=== PATIENT | female | born 1945 | race Caucasian/White ===

== ENCOUNTER 2017-09-30 11:46 | Observation (INO) | payer OTHER ==
[2017-09-30] VITALS (8 sets, daily range): BP systolic 112–154; BP diastolic 54–70; PULSE 52–70; RESP 15–19; TEMP 96.7–98.2; O2SAT 98–100
[~2017-09-30] VITALS: Ht 170.2 cm; Wt 121.0 kg
--- NOTE | 2017-09-30 12:10 | PD ---
HPI Chief Complaint: Chest Pain Time Seen by Provider: 12:03 Travel History International Travel<30 days: No Contact w/Intl Traveler<30days: No History of Present Illness HPI 72-year-old female with history of DM, HTN, CAD, HLD presents to the ED via EMS for evaluation of sudden onset 810 central chest pain. Onset at rest ~ 9 AM. Described as "like an elephant sitting on my chest." Accompanied by shortness of breath, diaphoresis, dizziness. Patient denies palpitations, fevers, chills, cough, difficulties with speech, facial droop, unilateral weakness. The event lasted approximately 10 minutes before resolving spontaneously. Patient states she is asymptomatic on presentation. She is followed by Dr. Amor, edge glue machine tender and Dr. Perez, nephrology. She states that she has a heart catheter scheduled for later this month. She had planned to have the heart cath done in [place] so she could be closer to family but due to today's event she has changed her mind. [facility] Social History Tobacco Use: No Allergies-Medications (Allergen,Severity, Reaction): Coded Allergies: No Known Allergies (Unverified , 09/30/17) Review of Systems Except as stated in HPI: all other systems reviewed are Neg Physical Exam Narrative GENERAL: Obese white female in no acute distress. SKIN: Focused skin assessment warm/dry. Well-healed surgical scars of bilateral anterior knees without signs of infection. HEAD: Normocephalic. EYES: No scleral icterus. No injection or drainage. NECK: Supple, trachea midline. No JVD or lymphadenopathy. CARDIOVASCULAR: Regular rate and rhythm without murmurs, gallops, or rubs. RESPIRATORY: Breath sounds clear and equal bilaterally. No accessory muscle use. GASTROINTESTINAL: Abdomen soft, non-tender, nondistended. MUSCULOSKELETAL: No cyanosis, or edema. NEUROLOGICAL: Awake and alert. Cranial nerves II through XII intact. Motor and sensory grossly within normal limits. Five out of 5 muscle strength in all muscle groups. Normal speech. BACK: Nontender without obvious deformity. No CVA tenderness. Data Data Last Documented VS Vital Signs Date Time Temp Pulse Resp B/P (MAP) Pulse Ox O2 Delivery O2 Flow Rate FiO2 09/30/17 13:24 54 15 98 Room Air 09/30/17 13:24 116/54 (74) Orders Orders Electrocardiogram (09/30/17 12:03) Basic Metabolic Panel (Bmp) (09/30/17 12:03) Ckmb (Isoenzyme) Profile (09/30/17 12:03) Complete Blood Count With Diff (09/30/17 12:03) Magnesium (Mg) (09/30/17 12:03) Prothrombin Time / Inr (Pt) (09/30/17 12:03) Act Partial Throm Time (Ptt) (09/30/17 12:03) Troponin I (09/30/17 12:03) Chest, Single Ap (09/30/17 12:03) Ecg Monitoring (09/30/17 12:03) Bilateral Bp Monitoring (09/30/17 12:03) Iv Access Insert/Monitor (09/30/17 12:03) Oximetry (09/30/17 12:03) Sodium Chloride 0.9% Flush (Ns Flush) (09/30/17 12:15) Ct Brain W/O Iv Contrast(Rout) (09/30/17 12:03) Aspirin Chew (Aspirin Chew) (09/30/17 12:15) Sodium Chlor 0.9% 1000 Ml Inj (Ns 1000 M (09/30/17 13:30) Type And Screen (09/30/17 13:29) Red Blood Cells (Rbc) (09/30/17 13:29) Blood Product Administration (09/30/17 13:29) Sodium Chlor 0.9% 250 Ml Inj (Ns 250 Ml (09/30/17 13:30) Diphenhydramine (Benadryl) (09/30/17 13:30) Acetaminophen (Tylenol) (09/30/17 13:30) Admit Order (Ed Use Only) (09/30/17 14:04) Labs Laboratory Tests Test 09/30/17 12:30 White Blood Count 6.1 TH/MM3 Red Blood Count 2.14 MIL/MM3 Hemoglobin 7.9 GM/DL Hematocrit 24.0 % Mean Corpuscular Volume 112.4 FL Mean Corpuscular Hemoglobin 37.0 PG Mean Corpuscular Hemoglobin Concent 32.9 % Red Cell Distribution Width 16.2 % Platelet Count 404 TH/MM3 Mean Platelet Volume 12.4 FL CBC Comment AUTO DIFF Differential Total Cells Counted 100 Neutrophils % (Manual) 37 % Band Neutrophils % 38 % Lymphocytes % 16 % Monocytes % 1 % Eosinophils % 2 % Basophils % 2 % Neutrophils # (Manual) 4.8 TH/MM3 Metamyelocytes 4 % Myelocytes 0 % Differential Comment FINAL DIFF MANUAL Platelet Estimate HIGH Platelet Morphology Comment ENLARGED Ovalocytes 2+ Keratocytes Prothrombin Time 12.0 SEC Prothromb Time International Ratio 1.1 RATIO Activated Partial Thromboplast Time 25.3 SEC Blood Urea Nitrogen 28 MG/DL Creatinine 1.62 MG/DL Random Glucose 140 MG/DL Calcium Level 9.5 MG/DL Magnesium Level 1.9 MG/DL Sodium Level 139 MEQ/L Potassium Level 4.9 MEQ/L Chloride Level 107 MEQ/L Carbon Dioxide Level 23.4 MEQ/L Anion Gap 9 MEQ/L Estimat Glomerular Filtration Rate 31 ML/MIN Total Creatine Kinase 37 U/L Troponin I LESS THAN 0.02 NG/ML MDM Medical Decision Making Medical Screen Exam Complete: Yes Emergency Medical Condition: Yes Differential Diagnosis Angina versus ACS versus TIA versus anemia versus other Narrative Course 72-year-old female with history of DM, HTN, CAD, HLD presents to the ED via EMS for evaluation of sudden onset 8/10 central chest pain. Onset at rest ~ 9 AM. Described as "like an elephant sitting on my chest." Accompanied by shortness of breath, diaphoresis, dizziness. Patient denies palpitations, fevers, chills, cough, difficulties with speech, facial droop, unilateral weakness. The event lasted approximately 10 minutes before resolving spontaneously. Patient is asymptomatic on presentation. She is followed by Dr. Amor, edge glue machine tender and Dr. Perez, nephrology. She states that she has a heart catheter scheduled for later this month. Vitals reviewed. Physical exam reveals a nontoxic- appearing obese white female in no acute distress. No appreciable M/R/G. Chest CTAB. Abdomen soft, nontender. No lower extremity edema. IV was established. Patient was administered 1 L of normal saline EKG: rate 54, sinus rhythm. HI interval 153, QRS 73, QTc 427 ms. Normal axis. No ST changes. Reviewed by Dr. Vidales CXR: No acute disease. Cardiac enzymes: Negative 1 CBC: WBC 6.1. Hemoglobin 7.9 BMP: BUN 28, creatinine 1.62 INR: 1.1 CT head: Negative noncontrast head CT per radiology read. 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 Perez at last visit. She has an upcoming visit with a skip locator. She is unsure of her baseline kidney function. Dr. Vidales performed a rectal exam, which was guaiac negative. I spoke with Dr. Amor who recommends transfusing 1 unit PRBC, will see the patient on the floor. We'll transfuse 1 unit pending type and screen. Patient is agreeable to admission to the hospital. I spoke with Dr. Kaplan who agrees to accept the patient to the medicine service. Please see medicine notes for disposition. Angelita Arias Sep 30, 2017 12:10
[2017-09-30] MEDS ORDERED: SODIUM CHLORIDE 0.9% FLUSH 10 ML FLUSH IVF PRN (12:15)
[2017-09-30] MEDS ORDERED: ASPIRIN 81 MG CHEW TAB CHEW ONE (12:15)
--- NOTE | 2017-09-30 12:35 | RADRPT ---
EXAM DATE/TIME: 09/30/2017 12:17 [facility] COMPARISON: No previous studies available for comparison. INDICATIONS : Dizziness. RADIATION DOSE: 32.74 CTDIvol (mGy) MEDICAL HISTORY : None SURGICAL HISTORY : None. ENCOUNTER: Initial ACUITY: 1 day PAIN SCALE: 0/10 LOCATION: cranial TECHNIQUE: Multiple contiguous axial images were obtained of the head. Using automated exposure control and adj ustment of the mA and/or kV according to patient size, radiation dose was kept as low as reasonably a chievable to obtain optimal diagnostic quality images. DICOM format image data is available electro nically for review and comparison. FINDINGS: CEREBRUM: The ventricles are normal for age. No evidence of midline shift, mass lesion, hemorrhage or acute in farction. No extra-axial fluid collections are seen. POSTERIOR FOSSA: The cerebellum and brainstem are intact. The 4th ventricle is midline. The cerebellopontine angle i s unremarkable. EXTRACRANIAL: The visualized portion of the orbits is intact. SKULL: The calvaria is intact. No evidence of skull fracture. CONCLUSION: Negative noncontrast head CT. Thien Stokes MD on September 30, 2017 at 12:34 Board Certified Radiologist. This report was verified electronically.
--- NOTE | 2017-09-30 12:58 | RADRPT ---
EXAM DATE/TIME: 09/30/2017 12:39 [facility] COMPARISON: No previous studies available for comparison. INDICATIONS : Chest pain. MEDICAL HISTORY : Hypertension. Diabetes mellitus type II. Coronary artery disease. SURGICAL HISTORY : None. ENCOUNTER: Initial ACUITY: 1 day PAIN SCORE: 8/10 LOCATION: Bilateral chest FINDINGS: A single view of the chest demonstrates the lungs to be symmetrically aerated without evidence of mas s, infiltrate or effusion. The cardiomediastinal contours are unremarkable. Osseous structures are intact. CONCLUSION: No acute disease. Nolberto Elkins MD FACR on September 30, 2017 at 12:57 Board Certified Radiologist. This report was verified electronically.
[2017-09-30 13:11] LABS: MEAN CELL VOLUME 112.4 FL (80.0-100.0); MEAN CORPUSCULAR HGB CONC 32.9 % (32.0-36.0); PLATELET COUNT 404 TH/MM3 (150-450); RED BLOOD COUNT 2.14 MIL/MM3 (4.00-5.30); RED CELL DISTRIBUTION WIDTH 16.2 % (11.6-17.2); WHITE BLOOD COUNT 6.1 TH/MM3 (4.0-11.0)
[2017-09-30 13:14] LABS: APTT (PATIENT) 25.3 SEC (24.3-30.1); INTERNATIONAL NORMALIZED RATIO 1.1 RATIO
[2017-09-30 13:25] LABS: ANION GAP 9 MEQ/L (5-15); BICARBONATE 23.4 MEQ/L (21.0-32.0); BLOOD UREA NITROGEN 28 MG/DL (7-18); CHLORIDE 107 MEQ/L (98-107); GLOMERULAR FILTRATION RATE 31 ML/MIN (>89); MAGNESIUM 1.9 MG/DL (1.5-2.5); POTASSIUM 4.9 MEQ/L (3.5-5.1); SODIUM (NA) 139 MEQ/L (136-145)
[2017-09-30 13:26] LABS: HEMO FLAGS AUTO DIFF
[2017-09-30] MEDS ORDERED: SODIUM CHLOR 0.9% 1000 ML INJ 1,000 ML IV ONE (13:30)
[2017-09-30] MEDS ORDERED: SODIUM CHLOR 0.9% 250 ML INJ 250 ML IV ONE (13:30)
[2017-09-30] MEDS ORDERED: diphenhydrAMINE HCL 25 MG CAP PO ONE (13:30)
[2017-09-30] MEDS ORDERED: ACETAMINOPHEN 325 MG TAB PO ONE (13:30)
[2017-09-30 13:35] LABS: BANDS 38 % (0-6); BASOPHILS 2 % (0-2); EOSINOPHILS 2 % (0-4); METAMYELOCYTES 4 % (0-1); MYELOCYTES 0 % (0-0); NEUTROPHIL # MANUAL DIFF 4.8 TH/MM3 (1.8-7.7); POLYS (SEG NEUTROPHILS) 37 % (16-70); WBC DIFF SAMPLE 100
[2017-09-30 13:36] LABS: CREATINE KINASE 37 U/L (26-192); PLATELET ESTIMATE SMEAR HIGH (NORMAL); PLATELET MORPHOLOGY ENLARGED (NORMAL)
--- NOTE | 2017-09-30 13:37 | PD ---
Physical Exam Date Seen by Provider: Sep 30, 2017 Narrative This patient presents for evaluation of chest pain. She has a history of renal insufficiency. She reports a known history of anemia. She states that that was discovered by her director of home care hospice recently. She has an appointment to be seen by a kettle girl in the near future. She reports no known GI blood loss. In addition, she is scheduled for a cardiac catheterization in the near future for evaluation of chest pain. She presented to us this morning after an episode of chest pain Data Data Last Documented VS Vital Signs Date Time Temp Pulse Resp B/P (MAP) Pulse Ox O2 Delivery O2 Flow Rate FiO2 09/30/17 13:24 54 15 98 Room Air 09/30/17 13:24 116/54 (74) Orders Orders Electrocardiogram (09/30/17 12:03) Basic Metabolic Panel (Bmp) (09/30/17 12:03) Ckmb (Isoenzyme) Profile (09/30/17 12:03) Complete Blood Count With Diff (09/30/17 12:03) Magnesium (Mg) (09/30/17 12:03) Prothrombin Time / Inr (Pt) (09/30/17 12:03) Act Partial Throm Time (Ptt) (09/30/17 12:03) Troponin I (09/30/17 12:03) Chest, Single Ap (09/30/17 12:03) Ecg Monitoring (09/30/17 12:03) Bilateral Bp Monitoring (09/30/17 12:03) Iv Access Insert/Monitor (09/30/17 12:03) Oximetry (09/30/17 12:03) Sodium Chloride 0.9% Flush (Ns Flush) (09/30/17 12:15) Ct Brain W/O Iv Contrast(Rout) (09/30/17 12:03) Aspirin Chew (Aspirin Chew) (09/30/17 12:15) Sodium Chlor 0.9% 1000 Ml Inj (Ns 1000 M (09/30/17 13:30) Type And Screen (09/30/17 13:29) Red Blood Cells (Rbc) (09/30/17 13:29) Blood Product Administration (09/30/17 13:29) Sodium Chlor 0.9% 250 Ml Inj (Ns 250 Ml (09/30/17 13:30) Diphenhydramine (Benadryl) (09/30/17 13:30) Acetaminophen (Tylenol) (09/30/17 13:30) Labs Laboratory Tests Test 09/30/17 12:30 White Blood Count 6.1 TH/MM3 Red Blood Count 2.14 MIL/MM3 Hemoglobin 7.9 GM/DL Hematocrit 24.0 % Mean Corpuscular Volume 112.4 FL Mean Corpuscular Hemoglobin 37.0 PG Mean Corpuscular Hemoglobin Concent 32.9 % Red Cell Distribution Width 16.2 % Platelet Count 404 TH/MM3 Mean Platelet Volume 12.4 FL CBC Comment AUTO DIFF Prothrombin Time 12.0 SEC Prothromb Time International Ratio 1.1 RATIO Activated Partial Thromboplast Time 25.3 SEC Blood Urea Nitrogen 28 MG/DL Creatinine 1.62 MG/DL Random Glucose 140 MG/DL Calcium Level 9.5 MG/DL Magnesium Level 1.9 MG/DL Sodium Level 139 MEQ/L Potassium Level 4.9 MEQ/L Chloride Level 107 MEQ/L Carbon Dioxide Level 23.4 MEQ/L Anion Gap 9 MEQ/L Estimat Glomerular Filtration Rate 31 ML/MIN MDM Supervised Visit with MIKEY: Yes Narrative Course I, Dr. Vidales, have reviewed the advance practice practitioner's documentation and am in agreement, met with the patient face to face, made the diagnosis, and the medical decision making was done by me. *My assessment and Findings: Patient is awake and alert and in no acute distress. She does look pale. Rectal exam shows brown stool. Please see Angelita Arias PA-C's note for results of laboratory and radiographic evaluation, ED course, final diagnosis and disposition HemaPrompt Test Point of Care Internal Pos. & Neg. Controls: Passed Fecal Specimen Occult Blood: Negative Alexandria Vidales MD Sep 30, 2017 13:37
[2017-09-30 13:39] LABS: OVALOCYTES 2+ (NORMAL)
[2017-09-30 13:40] LABS: SCAN/DIFF FINAL DIFF MANUAL
[2017-09-30] MEDS ORDERED: GLUCAGON 1 MG/ML VIAL OTHER PRN (15:15)
[2017-09-30] MEDS ORDERED: MAGNESIUM HYDROXIDE SUSP 30 ML CUP PO PRN (15:15)
[2017-09-30] MEDS ORDERED: NITROGLYCERIN 0.4 MG SL 25 TABS/BTL SL PRN (15:15)
[2017-09-30] MEDS ORDERED: ACETAMINOPHEN 325 MG TAB PO PRN ×2 (15:15)
[2017-09-30] MEDS ORDERED: NALOXONE HCL 0.4 MG/ML AMP IV PUSH PRN (15:15)
[2017-09-30] MEDS ORDERED: BISACODYL 10 MG SUPP RECTAL PRN (15:15)
[2017-09-30] MEDS ORDERED: LACTULOSE SYRUP 20 GM/30 ML CUP PO PRN (15:15)
[2017-09-30] MEDS ORDERED: SENNOSIDES 8.6 MG TAB PO PRN (15:15)
[2017-09-30] MEDS ORDERED: SODIUM CHLORIDE 0.9% FLUSH 10 ML FLUSH IV FLUSH PRN ×2 (15:15)
[2017-09-30] MEDS ORDERED: MORPHINE SULFATE 4 MG/ML INJ IV PUSH PRN ×2 (15:15)
[2017-09-30] MEDS ORDERED: ONDANSETRON HCL 4 MG/2 ML VIAL IVP PRN (15:15)
[2017-09-30] MEDS ORDERED: ALUMINUM/MAGNESIUM/SIMETH 30 ML CUP PO PRN (15:15)
[2017-09-30] MEDS ORDERED: oxyCODONE/ACETAMINOPHEN 10 MG/325 MG TAB PO PRN (15:15)
[2017-09-30] MEDS ORDERED: PROCHLORPERAZINE 25 MG SUPP RECTAL PRN (15:15)
[2017-09-30] MEDS ORDERED: oxyCODONE/ACETAMINOPHEN 5 MG/325 MG TAB PO PRN (15:15)
[2017-09-30] MEDS ORDERED: DEXTROSE 50% IN WATER 50 ML VIAL(D50) IV PUSH PRN (15:15)
--- NOTE | 2017-09-30 15:32 | HHI.HP ---
[facility] Service [place] [facility] Primary Care Physician Non-Staff Admission Diagnosis symptomatic anemia, chest pain Diagnoses: (1) Chest pain Diagnosis: Principal (2) Diabetes Diagnosis: Secondary (3) Obese Diagnosis: Secondary (4) Hyperlipidemia Diagnosis: Secondary (5) Symptomatic anemia Diagnosis: Principal (6) Renal insufficiency Diagnosis: Secondary Chief Complaint: Chest pain Travel History International Travel<30 Days: No Contact w/Intl Traveler <30 Da: No History of Present Illness Patient is a 72-year-old female with history of diabetes mellitus, hypertension, coronary artery disease, hyperlipidemia, who presents to the emergency department via EMS for evaluation of sudden onset of 8 out of 10 in the central chest pain. Onset was at rest about 9 AM this morning. She described it as "like an elephant sitting on my chest". Came in with some shortness breath some diaphoresis and dizziness. Patient denies any palpitations denies any fevers denies any chills denies any cough denies any difficulty with speech denies any facial droop or unilateral weakness. Event lasted about 10 minutes before resolving spontaneously states that she has no chest pain at present. She is followed by Dr. Dusty Amor railroad design consultant and Dr. Perez of nephrology. Has had a heart catheterization scheduled for later this month in [place]. Decided to come into the hospital today for this worsening chest pain Was found to have an anemia of 7.9. We'll transfuse 1 unit and trend troponins and place her in observation for evaluation by cardiology Review of Systems Constitutional: COMPLAINS OF: Fatigue, DENIES: Diaphoretic episodes, Fever, Weight gain, Weight loss, Chills, Dizziness, Change in appetite Endocrine: DENIES: Abnorml menstrual pattern, Heat/cold intolerance, Polydipsia , Polyuria, Polyphagia Eyes: DENIES: Blurred vision, Diplopia, Eye inflammation, Eye pain, Vision loss Ears, nose, mouth, throat: DENIES: Tinnitus, Hearing loss, Vertigo, Nasal discharge Respiratory: DENIES: Apneas, Cough, Snoring, Wheezing Cardiovascular: COMPLAINS OF: Chest pain, Dyspnea on Exertion, DENIES: Palpitations, Syncope, PND, Lower Extremity Edema Gastrointestinal: DENIES: Abdominal pain, Black stools, Bloody stools, Constipation Genitourinary: DENIES: Abnormal vaginal bleeding, Dysmenorrhea, Dyspareunia Musculoskeletal: DENIES: Joint pain, Muscle aches, Stiffness Integumentary: DENIES: Abnormal pigmentation, Pruritus, Rash Hematologic/lymphatic: DENIES: Bruising, Lymphadenopathy Immunologic/allergic: DENIES: Eczema, Urticaria Neurologic: DENIES: Abnormal gait, Headache, Localized weakness, Paresthesias, Seizures, Speech Problems, Tremor, Poor Balance Psychiatric: DENIES: Anxiety, Confusion, Mood changes, Depression, Hallucinations, Agitation, Suicidal Ideation, Homicidal Ideation Past Family Social History Past Medical History Diabetes Hypertension Coronary artery disease Hyperlipidemia Obesity Hypothyroidism Orthopedic surgery bilateral total knees right shoulder surgery Past Surgical History Bilateral total knee replacement right shoulder surgery cholecystectomy Reported Medications Has not been obtained yet Allergies: Coded Allergies: No Known Allergies (Unverified , 09/30/17) Active Ordered Medications Current Medications Sodium Chloride (NS Flush) 2 ml UNSCH PRN IVF FLUSH AFTER USING IV ACCESS; Start 09/30/17 at 12:15 Aspirin (Aspirin Chew) 324 mg ONCE ONCE CHEW Last administered on 09/30/17 12 :30; Start 09/30/17 at 12:15; Stop 09/30/17 at 12:16; Status DC Sodium Chloride 1,000 ml @ 999 mls/hr BOLUS ONCE IV Last administered on 09/30 13:36; Start 09/30/17 at 13:30; Stop 09/30/17 at 14:30; Status DC Sodium Chloride 250 ml @ 15 mls/hr ONCE ONCE IV ; Start 09/30/17 at 13:30; Stop 10/01/17 at 06:09 Diphenhydramine HCl (Benadryl) 25 mg ONCE ONCE PO ; Start 09/30/17 at 13:30; Stop 09/30/17 at 13:32; Status DC Acetaminophen (Tylenol) 650 mg ONCE ONCE PO ; Start 09/30/17 at 13:30; Stop at 13:32; Status DC Dextrose (D50w (Vial) Inj) 50 ml UNSCH PRN IV PUSH HYPOGLYCEMIA-SEE COMMENTS; Start 09/30/17 at 15:15; Status UNV Glucagon (Glucagon Inj) 1 mg UNSCH PRN OTHER HYPOGLYCEMIA-SEE COMMENTS; Start 09/30/17 at 15:15; Status UNV Insulin Aspart (NovoLOG SUPPLEMENTAL SCALE) 1 ACHS SLIDING SCALE SQ ; Start at 17:00; Status UNV Family History Hypertension diabetes Social History Denies tobacco abuse Occasional rare alcoholic beverage Denies any illicit Physical Exam Vital Signs Vital Signs Date Time Temp Pulse Resp B/P (MAP) Pulse Ox O2 Delivery O2 Flow Rate FiO2 09/30/17 13:24 54 15 98 Room Air 09/30/17 13:24 57 15 116/54 (74) 98 Room Air 09/30/17 13:24 54 15 116/54 (74) 99 Room Air 124/58 (80) 09/30/17 13:24 52 15 99 Room Air Physical Exam GENERAL: This is a well-nourished, well-developed patient, in no apparent distress. SKIN: No rashes, ecchymoses or lesions. Cool and dry. HEAD: Atraumatic. Normocephalic. No temporal or scalp tenderness. EYES: Pupils equal round and reactive. Extraocular motions intact. No scleral icterus. No injection or drainage. ENT: Nose without bleeding, purulent drainage or septal hematoma. Throat without erythema, tonsillar hypertrophy or exudate. Uvula midline. Airway patent. Tongue is midline NECK: Trachea midline. No JVD or lymphadenopathy. Supple, nontender, no meningeal signs. CARDIOVASCULAR: Regular rate and rhythm without murmurs, gallops, or rubs. S1 and S2 no S3 or S4 RESPIRATORY: Clear to auscultation. Breath sounds equal bilaterally. No wheezes , rales, or rhonchi. GASTROINTESTINAL: Abdomen soft, non-tender, nondistended. No hepato-splenomegaly , or palpable masses. No guarding. Obese MUSCULOSKELETAL: Extremities without clubbing, cyanosis, +1 edema bilateral lower extremities. No joint tenderness, effusion, noted. No calf tenderness. Negative Homans sign bilaterally. NEUROLOGICAL: Awake and alert. Cranial nerves II through XII intact. Motor and sensory grossly within normal limits. Five out of 5 muscle strength in all muscle groups. Normal speech. Insight and judgment is good Mood and behaviors are appropriate Laboratory Laboratory Tests Test 09/30/17 12:30 White Blood Count 6.1 Red Blood Count 2.14 Hemoglobin 7.9 Hematocrit 24.0 Mean Corpuscular Volume 112.4 Mean Corpuscular Hemoglobin 37.0 Mean Corpuscular Hemoglobin Concent 32.9 Red Cell Distribution Width 16.2 Platelet Count 404 Mean Platelet Volume 12.4 CBC Comment AUTO DIFF Differential Total Cells Counted 100 Neutrophils % (Manual) 37 Band Neutrophils % 38 Lymphocytes % 16 Monocytes % 1 Eosinophils % 2 Basophils % 2 Neutrophils # (Manual) 4.8 Metamyelocytes 4 Myelocytes 0 Differential Comment FINAL DIFF MANUAL Platelet Estimate HIGH Platelet Morphology Comment ENLARGED Ovalocytes 2+ Keratocytes Prothrombin Time 12.0 Prothromb Time International Ratio 1.1 Activated Partial Thromboplast Time 25.3 Blood Urea Nitrogen 28 Creatinine 1.62 Random Glucose 140 Calcium Level 9.5 Magnesium Level 1.9 Sodium Level 139 Potassium Level 4.9 Chloride Level 107 Carbon Dioxide Level 23.4 Anion Gap 9 Estimat Glomerular Filtration Rate 31 Total Creatine Kinase 37 Troponin I LESS THAN 0.02 Result Diagram: 09/30/17 1230 09/30/17 1230 Imaging Last Impressions Head CT 09/30/17 1203 Signed Impressions: Service Date/Time: Saturday, September 30, 2017 12:17 - CONCLUSION: Negative noncontrast head CT. Thien Stokes MD Chest X-Ray 09/30/17 1203 Signed Impressions: Service Date/Time: Saturday, September 30, 2017 12:39 - CONCLUSION: No acute disease. Nolberto Elkins MD FACR Caprini VTE Risk Assessment Caprini VTE Risk Assessment: Mod/High Risk (score >= 2) Caprini Risk Assessment Model Point Value = 1 Point Value = 2 Point Value = 3 Point Value = 5 Age 41-60 Minor surgery BMI > 25 kg/m2 Swollen legs Varicose veins or History of unexplained or recurrent spontaneous Oral contraceptives or hormone replacement Sepsis (< 1 month) Serious lung disease, including pneumonia (< 1 month) Abnormal pulmonary function Acute myocardial infarction Congestive heart failure (< 1 month) History of inflammatory bowel disease Medical patient at bed rest Age 61-74 Arthroscopic surgery Major open surgery (> 45 min) Laparoscopic surgery (> 45 min) Malignancy Confined to bed (> 72 hours) Immobilizing plaster cast Central venous access Age >= 75 History of VTE Family history of VTE Factor V Leiden Prothrombin [id number] Lupus anticoagulant Anticardiolipin antibodies Elevated serum homocysteine Heparin-induced thrombocytopenia Other congenital or acquired thrombophilia Stroke (< 1 month) Elective arthroplasty Hip, pelvis, or leg fracture Acute spinal cord injury (< 1 month) Prophylaxis Regimen Total Risk Factor Score Risk Level Prophylaxis Regimen 0-1 Low Early ambulation 2 Moderate Order ONE of the following: *Sequential Compression Device (SCD) *Heparin 5000 units SQ BID 3-4 Higher Order ONE of the following medications: *Heparin 5000 units SQ TID *Enoxaparin/Lovenox 40 mg SQ daily (WT < 150 kg, CrCl > 30 mL/min) *Enoxaparin/Lovenox 30 mg SQ daily (WT < 150 kg, CrCl > 10-29 mL/min) *Enoxaparin/Lovenox 30 mg SQ BID (WT < 150 kg, CrCl > 30 mL/min) AND/OR *Sequential Compression Device (SCD) 5 or more Highest Order ONE of the following medications: *Heparin 5000 units SQ TID (Preferred with Epidurals) *Enoxaparin/Lovenox 40 mg SQ daily (WT < 150 kg, CrCl > 30 mL/min) *Enoxaparin/Lovenox 30 mg SQ daily (WT < 150 kg, CrCl > 10-29 mL/min) *Enoxaparin/Lovenox 30 mg SQ BID (WT < 150 kg, CrCl > 30 mL/min) AND *Sequential Compression Device (SCD) Assessment and Plan Problem List: (1) Diabetes ICD Code: E11.9 - Type 2 diabetes mellitus without complications (2) Hyperlipidemia ICD Code: E78.5 - Hyperlipidemia, unspecified (3) Obese ICD Code: E66.9 - Obesity, unspecified (4) Renal insufficiency ICD Code: N28.9 - Disorder of kidney and ureter, unspecified (5) Chest pain ICD Code: R07.9 - Chest pain, unspecified (6) Symptomatic anemia ICD Code: D64.9 - Anemia, unspecified Assessment and Plan Chest pain atypical with negative troponins and cardiac enzymes Trend troponins Echocardiogram Consult cardiology Dr. Amor May need cardiac catheterization Symptomatic anemia we'll transfuse 1 unit packed red blood cells per Dr. Amor's request Probable anemia of chronic disease Chronic renal insufficiency may have a component affecting his blood cell production Diabetes mellitus Continue sliding scale coverage Accu-Cheks before meals and at bedtime diabetic diet Hyperlipidemia continue home meds once they're established Obesity recommended weight loss Hypertension try to obtain home medications Home medications need to be obtained and reconciled has not been done by nurse A.m. labs Trend troponins Discussed with patient, RN and PA SCDs at this time and DIANA sanders Had a heme-negative stool Place in observation GI prophylaxis DVT prophylaxis with DIANA sanders and SCDs Code Status Full code Discussed Condition With Discussed with patient, RN, PA, and physician. Nolberto Kaplan DO Sep 30, 2017 15:32
[2017-09-30] MEDS: INSULIN ASPART SUPPLEMENTAL SCALE SQ SCH ×2 (17:00→21:56)
[2017-09-30 18:07] LABS: CREATINE KINASE 30 U/L (26-192)
--- NOTE | 2017-09-30 18:21 | EKG ---
Date Performed: 09/30/2017 Time Performed: 16:52:12 PTAGE: 72 years EKG: SINUS BRADYCARDIA BORDERLINE ECG No significant change from prior electrocardiogram. PREVIOUS TRACING : 09/30/2017 12.39 DOCTOR: Rico Cuevas Interpretating Date/Time 09/30/2017 18:19:58
--- NOTE | 2017-09-30 19:43 | EKG ---
Date Performed: 09/30/2017 Time Performed: 12:39:20 PTAGE: 72 years EKG: SINUS BRADYCARDIA BORDERLINE ECG NO PREVIOUS TRACING DOCTOR: Rico Cuevas Interpretating Date/Time 09/30/2017 19:42:03
[2017-09-30] MEDS ORDERED: SODIUM CHLORIDE 0.9% FLUSH 10 ML FLUSH IV FLUSH SCH (21:00)
[2017-09-30] MEDS: SODIUM CHLORIDE 0.9% FLUSH 10 ML FLUSH IV FLUSH SCH (21:54)
[2017-09-30] MEDS: DOCUSATE SODIUM 50 MG/SENNA 8.6 MG TAB PO SCH (21:55)
--- NOTE | 2017-09-30 23:21 | MB ---
cc: DUSTY REN DO DATE OF CONSULTATION September 30, 2017 REASON FOR CONSULTATION Unstable angina. HISTORY OF PRESENT ILLNESS Nica Mcnair is a pleasant 72-year-old female whom I see in the office who presented to [facility] on September 30, 2017. I previously saw her in the office earlier this week and at that time it was a new evaluation for chest pain. In seeing her she was having chest pain which was coming on with exertion and relieved with rest. This seemed to be coming on more and more frequently and lasting longer. I placed her on antianginal medications but overall I was concerned for coronary insufficiency and felt that she was too high risk for a stress test and should undergo coronary angiogram. This was originally scheduled for later in September due to her wanting to go home over . I explained to her that if she had further chest pain she should consider coming into the emergency room due to the overall concern for her symptoms. This morning she had onset of chest pain at around 9:00 a.m. while at rest. She said it felt like an elephant was sitting on her chest. She decided to sit down and it finally started going away. She then started doing stuff around the house and got lightheaded and short of breath. Chest pain came back and at that time she felt like she should come to the emergency room. In seeing her she is currently resting, hemodynamically stable without chest pain or shortness of breath. PAST MEDICAL HISTORY 1. Diabetes. 2. Hypertension. 3. Hyperlipidemia. 4. Chronic kidney disease. 5. Obesity. 6. Hypothyroidism. 7. Anemia. PAST SURGICAL HISTORY 1. Bilateral total knee replacement. 2. Right shoulder surgery. 3. Cholecystectomy. ALLERGIES NO KNOWN DRUG ALLERGIES. MEDICATIONS 1. Recently placed on Isosorbide mononitrate 30 milligrams daily. 2. Recently started on Lipitor 40 milligrams every night. 3. Recently started on Metoprolol tartrate 25 milligrams b.i.d. 4. Recently started on Nitroglycerin sublingual. 5. Glyburide 2.5 milligrams daily. 6. Synthroid 75 micrograms daily. 7. Lisinopril 20 milligrams daily. FAMILY HISTORY Denies premature coronary artery disease or sudden cardiac within the family. SOCIAL HISTORY Denies tobacco, alcohol or drug abuse. REVIEW OF SYSTEMS 14-systems were reviewed including osteopathic, pertinent positives and negatives above, otherwise negative. PHYSICAL EXAMINATION VITAL SIGNS: Temperature 98.2, heart rate 60, blood pressure 126/57, respirations 18, pulse ox 100% on room air. GENERAL: In general, the patient appears well in no acute distress. Alert, awake and oriented x3. HEENT: Extraocular muscles intact. Mucous membranes moist. NECK: Neck is supple. No JVD at 45 degrees. No carotid bruits heard bilaterally. Carotid upstroke is brisk in nature. HEART: Heart is regular rate and rhythm. Positive first and second heart sounds with a 1/6 crescendo-decrescendo murmur to the right sternal border. LUNGS: Lungs are clear to auscultation bilaterally. No wheezes, rales or rhonchi. ABDOMEN: Soft, nontender, nondistended. No organomegaly noted. EXTREMITIES: Show no clubbing, cyanosis or edema. Femoral and distal pulses intact bilaterally. NEUROLOGICALLY: No focal deficits. SKIN: Warm, dry and intact. OSTEOPATHIC: No kyphoscoliosis, lordosis or paraspinal tender points. LABORATORY FINDINGS Hemoglobin 7.9, hematocrit 24.0, platelets 404. Potassium 4.9, BUN 28, creatinine 1.62. Troponin negative x2. CARDIOLOGY STUDIES Electrocardiogram (September 30, 2017 at 16:52) sinus bradycardia, no acute ST-T wave changes. IMPRESSION 1. Chest pain concerning for coronary insufficiency. 2. Unstable angina. 3. Diabetes. 4. Hyperlipidemia. 5. Obesity. 6. Chronic kidney disease. 7. Possible symptomatic anemia. 8. Macrocytic anemia of unknown cause. RECOMMENDATIONS 1. Ms. Mcnair appears to have presented with unstable angina. Because of this consideration will be made for cardiac catheterization in the morning. Risks, benefits and alternatives were explained to her and she consents as such. 2. She will be transfused 1 unit of packed red blood cells and if hemoglobin is appropriate in the morning we will plan for possible coronary angiogram. If hemoglobin is still low she may need further workup of her anemia before deciding on coronary angiogram. 3. Will check a 2-D echo to look at her overall left ventricular function, cardiac structure and possible valvulopathies. 4. She will be given gentle hydration due to her chronic kidney disease. 5. Further recommendations will be made after coronary visualization. Thank you for allowing me to see Nica Mcnair. If there are any questions please do not hesitate to call. Dusty MOSS/CHARLEY /10:29 PM /11:05 PM
[2017-10-01] VITALS (16 sets, daily range): BP systolic 107–129; BP diastolic 53–79; PULSE 50–71; RESP 16–22; TEMP 97.7–98.7; O2SAT 94–98
[2017-10-01 01:15] LABS: MAGNESIUM 1.7 MG/DL (1.5-2.5)
[2017-10-01 01:19] LABS: CREATINE KINASE 28 U/L (26-192)
[2017-10-01 04:26] LABS: AUTOMATED NEUTROPHIL # 1.9 TH/MM3 (1.8-7.7); BASOPHIL # 0.1 TH/MM3 (0-0.2); BASOPHIL % 2.5 % (0.0-2.0); EOSINOPHIL # 0.1 TH/MM3 (0-0.4); EOSINOPHIL % 3.4 % (0.0-4.0); HEMATOCRIT 22.3 % (35.0-46.0); LYMPH % 38.1 % (9.0-44.0); LYMPHOCYTE # 1.4 TH/MM3 (1.0-4.8); MEAN CORPUSCULAR HEMOGLOBIN 33.9 PG (27.0-34.0); MONO % 6.7 % (0.0-8.0); NEUT % 49.3 % (16.0-70.0); PLATELET COUNT 316 TH/MM3 (150-450); RED BLOOD COUNT 2.11 MIL/MM3 (4.00-5.30); WHITE BLOOD COUNT 3.8 TH/MM3 (4.0-11.0)
[2017-10-01 04:52] LABS: ALKALINE PHOSPHATASE 59 U/L (45-117); ALT (GPT) 16 U/L (10-53); ANION GAP 7 MEQ/L (5-15); AST (GOT) 13 U/L (15-37); BICARBONATE 27.2 MEQ/L (21.0-32.0); BLOOD UREA NITROGEN 31 MG/DL (7-18); CHLORIDE 110 MEQ/L (98-107); CREATINE KINASE 27 U/L (26-192); FREE T4 1.07 NG/DL (0.76-1.46); GLOMERULAR FILTRATION RATE 29 ML/MIN (>89); HDL CHOLESTEROL 37.8 MG/DL (40.0-60.0); LDL CHOLESTEROL 30 MG/DL (0-99); MAGNESIUM 1.8 MG/DL (1.5-2.5); POTASSIUM 4.4 MEQ/L (3.5-5.1); SODIUM (NA) 144 MEQ/L (136-145); TOTAL BILIRUBIN ADULT 0.4 MG/DL (0.2-1.0)
[2017-10-01 05:00] LABS: HEMO FLAGS AUTO DIFF; PLATELET ESTIMATE SMEAR NORMAL (NORMAL); SCAN/DIFF AUTO DIFF CONFIRMED
[2017-10-01 05:01] LABS: PLATELET MORPHOLOGY ENLARGED (NORMAL)
[2017-10-01] MEDS ORDERED: LEVO25TA4 PO (05:10)
[2017-10-01] MEDS ORDERED: LISI2.5T3 PO (05:10)
[2017-10-01] MEDS ORDERED: ISOS30TA3 PO (05:10)
[2017-10-01] MEDS ORDERED: GEMF600T PO (05:10)
[2017-10-01] MEDS ORDERED: METO25TA3 PO (05:10)
[2017-10-01] MEDS ORDERED: ATOR40TA16 PO (05:10)
--- NOTE | 2017-10-01 07:35 | EKG ---
Date Performed: 10/01/2017 Time Performed: 00:54:53 PTAGE: 72 years EKG: Sinus rhythm NORMAL ECG No significant change from prior electrocardiogram. PREVIOUS TRACING : 09/30/2017 16.52 DOCTOR: Rico Cuevas Interpretating Date/Time 10/01/2017 07:33:35
[2017-10-01] MEDS: INSULIN ASPART SUPPLEMENTAL SCALE SQ SCH ×4 (08:00→21:00)
[2017-10-01] MEDS ORDERED: SODIUM CHLOR 0.9% 1000 ML INJ 1,000 ML IV ONE (08:30)
[2017-10-01 10:18] LABS: TRANSFERRIN IRON PROFILE 213 MG/DL (200-360)
[2017-10-01] MEDS ORDERED: SODIUM CHLOR 0.9% 250 ML INJ 250 ML IV ONE (10:30)
--- NOTE | 2017-10-01 10:32 | PD.CARD.PN ---
Subjective Subjective Remarks No events overnight No chest pain/SOB Objective Medications Current Medications Medications (Trade) Dose Ordered Sig/Riley Route Start Time Stop Time Status Last Admin (D50w (Vial) Inj) 50 ml UNSCH PRN IV PUSH 09/30/17 15:15 (Glucagon Inj) 1 mg UNSCH PRN OTHER 09/30/17 15:15 (NS Flush) 2 ml BID IV FLUSH 09/30/17 21:00 09/30/17 21:54 (NS Flush) 2 ml UNSCH PRN IV FLUSH 09/30/17 15:15 (Aspirin Chew) 162 mg DAILY PO 10/01/17 09:00 (Nitrostat Sl) 0.4 mg Q5M PRN SL 09/30/17 15:15 (Protonix) 40 mg DAILY PO 10/01/17 09:00 (Tylenol) 650 mg Q4H PRN PO 09/30/17 15:15 (Zofran Inj) 4 mg Q6H PRN IVP 09/30/17 15:15 (Compazine Supp) 25 mg Q12H PRN RECTAL 09/30/17 15:15 (Tylenol) 650 mg Q6H PRN PO 09/30/17 15:15 (Percocet 5-325 Mg) 1 tab Q6H PRN PO 09/30/17 15:15 (Percocet 10-325 Mg) 1 tab Q6H PRN PO 09/30/17 15:15 (Morphine Inj) 2 mg Q3H PRN IV PUSH 09/30/17 15:15 (Morphine Inj) 4 mg Q3H PRN IV PUSH 09/30/17 15:15 (Narcan Inj) 0.4 mg UNSCH PRN IV PUSH 09/30/17 15:15 (Sasha-Colace) 1 tab BID PO 09/30/17 21:00 09/30/17 21:55 (Senokot) 17.2 mg Q12H PRN PO 09/30/17 15:15 (Dulcolax Supp) 10 mg DAILY PRN RECTAL 09/30/17 15:15 (Lactulose Liq) 30 ml DAILY PRN PO 09/30/17 15:15 (NovoLOG SUPPLEMENTAL SCALE) 1 ACHS SLIDING SCALE SQ 10/01/17 08:00 (Lipitor) 40 mg HS PO 10/01/17 21:00 (Lopid) 600 mg BIDAC PO 10/01/17 16:00 Future Hold (Imdur) 30 mg DAILY PO 10/01/17 09:00 (Synthroid) 25 mcg DAILY@0600 PO 10/01/17 09:00 (Lopressor) 25 mg BID PO 10/01/17 09:00 Sodium Chloride 1,000 ml @ 70 mls/hr [id number] ONCE IV 10/01/17 08:30 10/01/17 22:47 Sodium Chloride 250 ml @ 15 mls/hr ONCE ONCE IV 10/01/17 10:30 10/02/17 03:09 UNV Vital Signs / I&O Vital Signs Date Time Temp Pulse Resp B/P (MAP) Pulse Ox O2 Delivery O2 Flow Rate FiO2 10/01/17 08:15 68 10/01/17 07:56 98.1 71 22 129/60 (83) 95 10/01/17 05:07 97 10/01/17 04:23 58 10/01/17 03:48 97.7 62 19 118/59 (78) 96 10/01/17 03:24 58 10/01/17 00:05 71 10/01/17 00:00 98.3 67 18 107/54 (71) 97 09/30/17 21:00 98.2 62 18 112/54 98 09/30/17 20:12 97.8 58 19 124/56 (78) 99 09/30/17 18:25 97.4 70 18 143/65 98 09/30/17 17:56 96.7 62 18 154/67 98 09/30/17 17:00 60 09/30/17 16:43 98.2 59 18 126/57 (80) 100 09/30/17 15:59 68 15 118/70 (86) 98 09/30/17 13:24 54 15 98 Room Air 09/30/17 13:24 57 15 116/54 (74) 98 Room Air 09/30/17 13:24 54 15 116/54 (74) 99 Room Air 124/58 (80) 09/30/17 13:24 52 15 99 Room Air I/O 09/30/17 09/30/17 09/30/17 10/01/17 10/01/17 10/01/17 07:00 15:00 23:00 07:00 15:00 23:00 Intake Total 1000 ml 460 ml Balance 1000 ml 460 ml Intake IV Total 1000 ml Packed Cells 400 ml Blood Product IV Normal Saline Flush 60 ml Physical Exam GENERAL: NAD, AAOx3 SKIN: Warm and dry. HEAD: Atraumatic. Normocephalic. EYES: Pupils equal and round. No scleral icterus. No injection or drainage. ENT: No nasal bleeding or discharge. Mucous membranes pink and moist. NECK: Trachea midline. No JVD. CARDIOVASCULAR: Regular rate and rhythm. RESPIRATORY: No accessory muscle use. Clear to auscultation. Breath sounds equal bilaterally. GASTROINTESTINAL: Abdomen soft, non-tender, nondistended. Hepatic and splenic margins not palpable. MUSCULOSKELETAL: Extremities without clubbing, cyanosis, or edema. No obvious deformities. NEUROLOGICAL: Awake and alert. No obvious cranial nerve deficits. Motor grossly within normal limits. Five out of 5 muscle strength in the arms and legs. Normal speech. PSYCHIATRIC: Appropriate mood and affect; insight and judgment normal. Laboratory Laboratory Tests Test 09/30/17 12:30 09/30/17 16:50 10/01/17 00:30 10/01/17 04:01 White Blood Count 6.1 TH/MM3 3.8 TH/MM3 Red Blood Count 2.14 MIL/MM3 2.11 MIL/MM3 Hemoglobin 7.9 GM/DL 7.1 GM/DL Hematocrit 24.0 % 22.3 % Mean Corpuscular Volume 112.4 FL 106.0 FL Mean Corpuscular Hemoglobin 37.0 PG 33.9 PG Mean Corpuscular Hemoglobin Concent 32.9 % 32.0 % Red Cell Distribution Width 16.2 % 24.0 % Platelet Count 404 TH/MM3 316 TH/MM3 Mean Platelet Volume 12.4 FL 11.8 FL CBC Comment AUTO DIFF AUTO DIFF Differential Total Cells Counted 100 Neutrophils % (Manual) 37 % Band Neutrophils % 38 % Lymphocytes % 16 % Monocytes % 1 % Eosinophils % 2 % Basophils % 2 % Neutrophils # (Manual) 4.8 TH/MM3 Metamyelocytes 4 % Myelocytes 0 % Differential Comment FINAL DIFF MANUAL AUTO DIFF CONFIRMED Platelet Estimate HIGH NORMAL Platelet Morphology Comment ENLARGED ENLARGED Ovalocytes 2+ Keratocytes Prothrombin Time 12.0 SEC Prothromb Time International Ratio 1.1 RATIO Activated Partial Thromboplast Time 25.3 SEC Blood Urea Nitrogen 28 MG/DL 31 MG/DL Creatinine 1.62 MG/DL 1.74 MG/DL Random Glucose 140 MG/DL 110 MG/DL Calcium Level 9.5 MG/DL 8.5 MG/DL Magnesium Level 1.9 MG/DL 1.7 MG/DL 1.8 MG/DL Sodium Level 139 MEQ/L 144 MEQ/L Potassium Level 4.9 MEQ/L 4.4 MEQ/L Chloride Level 107 MEQ/L 110 MEQ/L Carbon Dioxide Level 23.4 MEQ/L 27.2 MEQ/L Anion Gap 9 MEQ/L 7 MEQ/L Estimat Glomerular Filtration Rate 31 ML/MIN 29 ML/MIN Total Creatine Kinase 37 U/L 30 U/L 28 U/L 27 U/L Troponin I LESS THAN 0.02 NG/ML LESS THAN 0.02 NG/ML LESS THAN 0.02 NG/ML LESS THAN 0.02 NG/ML B-Type Natriuretic Peptide 143 PG/ML Neutrophils (%) (Auto) 49.3 % Lymphocytes (%) (Auto) 38.1 % Monocytes (%) (Auto) 6.7 % Eosinophils (%) (Auto) 3.4 % Basophils (%) (Auto) 2.5 % Neutrophils # (Auto) 1.9 TH/MM3 Lymphocytes # (Auto) 1.4 TH/MM3 Monocytes # (Auto) 0.3 TH/MM3 Eosinophils # (Auto) 0.1 TH/MM3 Basophils # (Auto) 0.1 TH/MM3 Total Protein 6.4 GM/DL Albumin 3.3 GM/DL Phosphorus Level 4.0 MG/DL Alkaline Phosphatase 59 U/L Aspartate Amino Transf (AST/SGOT) 13 U/L Alanine Aminotransferase (ALT/SGPT) 16 U/L Total Bilirubin 0.4 MG/DL Iron Level 155 MCG/DL Total Iron Binding Capacity 298 MCG/DL Percent Iron Saturation 52.0 % Triglycerides Level 128 MG/DL Cholesterol Level 93 MG/DL LDL Cholesterol 30 MG/DL HDL Cholesterol 37.8 MG/DL Cholesterol/HDL Ratio 2.46 RATIO Free Thyroxine 1.07 NG/DL Thyroid Stimulating Hormone 3rd Gen 2.780 uIU/ML Imaging Last [address] 09/30/17 1203 Signed Impressions: Service Date/Time: Saturday, September 30, 2017 12:17 - CONCLUSION: Negative noncontrast head CT. Thien Stokes MD Chest X-Ray 09/30/17 1203 Signed Impressions: Service Date/Time: Saturday, September 30, 2017 12:39 - CONCLUSION: No acute disease. Nolberto Elkins MD FACR Assessment and Plan Problem List: (1) Chest pain ICD Codes: R07.9 - Chest pain, unspecified (2) Macrocytic anemia ICD Codes: D53.9 - Nutritional anemia, unspecified (3) Symptomatic anemia ICD Codes: D64.9 - Anemia, unspecified (4) Renal insufficiency ICD Codes: N28.9 - Disorder of kidney and ureter, unspecified (5) Obese ICD Codes: E66.9 - Obesity, unspecified (6) Hyperlipidemia ICD Codes: E78.5 - Hyperlipidemia, unspecified (7) Diabetes ICD Codes: E11.9 - Type 2 diabetes mellitus without complications Assessment and Plan 1) Anemia Received 1 unit PRBC last night, drop in hemoglobin today Work up of anemia per PCP 2) Unstable angina Will hold off on cardiac catheterization during anemia work up Dusty Amor DO Oct 01, 2017 10:32
[2017-10-01] MEDS: ASPIRIN 81 MG CHEW TAB PO SCH (10:37)
[2017-10-01] MEDS: ISOSORBIDE MONONITRATE 30 MG TAB PO SCH (10:38)
[2017-10-01] MEDS: PANTOPRAZOLE SOD 40 MG DELAYED RELEASE TAB PO SCH (10:38)
[2017-10-01] MEDS: DOCUSATE SODIUM 50 MG/SENNA 8.6 MG TAB PO SCH ×2 (10:39→21:00)
[2017-10-01] MEDS: METOPROLOL TARTRATE 25 MG TAB PO SCH ×2 (10:40→20:26)
[2017-10-01] MEDS: SODIUM CHLORIDE 0.9% FLUSH 10 ML FLUSH IV FLUSH SCH ×2 (10:41→21:00)
[2017-10-01] MEDS: LEVOTHYROXINE SODIUM 25 MCG TAB PO SCH (10:41)
[2017-10-01 10:44] LABS: FERRITIN 224 NG/ML (8-252)
--- NOTE | 2017-10-01 14:43 | HHI.PR ---
Subjective Remarks Follow-up anemia and kidney disease. Patient is asymptomatic denies dizziness, chest pain and shortness of breath. States she sees Ai Malave for her kidney dysfunction. Outside records show she has hemoglobin of 8.2 and creatinine of 1.75 in July 2017. States she has stage IV chronic kidney disease. Discussed with RN Objective Vitals Vital Signs Date Time Temp Pulse Resp B/P (MAP) Pulse Ox O2 Delivery O2 Flow Rate FiO2 10/01/17 12:29 98.5 50 18 117/53 96 10/01/17 11:59 98.0 57 18 129/62 96 10/01/17 08:15 68 10/01/17 07:56 98.1 71 22 129/60 (83) 95 10/01/17 05:07 97 10/01/17 04:23 58 10/01/17 03:48 97.7 62 19 118/59 (78) 96 10/01/17 03:24 58 10/01/17 00:05 71 10/01/17 00:00 98.3 67 18 107/54 (71) 97 09/30/17 21:00 98.2 62 18 112/54 98 09/30/17 20:12 97.8 58 19 124/56 (78) 99 09/30/17 18:25 97.4 70 18 143/65 98 09/30/17 17:56 96.7 62 18 154/67 98 09/30/17 17:00 60 09/30/17 16:43 98.2 59 18 126/57 (80) 100 09/30/17 15:59 68 15 118/70 (86) 98 I/O 09/30/17 09/30/17 09/30/17 10/01/17 10/01/17 10/01/17 07:00 15:00 23:00 07:00 15:00 23:00 Intake Total 1000 ml 460 ml Balance 1000 ml 460 ml Intake IV Total 1000 ml Packed Cells 400 ml Blood Product IV Normal Saline Flush 60 ml Result Diagram: 10/01/17 0401 10/01/17 0401 Imaging Last Impressions Head CT 09/30/17 1203 Signed Impressions: Service Date/Time: Saturday, September 30, 2017 12:17 - CONCLUSION: Negative noncontrast head CT. Thien Stokes MD Chest X-Ray 09/30/17 1203 Signed Impressions: Service Date/Time: Saturday, September 30, 2017 12:39 - CONCLUSION: No acute disease. Nolberto Elkins MD FACR Objective Remarks GENERAL: This is a well-nourished, well-developed patient, in no apparent distress. SKIN: No rashes, ecchymoses or lesions. Cool and dry. CARDIOVASCULAR: Regular rate and rhythm without murmurs, gallops, or rubs. S1 and S2 no S3 or S4 RESPIRATORY: Clear to auscultation. Breath sounds equal bilaterally. No wheezes , rales, or rhonchi. GASTROINTESTINAL: Abdomen soft, non-tender, nondistended. . No guarding. Obese MUSCULOSKELETAL: Extremities without clubbing, cyanosis, +1 edema bilateral lower extremities. No joint tenderness, effusion, noted. No calf tenderness. Negative Homans sign bilaterally. NEUROLOGICAL: Awake and alert. Cranial nerves II through XII intact. Motor and sensory grossly within normal limits. Five out of 5 muscle strength in all muscle groups. Normal speech. Insight and judgment is good Mood and behaviors are appropriate A/P Problem List: (1) Diabetes ICD Code: E11.9 - Type 2 diabetes mellitus without complications (2) Hyperlipidemia ICD Code: E78.5 - Hyperlipidemia, unspecified (3) Obese ICD Code: E66.9 - Obesity, unspecified (4) Renal insufficiency ICD Code: N28.9 - Disorder of kidney and ureter, unspecified (5) Chest pain ICD Code: R07.9 - Chest pain, unspecified (6) Symptomatic anemia ICD Code: D64.9 - Anemia, unspecified Assessment and Plan Chest pain atypical with negative troponins and cardiac enzymes Trend troponins Echocardiogram with EF of 60% and LVH Consult cardiology Dr. Amor recommends cardiac catheterization with improvement of renal function and anemia Symptomatic anemia we'll transfuse another 1 unit packed red blood cells hemoglobin of 7.1 discussed with cardiology. Check Hemoccult Probable anemia of chronic disease Chronic kidney disease stage IV likely etiology of anemia. 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 Continue Imdur and metoprolol GI prophylaxis DVT prophylaxis with DIANA sanders and SCDs Stewart Atkins MD Oct 01, 2017 14:43
--- NOTE | 2017-10-01 14:53 | ECHRPT ---
Indication: Chest pain, unspecified CONCLUSIONS The left ventricular systolic function is normal with an estimated ejection fraction in the range of 60-65%. Mild concentric left ventricular hypertrophy. Trace mitral valve regurgitation. The pulmonary valve is not well visualized. Pulmonary veins are not well visualized. BP: / HR: Rhythm: MEASUREMENTS (Male / Female) Normal Values Technical Quality:Good 2D ECHO LV Diastolic Diameter PLAX 4.4 cm 4.2 - 5.9 / 3.9 - 5.3 cm LV Systolic Diameter PLAX 3.3 cm IVS Diastolic Thickness 1.4 cm 0.6 - 1.0 / 0.6 - 0.9 cm LVPW Diastolic Thickness 1.2 cm 0.6 - 1.0 / 0.6 - 0.9 cm LV Relative Wall Thickness 0.6 RV Internal Dim ED PLAX 2.5 cm M-MODE Aortic Root Diameter MM 3.1 cm LA Systolic Diameter MM 4.1 cm LA Ao Ratio MM 1.3 AV Cusp Separation MM 1.7 cm DOPPLER Mitral E Point Velocity 125.0 cm/s Mitral A Point Velocity 109.0 cm/s Mitral E to A Ratio 1.1 LV E' Lateral Velocity 9.8 cm/s Mitral E to LV E' Lateral Ratio 12.7 TR Peak Velocity 293.0 cm/s TR Peak Gradient 34.3 mmHg Right Atrial Pressure 10.0 mmHg Pulmonary Artery Systolic Pressu 44.3 mmHg Right Ventricular Systolic Press 44.3 mmHg FINDINGS LEFT VENTRICLE The left ventricular systolic function is normal with an estimated ejection fraction in the range of 60-65%. Mild concentric left ventricular hypertrophy. RIGHT VENTRICLE Normal right ventricular size and systolic function. LEFT ATRIUM The left atrial size is normal. RIGHT ATRIUM The right atrial size is normal. ATRIAL SEPTUM Normal atrial septal thickness without atrial level shunting by limited color doppler interrogation. AORTA The aortic root and proximal ascending aorta are not well visualized. MITRAL VALVE Trace mitral valve regurgitation. Calcification of the posterior mitral valve leaflet. [id number]! BB AORTIC VALVE Trileaflet aortic valve. No aortic valve stenosis or regurgitation. PULMONARY VALVE The pulmonary valve is not well visualized. VESSELS Pulmonary veins are not well visualized. PERICARDIUM No pericardial effusion. Giovanny Eddy MD (Electronically Signed) Final Date:01 October 2017 14:52
[2017-10-01] MEDS ORDERED: GEMFIBROZIL 600 MG TAB PO SCH (16:00)
--- NOTE | 2017-10-01 16:10 | PD.CONS ---
HPI Service Nephrology Consult Requested By Reason for Consult Hx CKD, needs cath Primary Care Physician Unknown History of Present Illness This is a pleasant 72 y/o female who was admitted for chest pain. She has CKD 3- 4, baseline creatinine from July was 1.75, GFR 29. She was noted to be anemia at the office visit, we had referred her to hematology for evaluation but has not had the appt yet. Her Hb was 7.9, was given one unit and it is 7.1 today. We were consulted to assist with renal management pending cardiac cath. The echo was relatively normal with an EF of 65%, aside from concentric LVH. She is a full code. Other PMH of DM II, HTN, hyperlipidemia. (Ai Malave) Review of Systems Constitutional: COMPLAINS OF: Fatigue, DENIES: Weight loss, Change in appetite Respiratory: DENIES: Shortness of breath Cardiovascular: COMPLAINS OF: Chest pain, Dyspnea on Exertion (Ai Malave) Past Family Social History Allergies: Coded Allergies: No Known Allergies (Unverified , 09/30/17) Past Medical History CKD 4, Creatinine 1.75, GFR 29 from July 2017 Diabetes, diet controlled Hypertension Coronary artery disease Hyperlipidemia Obesity Hypothyroidism Past Surgical History Bilateral total knee replacement right shoulder surgery cholecystectomy Reported Medications Gemfibrozil Synthroid Lisinopril Active Ordered Medications Current Medications Medications (Trade) Dose Ordered Sig/Riley Route Start Time Stop Time Status Last Admin (D50w (Vial) Inj) 50 ml UNSCH PRN IV PUSH 09/30/17 15:15 (Glucagon Inj) 1 mg UNSCH PRN OTHER 09/30/17 15:15 (NS Flush) 2 ml BID IV FLUSH 09/30/17 21:00 10/01/17 10:41 (NS Flush) 2 ml UNSCH PRN IV FLUSH 09/30/17 15:15 (Aspirin Chew) 162 mg DAILY PO 10/01/17 09:00 10/01/17 10:37 (Nitrostat Sl) 0.4 mg Q5M PRN SL 09/30/17 15:15 (Protonix) 40 mg DAILY PO 10/01/17 09:00 10/01/17 10:38 (Tylenol) 650 mg Q4H PRN PO 09/30/17 15:15 (Zofran Inj) 4 mg Q6H PRN IVP 09/30/17 15:15 (Compazine Supp) 25 mg Q12H PRN RECTAL 09/30/17 15:15 (Tylenol) 650 mg Q6H PRN PO 09/30/17 15:15 (Percocet 5-325 Mg) 1 tab Q6H PRN PO 09/30/17 15:15 (Percocet 10-325 Mg) 1 tab Q6H PRN PO 09/30/17 15:15 (Morphine Inj) 2 mg Q3H PRN IV PUSH 09/30/17 15:15 (Morphine Inj) 4 mg Q3H PRN IV PUSH 09/30/17 15:15 (Narcan Inj) 0.4 mg UNSCH PRN IV PUSH 09/30/17 15:15 (Sasha-Colace) 1 tab BID PO 09/30/17 21:00 10/01/17 10:39 (Senokot) 17.2 mg Q12H PRN PO 09/30/17 15:15 (Dulcolax Supp) 10 mg DAILY PRN RECTAL 09/30/17 15:15 (Lactulose Liq) 30 ml DAILY PRN PO 09/30/17 15:15 (NovoLOG SUPPLEMENTAL SCALE) 1 ACHS SLIDING SCALE SQ 10/01/17 08:00 10/01/17 12:52 (Lipitor) 40 mg HS PO 10/01/17 21:00 (Lopid) 600 mg BIDAC PO 10/01/17 16:00 Future Hold (Imdur) 30 mg DAILY PO 10/01/17 09:00 10/01/17 10:38 (Synthroid) 25 mcg DAILY@0600 PO 10/01/17 09:00 10/01/17 10:41 (Lopressor) 25 mg BID PO 10/01/17 09:00 10/01/17 10:40 Sodium Chloride 1,000 ml @ 70 mls/hr [id number] ONCE IV 10/01/17 08:30 10/01/17 22:47 Sodium Chloride 250 ml @ 15 mls/hr ONCE ONCE IV 10/01/17 10:30 10/02/17 03:09 10/01/17 11:56 Family History No hx of renal disorders Social History From OR, visits often Retired Lives alone Independent Non smoking (Ai Malave Physical Exam Vital Signs Vital Signs Date Time Temp Pulse Resp B/P (MAP) Pulse Ox O2 Delivery O2 Flow Rate FiO2 10/01/17 12:29 98.5 50 18 117/53 96 10/01/17 11:59 98.0 57 18 129/62 96 10/01/17 08:15 68 10/01/17 07:56 98.1 71 22 129/60 (83) 95 10/01/17 05:07 97 10/01/17 04:23 58 10/01/17 03:48 97.7 62 19 118/59 (78) 96 10/01/17 03:24 58 10/01/17 00:05 71 10/01/17 00:00 98.3 67 18 107/54 (71) 97 09/30/17 21:00 98.2 62 18 112/54 98 09/30/17 20:12 97.8 58 19 124/56 (78) 99 09/30/17 18:25 97.4 70 18 143/65 98 09/30/17 17:56 96.7 62 18 154/67 98 09/30/17 17:00 60 09/30/17 16:43 98.2 59 18 126/57 (80) 100 09/30/17 15:59 68 15 118/70 (86) 98 Physical Exam Obese female Awake, alert, oriented and following commands S1/s2, RRR quiet precordium Lungs clear Abd soft No edema, distal pulses intact Laboratory Laboratory Tests Test 09/30/17 16:50 10/01/17 00:30 10/01/17 04:01 Total Creatine Kinase 30 28 27 Troponin I LESS THAN 0.02 LESS THAN 0.02 LESS THAN 0.02 Magnesium Level 1.7 1.8 White Blood Count 3.8 Red Blood Count 2.11 Hemoglobin 7.1 Hematocrit 22.3 Mean Corpuscular Volume 106.0 Mean Corpuscular Hemoglobin 33.9 Mean Corpuscular Hemoglobin Concent 32.0 Red Cell Distribution Width 24.0 Platelet Count 316 Mean Platelet Volume 11.8 Neutrophils (%) (Auto) 49.3 Lymphocytes (%) (Auto) 38.1 Monocytes (%) (Auto) 6.7 Eosinophils (%) (Auto) 3.4 Basophils (%) (Auto) 2.5 Neutrophils # (Auto) 1.9 Lymphocytes # (Auto) 1.4 Monocytes # (Auto) 0.3 Eosinophils # (Auto) 0.1 Basophils # (Auto) 0.1 CBC Comment AUTO DIFF Differential Comment AUTO DIFF CONFIRMED Platelet Estimate NORMAL Platelet Morphology Comment ENLARGED Blood Urea Nitrogen 31 Creatinine 1.74 Random Glucose 110 Total Protein 6.4 Albumin 3.3 Calcium Level 8.5 Phosphorus Level 4.0 Alkaline Phosphatase 59 Aspartate Amino Transf (AST/SGOT) 13 Alanine Aminotransferase (ALT/SGPT) 16 Total Bilirubin 0.4 Sodium Level 144 Potassium Level 4.4 Chloride Level 110 Carbon Dioxide Level 27.2 Anion Gap 7 Estimat Glomerular Filtration Rate 29 Iron Level 155 Total Iron Binding Capacity 298 Percent Iron Saturation 52.0 Ferritin 224 Triglycerides Level 128 Cholesterol Level 93 LDL Cholesterol 30 HDL Cholesterol 37.8 Cholesterol/HDL Ratio 2.46 Vitamin B12 Level 489 Folate 8.8 Free Thyroxine 1.07 Thyroid Stimulating Hormone 3rd Gen 2.780 (Ai Malave) Result Diagram: 10/01/17 0401 10/01/17 0401 Imaging Last [address] 09/30/17 1203 Signed Impressions: Service Date/Time: Saturday, September 30, 2017 12:17 - CONCLUSION: Negative noncontrast head CT. Thien Stokes MD Chest X-Ray 09/30/17 1203 Signed Impressions: Service Date/Time: Saturday, September 30, 2017 12:39 - CONCLUSION: No acute disease. Nolberto Elkins MD FACR (Ai Malave) Assessment and Plan Problem List: (1) Renal insufficiency ICD Codes: N28.9 - Disorder of kidney and ureter, unspecified Plan: She has a hx of CKD 3-4 Renal function is at baseline this admission If heart cath is planned, give 0.9% NS prior to procedure We discussed the risk of contrast induced nephrotoxicity and the possibility of requiring dialysis, she understands the risks In the meantime, avoid nephrotoxins Repeat labs in AM (2) Chest pain ICD Codes: R07.9 - Chest pain, unspecified Plan: Cardiology is following Cath is postponed for now due to anemia work up (3) Macrocytic anemia ICD Codes: D53.9 - Nutritional anemia, unspecified Plan: B12 and folate are normal She was transfused one unit May also have anemia of chronic disease; we had referred her for hematology evaluation, may need to be done this admission Stool for OB was negative Monitor H/H (4) Diabetes ICD Codes: E11.9 - Type 2 diabetes mellitus without complications Plan: Maintain glucose 140-180 mg/dL while hospitalized (Ai Malave) Assessment and Plan patient was seen and examined. Agree with above assessment and plan. Renal function appears to be at baseline. Risks for contrast nephropathy discussed with the patient. Cardiac cath has been postponed due to anemia. (Smith Grant MD) Ai Malave Oct 01, 2017 16:10 Smith Grant MD Oct 01, 2017 18:18
[2017-10-01 16:51] LABS: HEMOGLOBIN A1b 0.8 %; HEMOGLOBIN Ao 85.1 %; HEMOGLOBIN F 1.2 %; HEMOGLOBIN P3 5.3 %
[2017-10-01] MEDS ORDERED: ATORVASTATIN 40 MG TAB PO SCH (21:00)
[2017-10-02 00:01] VITALS: PULSE 55
[2017-10-02 04:07] VITALS: PULSE 64
[2017-10-02 04:11] VITALS: BP 147/66; PULSE 74; RESP 16; TEMP 98.2; O2SAT 96
[2017-10-02 04:33] LABS: BACTERIA, URINE RARE /hpf; BLOOD, URINE NEG (NEG); COMMENT (UR) CULT NOT INDICATED; CULTURE IF INDICATED CULT NOT INDICATED; GLUCOSE,URINE NEG (NEG); KETONE, URINE NEG (NEG); NITRITE,URINE NEG (NEG); SQUAMOUS EPITHELIAL CELL URINE 1 /hpf (0-5); URINE COLOR LIGHT-YELLOW (YELLW/STRAW)
[2017-10-02] MEDS: LEVOTHYROXINE SODIUM 25 MCG TAB PO SCH (05:13)
[2017-10-02] MEDS: INSULIN ASPART SUPPLEMENTAL SCALE SQ SCH (08:00)
[2017-10-02 08:04] VITALS: BP 138/65; PULSE 68; RESP 24; TEMP 98.5; O2SAT 97
[2017-10-02 08:33] VITALS: O2SAT 94
[2017-10-02 08:41] LABS: AUTOMATED NEUTROPHIL # 2.4 TH/MM3 (1.8-7.7); BASOPHIL # 0.1 TH/MM3 (0-0.2); BASOPHIL % 2.9 % (0.0-2.0); EOSINOPHIL # 0.1 TH/MM3 (0-0.4); EOSINOPHIL % 3.6 % (0.0-4.0); HEMATOCRIT 26.6 % (35.0-46.0); LYMPH % 30.1 % (9.0-44.0); LYMPHOCYTE # 1.2 TH/MM3 (1.0-4.8); MEAN CELL VOLUME 104.1 FL (80.0-100.0); MEAN CORPUSCULAR HEMOGLOBIN 34.4 PG (27.0-34.0); MONO % 3.9 % (0.0-8.0); NEUT % 59.5 % (16.0-70.0); PLATELET COUNT 340 TH/MM3 (150-450); RED BLOOD COUNT 2.55 MIL/MM3 (4.00-5.30); RED CELL DISTRIBUTION WIDTH 24.7 % (11.6-17.2); WHITE BLOOD COUNT 4.1 TH/MM3 (4.0-11.0)
[2017-10-02 08:53] LABS: HEMO FLAGS AUTO DIFF
[2017-10-02 09:43] LABS: BANDS 14 % (0-6); BASOPHILS 1 % (0-2); EOSINOPHILS 3 % (0-4); MYELOCYTES 1 % (0-0); POLYS (SEG NEUTROPHILS) 58 % (16-70); WBC DIFF SAMPLE 100
[2017-10-02 09:45] LABS: PLATELET ESTIMATE SMEAR HIGH (NORMAL); PLATELET MORPHOLOGY ENLARGED (NORMAL)
[2017-10-02 09:46] LABS: OVALOCYTES 1+ (NORMAL); SCAN/DIFF FINAL DIFF MANUAL
[2017-10-02] MEDS: DOCUSATE SODIUM 50 MG/SENNA 8.6 MG TAB PO SCH (09:47)
[2017-10-02] MEDS: PANTOPRAZOLE SOD 40 MG DELAYED RELEASE TAB PO SCH (09:47)
[2017-10-02] MEDS: METOPROLOL TARTRATE 25 MG TAB PO SCH (09:47)
[2017-10-02] MEDS: ISOSORBIDE MONONITRATE 30 MG TAB PO SCH (09:48)
[2017-10-02] MEDS: ASPIRIN 81 MG CHEW TAB PO SCH (09:48)
[2017-10-02] MEDS: SODIUM CHLORIDE 0.9% FLUSH 10 ML FLUSH IV FLUSH SCH (09:49)
[2017-10-02 09:57] LABS: BICARBONATE 24.3 MEQ/L (21.0-32.0); MAGNESIUM 1.9 MG/DL (1.5-2.5)
[2017-10-02 10:05] LABS: POTASSIUM 4.1 MEQ/L (3.5-5.1)
--- NOTE | 2017-10-02 10:58 | HHI.NPPN ---
Subjective Renal Failure: Chronic, Stage III Interval History Renal function is better. Hemoglobin is also better. Unsure about plans for cardiac catheterization. (Ai Malave) Review of Systems Cardiovascular Cardiac: Edema (Ai Malave) Objective Data Data Vital Signs Date Time Temp Pulse Resp B/P (MAP) Pulse Ox O2 Delivery O2 Flow Rate FiO2 10/02/17 08:33 94 21 10/02/17 08:04 98.5 68 24 138/65 (89) 97 10/02/17 04:11 98.2 74 16 147/66 (93) 96 10/02/17 04:07 64 10/02/17 00:01 55 10/01/17 23:48 98.3 55 16 109/53 (71) 96 10/01/17 21:02 95 21 10/01/17 20:18 98.6 61 16 129/63 (85) 94 10/01/17 20:00 64 10/01/17 18:45 98 10/01/17 16:19 98.7 58 22 129/60 (83) 98 10/01/17 12:29 98.5 50 18 117/53 96 10/01/17 11:59 98.0 57 18 129/62 96 (Ai Malave) -: 10/02/17 0745 10/02/17 0745 Imaging Last [address] 09/30/17 1203 Signed Impressions: Service Date/Time: Saturday, September 30, 2017 12:17 - CONCLUSION: Negative noncontrast head CT. Thien Stokes MD Chest X-Ray 09/30/17 1203 Signed Impressions: Service Date/Time: Saturday, September 30, 2017 12:39 - CONCLUSION: No acute disease. Nolberto Elkins MD FACR (Ai Malave) Physical Exam General Appearance: Well Developed, Well Nourished, No Acute Distress, Comfortable (Ai Malave) Eyes Eye Exam: Pupils Equal (Ai Malave) Throat Throat Exam: Oral Mucosa Huntley & Moist (Ai Malave) Pulmonary Resp Exam: Clear Bilaterally, Breath Sounds Equal, No Distress (Ai Malave) Cardiology CV Exam: Regular, Normal Sinus Rhythm, Good Perfusion (Ai Malave) Gastrointestinal/Abdomen GI Exam: Soft, Non-Tender, Bowel Sounds Present, Positive Bowel Movement (Ai Malave) Musculoskeletal MS Exam: Joints Intact, Normal Gait, Normal Tone, Good Strength (Ai Malave) Integumentary Skin Exam: Warm, Dry (Ai Malave) Extremeties Extremities Exam: Pedal Pulses Palpable, Trace Edema (Ai Malave) Neurologic Neuro Exam: Alert, Awake, Oriented, Speech Clear, Moving All Extremities (Ai Malave) Psychiatric Psych Exam: Appropriate Responses (Ai Malave) Assessment/Plan Discussed Condition With: Patient Assessment Summary: Anemia of CKD, Hypertension, Diabetes Mellitus, CKD Stage III Problem List: (1) Renal insufficiency ICD Codes: N28.9 - Disorder of kidney and ureter, unspecified Plan: She has a hx of CKD 3-4 Renal function is stable Risk for contrast induced nephropathy again discussed. Given NS prior to procedure In the meantime, avoid nephrotoxins Repeat labs in AM (2) Chest pain ICD Codes: R07.9 - Chest pain, unspecified Plan: Cardiology is following Pending cardiac Catheterization (3) Macrocytic anemia ICD Codes: D53.9 - Nutritional anemia, unspecified Plan: Hb improved She was transfused one unit May also have anemia of chronic disease; we had referred her for hematology evaluation, may need to be done this admission Stool for OB was negative Monitor H/H (4) Diabetes ICD Codes: E11.9 - Type 2 diabetes mellitus without complications Plan: Maintain glucose 140-180 mg/dL while hospitalized (Ai Malave) Plan patient was seen and examined. Agree with above assessment and plan. (Smith Grant MD) Ai Malave Oct 02, 2017 10:58 Smith Grant MD Oct 02, 2017 12:47
--- NOTE | 2017-10-02 11:48 | HHI.PR ---
Objective Vitals Vital Signs Date Time Temp Pulse Resp B/P (MAP) Pulse Ox O2 Delivery O2 Flow Rate FiO2 10/02/17 08:33 94 21 10/02/17 08:04 98.5 68 24 138/65 (89) 97 10/02/17 04:11 98.2 74 16 147/66 (93) 96 10/02/17 04:07 64 10/02/17 00:01 55 10/01/17 23:48 98.3 55 16 109/53 (71) 96 10/01/17 21:02 95 21 10/01/17 20:18 98.6 61 16 129/63 (85) 94 10/01/17 20:00 64 10/01/17 18:45 98 10/01/17 16:19 98.7 58 22 129/60 (83) 98 10/01/17 12:29 98.5 50 18 117/53 96 10/01/17 11:59 98.0 57 18 129/62 96 I/O 10/01/17 10/01/17 10/01/17 10/02/17 10/02/17 10/02/17 07:00 15:00 23:00 07:00 15:00 23:00 Intake Total 377 ml Output Total 625 ml Balance 377 ml -625 ml Intake IV Total 50 ml Packed Cells 327 ml Output Urine Total 625 ml Result Diagram: 10/02/1774410/02/17744 Objective Remarks GENERAL: This is a well-nourished, well-developed patient, in no apparent distress. SKIN: No rashes, ecchymoses or lesions. Cool and dry. CARDIOVASCULAR: Regular rate and rhythm without murmurs, gallops, or rubs. S1 and S2 no S3 or S4 RESPIRATORY: Clear to auscultation. Breath sounds equal bilaterally. No wheezes , rales, or rhonchi. GASTROINTESTINAL: Abdomen soft, non-tender, nondistended. . No guarding. Obese MUSCULOSKELETAL: Extremities without clubbing, cyanosis, +1 edema bilateral lower extremities. No joint tenderness, effusion, noted. No calf tenderness. Negative Homans sign bilaterally. NEUROLOGICAL: Awake and alert. Cranial nerves II through XII intact. Motor and sensory grossly within normal limits. Five out of 5 muscle strength in all muscle groups. Normal speech. Insight and judgment is good Mood and behaviors are appropriate A/P Problem List: (1) Diabetes ICD Code: E11.9 - Type 2 diabetes mellitus without complications (2) Hyperlipidemia ICD Code: E78.5 - Hyperlipidemia, unspecified (3) Obese ICD Code: E66.9 - Obesity, unspecified (4) Renal insufficiency ICD Code: N28.9 - Disorder of kidney and ureter, unspecified (5) Chest pain ICD Code: R07.9 - Chest pain, unspecified (6) Symptomatic anemia ICD Code: D64.9 - Anemia, unspecified Assessment and Plan Chest pain atypical with negative troponins and cardiac enzymes Trend troponins Echocardiogram with EF of 60% and LVH Consult cardiology Dr. Amor recommends cardiac catheterization with improvement of renal function and anemia Symptomatic anemia we'll transfuse another 1 unit packed red blood cells hemoglobin of 7.1 discussed with cardiology. Check Hemoccult Probable anemia of chronic disease Chronic kidney disease stage IV likely etiology of anemia. 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 Continue Imdur and metoprolol GI prophylaxis DVT prophylaxis with DIANA sanders and SCDs Stewart Atkins MD Oct 02, 2017 11:48
[2017-10-02 11:49] VITALS: BP 142/62; PULSE 47; RESP 22; TEMP 98.2; O2SAT 98
[2017-10-02] MEDS ORDERED: ASPI81 PO (15:10)
--- NOTE | 2017-10-02 15:10 | HHI.DCPOC ---
Discharge Care Plan Diagnosis: (1) Symptomatic anemia (2) Chest pain (3) Renal insufficiency Goals to Promote Your Health * To prevent worsening of your condition and complications * To maintain your health at the optimal level Directions to Meet Your Goals Take your medications as prescribed Follow your dietary instruction Follow activity as directed Keep your appointments as scheduled Take your immunizations and boosters as scheduled If your symptoms worsen call your PCP, if no PCP go to Urgent Care Center or Emergency Room Smoking is Dangerous to Your Health. Avoid second hand smoke Call the 24-hour hour crisis hotline for domestic abuse at Dolores Raza PA-C Oct 02, 2017 3:10 pm
--- NOTE | 2017-10-02 15:19 | HHI.DS ---
Discharge Summary Admission Date Sep 30, 2017 at 14:05 Discharge Date: Oct 02, 2017 Admitting Diagnosis symptomatic anemia, chest pain (1) Renal insufficiency ICD Code: N28.9 - Disorder of kidney and ureter, unspecified (2) Diabetes ICD Code: E11.9 - Type 2 diabetes mellitus without complications Diagnosis: Principal (3) Hyperlipidemia ICD Code: E78.5 - Hyperlipidemia, unspecified Diagnosis: Principal (4) Obese ICD Code: E66.9 - Obesity, unspecified Diagnosis: Principal Status: Acute (5) Chest pain ICD Code: R07.9 - Chest pain, unspecified Diagnosis: Principal (6) Symptomatic anemia ICD Code: D64.9 - Anemia, unspecified Diagnosis: Principal Procedures none Brief History - From Admission Patient is a 72-year-old female with history of diabetes mellitus, hypertension, coronary artery disease, hyperlipidemia, who presents to the emergency department via EMS for evaluation of sudden onset of 8 out of 10 in the central chest pain. Onset was at rest about 9 AM this morning. She described it as "like an elephant sitting on my chest". Came in with some shortness breath some diaphoresis and dizziness. Patient denies any palpitations denies any fevers denies any chills denies any cough denies any difficulty with speech denies any facial droop or unilateral weakness. Event lasted about 10 minutes before resolving spontaneously states that she has no chest pain at present. She is followed by Dr. Dusty Amor process development technician and Dr. Perez of nephrology. Has had a heart catheterization scheduled for later this month in [place]. Decided to come into the hospital today for this worsening chest pain Was found to have an anemia of 7.9. We'll transfuse 1 unit and trend troponins and place her in observation for evaluation by cardiology CBC/BMP: 10/02/17 0745 10/02/17 0745 Significant Findings Laboratory Tests Test 09/30/17 12:30 09/30/17 16:50 10/01/17 00:30 10/01/17 04:01 Red Blood Count 2.14 MIL/MM3 (4.00-5.30) 2.11 MIL/MM3 (4.00-5.30) Hemoglobin 7.9 GM/DL (11.6-15.3) 7.1 GM/DL (11.6-15.3) Hematocrit 24.0 % (35.0-46.0) 22.3 % (35.0-46.0) Mean Corpuscular Volume 112.4 FL (80.0-100.0) 106.0 FL (80.0-100.0) Mean Corpuscular Hemoglobin 37.0 PG (27.0-34.0) Mean Platelet Volume 12.4 FL (7.0-11.0) 11.8 FL (7.0-11.0) Band Neutrophils % 38 % (0-6) Metamyelocytes 4 % (0-1) Platelet Estimate HIGH (NORMAL) Platelet Morphology Comment ENLARGED (NORMAL) ENLARGED (NORMAL) Ovalocytes 2+ (NORMAL) Prothrombin Time 12.0 SEC (9.8-11.6) Blood Urea Nitrogen 28 MG/DL (7-18) 31 MG/DL (7-18) Creatinine 1.62 MG/DL (0.50-1.00) 1.74 MG/DL (0.50-1.00) Random Glucose 140 MG/DL (74-106) 110 MG/DL (74-106) Estimat Glomerular Filtration Rate 31 ML/MIN (>89) 29 ML/MIN (>89) Troponin I LESS THAN 0.02 NG/ML LESS THAN 0.02 NG/ML LESS THAN 0.02 NG/ML LESS THAN 0.02 NG/ML B-Type Natriuretic Peptide 143 PG/ML (0-100) White Blood Count 3.8 TH/MM3 (4.0-11.0) Red Cell Distribution Width 24.0 % (11.6-17.2) Basophils (%) (Auto) 2.5 % (0.0-2.0) Albumin 3.3 GM/DL (3.4-5.0) Aspartate Amino Transf (AST/SGOT) 13 U/L (15-37) Chloride Level 110 MEQ/L (98-107) Percent Iron Saturation 52.0 % (20-50) Cholesterol Level 93 MG/DL (120-200) HDL Cholesterol 37.8 MG/DL (40.0-60.0) Test 10/02/17 04:15 10/02/17 07:45 Urine Leukocyte Esterase SMALL (NEG) Urine Bacteria RARE /hpf (NONE) Red Blood Count 2.55 MIL/MM3 (4.00-5.30) Hemoglobin 8.8 GM/DL (11.6-15.3) Hematocrit 26.6 % (35.0-46.0) Mean Corpuscular Volume 104.1 FL (80.0-100.0) Mean Corpuscular Hemoglobin 34.4 PG (27.0-34.0) Red Cell Distribution Width 24.7 % (11.6-17.2) Mean Platelet Volume 11.9 FL (7.0-11.0) Basophils (%) (Auto) 2.9 % (0.0-2.0) Band Neutrophils % 14 % (0-6) Myelocytes 1 % (0-0) Platelet Estimate HIGH (NORMAL) Platelet Morphology Comment ENLARGED (NORMAL) Ovalocytes 1+ (NORMAL) Blood Urea Nitrogen 26 MG/DL (7-18) Creatinine 1.55 MG/DL (0.50-1.00) Random Glucose 107 MG/DL (74-106) Chloride Level 108 MEQ/L (98-107) Estimat Glomerular Filtration Rate 33 ML/MIN (>89) Imaging Last Impressions Head CT 09/30/17 1203 Signed Impressions: Service Date/Time: Saturday, September 30, 2017 12:17 - CONCLUSION: Negative noncontrast head CT. Thien Stokes MD Chest X-Ray 09/30/17 1203 Signed Impressions: Service Date/Time: Saturday, September 30, 2017 12:39 - CONCLUSION: No acute disease. Nolberto Elkins MD FACR PE at Discharge GENERAL: This is a well-nourished, well-developed patient, in no apparent distress. SKIN: No rashes, ecchymoses or lesions. Cool and dry. CARDIOVASCULAR: Regular rate and rhythm without murmurs, gallops, or rubs. S1 and S2 no S3 or S4 RESPIRATORY: Clear to auscultation. Breath sounds equal bilaterally. No wheezes , rales, or rhonchi. GASTROINTESTINAL: Abdomen soft, non-tender, nondistended. . No guarding. Obese MUSCULOSKELETAL: Extremities without clubbing, cyanosis, +1 edema bilateral lower extremities. No joint tenderness, effusion, noted. No calf tenderness. Negative Homans sign bilaterally. NEUROLOGICAL: Awake and alert. Cranial nerves II through XII intact. Motor and sensory grossly within normal limits. Five out of 5 muscle strength in all muscle groups. Normal speech. Insight and judgment is good Mood and behaviors are appropriate Hospital Course Atypical Chest pain with negative troponins. Echocardiogram with EF of 60% and LVH. [facility] recommended but had to be postponed due to anemia work up and CKD however pt wants to go home first to [place] and will come back a week later. Dw Cardiology will ct medical mgt with asa, BB. nitrate and lipitor Symptomatic anemia improved after 2 units packed RBC. Iron studies suggestive of anemia of chronic disease. Hemoccult 1 negative Patient has been referred to hematology outpatient Chronic kidney disease stage IV likely etiology of anemia. Stable will avoid nephrotoxins Diabetes mellitus Continue sliding scale coverage Accu-Cheks before meals and at bedtime diabetic diet Hyperlipidemia continue Lipitor Obesity recommended weight loss Hypertension. Continue Imdur and metoprolol GI prophylaxis DVT prophylaxis with DIANA sanders and Andrea Pt Condition on Discharge: Stable Discharge Disposition: Discharge Home Discharge Time: > 30 minutes Discharge Instructions Activities you can perform: Regular-No Restrictions Activities to Avoid: Driving Follow up Referrals: Cardiology - 1 Week with Dusty Amor DO Nephrology - 1 Week with Smith Grant MD Oncology - 1 Week PCP Follow-up - 2-3 Days New Medications: Aspirin (Tgt Aspirin) 81 Mg Chw 81 MG PO DAILY for Prevent Blood Clot, #30 TAB Continued Medications: Atorvastatin (Atorvastatin) 40 Mg Tab 40 MG PO HS for Cholesterol Management, #30 TAB 0 Refills Gemfibrozil (Gemfibrozil) 600 Mg Tab 600 MG PO BIDAC, #60 TAB 0 Refills Take 30 minutes prior to breakfast and dinner. Isosorbide Mononitrate ER (Isosorbide Mononitrate ER) 30 Mg Nitish 30 MG PO DAILY for Prevent Chest Pain, #30 TAB 0 Refills Levothyroxine (Levothyroxine) 25 Mcg Tab 25 MCG PO DAILY for Thyroid, #30 TAB 0 Refills Lisinopril (Lisinopril) 2.5 Mg Tab 2.5 MG PO DAILY, #30 TAB 0 Refills Metoprolol Tartrate (Metoprolol Tartrate) 25 Mg Tab 25 MG PO BID, #60 TAB 0 Refills Stewart Atkins MD Oct 02, 2017 15:19
--- NOTE | 2017-10-02 18:12 | PD.CARD.PN ---
Subjective Subjective Remarks No events overnight No chest pain/SOB Objective Medications Current Medications Medications (Trade) Dose Ordered Sig/Riley Route Start Time Stop Time Status Last Admin (D50w (Vial) Inj) 50 ml UNSCH PRN IV PUSH 09/30/17 15:15 (Glucagon Inj) 1 mg UNSCH PRN OTHER 09/30/17 15:15 (NS Flush) 2 ml BID IV FLUSH 09/30/17 21:00 10/02/17 09:49 (NS Flush) 2 ml UNSCH PRN IV FLUSH 09/30/17 15:15 (Aspirin Chew) 162 mg DAILY PO 10/01/17 09:00 10/02/17 09:48 (Nitrostat Sl) 0.4 mg Q5M PRN SL 09/30/17 15:15 (Protonix) 40 mg DAILY PO 10/01/17 09:00 10/02/17 09:47 (Tylenol) 650 mg Q4H PRN PO 09/30/17 15:15 (Zofran Inj) 4 mg Q6H PRN IVP 09/30/17 15:15 (Compazine Supp) 25 mg Q12H PRN RECTAL 09/30/17 15:15 (Tylenol) 650 mg Q6H PRN PO 09/30/17 15:15 (Percocet 5-325 Mg) 1 tab Q6H PRN PO 09/30/17 15:15 (Percocet 10-325 Mg) 1 tab Q6H PRN PO 09/30/17 15:15 (Morphine Inj) 2 mg Q3H PRN IV PUSH 09/30/17 15:15 (Morphine Inj) 4 mg Q3H PRN IV PUSH 09/30/17 15:15 (Narcan Inj) 0.4 mg UNSCH PRN IV PUSH 09/30/17 15:15 (Sasha-Colace) 1 tab BID PO 09/30/17 21:00 10/02/17 09:47 (Senokot) 17.2 mg Q12H PRN PO 09/30/17 15:15 (Dulcolax Supp) 10 mg DAILY PRN RECTAL 09/30/17 15:15 (Lactulose Liq) 30 ml DAILY PRN PO 09/30/17 15:15 (NovoLOG SUPPLEMENTAL SCALE) 1 ACHS SLIDING SCALE SQ 10/01/17 08:00 10/01/17 12:52 (Lipitor) 40 mg HS PO 10/01/17 21:00 10/01/17 21:54 (Lopid) 600 mg BIDAC PO 10/01/17 16:00 Future Hold (Imdur) 30 mg DAILY PO 10/01/17 09:00 10/02/17 09:48 (Synthroid) 25 mcg DAILY@0600 PO 10/01/17 09:00 10/02/17 05:13 (Lopressor) 25 mg BID PO 10/01/17 09:00 10/02/17 09:47 Vital Signs / I&O Vital Signs Date Time Temp Pulse Resp B/P (MAP) Pulse Ox O2 Delivery O2 Flow Rate FiO2 10/02/17 11:49 98.2 47 22 142/62 (88) 98 10/02/17 08:33 94 21 10/02/17 08:04 98.5 68 24 138/65 (89) 97 10/02/17 04:11 98.2 74 16 147/66 (93) 96 10/02/17 04:07 64 10/02/17 00:01 55 10/01/17 23:48 98.3 55 16 109/53 (71) 96 10/01/17 21:02 95 21 10/01/17 20:18 98.6 61 16 129/63 (85) 94 10/01/17 20:00 64 10/01/17 18:45 98 I/O 10/01/17 10/01/17 10/01/17 10/02/17 10/02/17 10/02/17 07:00 15:00 23:00 07:00 15:00 23:00 Intake Total 377 ml Output Total 625 ml Balance 377 ml -625 ml Intake IV Total 50 ml Packed Cells 327 ml Output Urine Total 625 ml Physical Exam GENERAL: NAD, AAOx3 SKIN: Warm and dry. HEAD: Atraumatic. Normocephalic. EYES: Pupils equal and round. No scleral icterus. No injection or drainage. ENT: No nasal bleeding or discharge. Mucous membranes pink and moist. NECK: Trachea midline. No JVD. CARDIOVASCULAR: Regular rate and rhythm. RESPIRATORY: No accessory muscle use. Clear to auscultation. Breath sounds equal bilaterally. GASTROINTESTINAL: Abdomen soft, non-tender, nondistended. Hepatic and splenic margins not palpable. MUSCULOSKELETAL: Extremities without clubbing, cyanosis, or edema. No obvious deformities. NEUROLOGICAL: Awake and alert. No obvious cranial nerve deficits. Motor grossly within normal limits. Five out of 5 muscle strength in the arms and legs. Normal speech. PSYCHIATRIC: Appropriate mood and affect; insight and judgment normal. Laboratory Laboratory Tests Test 10/02/17 04:15 10/02/17 07:45 Urine Color LIGHT-YELLOW Urine Turbidity CLEAR Urine pH 5.0 Urine Specific [place] 1.010 Urine Protein NEG mg/dL Urine Glucose (UA) NEG mg/dL Urine Ketones NEG mg/dL Urine Occult Blood NEG Urine Nitrite NEG Urine Bilirubin NEG Urine Urobilinogen LESS THAN 2.0 MG/DL Urine Leukocyte Esterase SMALL Urine RBC 1 /hpf Urine WBC 3 /hpf Urine Squamous Epithelial Cells 1 /hpf Urine Bacteria RARE /hpf Microscopic Urinalysis Comment CULT NOT INDICATED White Blood Count 4.1 TH/MM3 Red Blood Count 2.55 MIL/MM3 Hemoglobin 8.8 GM/DL Hematocrit 26.6 % Mean Corpuscular Volume 104.1 FL Mean Corpuscular Hemoglobin 34.4 PG Mean Corpuscular Hemoglobin Concent 33.0 % Red Cell Distribution Width 24.7 % Platelet Count 340 TH/MM3 Mean Platelet Volume 11.9 FL Neutrophils (%) (Auto) 59.5 % Lymphocytes (%) (Auto) 30.1 % Monocytes (%) (Auto) 3.9 % Eosinophils (%) (Auto) 3.6 % Basophils (%) (Auto) 2.9 % Neutrophils # (Auto) 2.4 TH/MM3 Lymphocytes # (Auto) 1.2 TH/MM3 Monocytes # (Auto) 0.2 TH/MM3 Eosinophils # (Auto) 0.1 TH/MM3 Basophils # (Auto) 0.1 TH/MM3 CBC Comment AUTO DIFF Differential Total Cells Counted 100 Neutrophils % (Manual) 58 % Band Neutrophils % 14 % Lymphocytes % 21 % Monocytes % 2 % Eosinophils % 3 % Basophils % 1 % Neutrophils # (Manual) 3.0 TH/MM3 Myelocytes 1 % Differential Comment FINAL DIFF MANUAL Platelet Estimate HIGH Platelet Morphology Comment ENLARGED Ovalocytes 1+ Blood Urea Nitrogen 26 MG/DL Creatinine 1.55 MG/DL Random Glucose 107 MG/DL Calcium Level 8.7 MG/DL Magnesium Level 1.9 MG/DL Sodium Level 142 MEQ/L Potassium Level 4.1 MEQ/L Chloride Level 108 MEQ/L Carbon Dioxide Level 24.3 MEQ/L Anion Gap 10 MEQ/L Estimat Glomerular Filtration Rate 33 ML/MIN Assessment and Plan Problem List: (1) Chest pain ICD Codes: R07.9 - Chest pain, unspecified (2) Macrocytic anemia ICD Codes: D53.9 - Nutritional anemia, unspecified (3) Symptomatic anemia ICD Codes: D64.9 - Anemia, unspecified (4) Renal insufficiency ICD Codes: N28.9 - Disorder of kidney and ureter, unspecified (5) Obese ICD Codes: E66.9 - Obesity, unspecified Status: Acute (6) Hyperlipidemia ICD Codes: E78.5 - Hyperlipidemia, unspecified (7) Diabetes ICD Codes: E11.9 - Type 2 diabetes mellitus without complications Assessment and Plan 1) Anemia Received 2 units PRBC Believed to be due to chronic disease 2) Unstable angina Offered cardiac catheterization on Thursday after making sure stabilization of Hgb as she was given 2 units and only up to 8.8 She wants to continue on medical management until she's back from her daughter's in [place]. Will con't on current medications for now and discharge Discussed risk of this with her in presence of her nurse, including but not limited to myocardial infarction and Will plan for outpatient cardiac catheterization as previously scheduled I asked that if she has any more chest pain while here or in [place], that she get to any hospital Dusty Amor DO Oct 02, 2017 18:12
== END 2017-10-02 20:39 | disposition home or self-care (01) ==
LOC: NEPC 11:46 → NEDA 14:05 → NEPHCDU 16:16
PROVIDERS: ADMIT Internal Medicine; ATTEND Internal Medicine
DX: R07.89 Other chest pain (principal); E78.5 Hyperlipidemia, unspecified; N28.9 Disorder of kidney and ureter, unspecified; R42 Dizziness and giddiness; R00.1 Bradycardia, unspecified; D53.9 Nutritional anemia, unspecified; R60.0 Localized edema; R06.02 Shortness of breath; R61 Generalized hyperhidrosis; I25.110 Atherosclerotic heart disease of native coronary artery with unstable angina pectoris; I12.9 Hypertensive chronic kidney disease with stage 1 through stage 4 chronic kidney disease, or unspecified chronic kidney disease; E11.22 Type 2 diabetes mellitus with diabetic chronic kidney disease; N18.4 Chronic kidney disease, stage 4 (severe); E03.9 Hypothyroidism, unspecified; D63.1 Anemia in chronic kidney disease; E66.9 Obesity, unspecified; Z68.41 Body mass index [BMI] 40.0-44.9, adult; Z96.653 Presence of artificial knee joint, bilateral
CPT/HCPCS: 36430; 70450; 71010; 80048; 80053; 80061; 81001; 82550; 82607; 82728; 82746; 82948; 83036; 83540; 83550; 83735; 83880; 84100; 84439; 84443; 84484; 85007; 85025; 85027; 85610; 85730; 86850; 86900; 86901; 86920; 93005; 93306; 96360; 96361; 96372; 97161; 97165; 99285; G0378; G8987; G8988; G8989; J1815; J7030; J7050; P9016

== ENCOUNTER 2017-10-27 17:59 | Emergency (ER) | payer OTHER ==
[~2017-10-27] VITALS: Ht 170.2 cm; Wt 120.9 kg
[~2017-10-27 17:59] MED LIST: ASPI81 PO; ATOR40TA16 PO; GEMF600T PO; ISOS30TA3 PO; LEVO25TA4 PO; LISI2.5T3 PO; METO25TA3 PO
[2017-10-27 18:01] VITALS: BP 208/82; PULSE 84; RESP 18; TEMP 99.1; O2SAT 97
--- NOTE | 2017-10-27 18:34 | PD ---
HPI Chief Complaint: Abnormal Results Time Seen by Provider: 18:32 Travel History International Travel<30 days: No Contact w/Intl Traveler<30days: No Traveled to known affect area: No History of Present Illness HPI PT SENT HER BY DR. DREW REN FOR REDRAW OF LABS ......PT HAS PLANNED ANGIOGRAM FOR THURSDAY; HAD LABS THAT RESULTED K+6.3 PT IS ASYMPTOMATIC AND HAS NO COMPLAINTS. PT STATES THAT SHE WAS EXPLAINED BY DR REN THAT SOMETIMES LAB ERROR CAN OCCUR SO IT IS BEST TO REPEAT BLOOD TEST. CHART AND RN NOTES REVIEWED PMHX: HX OF ANEMIA AND CKD PFSH Past Medical History Cardiovascular Problems: Yes (HTN) High Cholesterol: Yes Diabetes: Yes Diminished Hearing: No Genitourinary: No Musculoskeletal: No Neurologic: No Reproductive: No Respiratory: No Thyroid Disease: Yes Past Surgical History Cholecystectomy: Yes Social History Alcohol Use: Yes (2X YEAR) Tobacco Use: No Substance Use: No Allergies-Medications (Allergen,Severity, Reaction): Coded Allergies: No Known Allergies (Unverified , 09/30/17) Reported Meds & Prescriptions Reported Meds & Active Scripts Active Tgt Aspirin (Aspirin) 81 Mg Chw 81 Mg PO DAILY Reported Isosorbide Mononitrate ER (Isosorbide Mononitrate) 30 Mg Nitish 30 Mg PO DAILY Metoprolol Tartrate 25 Mg Tab 25 Mg PO BID Atorvastatin (Atorvastatin Calcium) 40 Mg Tab 40 Mg PO HS Gemfibrozil 600 Mg Tab 600 Mg PO BIDAC Take 30 minutes prior to breakfast and dinner. Levothyroxine (Levothyroxine Sodium) 25 Mcg Tab 25 Mcg PO DAILY Lisinopril 2.5 Mg Tab 2.5 Mg PO DAILY Review of Systems Except as stated in HPI: all other systems reviewed are Neg Physical Exam Narrative GENERAL: SKIN: Warm and dry. HEAD: Atraumatic. Normocephalic. EYES: Pupils equal and round. No scleral icterus. No injection or drainage. ENT: No nasal bleeding or discharge. Mucous membranes pink and moist. NECK: Trachea midline. No JVD. CARDIOVASCULAR: Regular rate and rhythm. RESPIRATORY: No accessory muscle use. Clear to auscultation. Breath sounds equal bilaterally. GASTROINTESTINAL: Abdomen soft, non-tender, nondistended. MUSCULOSKELETAL: Extremities without clubbing, cyanosis, or edema. No obvious deformities. NEUROLOGICAL: Awake and alert. No obvious cranial nerve deficits. Motor grossly within normal limits. Five out of 5 muscle strength in the arms and legs. Normal speech. PSYCHIATRIC: Appropriate mood and affect; insight and judgment normal. Data Data Last Documented VS Vital Signs Date Time Temp Pulse Resp B/P (MAP) Pulse Ox O2 Delivery O2 Flow Rate FiO2 10/27/17 18:48 Room Air 10/27/17 18:01 99.1 84 18 208/82 (124) 97 Orders Orders Complete Blood Count With Diff (10/27/17 18:07) Electrocardiogram (10/27/17 ) Basic Metabolic Panel (Bmp) (10/27/17 18:07) Ed Discharge Order (10/27/17 19:54) Labs Laboratory Tests Test 10/27/17 18:40 White Blood Count 5.8 TH/MM3 Red Blood Count 2.37 MIL/MM3 Hemoglobin 8.0 GM/DL Hematocrit 24.7 % Mean Corpuscular Volume 104.1 FL Mean Corpuscular Hemoglobin 33.6 PG Mean Corpuscular Hemoglobin Concent 32.3 % Red Cell Distribution Width 22.7 % Platelet Count 404 TH/MM3 Mean Platelet Volume 12.2 FL CBC Comment AUTO DIFF Blood Urea Nitrogen 40 MG/DL Creatinine 1.70 MG/DL Random Glucose 106 MG/DL Calcium Level 8.9 MG/DL Sodium Level 140 MEQ/L Potassium Level 4.1 MEQ/L Chloride Level 104 MEQ/L Carbon Dioxide Level 27.6 MEQ/L Anion Gap 8 MEQ/L Estimat Glomerular Filtration Rate 30 ML/MIN MDM Medical Decision Making Medical Screen Exam Complete: Yes Emergency Medical Condition: Yes Medical Record Reviewed: Yes Differential Diagnosis HYPERKALEMIA V SPURIOUS LAB ERROR Narrative Course PATIENT WAS SYMPTOM FREE, WITHOUT ANY DYSRHYTHMIA ON MONITOR. PATIENT IS RELAXED AND AWAITING HER REPEAT LAB TESTS. LAB TEST RETURNED AROUND 60MIN AFTER ARRIVAL AND I DISCUSSED RESULTS WHICH WERE NORMAL POTASSIUM 4.1 AND OTHER FINDINGS WERE CONSISTENT WITH CHRONIC ANEMIA AND CHRONIC KIDNEY DISEASE. PATIENT DISCHARGED AND ADVISED TO FOLLOW UP WITH AND KEEP APPOINTMENT WITH DR REN Diagnosis Primary Impression: MEDICAL CLEARANCE-LAB ERROR Patient Instructions: General Instructions Disposition: 01 DISCHARGE HOME Condition: Stable Don Dong MD Oct 27, 2017 18:34
[2017-10-27 19:26] LABS: BICARBONATE 27.6 MEQ/L (21.0-32.0); POTASSIUM 4.1 MEQ/L (3.5-5.1)
[2017-10-27 19:36] LABS: HEMATOCRIT 24.7 % (35.0-46.0); MEAN CELL VOLUME 104.1 FL (80.0-100.0); MEAN CORPUSCULAR HEMOGLOBIN 33.6 PG (27.0-34.0); MEAN CORPUSCULAR HGB CONC 32.3 % (32.0-36.0); RED BLOOD COUNT 2.37 MIL/MM3 (4.00-5.30); RED CELL DISTRIBUTION WIDTH 22.7 % (11.6-17.2); WHITE BLOOD COUNT 5.8 TH/MM3 (4.0-11.0)
[2017-10-27 19:38] LABS: HEMO FLAGS AUTO DIFF
[2017-10-27 20:28] LABS: BANDS 22 % (0-6); BASOPHILS 3 % (0-2); EOSINOPHILS 4 % (0-4); METAMYELOCYTES 2 % (0-1); NEUTROPHIL # MANUAL DIFF 3.4 TH/MM3 (1.8-7.7); POLYS (SEG NEUTROPHILS) 35 % (16-70); WBC DIFF SAMPLE 100
[2017-10-27 20:36] LABS: PLATELET MORPHOLOGY ENLARGED (NORMAL); SCAN/DIFF FINAL DIFF MANUAL
[2017-10-27 20:38] LABS: DOHLE BODIES PRESENT (NONE SEEN); OVALOCYTES 1+ (NORMAL)
[2017-10-27 20:39] LABS: SPHEROCYTES OCC (NORMAL)
[2017-10-27 20:41] LABS: PLATELET ESTIMATE SMEAR HIGH (NORMAL)
--- NOTE | 2017-10-27 22:38 | EKG ---
Date Performed: 10/27/2017 Time Performed: 18:35:25 PTAGE: 72 years EKG: Sinus rhythm MINIMAL ST DEPRESSION BORDERLINE ECG PREVIOUS TRACING : 10/01/2017 00.54 Compared to prior tracing no significant change DOCTOR: Casper Edmonds Interpretating Date/Time 10/27/2017 22:38:06
== END 2017-10-27 20:40 | disposition home or self-care (01) ==
LOC: NEPD 17:59
DX: E11.22 Type 2 diabetes mellitus with diabetic chronic kidney disease (principal); I12.9 Hypertensive chronic kidney disease with stage 1 through stage 4 chronic kidney disease, or unspecified chronic kidney disease; N18.9 Chronic kidney disease, unspecified; D63.1 Anemia in chronic kidney disease; E07.9 Disorder of thyroid, unspecified; Z79.82 Long term (current) use of aspirin; Z79.899 Other long term (current) drug therapy
CPT/HCPCS: 80048; 85007; 85027; 93005; 99284

== ENCOUNTER 2017-10-29 06:29 | Day surgery (SDC) | payer OTHER ==
[~2017-10-29] VITALS: Ht 170.2 cm; Wt 122.3 kg
[2017-10-29] MEDS ORDERED: IOHEXOL 350 MG/ML 100 ML BTL (for Cath Lab) OTHER ONE (06:30)
[2017-10-29] MEDS ORDERED: GLYB2.5T3 PO (07:26)
[2017-10-29] MEDS ORDERED: NITR1SUB3 SL (07:26)
[2017-10-29] MEDS ORDERED: LISI-515 PO (07:26)
[2017-10-29 07:27] VITALS: BP 164/85; PULSE 82; RESP 18; TEMP 98.3; O2SAT 95
[2017-10-29] MEDS ORDERED: NS 1000P @30 MLS/HR (KVO) IV SCH (07:30)
[2017-10-29 07:37] LABS: HEMATOCRIT 25.8 % (35.0-46.0); MEAN CORPUSCULAR HEMOGLOBIN 33.9 PG (27.0-34.0); MEAN CORPUSCULAR HGB CONC 32.3 % (32.0-36.0); RED BLOOD COUNT 2.45 MIL/MM3 (4.00-5.30); RED CELL DISTRIBUTION WIDTH 23.2 % (11.6-17.2); WHITE BLOOD COUNT 5.9 TH/MM3 (4.0-11.0)
[2017-10-29 07:42] LABS: APTT (PATIENT) 26.1 SEC (24.3-30.1); INTERNATIONAL NORMALIZED RATIO 1.2 RATIO; PROTHROMBIN TIME - PATIENT 11.7 SEC (9.8-11.6)
[2017-10-29 07:55] LABS: BICARBONATE 25.8 MEQ/L (21.0-32.0); POTASSIUM 4.5 MEQ/L (3.5-5.1)
[2017-10-29 08:24] LABS: HEMO FLAGS AUTO DIFF
[2017-10-29 08:35] LABS: BANDS 25 % (0-6); BASOPHILS 1 % (0-2); NEUTROPHIL # MANUAL DIFF 4.2 TH/MM3 (1.8-7.7); PLATELET ESTIMATE SMEAR HIGH (NORMAL); PLATELET MORPHOLOGY ENLARGED (NORMAL); POLYS (SEG NEUTROPHILS) 47 % (16-70); WBC DIFF SAMPLE 100
[2017-10-29 08:36] LABS: OVALOCYTES 1+ (NORMAL); SCAN/DIFF FINAL DIFF MANUAL
[2017-10-29] MEDS ORDERED: MIDAZOLAM HCL 2 MG/2 ML VIAL ONE (08:37)
[2017-10-29] MEDS ORDERED: HEPARIN SODIUM - IV 10,000 UNITS/10 ML VIAL ONE (08:37)
[2017-10-29] MEDS ORDERED: VERAPAMIL HCL 5 MG/2 ML VIAL ONE (08:37)
[2017-10-29] MEDS ORDERED: NITROGLYCERIN INJ 5 ML ONE (08:37)
[2017-10-29] MEDS ORDERED: HEPARIN-NS/PF INJ 1,000 ML ONE (08:48)
--- NOTE | 2017-10-29 09:39 | CATHPROC ---
[employer] HIS Report Study Information Study Number Admission Scheduled Start Study Start [id number] Oct 29 2017 6:29AM 10/29/2017 Oct 29 2017 8:12AM [facility] Cardiac Catheterization Admit Source Facility Department Other [facility] - Knowledge Engineer Physician and Clinical Staff Initial Dusty Desai Telegraph Editor Ai Molina,RN Recorder Kimberly Lowry RT(R) (BS) Scrub Ai Rees RT(R) Procedures Performed Procedure Location (Site) Vessel Name Coronary Angiograms LCA Left Coronary Coronary Angiograms RCA Right Coronary L Heart Cath Equipment Time Steel Plate Printer Description Size Mfg Part Number Used/Scraped TRANSDUCER, TRUWAVE [id number] 08:14 LOZADA CORNEJO * Used W/STOCKCOCK *[id number] *[id number] *[id number] 08:14 [employer] PACK, CCL CUSTOM * Used *[id number] 08:14 [employer] SUPPORT, ARTERIAL ADULT 04296 *[id number] Used BAND, RADIAL COMPRESSION TR [id number] 09:17 [employer] MEDICAL 29CM Used LARGE 29 *[id number] 08:14 [employer] WIRE, EXCHANGE 260CM 3MMJ 260CM Used *[id number] 08:14 [employer] MANIFOLD, 4 PORT * Used *[id number] 08:14 [employer] OMNIPAQUE, 350 MG, 150ML 150ML [id number] Used [id number] 08:14 [employer] BLANKET,WARM AIR CCL * Used *[id number] SHEATH, FR6 TRANSRADIAL RM*[id number] 08:14 [employer] MEDICAL FR 6 Used SLENDER 10CM *[id number] History: Current Medications Medication Dosage/Unit Route Frequency Last Date/Time Taken Beta Merlene Statins (any) Imdur History: Allergies Allergy Reaction No Known Allergies History: Risk Factors Family History of Hypertension Dyslipidemia Previous [facility] Previous Heart Failure Premature CAD Yes Yes No No No Prior Valve Prior PCI Prior CABG Surgery No No No Cerebrovascular Peripheral Artery Chronic Lung On Dialysis Diabetes Diabetes Therapy Disease Disease Disease No No No No Yes Oral History: Stress Tests Stress or Imaging Studies Performed No History: Other Current Smoker No Labs Hgb (g/dl) Hct (%) WBC (l/cumm) 11.60-17.00 35.00-51.00 4.00-11.00 8.3 25.8 5.9 Glucose (mg/dl) BUN (mg/dl) Creatinine (mg/dl) BUN:Creatinine (1:x) 74.00-106.00 7.00-18.00 0.50-1.30 10.00-20.00 118 33 1.5 22 Na (meq/l) K (meq/l) 136.00-145.00 3.50-5.10 141 4.5 INR (PTT:PT) 0.90-1.10 1.2 CPK-MB (ng/ML) 0.50-3.60 Not Drawn Medication Medication Total Dose (Bolus/Oral) Medication Total Dosage/Unit 1% XYLOCAINE 1 mL FENTANYL 50 mcg OXYGEN 2 l/min RADIAL COCKTAIL 1 units VERSED 1 mg Medications (Bolus/Oral) Medication Time Given Dosage/Unit Administered By Reason VERSED 10/29/2017 8:54:26 AM 0.5 mg Jesse Ai 0.5 mg VERSED given in lab by Ai Molina RN in Left Forearm via Peripheral IV. FENTANYL 10/29/2017 8:55:32 AM 25 mcg Jonas Molinaon 25 mcg FENTANYL given in lab by Ai Molina RN in Left Forearm via Peripheral IV. 1% XYLOCAINE 10/29/2017 8:57:01 AM 1 mL Dusty Amor 1 mL 1% XYLOCAINE given in lab by Dusty Amor in Right Radial via Subcutaneous. Ntg 200mcg Verapamil 2.5mg Heparin RADIAL COCKTAIL 10/29/2017 8:59:03 AM 1 units Dusty Amor 3000U 1 units RADIAL COCKTAIL given in lab by Dusty Amor via Radial. Reason: Ntg 200mcg Verapamil 2.5mg Heparin 4800U. VERSED 10/29/2017 8:59:35 AM 0.5 mg Jesse, Ai 0.5 mg VERSED given in lab by Ai Molina RN in Left Forearm via Peripheral IV. FENTANYL 10/29/2017 9:00:40 AM 25 mcg Ai Molina 25 mcg FENTANYL given in lab by Ai Molina RN in Left Forearm via Peripheral IV. OXYGEN 10/29/2017 9:04:22 AM 2 l/min Ai Molina 2 l/min OXYGEN given in lab by Ai Molina RN via Nasal. Medication (Drip) Medication Time Given Dosage/Unit Concentration/Unit Diluent (ml) Solution IV Solutions 10/29/2017 8:29:18 AM 0 mL (IV) 500 NaCl .9 IV Solutions given in lab by Ai Molina RN in Left Forearm via Peripheral IV. Pump/Drip Flow = 3 0 ml/hr using NaCl .9. Initial Case Assessment Cardiovascular HR Rhythm NIBP Chest Pain 79 reg 159/81 0 Edema Present Skin color Skin None Normal Warm Dry Circulatory - Right Pulses Dorsalis Pedis Femoral Radial 2 2 2 Scale (0,1,2,3,4,d) Scale (0,1,2,3,4,d) Circulatory - Lower Extremities Color Lower Right Color Lower Left Normal Normal Neurological State Oriented to time-place- Alert Moves all extremities person Respiration - General Respiration Rate SpO2 (%) (B/min) 13 99 Chronological Log Time Study Chronological Log 8:28:56 Patient arrived via Bed. 8:28:57 Patient Name, D.O.B, / Armband Verified By R.N. 8:28:59 Consent signed by the physician and the patient and verified by the Knowledge Engineer staff. 8:29:00 Pre-op and post- op instructions given; patient acknowledges understanding of instructions. 8:29:01 Verbal Stimulation=2 Physical Stimulation=2 Airway=2 Respiration=2 TOTAL=8. (0=absent, 1=li mited, 2=present) 8:29:04 Presedation assessment performed by Knowledge Engineer RN. 8:29:09 Allens test performed on the right radial and ulnar artery. 8:29:10 Patient has been NPO for More than 6Hrs. 8:29:13 Skin Breakdown none per pt 8:29:15 Patient Warmer Placed on the Table. 8:29:16 Dorys Prominences Protected 8:29:17 A # 20 IV was noted in the Forearm (left). Grade = 0 IV Solutions given in lab by Ai Molina RN in Left Forearm via Peripheral IV. Pump/Drip Fl ow = 30 ml/hr using 8:29:18 NaCl .9. 8:29:19 History and physical on the chart or being dictated. Assessment: Initial Case, HR=79 BPM, Rhythm=reg, DAKU=111/81 mmhg, Chest Pain=0, Edema=None, Col or=Normal, Skin = Warm, Dry Right Pulses: Sam Ped=2, Femoral=2, Radial=2 8:29:28 Lower Right Extremities: Color=Normal Lower Left Extremities: Color=Normal Neurological: State=Alert, Ox3, KRUEGER Respiration: Resp=13 B/min, SpO2=99 % Vitals capture started with the following parameters, Patient=Adult, Interval=5 min, Initial Pre zxztg=731 mmHg, 8:35:33 Deflation Rate=5 mmHg, Cuff placed on Left Arm 8:36:12 HR=79 bpm, QGHB=386/81 mmhg, SpO2=98.0 %, Resp=12 B/min, Pain=0, Hailee=10, Lay=2 8:41:16 HR=71 bpm, KYZJ=496/70 mmhg, SpO2=97.0 %, Resp=26 B/min, Pain=0, Hailee=10, Lay=2 8:46:06 Right Radial and groin(s) prepped with 2% chlorhexidine, and draped after a 3 min. waiting t barrera. 8:46:17 HR=76 bpm, EICL=413/67 mmhg, SpO2=96.0 %, Resp=9 B/min, Pain=0, Hailee=10, Lay=2 8:46:58 Reference ECG taken 8:51:16 HR=77 bpm, WVTI=169/75 mmhg, SpO2=98.0 %, Resp=11 B/min, Pain=0, Hailee=10, Lay=2 8:52:21 Pressure channel 1 zeroed. 8:54:26 0.5 mg VERSED given in lab by Ai Molina RN in Left Forearm via Peripheral IV. 8:55:32 25 mcg FENTANYL given in lab by Ai Molina, EMIGDIO in Left Forearm via Peripheral IV. 8:56:13 HR=88 bpm, BZOD=032/89 mmhg, SpO2=94.0 %, Resp=21 B/min, Pain=0, Hailee=10, Lay=2 Time Out. Correct patient, correct procedure, correct physician, power injector not loaded with contrast with surgical 8:56:13 team present. Time Out Concurred by MD and individual staff in procedure. 8:56:27 Case Start 8:57:01 1 mL 1% XYLOCAINE given in lab by Dusty Amor in Right Radial via Subcutaneous. 8:58:33 Access site was right Radial Artery. A SHEATH, FR6 TRANSRADIAL SLENDER 10CM FR 6 was advanced into the Radial (right) using the Juliane loomis 8:58:49 technique. 1 units RADIAL COCKTAIL given in lab by Dusty Amor via Radial. Reason: Ntg 200mcg Verap troy 2.5mg 8:59:03 Heparin 4800U. 8:59:35 0.5 mg VERSED given in lab by Ai Molina, EMIGDIO in Left Forearm via Peripheral IV. 9:00:40 25 mcg FENTANYL given in lab by Ai Molina, EMIGDIO in Left Forearm via Peripheral IV. A JR 4.0 INFINITI CATHETER FR 5 was advanced over a wire. OMNIPAQUE, 350 MG, 150ML 150ML was use d for 9:00:43 injections. 9:01:14 HR=86 bpm, SWVK=620/77 mmhg, SpO2=98.0 %, Resp=12 B/min, Pain=0, Hailee=10, Lay=2 Recorded Pressure: LV, HR=78, Condition=Condition 1 9:03:18 (Left Ventricle) LV 149/11/21 Recorded Pressure: LV, Ao, HR=85, Condition=Condition 1 9:03:32 (Left Ventricle) LV 130/11/16, (Aorta) Ao 124/53/83 Recorded Pressure: Ao, HR=84, Condition=Condition 1 9:04:03 (Aorta) Ao 134/57/90 9:04:22 2 l/min OXYGEN given in lab by Ai Molina, EMIGDIO via Nasal. 9:04:49 The RCA was injected and visualized at various angles. OMNIPAQUE, 350 MG, 150ML 150ML used. After removing the current catheter a JL 3.5 INFINITI CATHETER FR 5 was advanced over a WIRE, EX CHANGE 260CM 9:05:56 3MMJ 260CM. 9:06:15 HR=85 bpm, OSHE=500/73 mmhg, SpO2=99.0 %, Resp=7 B/min, Pain=0, Hailee=10, Lay=2 9:09:30 The LCA was injected and visualized at various angles. OMNIPAQUE, 350 MG, 150ML 150ML used. 9:11:18 HR=82 bpm, PPET=157/70 mmhg, BdE3=718.0 %, Resp=13 B/min, Pain=0, Hailee=10, Lay=2 9:16:15 HR=86 bpm, UQRG=501/73 mmhg, AuP2=330.0 %, Resp=15 B/min, Pain=0, Hailee=10, Lay=2 9:18:40 Catheter was removed 9:21:16 HR=73 bpm, VMFS=795/65 mmhg, SpO2=99.0 %, Resp=12 B/min, Pain=0, Hailee=10, Lay=2 Radial Compression Device Used. 8 mLs of air placed in BAND, RADIAL COMPRESSION TR LARGE 29 29 CM. Affected 9:21:38 hand ~O2 SATURATION~ % O2 saturation. 9:22:11 Case End 9:22:45 Catheter(s) removed without difficulty 9:22:51 No case complications noted. 9:22:54 Bedside Report will be given. 9:22:58 A Left Heart Cath was performed. 9:23:19 DOCU called. Spoke to Meghan. 9:26:14 Vitals capture stopped. 9:28:53 Patient moved to [facility] End Study - Contrast Media Used In Study Contrast Total Opened (mL) Total Used (mL) Total Wasted (mL) Omnipaque 65 65 0 End Study - Maximum Contrast Load Max Contrast Load (mL) 407.7 End Study - Radiation Exposure Fluoro Time (minutes) 3.3 End Study - Sheaths Sheaths Pulled By Sheath Hold Time (min) Dusty Amor End Study - Patient Disposition Complications Transferred To Interventional Outcome No Knowledge Engineer Holding No attempt made
[2017-10-29] MEDS ORDERED: SODIUM CHLOR 0.9% 1000 ML INJ 1,000 ML IV SCH (09:41)
[2017-10-29] MEDS ORDERED: ASPI81CH6 CHEW (09:44)
[2017-10-29] MEDS ORDERED: MISC INFORMATION XX ONE (09:45)
--- NOTE | 2017-10-29 16:30 | EKG ---
Date Performed: 10/29/2017 Time Performed: 07:31:56 PTAGE: 72 years EKG: Sinus rhythm . Normal ECG Since PREVIOUS TRACING , no significant change noted PREVIOUS TRACIN10/27/2017 18.35 DOCTOR: Rodolfo Guzman Interpretating Date/Time 10/29/2017 16:29:08
--- NOTE | 2017-10-30 05:26 | MA ---
cc: DUSTY REN DO DATE OF PROCEDURE October 29, 2017 PROCEDURE Left heart catheterization, coronary angiogram, moderate sedation 30 minutes. PREPROCEDURE DIAGNOSIS Stable angina on antianginals. POSTPROCEDURE DIAGNOSIS Mild to moderate coronary artery disease. MEDICATIONS 1. Versed 1 mg. 2. Fentanyl 50 mcg. 3. Heparin 4800 units. 4. Verapamil 2.5 mg. 5. Nitro 200 mcg. CONTRAST USED 65 cc. FLUOROSCOPY 3.3 minutes MODERATE SEDATION 30 minutes ESTIMATED BLOOD LOSS 10 cc. PROCEDURAL SUMMARY Nica Mcnair is a pleasant 72-year-old female whom I see in the office and presented originally with unstable angina. She was started on antianginals and since then she has only had one other episode of chest pain. I recommended her a cardiac catheterization to define her coronary anatomy as she has never had this done. The risks, benefits and alternatives were explained to her and she consented as such. She was brought to the lab and prepped in the usual sterile fashion. The right radial artery was accessed using a modified Seldinger technique and placement of a 5/6 Chinese Slender Sheath. This was easily aspirated and flushed. A JR-4 was advanced over the J-wire to the ascending aorta and across the aortic valve for measurement of left ventricular pressure. This was pulled back across the aortic valve showing no significant gradient of aortic stenosis. A JR-4 was used for selective angiography of the right coronary artery system. This was exchanged out for a JL-4 which was used for selective angiography of the left coronary artery system. The JL-4 was removed over a J-wire. A radial band was placed over the arteriotomy site for hemostasis. 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 FINDINGS LEFT MAIN: Normal-sized vessel with no significant disease and adequate reflux. It bifurcates into an LAD and circumflex. LAD: Normal-size vessel with no significant disease in the proximal portion. After the takeoff of the first diagonal the LAD gets overall relatively small with diffuse 30% disease. It gives off one large diagonal which is overall larger than the distal LAD which has an ostial lesion of 60%. LEFT CIRCUMFLEX: Normal-sized vessel with mild luminal irregularities throughout. It gives off one large obtuse marginal and two posterior lateral branches. 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 The two posterior lateral branches show no significant disease. RCA: Normal-sized vessel with a 20% lesion in the midportion. Distally the PDA has a 30% lesion at the ostium. LVEDP: 16. IMPRESSIONS 1. Stable angina, currently on multiple antianginals with no recent chest pain. 2. 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 RECOMMENDATIONS 1. Ms. Mcnair originally was seen for unstable angina and has been started on antianginals and since has done well. 2. Her coronary artery anatomy has now been defined and, if she continues to have any chest pain, I will most likely attempt to intervene on her diagonal as this is a larger vessel than the LAD. 3. 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 4. I asked that she start to increase her activity slowly and if she has any symptoms to let me know. Thank you for allowing me to see Nica Mcnair. If any questions, please do not hesitate to call. Dusty Ren DO VGP/SSB /10:25 PM /5:12 AM
== END 2017-10-29 15:41 | disposition home or self-care (01) ==
LOC: HDOC 06:29 → HDIC 06:29 → HDOC 15:41
PROVIDERS: ATTEND Nuclear Medicine Nuclear Cardiology
DX: I25.10 Atherosclerotic heart disease of native coronary artery without angina pectoris (principal); I10 Essential (primary) hypertension; E78.5 Hyperlipidemia, unspecified; E11.9 Type 2 diabetes mellitus without complications
CPT/HCPCS: 80048; 85007; 85027; 85610; 85730; 93005; 93452; C1769; C1893; J1644; J2250; J3010; J7030; Q9967

== ENCOUNTER 2017-12-08 13:45 | Observation (INO) | payer OTHER ==
[~2017-12-08 13:45] MED LIST changes: -ASPI81 PO; +ASPI81CH6 CHEW; -GEMF600T PO; +GLYB2.5T3 PO; +LISI-515 PO; -LISI2.5T3 PO; +NITR1SUB3 SL
[2017-12-08 13:46] VITALS: BP 140/65; PULSE 78; RESP 16; TEMP 98.8; O2SAT 98
[2017-12-08 14:26] LABS: AUTOMATED NEUTROPHIL # 3.4 TH/MM3 (1.8-7.7); BASOPHIL # 0.1 TH/MM3 (0-0.2); BASOPHIL % 2.7 % (0.0-2.0); EOSINOPHIL # 0.1 TH/MM3 (0-0.4); EOSINOPHIL % 2.3 % (0.0-4.0); LYMPH % 22.9 % (9.0-44.0); LYMPHOCYTE # 1.1 TH/MM3 (1.0-4.8); MEAN CELL VOLUME 108.9 FL (80.0-100.0); MEAN CORPUSCULAR HEMOGLOBIN 34.2 PG (27.0-34.0); MEAN CORPUSCULAR HGB CONC 31.4 % (32.0-36.0); MEAN PLATELET VOLUME 12.2 FL (7.0-11.0); MONO % 2.9 % (0.0-8.0); MONOCYTE # 0.1 TH/MM3 (0-0.9); NEUT % 69.2 % (16.0-70.0); PLATELET COUNT 284 TH/MM3 (150-450); RED BLOOD COUNT 1.78 MIL/MM3 (4.00-5.30); RED CELL DISTRIBUTION WIDTH 24.1 % (11.6-17.2); WHITE BLOOD COUNT 4.8 TH/MM3 (4.0-11.0)
[2017-12-08 14:31] LABS: INTERNATIONAL NORMALIZED RATIO 1.2 RATIO; PROTHROMBIN TIME - PATIENT 12.1 SEC (9.8-11.6)
[2017-12-08 14:46] LABS: ALBUMIN 3.8 GM/DL (3.4-5.0); AST (GOT) 14 U/L (15-37); BICARBONATE 22.6 MEQ/L (21.0-32.0); BLOOD UREA NITROGEN 23 MG/DL (7-18); CHLORIDE 111 MEQ/L (98-107); CREATININE 1.41 MG/DL (0.50-1.00); GLOMERULAR FILTRATION RATE 37 ML/MIN (>89); GLUCOSE,RANDOM 114 MG/DL (74-106); SODIUM (NA) 142 MEQ/L (136-145)
[2017-12-08 14:51] LABS: ALKALINE PHOSPHATASE 69 U/L (45-117); ALT (GPT) 23 U/L (10-53); TOTAL BILIRUBIN ADULT 0.6 MG/DL (0.2-1.0); TOTAL PROTEIN 7.3 GM/DL (6.4-8.2)
[2017-12-08 14:56] LABS: HEMATOCRIT 19.4 % (35.0-46.0); HEMOGLOBIN 6.1 GM/DL (11.6-15.3)
[2017-12-08] MEDS ORDERED: SODIUM CHLOR 0.9% 250 ML INJ 250 ML IV ONE (16:45)
[2017-12-08 17:21] LABS: BANDS 16 % (0-6); LYMPHOCYTES 15 % (9-44); MONOCYTES 3 % (0-8); NEUTROPHIL # MANUAL DIFF 3.7 TH/MM3 (1.8-7.7); POLYS (SEG NEUTROPHILS) 62 % (16-70)
[2017-12-08 17:24] LABS: OVALOCYTES 1+ (NORMAL); SPHEROCYTES OCC (NORMAL)
--- NOTE | 2017-12-08 17:45 | HHI.HP ---
[facility] Non-Staff Admission Diagnosis Diagnoses: Chief Complaint: Sent by exercise specialist for blood transfusion. Travel History International Travel<30 Days: No Contact w/Intl Traveler <30 Da: No Traveled to Known Affected Are: No History of Present Illness This is a pleasant 72 by/o Female with DM II, Hypertension, CAD, Hyperlipidemia , who was sent to Emergency room by exercise specialist at [place] due to symptomatic anemia for blood transfusion, the patient already had Anemia workup in this facility in September last year and was Negative, in the past seen in this facility due to chest pain seen by compliance specialist doctor Dusty Amor relay checker and Dr. Perez of nephrology. has blood transfusions in the past, stable in her bedroom, asymptomatic at this time, she has an scheduled procedure with compliance specialist Doctor Mt as outpatient for December 16 2017. Review of Systems Constitutional: DENIES: Fever, Chills, Change in appetite Endocrine: DENIES: Heat/cold intolerance Eyes: DENIES: Blurred vision, Eye pain Except as stated in HPI: all other systems reviewed are Neg Past Family Social History Past Medical History Diabetes Hypertension Coronary artery disease Hyperlipidemia Obesity Hypothyroidism Orthopedic surgery bilateral total knees right shoulder surgery Past Surgical History Bilateral total knee replacement right shoulder surgery cholecystectomy Reported Medications Reported Meds & Active Scripts Active Aspirin Low Dose (Aspirin) 81 Mg Chew 81 Mg CHEW DAILY 90 Days Reported Nitroglycerin SL (Nitroglycerin) 0.4 Mg Subl 0.4 Mg SL DIRECTED PRN ONE TABLET UNDER THE TONGUE NEEDED FOR CHEST PAIN, MAY REPEAT EVERY FIVE MINUTES FOR A TOTAL OF 3 DOSES OR CALL 911 IF NO RELIEF Lisinopril 20 Mg Tab 20 Mg PO DAILY Glyburide 2.5 Mg Tab 2.5 Mg PO DAILY Take with meals at the same time each day Isosorbide Mononitrate ER (Isosorbide Mononitrate) 30 Mg Nitish 30 Mg PO DAILY Metoprolol Tartrate 25 Mg Tab 25 Mg PO BID Atorvastatin (Atorvastatin Calcium) 40 Mg Tab 40 Mg PO HS Levothyroxine (Levothyroxine Sodium) 25 Mcg Tab 25 Mcg PO DAILY Allergies: Coded Allergies: No Known Allergies (Unverified , 10/29/17) Active Ordered Medications Current Medications Medications (Trade) Dose Ordered Sig/Riley Route Start Time Stop Time Status Last Admin Sodium Chloride 250 ml @ 15 mls/hr ONCE ONCE IV 12/08/17 16:45 12/09/17 09:24 12/08/17 17:44 (NS Flush) 2 ml UNSCH PRN IV FLUSH 12/08/17 18:00 (NS Flush) 2 ml BID IV FLUSH 12/08/17 21:00 (Tylenol) 650 mg Q4H PRN PO 12/08/17 18:00 (Zofran Inj) 4 mg Q6H PRN IVP 12/08/17 18:00 (Narcan Inj) 0.4 mg UNSCH PRN IV PUSH 12/08/17 18:00 (Senokot) 17.2 mg Q12H PRN PO 12/08/17 18:00 (Dulcolax Supp) 10 mg DAILY PRN RECTAL 12/08/17 18:00 (Lactulose Liq) 30 ml DAILY PRN PO 12/08/17 18:00 (Lipitor) 40 mg HS PO 12/08/17 21:00 (Imdur) 30 mg DAILY PO 12/09/17 09:00 (Synthroid) 25 mcg DAILY@0600 PO 12/09/17 06:00 (Prinivil) 20 mg DAILY PO 12/09/17 09:00 (Lopressor) 25 mg BID PO 12/08/17 21:00 (NovoLOG SUPPLEMENTAL SCALE) 1 ACHS SLIDING SCALE SQ 12/08/17 21:00 Family History Hypertension diabetes Social History Denies tobacco abuse Occasional rare alcoholic beverage Denies any illicit Physical Exam Vital Signs Vital Signs Date Time Temp Pulse Resp B/P (MAP) Pulse Ox O2 Delivery O2 Flow Rate FiO2 12/08/17 13:46 98.8 78 16 140/65 (90) 98 Physical Exam GENERAL: Morbid obese patient in no acute distress. SKIN: No rashes, ecchymoses or lesions. Pale. HEAD: Atraumatic. Normocephalic. No temporal or scalp tenderness. EYES: Pupils equal round and reactive. Extraocular motions intact. sclera pale. ENT: Nose without bleeding, purulent drainage or septal hematoma. NECK: Trachea midline. No JVD or lymphadenopathy. Supple, nontender, no meningeal signs. CARDIOVASCULAR: Regular rate and rhythm without murmurs, gallops, or rubs. S1 and S2 no S3 or S4 RESPIRATORY: Clear to auscultation. Breath sounds equal bilaterally. No wheezes , rales, or rhonchi. GASTROINTESTINAL: Abdomen soft, non-tender, nondistended. No hepato-splenomegaly , or palpable masses. No guarding. Obese MUSCULOSKELETAL: Extremities without clubbing, cyanosis, +1 edema bilateral lower extremities. No joint tenderness, effusion, noted. No calf tenderness. Negative Homans sign bilaterally. NEUROLOGICAL: Awake and alert. Cranial nerves II through XII intact. Motor and sensory grossly within normal limits. Five out of 5 muscle strength in all muscle groups. Normal speech. Laboratory Laboratory Tests Test 12/08/17 14:07 White Blood Count 4.8 Red Blood Count 1.78 Hemoglobin 6.1 Hematocrit 19.4 Mean Corpuscular Volume 108.9 Mean Corpuscular Hemoglobin 34.2 Mean Corpuscular Hemoglobin Concent 31.4 Red Cell Distribution Width 24.1 Platelet Count 284 Mean Platelet Volume 12.2 Neutrophils (%) (Auto) 69.2 Lymphocytes (%) (Auto) 22.9 Monocytes (%) (Auto) 2.9 Eosinophils (%) (Auto) 2.3 Basophils (%) (Auto) 2.7 Neutrophils # (Auto) 3.4 Lymphocytes # (Auto) 1.1 Monocytes # (Auto) 0.1 Eosinophils # (Auto) 0.1 Basophils # (Auto) 0.1 CBC Comment AUTO DIFF Differential Total Cells Counted 100 Neutrophils % (Manual) 62 Band Neutrophils % 16 Lymphocytes % 15 Monocytes % 3 Eosinophils % 4 Neutrophils # (Manual) 3.7 Differential Comment FINAL DIFF MANUAL Platelet Estimate HIGH Platelet Morphology Comment NORMAL Spherocytes OCC Ovalocytes 1+ Prothrombin Time 12.1 Prothromb Time International Ratio 1.2 Activated Partial Thromboplast Time 26.0 Blood Urea Nitrogen 23 Creatinine 1.41 Random Glucose 114 Total Protein 7.3 Albumin 3.8 Calcium Level 9.0 Alkaline Phosphatase 69 Aspartate Amino Transf (AST/SGOT) 14 Alanine Aminotransferase (ALT/SGPT) 23 Total Bilirubin 0.6 Sodium Level 142 Potassium Level 4.4 Chloride Level 111 Carbon Dioxide Level 22.6 Anion Gap 8 Estimat Glomerular Filtration Rate 37 Result Diagram: 12/08/17 1407 12/08/17 1407 Caprini VTE Risk Assessment Caprini VTE Risk Assessment: Mod/High Risk (score >= 2) Caprini Risk Assessment Model Point Value = 1 Point Value = 2 Point Value = 3 Point Value = 5 Age 41-60 Minor surgery BMI > 25 kg/m2 Swollen legs Varicose veins or History of unexplained or recurrent spontaneous Oral contraceptives or hormone replacement Sepsis (< 1 month) Serious lung disease, including pneumonia (< 1 month) Abnormal pulmonary function Acute myocardial infarction Congestive heart failure (< 1 month) History of inflammatory bowel disease Medical patient at bed rest Age 61-74 Arthroscopic surgery Major open surgery (> 45 min) Laparoscopic surgery (> 45 min) Malignancy Confined to bed (> 72 hours) Immobilizing plaster cast Central venous access Age >= 75 History of VTE Family history of VTE Factor V Leiden Prothrombin [id number] Lupus anticoagulant Anticardiolipin antibodies Elevated serum homocysteine Heparin-induced thrombocytopenia Other congenital or acquired thrombophilia Stroke (< 1 month) Elective arthroplasty Hip, pelvis, or leg fracture Acute spinal cord injury (< 1 month) Prophylaxis Regimen Total Risk Factor Score Risk Level Prophylaxis Regimen 0-1 Low Early ambulation 2 Moderate Order ONE of the following: *Sequential Compression Device (SCD) *Heparin 5000 units SQ BID 3-4 Higher Order ONE of the following medications: *Heparin 5000 units SQ TID *Enoxaparin/Lovenox 40 mg SQ daily (WT < 150 kg, CrCl > 30 mL/min) *Enoxaparin/Lovenox 30 mg SQ daily (WT < 150 kg, CrCl > 10-29 mL/min) *Enoxaparin/Lovenox 30 mg SQ BID (WT < 150 kg, CrCl > 30 mL/min) AND/OR *Sequential Compression Device (SCD) 5 or more Highest Order ONE of the following medications: *Heparin 5000 units SQ TID (Preferred with Epidurals) *Enoxaparin/Lovenox 40 mg SQ daily (WT < 150 kg, CrCl > 30 mL/min) *Enoxaparin/Lovenox 30 mg SQ daily (WT < 150 kg, CrCl > 10-29 mL/min) *Enoxaparin/Lovenox 30 mg SQ BID (WT < 150 kg, CrCl > 30 mL/min) AND *Sequential Compression Device (SCD) Assessment and Plan Assessment and Plan Symptomatic anemia today her hemoglobin was 5.9 during her hematology visit to Doctor Laura Reilly. Eun at [place] sent to this facility for blood transfusion. she had workup in September Last year for anemia and was negative. Chronic kidney disease Stage III stable. Diabetes mellitus Continue sliding scale coverage Accu-Cheks before meals and at bedtime diabetic diet Hyperlipidemia continue home meds once they're established Obesity recommended weight loss Hypertension controlled to re start home medicines CAD she has an scheduled procedure with Doctor Mt will try to contact him if he wants to see patient while this Hospitalization SCDs at this time and DIANA hose Place in observation GI prophylaxis DVT prophylaxis with DIANA hose and SCDs in view of symptomatic anemia. Code Status full code. Discussed Condition With ER PA Physician Certification 2 Midnight Certification Type: Admission for Inpatient Services Order for Inpatient Services The services are ordered in accordance with Medicare regulations or non- Medicare payer requirements, as applicable. In the case of services not specified as inpatient-only, they are appropriately provided as inpatient services in accordance with the 2-midnight benchmark. Estimated LOS (days): 3 days is the estimated time the patient will need to remain in the hospital, assuming treatment plan goals are met and no additional complications. Post-Hospital Plan: Home Jairon Michelle MD Dec 08, 2017 17:45
[2017-12-08] MEDS ORDERED: NALOXONE HCL 0.4 MG/ML AMP IV PUSH PRN (18:00)
[2017-12-08] MEDS ORDERED: BISACODYL 10 MG SUPP RECTAL PRN (18:00)
[2017-12-08] MEDS ORDERED: ACETAMINOPHEN 325 MG TAB PO PRN (18:00)
[2017-12-08] MEDS ORDERED: SENNOSIDES 8.6 MG TAB PO PRN (18:00)
[2017-12-08] MEDS ORDERED: ONDANSETRON HCL 4 MG/2 ML VIAL IVP PRN (18:00)
[2017-12-08] MEDS ORDERED: SODIUM CHLORIDE 0.9% FLUSH 10 ML FLUSH IV FLUSH PRN (18:00)
[2017-12-08] MEDS ORDERED: LACTULOSE SYRUP 20 GM/30 ML CUP PO PRN (18:00)
[2017-12-08 18:09] VITALS: BP 169/79; PULSE 66; RESP 15; TEMP 98.5
--- NOTE | 2017-12-08 18:20 | PD ---
HPI Chief Complaint: Abnormal Results Time Seen by Provider: 16:38 Travel History International Travel<30 days: No Contact w/Intl Traveler<30days: No Traveled to known affect area: No History of Present Illness HPI 72-year-old female that presents to the ED for evaluation of low hemoglobin. Patient was not here for evaluation of low hemoglobin. Patient has a history of symptomatic anemia in the past secondary to chronic disease. Patient with seen here late last year for similar to what submitted had blood transfusion. Patient also has history of significant coronary artery disease will have her To have stents placed on December 14. Per patient she has no chest pain or shortness of breath this time. Per patient she just feels weak entire. Per patient he states usually whenever she gets anemic. She has had transfusions in the past with no issues. She actually had an appointment today with her sofa back upholsterer for the first time in the did some blood work before the visit in the found out that she was not anemic in the told her to come here to get evaluated for transfusion. She has never seen this doctor before. Per patient she has to go to [place] to get care secondary to her insurance. Patient herself has no other complaints. Per patient she takes no blood thinners. She denies any blood in her stool or dark stools. She has been worked up for this in the past per patient. Per patient they think that it has been related to her kidney disease she may not be producing enough blood cells. PFSH Past Medical History Cardiovascular Problems: Yes (HTN) High Cholesterol: Yes Chest Pain: Yes Diabetes: Yes Patient Takes Glucophage: No Diminished Hearing: No Genitourinary: No Hypertension: Yes Musculoskeletal: No Neurologic: No Reproductive: No Respiratory: No Immunizations Current: No Sleep Apnea: Yes Thyroid Disease: Yes (hypo) Tetanus Vaccination: Unknown Influenza Vaccination: No Past Surgical History Cholecystectomy: Yes Other Surgery: Yes (bilat knee, right shoulder, drake) Social History Alcohol Use: Yes (2X YEAR) Tobacco Use: No Substance Use: No Allergies-Medications (Allergen,Severity, Reaction): Coded Allergies: No Known Allergies (Unverified , 10/29/17) Reported Meds & Prescriptions Reported Meds & Active Scripts Active Aspirin Low Dose (Aspirin) 81 Mg Chew 81 Mg CHEW DAILY 90 Days Reported Nitroglycerin SL (Nitroglycerin) 0.4 Mg Subl 0.4 Mg SL DIRECTED PRN ONE TABLET UNDER THE TONGUE NEEDED FOR CHEST PAIN, MAY REPEAT EVERY FIVE MINUTES FOR A TOTAL OF 3 DOSES OR CALL 911 IF NO RELIEF Lisinopril 20 Mg Tab 20 Mg PO DAILY Glyburide 2.5 Mg Tab 2.5 Mg PO DAILY Take with meals at the same time each day Isosorbide Mononitrate ER (Isosorbide Mononitrate) 30 Mg Nitish 30 Mg PO DAILY Metoprolol Tartrate 25 Mg Tab 25 Mg PO BID Atorvastatin (Atorvastatin Calcium) 40 Mg Tab 40 Mg PO HS Levothyroxine (Levothyroxine Sodium) 25 Mcg Tab 25 Mcg PO DAILY Review of Systems Except as stated in HPI: all other systems reviewed are Neg Physical Exam Narrative GENERAL: SKIN: Warm and dry. HEAD: Atraumatic. Normocephalic. EYES: Pupils equal and round. No scleral icterus. No injection or drainage. ENT: No nasal bleeding or discharge. Mucous membranes pink and moist. Tongue his midline. No uvula deviation. NECK: Trachea midline. No JVD. CARDIOVASCULAR: Regular rate and rhythm. No murmurs, S3, S4. RESPIRATORY: No accessory muscle use. Clear to auscultation. Breath sounds equal bilaterally. GASTROINTESTINAL: Abdomen soft, non-tender, nondistended. Hepatic and splenic margins not palpable. MUSCULOSKELETAL: Extremities without clubbing, cyanosis, or edema. No obvious deformities. Full range of motion of the open lower extremities bilaterally. 2 + pulses bilaterally. NEUROLOGICAL: Awake and alert. No obvious cranial nerve deficits. Motor grossly within normal limits. Five out of 5 muscle strength in the arms and legs. Normal speech. PSYCHIATRIC: Appropriate mood and affect; insight and judgment normal. Data Data Last Documented VS Vital Signs Date Time Temp Pulse Resp B/P (MAP) Pulse Ox O2 Delivery O2 Flow Rate FiO2 12/08/17 13:46 98.8 78 16 140/65 (90) 98 Orders Orders Complete Blood Count With Diff (12/08/17 13:55) Comprehensive Metabolic Panel (12/08/17 13:55) Prothrombin Time / Inr (Pt) (12/08/17 13:55) Act Partial Throm Time (Ptt) (12/08/17 13:55) Type And Screen (12/08/17 13:55) Red Blood Cells (Rbc) (12/08/17 16:39) Blood Product Administration (12/08/17 16:39) Sodium Chlor 0.9% 250 Ml Inj (Ns 250 Ml (12/08/17 16:45) Place In Observation (12/08/17 ) Code Status (12/08/17 17:46) Vital Signs (Adult) Q4H (12/08/17 17:46) Activity Oob Ad Luci (12/08/17 17:46) Bedside Glucose JOSE A.CSUGAR (12/08/17 17:46) Post Anesthesia Care Unit Nurse / Telemetry .CONTINUOUS (12/08/17 17:46) Intake + Output JOSE A.QSHIFT (12/08/17 17:46) Notify Dr: Other (12/08/17 17:46) Diet 1800 Ada Cons Carb (12/08/17 Dinner) Sodium Chloride 0.9% Flush (Ns Flush) (12/08/17 18:00) Sodium Chloride 0.9% Flush (Ns Flush) (12/08/17 21:00) Acetaminophen (Tylenol) (12/08/17 18:00) Ondansetron Inj (Zofran Inj) (12/08/17 18:00) Basic Metabolic Panel (Bmp) (12/09/17 06:00) Complete Blood Count With Diff (12/09/17 06:00) Urinalysis - C+S If Indicated (12/08/17 17:46) Resp Oxygen Jamaal C Titrat 1-4 L (12/08/17 ) Case Management Consult (12/08/17 17:46) Scd Bilateral/Knee High JOSE A.BID (12/08/17 17:46) Naloxone Inj (Narcan Inj) (12/08/17 18:00) Sennosides (Senokot) (12/08/17 18:00) Bisacodyl Supp (Dulcolax Supp) (12/08/17 18:00) Lactulose Liq (Lactulose Liq) (12/08/17 18:00) Atorvastatin (Lipitor) (12/08/17 21:00) Isosorbide Mononitrate (Imdur) (12/09/17 09:00) Levothyroxine (Synthroid) (12/09/17 06:00) Lisinopril (Prinivil) (12/09/17 09:00) Metoprolol Tartrate (Lopressor) (12/08/17 21:00) Insulin Aspart Supplemtl Scale (Novolog (12/08/17 21:00) Admit Order (Ed Use Only) (12/08/17 17:50) Labs Laboratory Tests Test 12/08/17 14:07 White Blood Count 4.8 TH/MM3 Red Blood Count 1.78 MIL/MM3 Hemoglobin 6.1 GM/DL Hematocrit 19.4 % Mean Corpuscular Volume 108.9 FL Mean Corpuscular Hemoglobin 34.2 PG Mean Corpuscular Hemoglobin Concent 31.4 % Red Cell Distribution Width 24.1 % Platelet Count 284 TH/MM3 Mean Platelet Volume 12.2 FL Neutrophils (%) (Auto) 69.2 % Lymphocytes (%) (Auto) 22.9 % Monocytes (%) (Auto) 2.9 % Eosinophils (%) (Auto) 2.3 % Basophils (%) (Auto) 2.7 % Neutrophils # (Auto) 3.4 TH/MM3 Lymphocytes # (Auto) 1.1 TH/MM3 Monocytes # (Auto) 0.1 TH/MM3 Eosinophils # (Auto) 0.1 TH/MM3 Basophils # (Auto) 0.1 TH/MM3 CBC Comment AUTO DIFF Differential Total Cells Counted 100 Neutrophils % (Manual) 62 % Band Neutrophils % 16 % Lymphocytes % 15 % Monocytes % 3 % Eosinophils % 4 % Neutrophils # (Manual) 3.7 TH/MM3 Differential Comment FINAL DIFF MANUAL Platelet Estimate HIGH Platelet Morphology Comment NORMAL Spherocytes OCC Ovalocytes 1+ Prothrombin Time 12.1 SEC Prothromb Time International Ratio 1.2 RATIO Activated Partial Thromboplast Time 26.0 SEC Blood Urea Nitrogen 23 MG/DL Creatinine 1.41 MG/DL Random Glucose 114 MG/DL Total Protein 7.3 GM/DL Albumin 3.8 GM/DL Calcium Level 9.0 MG/DL Alkaline Phosphatase 69 U/L Aspartate Amino Transf (AST/SGOT) 14 U/L Alanine Aminotransferase (ALT/SGPT) 23 U/L Total Bilirubin 0.6 MG/DL Sodium Level 142 MEQ/L Potassium Level 4.4 MEQ/L Chloride Level 111 MEQ/L Carbon Dioxide Level 22.6 MEQ/L Anion Gap 8 MEQ/L Estimat Glomerular Filtration Rate 37 ML/MIN MDM Medical Decision Making Medical Screen Exam Complete: Yes Emergency Medical Condition: Yes Medical Record Reviewed: Yes Interpretation(s) CBC & BMP Diagram 12/08/17 14:07 Total Protein 7.3, Albumin 3.8, Calcium Level 9.0, Alkaline Phosphatase 69, Aspartate Amino Transf (AST/SGOT) 14 L, Alanine Aminotransferase (ALT/SGPT) 23, Total Bilirubin 0.6 Differential Diagnosis Symptomatic anemia versus anemia versus abnormal lab's Narrative Course 72-year-old female presents to the ED for evaluation of abnormal lab. patient was found to have signs on symptoms consistent with appears to be symptomatic anemia. Labs done here were consistent with anemia. Patient at this time wants told that she requires admission for blood transfusion. Patient agrees with this. Patient already had a workup at this facility which was not negative for GI bleed. At the time patient was thought to have anemia from chronic disease which as likely the cause of it. She has established with a local oncologist sofa back upholsterer but today wants her first visit when she has not able to get any more workup for it. At this time accommodations for admission for blood transfusion. Patient agrees. Case will discuss with my attending who agrees with plan. Case discussed with Dr. Mcneill who agrees to admission to his service. Diagnosis Primary Impression: Symptomatic anemia Admitting Information Admitting Physician Requests: Observation Ramón Patrick Dec 08, 2017 18:20
[2017-12-08 18:24] VITALS: BP 142/61; PULSE 62; RESP 18; TEMP 98.8; O2SAT 97
[2017-12-08] MEDS: INSULIN ASPART SUPPLEMENTAL SCALE SQ SCH (20:16)
[2017-12-08] MEDS: METOPROLOL TARTRATE 25 MG TAB PO SCH (21:00)
[2017-12-08] MEDS ORDERED: ATORVASTATIN 40 MG TAB PO SCH (21:00)
[2017-12-08 21:19] VITALS: BP 159/70; PULSE 84; RESP 18; TEMP 98.1; O2SAT 98
[2017-12-08 23:00] VITALS: BP 164/73; PULSE 86; RESP 17; TEMP 98.3; O2SAT 96
[2017-12-08] MEDS: SODIUM CHLORIDE 0.9% FLUSH 10 ML FLUSH IV FLUSH SCH (23:07)
[2017-12-08 23:23] VITALS: BP 153/68; PULSE 83; RESP 17; TEMP 98.5; O2SAT 97
[2017-12-08 23:33] LABS: BACTERIA, URINE RARE /hpf; BILIRUBIN, URINE NEG (NEG); BLOOD, URINE NEG (NEG); GLUCOSE,URINE NEG (NEG); HYALINE CAST, URINE 1 /lpf (RARE); KETONE, URINE NEG (NEG); MUCUS URINE FEW /lpf (OCC); NITRITE,URINE NEG (NEG); PH, URINE 5.5 (5.0-8.5); SQUAMOUS EPITHELIAL CELL URINE 2 /hpf (0-5); URINE COLOR YELLOW (YELLW/STRAW); URINE LEUKOCYTE ESTERASE SMALL (NEG)
[2017-12-09] VITALS (9 sets, daily range): BP systolic 135–157; BP diastolic 63–69; PULSE 53–66; RESP 16–18; TEMP 96.5–99; O2SAT 95–97
[2017-12-09] MEDS ORDERED: LEVOTHYROXINE SODIUM 25 MCG TAB PO SCH (06:00)
[2017-12-09] MEDS: INSULIN ASPART SUPPLEMENTAL SCALE SQ SCH ×3 (08:00→17:00)
[2017-12-09] MEDS ORDERED: LISINOPRIL 20 MG TAB PO SCH (09:00)
[2017-12-09] MEDS ORDERED: ISOSORBIDE MONONITRATE 30 MG TAB PO SCH (09:00)
[2017-12-09] MEDS: METOPROLOL TARTRATE 25 MG TAB PO SCH (09:24)
[2017-12-09] MEDS: SODIUM CHLORIDE 0.9% FLUSH 10 ML FLUSH IV FLUSH SCH (09:25)
--- NOTE | 2017-12-09 10:45 | HHI.PR ---
Subjective Remarks This is a pleasant 72 by/o Female with DM II, Hypertension, CAD, Hyperlipidemia , who was sent to Emergency room by automotive product specialist at [place] due to symptomatic anemia for blood transfusion, the patient already had Anemia workup in this facility in September last year and was Negative, in the past seen in this facility due to chest pain seen by traffic control specialist doctor Dusty Amor ldr rn and Dr. Perez of nephrology. has blood transfusions in the past, stable in her bedroom, asymptomatic at this time, she has an scheduled procedure with traffic control specialist Doctor Mt as outpatient for December 16 2017. 12/09: The patient was discussed with Doctor Dusty Amor he states he will see the patient as outpatient, no need to be seen in house at this time, she received two units of PRBCs and her Hemoglobin is 7.5 patient states she does not like the Hemoglobin will receive one more unit and discharge Home and follow with PCP after blood transfusion. no nausea, vomit or diarrhea. Objective Vital Signs Date Time Temp Pulse Resp B/P (MAP) Pulse Ox O2 Delivery O2 Flow Rate FiO2 12/09/17 07:54 97 21 12/09/17 07:48 98.2 66 16 157/69 (98) 95 12/09/17 04:46 97.9 57 18 135/63 (87) 97 12/08/17 23:23 98.5 83 17 153/68 97 12/08/17 23:00 98.3 86 17 164/73 96 12/08/17 21:19 98.1 84 18 159/70 (99) 98 12/08/17 18:55 12/08/17 18:24 98.8 62 18 142/61 97 12/08/17 18:09 98.5 66 15 169/79 12/08/17 17:55 95 Room Air 12/08/17 13:46 98.8 78 16 140/65 (90) 98 I/O 12/08/17 12/08/17 12/08/17 12/09/17 12/09/17 12/09/17 07:00 15:00 23:00 07:00 15:00 23:00 Intake Total 400 ml 400 ml Balance 400 ml 400 ml Intake Packed Cells 400 ml 400 ml # Voids 1 Result Diagram: 12/08/17 1407 12/08/17 1407 Imaging No new Imaging studies. Procedures Blood transfusion Other Results Laboratory Tests Test 12/08/17 14:07 12/08/17 23:12 White Blood Count 4.8 TH/MM3 Red Blood Count 1.78 MIL/MM3 Hemoglobin 6.1 GM/DL Hematocrit 19.4 % Mean Corpuscular Volume 108.9 FL Mean Corpuscular Hemoglobin 34.2 PG Mean Corpuscular Hemoglobin Concent 31.4 % Red Cell Distribution Width 24.1 % Platelet Count 284 TH/MM3 Mean Platelet Volume 12.2 FL Neutrophils (%) (Auto) 69.2 % Lymphocytes (%) (Auto) 22.9 % Monocytes (%) (Auto) 2.9 % Eosinophils (%) (Auto) 2.3 % Basophils (%) (Auto) 2.7 % Neutrophils # (Auto) 3.4 TH/MM3 Lymphocytes # (Auto) 1.1 TH/MM3 Monocytes # (Auto) 0.1 TH/MM3 Eosinophils # (Auto) 0.1 TH/MM3 Basophils # (Auto) 0.1 TH/MM3 CBC Comment AUTO DIFF Differential Total Cells Counted 100 Neutrophils % (Manual) 62 % Band Neutrophils % 16 % Lymphocytes % 15 % Monocytes % 3 % Eosinophils % 4 % Neutrophils # (Manual) 3.7 TH/MM3 Differential Comment FINAL DIFF MANUAL Platelet Estimate HIGH Platelet Morphology Comment NORMAL Spherocytes OCC Ovalocytes 1+ Prothrombin Time 12.1 SEC Prothromb Time International Ratio 1.2 RATIO Activated Partial Thromboplast Time 26.0 SEC Blood Urea Nitrogen 23 MG/DL Creatinine 1.41 MG/DL Random Glucose 114 MG/DL Total Protein 7.3 GM/DL Albumin 3.8 GM/DL Calcium Level 9.0 MG/DL Alkaline Phosphatase 69 U/L Aspartate Amino Transf (AST/SGOT) 14 U/L Alanine Aminotransferase (ALT/SGPT) 23 U/L Total Bilirubin 0.6 MG/DL Sodium Level 142 MEQ/L Potassium Level 4.4 MEQ/L Chloride Level 111 MEQ/L Carbon Dioxide Level 22.6 MEQ/L Anion Gap 8 MEQ/L Estimat Glomerular Filtration Rate 37 ML/MIN Urine Color YELLOW Urine Turbidity CLEAR Urine pH 5.5 Urine Specific Lovilia 1.015 Urine Protein NEG mg/dL Urine Glucose (UA) NEG mg/dL Urine Ketones NEG mg/dL Urine Occult Blood NEG Urine Nitrite NEG Urine Bilirubin NEG Urine Urobilinogen LESS THAN 2.0 MG/DL Urine Leukocyte Esterase SMALL Urine RBC LESS THAN 1 /hpf Urine WBC LESS THAN 1 /hpf Urine Squamous Epithelial Cells 2 /hpf Urine Bacteria RARE /hpf Urine Hyaline Casts 1 /lpf Urine Mucus FEW /lpf Microscopic Urinalysis Comment CULT NOT INDICATED Objective Remarks GENERAL: Morbid obese patient in no acute distress. SKIN: No rashes, ecchymoses or lesions. Pale. HEAD: Atraumatic. Normocephalic. No temporal or scalp tenderness. EYES: Pupils equal round and reactive. Extraocular motions intact. sclera pale. ENT: Nose without bleeding, purulent drainage or septal hematoma. NECK: Trachea midline. No JVD or lymphadenopathy. Supple, nontender, no meningeal signs. CARDIOVASCULAR: Regular rate and rhythm without murmurs, gallops, or rubs. S1 and S2 no S3 or S4 RESPIRATORY: Clear to auscultation. Breath sounds equal bilaterally. No wheezes , rales, or rhonchi. GASTROINTESTINAL: Abdomen soft, non-tender, nondistended. No hepato-splenomegaly , or palpable masses. No guarding. Obese MUSCULOSKELETAL: Extremities without clubbing, cyanosis, +1 edema bilateral lower extremities. No joint tenderness, effusion, noted. No calf tenderness. Negative Homans sign bilaterally. NEUROLOGICAL: Awake and alert. Cranial nerves II through XII intact. Motor and sensory grossly within normal limits. Five out of 5 muscle strength in all muscle groups. Normal speech. Medications and IVs Current Medications Medications (Trade) Dose Ordered Sig/Riley Route Start Time Stop Time Status Last Admin (NS Flush) 2 ml UNSCH PRN IV FLUSH 12/08/17 18:00 (NS Flush) 2 ml BID IV FLUSH 12/08/17 21:00 12/09/17 09:25 (Tylenol) 650 mg Q4H PRN PO 12/08/17 18:00 (Zofran Inj) 4 mg Q6H PRN IVP 12/08/17 18:00 (Narcan Inj) 0.4 mg UNSCH PRN IV PUSH 12/08/17 18:00 (Senokot) 17.2 mg Q12H PRN PO 12/08/17 18:00 (Dulcolax Supp) 10 mg DAILY PRN RECTAL 12/08/17 18:00 (Lactulose Liq) 30 ml DAILY PRN PO 12/08/17 18:00 (Lipitor) 40 mg HS PO 12/08/17 21:00 12/08/17 23:07 (Imdur) 30 mg DAILY PO 12/09/17 09:00 12/09/17 09:24 (Synthroid) 25 mcg DAILY@0600 PO 12/09/17 06:00 12/09/17 05:40 (Prinivil) 20 mg DAILY PO 12/09/17 09:00 12/09/17 09:24 (Lopressor) 25 mg BID PO 12/08/17 21:00 12/09/17 09:24 (NovoLOG SUPPLEMENTAL SCALE) 1 ACHS SLIDING SCALE SQ 12/08/17 21:00 A/P Assessment and Plan Symptomatic anemia today her hemoglobin was 5.9 during her hematology visit to Doctor Laura Haq at [place] sent to this facility for blood transfusion. she had workup in September Last year for anemia and was negative. today after blood transfusion of two units of PRBCs, her Hemoglobin is 7.5 she will receive one more unit and follow with hematology as outpatient. Chronic kidney disease Stage III stable. Diabetes mellitus Continue sliding scale coverage Accu-Cheks before meals and at bedtime diabetic diet Hyperlipidemia continue home meds once they're established Obesity recommended weight loss Hypertension controlled CAD she has an scheduled procedure with Doctor Amor discussed with Doctor Dusty Amor and will see the patient as outpatient. SCDs at this time and DIANA hose GI prophylaxis DVT prophylaxis with DIANA hose and SCDs in view of symptomatic anemia. Code Status full code. Discharge Planning Discharge home after blood transfusion Jairon Michelle MD Dec 09, 2017 10:45
[2017-12-09 10:47] LABS: AUTOMATED NEUTROPHIL # 2.6 TH/MM3 (1.8-7.7); BASOPHIL # 0.1 TH/MM3 (0-0.2); BASOPHIL % 2.6 % (0.0-2.0); EOSINOPHIL # 0.1 TH/MM3 (0-0.4); EOSINOPHIL % 2.6 % (0.0-4.0); HEMATOCRIT 21.5 % (35.0-46.0); HEMOGLOBIN 7.5 GM/DL (11.6-15.3); LYMPH % 17.4 % (9.0-44.0); LYMPHOCYTE # 0.6 TH/MM3 (1.0-4.8); MEAN CELL VOLUME 100.2 FL (80.0-100.0); MEAN PLATELET VOLUME 12.4 FL (7.0-11.0); MONO % 3.6 % (0.0-8.0); MONOCYTE # 0.1 TH/MM3 (0-0.9); NEUT % 73.8 % (16.0-70.0); PLATELET COUNT 268 TH/MM3 (150-450); RED BLOOD COUNT 2.14 MIL/MM3 (4.00-5.30); RED CELL DISTRIBUTION WIDTH 24.3 % (11.6-17.2); WHITE BLOOD COUNT 3.6 TH/MM3 (4.0-11.0)
[2017-12-09 11:12] LABS: BICARBONATE 24.9 MEQ/L (21.0-32.0); CALCIUM 8.9 MG/DL (8.5-10.1); CREATININE 1.41 MG/DL (0.50-1.00)
[2017-12-09 11:43] LABS: BANDS 29 % (0-6); BASOPHILS 1 % (0-2); LYMPHOCYTES 15 % (9-44); MONOCYTES 3 % (0-8); NEUTROPHIL # MANUAL DIFF 2.9 TH/MM3 (1.8-7.7); POLYS (SEG NEUTROPHILS) 51 % (16-70)
[2017-12-09 11:44] LABS: OVALOCYTES 1+ (NORMAL)
[2017-12-09] MEDS ORDERED: diphenhydrAMINE HCL 25 MG CAP PO PRN (14:30)
[2017-12-09] MEDS ORDERED: ACETAMINOPHEN 325 MG TAB PO PRN (14:30)
[2017-12-09] MEDS ORDERED: SODIUM CHLOR 0.9% 250 ML INJ 250 ML IV ONE (14:30)
[2017-12-09] MEDS ORDERED: FUROSEMIDE 20 MG/2 ML VIAL IV PUSH ONE (15:00)
--- NOTE | 2017-12-09 17:29 | HHI.DS ---
Discharge Summary Admission Date Dec 08, 2017 at 17:51 Discharge Date: Dec 09, 2017 Admitting Diagnosis (1) Symptomatic anemia ICD Code: D64.9 - Anemia, unspecified Diagnosis: Principal Procedures blood transfusion of three units of PRBCs Brief History - From Admission This is a pleasant 72 by/o Female with DM II, Hypertension, CAD, Hyperlipidemia , who was sent to Emergency room by medical insurance coding specialist at [place] due to symptomatic anemia for blood transfusion, the patient already had Anemia workup in this facility in September last year and was Negative, in the past seen in this facility due to chest pain seen by cardiology clinical nurse specialist doctor Dusty Amor informatics educator and Dr. Perez of nephrology. has blood transfusions in the past, stable in her bedroom, asymptomatic at this time, she has an scheduled procedure with cardiology clinical nurse specialist Doctor Mt as outpatient for December 16 2017. CBC/BMP: 12/09/17 1020 12/09/17 1020 Significant Findings Laboratory Tests Test 12/08/17 14:07 12/08/17 23:12 12/09/17 10:20 Red Blood Count 1.78 MIL/MM3 (4.00-5.30) 2.14 MIL/MM3 (4.00-5.30) Hemoglobin 6.1 GM/DL (11.6-15.3) 7.5 GM/DL (11.6-15.3) Hematocrit 19.4 % (35.0-46.0) 21.5 % (35.0-46.0) Mean Corpuscular Volume 108.9 FL (80.0-100.0) 100.2 FL (80.0-100.0) Mean Corpuscular Hemoglobin 34.2 PG (27.0-34.0) 35.0 PG (27.0-34.0) Mean Corpuscular Hemoglobin Concent 31.4 % (32.0-36.0) Red Cell Distribution Width 24.1 % (11.6-17.2) 24.3 % (11.6-17.2) Mean Platelet Volume 12.2 FL (7.0-11.0) 12.4 FL (7.0-11.0) Basophils (%) (Auto) 2.7 % (0.0-2.0) 2.6 % (0.0-2.0) Band Neutrophils % 16 % (0-6) 29 % (0-6) Platelet Estimate HIGH (NORMAL) Spherocytes OCC (NORMAL) Ovalocytes 1+ (NORMAL) 1+ (NORMAL) Prothrombin Time 12.1 SEC (9.8-11.6) Blood Urea Nitrogen 23 MG/DL (7-18) 26 MG/DL (7-18) Creatinine 1.41 MG/DL (0.50-1.00) 1.41 MG/DL (0.50-1.00) Random Glucose 114 MG/DL (74-106) 127 MG/DL (74-106) Aspartate Amino Transf (AST/SGOT) 14 U/L (15-37) Chloride Level 111 MEQ/L (98-107) 109 MEQ/L (98-107) Estimat Glomerular Filtration Rate 37 ML/MIN (>89) 37 ML/MIN (>89) Urine Leukocyte Esterase SMALL (NEG) Urine Bacteria RARE /hpf (NONE) Urine Mucus FEW /lpf (OCC) White Blood Count 3.6 TH/MM3 (4.0-11.0) Neutrophils (%) (Auto) 73.8 % (16.0-70.0) Lymphocytes # (Auto) 0.6 TH/MM3 (1.0-4.8) Platelet Morphology Comment GIANT (NORMAL) Imaging No new imaging studies performed. PE at Discharge GENERAL: Morbid obese patient in no acute distress. SKIN: No rashes, ecchymoses or lesions. Pale. HEAD: Atraumatic. Normocephalic. No temporal or scalp tenderness. EYES: Pupils equal round and reactive. Extraocular motions intact. sclera pale. ENT: Nose without bleeding, purulent drainage or septal hematoma. NECK: Trachea midline. No JVD or lymphadenopathy. Supple, nontender, no meningeal signs. CARDIOVASCULAR: Regular rate and rhythm without murmurs, gallops, or rubs. S1 and S2 no S3 or S4 RESPIRATORY: Clear to auscultation. Breath sounds equal bilaterally. No wheezes , rales, or rhonchi. GASTROINTESTINAL: Abdomen soft, non-tender, nondistended. No hepato-splenomegaly , or palpable masses. No guarding. Obese MUSCULOSKELETAL: Extremities without clubbing, cyanosis, +1 edema bilateral lower extremities. No joint tenderness, effusion, noted. No calf tenderness. Negative Homans sign bilaterally. NEUROLOGICAL: Awake and alert. Cranial nerves II through XII intact. Motor and sensory grossly within normal limits. Five out of 5 muscle strength in all muscle groups. Normal speech. Hospital Course This is a pleasant 72 by/o Female with DM II, Hypertension, CAD, Hyperlipidemia , who was sent to Emergency room by medical insurance coding specialist at [place] due to symptomatic anemia for blood transfusion, the patient already had Anemia workup in this facility in September last year and was Negative, in the past seen in this facility due to chest pain seen by cardiology clinical nurse specialist doctor Dusty Amor informatics educator and Dr. Perez of nephrology. has blood transfusions in the past, stable in her bedroom, asymptomatic at this time, she has an scheduled procedure with cardiology clinical nurse specialist Doctor Amor as outpatient for December 16 2017. 12/09: The patient was discussed with Doctor Dusty Amor he states he will see the patient as outpatient, no need to be seen in house at this time, she received two units of PRBCs and her Hemoglobin is 7.5 patient states she does not like the Hemoglobin will receive one more unit and discharge Home and follow with PCP after blood transfusion. no nausea, vomit or diarrhea. Assessment and Plan Symptomatic anemia today her hemoglobin was 5.9 during her hematology visit to Doctor Laura Haq at [place] [place] sent to this facility for blood transfusion. she had workup in September Last year for anemia and was negative. today after blood transfusion of two units of PRBCs, her Hemoglobin is 7.5 she will receive one more unit and follow with hematology as outpatient. Chronic kidney disease Stage III stable. Diabetes mellitus Continue sliding scale coverage Accu-Cheks before meals and at bedtime diabetic diet Hyperlipidemia continue home meds once they're established Obesity recommended weight loss Hypertension controlled CAD she has an scheduled procedure with Doctor Amor discussed with Doctor Dusty Amor and will see the patient as outpatient. SCDs at this time and DIANA hose GI prophylaxis DVT prophylaxis with DIANA hose and SCDs in view of symptomatic anemia. Code Status full code. Discharge Planning Discharge home after blood transfusion Pt Condition on Discharge: Stable Discharge Disposition: Discharge Home Discharge Time: <= 30 minutes Discharge Instructions DIET: Follow Instructions for: Heart Healthy Diet, Diabetic Diet Activities you can perform: Regular-No Restrictions Jairon Michelle MD Dec 09, 2017 17:29
== END 2017-12-09 22:21 | disposition home or self-care (01) ==
LOC: NEPE 13:45 → NEDA 17:51 → NEPHCDU 18:50
PROVIDERS: ADMIT Hospitalist; ATTEND Hospitalist
DX: I12.9 Hypertensive chronic kidney disease with stage 1 through stage 4 chronic kidney disease, or unspecified chronic kidney disease (principal); N18.3 Chronic kidney disease, stage 3 (moderate); D63.1 Anemia in chronic kidney disease; E11.22 Type 2 diabetes mellitus with diabetic chronic kidney disease; I25.10 Atherosclerotic heart disease of native coronary artery without angina pectoris; E78.5 Hyperlipidemia, unspecified; E03.9 Hypothyroidism, unspecified; E66.9 Obesity, unspecified; G47.30 Sleep apnea, unspecified; Z96.653 Presence of artificial knee joint, bilateral
CPT/HCPCS: 36430; 80048; 80053; 81001; 82948; 85007; 85027; 85610; 85730; 86850; 86900; 86901; 86920; 96361; 96374; 99285; G0378; J1940; J7050; P9016

== ENCOUNTER 2018-01-12 16:34 | Inpatient (IN) | payer OTHER, MEDICARE ==
[~2018-01-12] VITALS: Ht 170.2 cm; Wt 120.3 kg
[2018-01-12 16:35] VITALS: BP 165/88; PULSE 101; RESP 20; TEMP 98; O2SAT 98
--- NOTE | 2018-01-12 17:37 | RADRPT ---
EXAM DATE/TIME: 01/12/2018 16:57 [facility] COMPARISON: CHEST SINGLE AP, September 30, 2017, 12:39. INDICATIONS : Chest pressure. MEDICAL HISTORY : Hypertension. Diabetes mellitus type II. Coronary artery disease SURGICAL HISTORY : None. ENCOUNTER: Initial ACUITY: 1 day PAIN SCORE: 3/10 LOCATION: Bilateral chest FINDINGS: PA and lateral views of the chest demonstrate the lungs to be symmetrically aerated without evidence of mass, infiltrate or effusion. The posterior costophrenic angles are sharply demarcated bilaterall y. The cardiomediastinal contours are unremarkable. Mild eventration of the anterior right hemidiap hragm. Mild degenerative changes in the thoracic spine.. CONCLUSION: The lungs are clear. Jefferson Mora MD on January 12, 2018 at 17:35 Board Certified Radiologist. This report was verified electronically.
[2018-01-12 18:03] LABS: INTERNATIONAL NORMALIZED RATIO 1.2 RATIO; PROTHROMBIN TIME - PATIENT 12.3 SEC (9.8-11.6)
[2018-01-12 18:25] LABS: BLOOD UREA NITROGEN 33 MG/DL (7-18); CALCIUM 8.9 MG/DL (8.5-10.1); CHLORIDE 106 MEQ/L (98-107); CREATININE 1.52 MG/DL (0.50-1.00); GLOMERULAR FILTRATION RATE 34 ML/MIN (>89); GLUCOSE,RANDOM 116 MG/DL (74-106); SODIUM (NA) 140 MEQ/L (136-145)
[2018-01-12 18:30] LABS: TROPONIN I LESS THAN 0.02 NG/ML (0.02-0.05)
[2018-01-12 22:25] VITALS: BP 135/60; PULSE 60; RESP 18; O2SAT 98
--- NOTE | 2018-01-12 22:30 | PD ---
HPI Chief Complaint: Abnormal Results Time Seen by Provider: 22:11 Travel History International Travel<30 days: No Contact w/Intl Traveler<30days: No Traveled to known affect area: No History of Present Illness HPI 72-year-old female with a history of DM II with peripheral neuropathy and CKD presents emergency department with concern of a hemoglobin of 5.3 that was found today after having labs drawn today. She has had shortness of breath and chest discomfort with exertion. States that she went to the lab today and they called her recommending her to go to the hospital immediately for transfusion. Patient states she has a history of low hemoglobin and has required several transfusions previously. Says that her hemoglobin became low around September last year and she has been evaluated by a directional drill operator, home health registered nurse, pearl restorer. Patient is not currently, follow hematology and states that her directional drill operator follows her numbers. Patient does not remember the name of her directional drill operator. She has had a work up to include endoscopy, colonoscopy. She denies melena, hematochezia, nausea, vomiting, diarrhea. States that she was supposed to have weekly labs completed however, she went to [place] for a visit for 19 days and has not had labs drawn since then. PFSH Past Medical History Blood Disorders: No Heart Rhythm Problems: No Cancer: No Cardiovascular Problems: No High Cholesterol: Yes Chemotherapy: No Chest Pain: No Congestive Heart Failure: No Diabetes: Yes Diminished Hearing: No Endocrine: No Genitourinary: No Hypertension: Yes Immune Disorder: No Musculoskeletal: No Neurologic: No Psychiatric: No Reproductive: No Respiratory: No Immunizations Current: No Radiation Therapy: No Sleep Apnea: Yes Thyroid Disease: Yes Past Surgical History Cholecystectomy: Yes Other Surgery: Yes (bilat knee, right shoulder, drake) Social History Alcohol Use: Yes (2X YEAR) Tobacco Use: No Substance Use: No Allergies-Medications (Allergen,Severity, Reaction): Coded Allergies: No Known Allergies (Unverified , 10/29/17) Reported Meds & Prescriptions Reported Meds & Active Scripts Active Aspirin Low Dose (Aspirin) 81 Mg Chew 81 Mg CHEW DAILY 90 Days Reported Nitroglycerin SL (Nitroglycerin) 0.4 Mg Subl 0.4 Mg SL DIRECTED PRN ONE TABLET UNDER THE TONGUE NEEDED FOR CHEST PAIN, MAY REPEAT EVERY FIVE MINUTES FOR A TOTAL OF 3 DOSES OR CALL 911 IF NO RELIEF Lisinopril 20 Mg Tab 20 Mg PO DAILY Glyburide 2.5 Mg Tab 2.5 Mg PO DAILY Take with meals at the same time each day Isosorbide Mononitrate ER (Isosorbide Mononitrate) 30 Mg Nitish 30 Mg PO DAILY Metoprolol Tartrate 25 Mg Tab 25 Mg PO BID Atorvastatin (Atorvastatin Calcium) 40 Mg Tab 40 Mg PO HS Levothyroxine (Levothyroxine Sodium) 25 Mcg Tab 25 Mcg PO DAILY Review of Systems Except as stated in HPI: all other systems reviewed are Neg Physical Exam Narrative GENERAL: Well developed, well-nourished in no apparent distress, resting comfortably in bed SKIN: Focused skin assessment warm/dry. HEAD: Atraumatic. Normocephalic. EYES: Pupils equal and round. No scleral icterus. No injection or drainage. ENT: No nasal bleeding or discharge. Mucous membranes pink and moist. NECK: Trachea midline. No JVD. CARDIOVASCULAR: Regular rate and rhythm. systolic murmur appreciated RESPIRATORY: No accessory muscle use. Clear to auscultation. Breath sounds equal bilaterally. GASTROINTESTINAL: Abdomen soft, non-tender, nondistended. MUSCULOSKELETAL: No obvious deformities. No clubbing. No cyanosis. No edema. NEUROLOGICAL: Awake and alert. No obvious cranial nerve deficits. Motor grossly within normal limits. Normal speech. PSYCHIATRIC: Appropriate mood and affect; insight and judgment normal. Data Data Last Documented VS Vital Signs Date Time Temp Pulse Resp B/P (MAP) Pulse Ox O2 Delivery O2 Flow Rate FiO2 01/13/18 01:12 98.4 77 18 134/60 99 01/12/18 22:25 Room Air Orders Orders Electrocardiogram (01/12/18 16:46) Basic Metabolic Panel (Bmp) (01/12/18 16:46) Ckmb (Isoenzyme) Profile (01/12/18 16:46) Complete Blood Count With Diff (01/12/18 16:46) Magnesium (Mg) (01/12/18 16:46) Prothrombin Time / Inr (Pt) (01/12/18 16:46) Act Partial Throm Time (Ptt) (01/12/18 16:46) Troponin I (01/12/18 16:46) Chest, Pa & Lat (01/12/18 16:46) Type And Screen (01/12/18 16:46) Red Blood Cells (Rbc) (01/12/18 22:31) Sodium Chlor 0.9% 250 Ml Inj (Ns 250 Ml (01/12/18 22:45) Blood Product Administration (01/13/18 00:55) Sodium Chlor 0.9% 250 Ml Inj (Ns 250 Ml (01/13/18 01:00) Admit Order (Ed Use Only) (01/13/18 01:14) Bedside Glucose JOSE A.CSUGAR (01/13/18 01:12) Special Diet Instructions (01/13/18 01:12) Blood Glucose Goal (Criteria) (01/13/18 01:12) Hypoglycemia 70 Mg/Dl Or < (01/13/18 01:12) Notify Dr: Other (01/13/18 01:12) Dextrose 50% In Jorge (Vial) Inj (D50w (Vi (01/13/18 01:15) Glucagon Inj (Glucagon Inj) (01/13/18 01:15) Insulin Aspart Supplemtl Scale (Novolog (01/13/18 08:00) Admit To Inpatient (01/13/18 ) Vital Signs (Adult) Q4H (01/13/18 01:12) Activity Oob With Assistance (01/13/18 01:12) Rn Cvor / Telemetry .CONTINUOUS (01/13/18 01:12) Intake + Output JOSE A.QSHIFT (01/13/18 01:12) Diet Heart Healthy (01/13/18 Breakfast) Sodium Chloride 0.9% Flush (Ns Flush) (01/13/18 01:15) Sodium Chloride 0.9% Flush (Ns Flush) (01/13/18 09:00) Acetaminophen (Tylenol) (01/13/18 01:15) Ondansetron Inj (Zofran Inj) (01/13/18 01:15) Basic Metabolic Panel (Bmp) (01/14/18 06:00) Complete Blood Count With Diff (01/14/18 06:00) Scd Bilateral/Knee High JOSE A.BID (01/13/18 01:12) Long Bilateral/Knee High JOSE A.QSHIFT (01/13/18 01:12) Inpatient Certification (01/13/18 ) Hgb & Hct (01/13/18 07:12) Hgb & Hct (01/13/18 19:12) Labs Laboratory Tests Test 01/12/18 17:20 01/12/18 23:05 Prothrombin Time 12.3 SEC Prothromb Time International Ratio 1.2 RATIO Activated Partial Thromboplast Time 24.3 SEC Blood Urea Nitrogen 33 MG/DL Creatinine 1.52 MG/DL Random Glucose 116 MG/DL Calcium Level 8.9 MG/DL Magnesium Level 2.0 MG/DL Sodium Level 140 MEQ/L Potassium Level 4.2 MEQ/L Chloride Level 106 MEQ/L Carbon Dioxide Level 23.0 MEQ/L Anion Gap 11 MEQ/L Estimat Glomerular Filtration Rate 34 ML/MIN Total Creatine Kinase 38 U/L Troponin I LESS THAN 0.02 NG/ML White Blood Count 2.9 TH/MM3 Red Blood Count 1.53 MIL/MM3 Hemoglobin 4.9 GM/DL Hematocrit 15.5 % Mean Corpuscular Volume 101.3 FL Mean Corpuscular Hemoglobin 31.9 PG Mean Corpuscular Hemoglobin Concent 31.5 % Red Cell Distribution Width 25.0 % Platelet Count 196 TH/MM3 Mean Platelet Volume 12.5 FL Neutrophils (%) (Auto) 62.4 % Lymphocytes (%) (Auto) 32.5 % Monocytes (%) (Auto) 2.0 % Eosinophils (%) (Auto) 2.4 % Basophils (%) (Auto) 0.7 % Neutrophils # (Auto) 1.8 TH/MM3 Lymphocytes # (Auto) 0.9 TH/MM3 Monocytes # (Auto) 0.1 TH/MM3 Eosinophils # (Auto) 0.1 TH/MM3 Basophils # (Auto) 0.0 TH/MM3 CBC Comment AUTO DIFF Differential Total Cells Counted 100 Neutrophils % (Manual) 51 % Band Neutrophils % 14 % Lymphocytes % 29 % Monocytes % 5 % Eosinophils % 1 % Neutrophils # (Manual) 1.9 TH/MM3 Differential Comment FINAL DIFF MANUAL Platelet Estimate NORMAL Platelet Morphology Comment ENLARGED Polychromasia 2.3 % Spherocytes OCC Ovalocytes 2+ Acanthocytes OCC MDM Medical Decision Making Medical Screen Exam Complete: Yes Emergency Medical Condition: Yes Differential Diagnosis symptomatic anemia, anemia, LA, generalized weakness Narrative Course 72-year-old female with a history of DM II with peripheral neuropathy and CKD presents emergency department with concern of a hemoglobin of 5.3 that was found today after having labs drawn today. She has had shortness of breath and chest discomfort with exertion that started today. States that she went to the lab today and they called her recommending her to go to the hospital immediately for transfusion. Patient states she has a history of low hemoglobin and has required several transfusions previously. Says that her hemoglobin became low around September last year and she has been evaluated by a directional drill operator, home health registered nurse, pearl restorer. Patient is not currently following hematology and states that her directional drill operator follows her anemia. Patient does not remember the name of her directional drill operator. She has had a work up to include endoscopy, colonoscopy. She denies melena, hematochezia, nausea, vomiting, diarrhea. States that she was supposed to have weekly labs completed however, she went to [place] for a visit for 19 days and has not had labs drawn since then. Vital signs stable. Physical exam demonstrates a WD, WN morbidly obese female in no distress. Pale mucus membranes. Lungs CTAB, systolic murmur present. Labs delayed as CBC required redraw. Last Impressions Chest X-Ray 01/12/18 1646 Signed Impressions: Service Date/Time: Friday, January 12, 2018 16:57 - CONCLUSION: The lungs are clear. Jefferson Mora MD Please see Dr. Kelly's note for further information and dispo. Diagnosis Primary Impression: Symptomatic anemia Additional Impression: Renal insufficiency Admitting Information Admitting Physician Requests: Admit Condition: Stable Blanca Ochoa Jan 12, 2018 22:30
[2018-01-12] MEDS ORDERED: SODIUM CHLOR 0.9% 250 ML INJ 250 ML IV ONE (22:45)
[2018-01-12 23:29] LABS: AUTOMATED NEUTROPHIL # 1.8 TH/MM3 (1.8-7.7); BASOPHIL % 0.7 % (0.0-2.0); EOSINOPHIL # 0.1 TH/MM3 (0-0.4); EOSINOPHIL % 2.4 % (0.0-4.0); LYMPH % 32.5 % (9.0-44.0); LYMPHOCYTE # 0.9 TH/MM3 (1.0-4.8); MEAN CELL VOLUME 101.3 FL (80.0-100.0); MEAN CORPUSCULAR HEMOGLOBIN 31.9 PG (27.0-34.0); MEAN CORPUSCULAR HGB CONC 31.5 % (32.0-36.0); MEAN PLATELET VOLUME 12.5 FL (7.0-11.0); MONOCYTE # 0.1 TH/MM3 (0-0.9); NEUT % 62.4 % (16.0-70.0); PLATELET COUNT 196 TH/MM3 (150-450); RED BLOOD COUNT 1.53 MIL/MM3 (4.00-5.30); WHITE BLOOD COUNT 2.9 TH/MM3 (4.0-11.0)
[2018-01-12 23:52] LABS: HEMATOCRIT 15.5 % (35.0-46.0); HEMOGLOBIN 4.9 GM/DL (11.6-15.3)
[2018-01-13] VITALS (16 sets, daily range): BP systolic 110–143; BP diastolic 54–78; PULSE 52–77; RESP 18–20; TEMP 97.9–99.2; O2SAT 73–99
[2018-01-13 00:03] LABS: BANDS 14 % (0-6); LYMPHOCYTES 29 % (9-44); MONOCYTES 5 % (0-8); NEUTROPHIL # MANUAL DIFF 1.9 TH/MM3 (1.8-7.7); POLYS (SEG NEUTROPHILS) 51 % (16-70)
[2018-01-13 00:07] LABS: OVALOCYTES 2+ (NORMAL); POLYCHROMASIA 2.3 % (0.0-1.9)
[2018-01-13 00:08] LABS: ACANTHOCYTES OCC (NORMAL); SPHEROCYTES OCC (NORMAL)
--- NOTE | 2018-01-13 00:42 | PD ---
Data Data Last Documented VS Vital Signs Date Time Temp Pulse Resp B/P (MAP) Pulse Ox O2 Delivery O2 Flow Rate FiO2 01/13/18 01:12 98.4 77 18 134/60 99 01/12/18 22:25 Room Air Orders Orders Electrocardiogram (01/12/18 16:46) Basic Metabolic Panel (Bmp) (01/12/18 16:46) Ckmb (Isoenzyme) Profile (01/12/18 16:46) Complete Blood Count With Diff (01/12/18 16:46) Magnesium (Mg) (01/12/18 16:46) Prothrombin Time / Inr (Pt) (01/12/18 16:46) Act Partial Throm Time (Ptt) (01/12/18 16:46) Troponin I (01/12/18 16:46) Chest, Pa & Lat (01/12/18 16:46) Type And Screen (01/12/18 16:46) Red Blood Cells (Rbc) (01/12/18 22:31) Sodium Chlor 0.9% 250 Ml Inj (Ns 250 Ml (01/12/18 22:45) Blood Product Administration (01/13/18 00:55) Sodium Chlor 0.9% 250 Ml Inj (Ns 250 Ml (01/13/18 01:00) Admit Order (Ed Use Only) (01/13/18 01:14) Bedside Glucose JOSE A.CSUGAR (01/13/18 01:12) Special Diet Instructions (01/13/18 01:12) Blood Glucose Goal (Criteria) (01/13/18 01:12) Hypoglycemia 70 Mg/Dl Or < (01/13/18 01:12) Notify Dr: Other (01/13/18 01:12) Dextrose 50% In Jorge (Vial) Inj (D50w (Vi (01/13/18 01:15) Glucagon Inj (Glucagon Inj) (01/13/18 01:15) Insulin Aspart Supplemtl Scale (Novolog (01/13/18 08:00) Admit To Inpatient (01/13/18 ) Vital Signs (Adult) Q4H (01/13/18 01:12) Activity Oob With Assistance (01/13/18 01:12) Skein Spooler / Telemetry .CONTINUOUS (01/13/18 01:12) Intake + Output JOSE A.QSHIFT (01/13/18 01:12) Diet Heart Healthy (01/13/18 Breakfast) Sodium Chloride 0.9% Flush (Ns Flush) (01/13/18 01:15) Sodium Chloride 0.9% Flush (Ns Flush) (01/13/18 09:00) Acetaminophen (Tylenol) (01/13/18 01:15) Ondansetron Inj (Zofran Inj) (01/13/18 01:15) Basic Metabolic Panel (Bmp) (01/14/18 06:00) Complete Blood Count With Diff (01/14/18 06:00) Scd Bilateral/Knee High JOSE A.BID (01/13/18 01:12) Long Bilateral/Knee High JOSE A.QSHIFT (01/13/18 01:12) Inpatient Certification (01/13/18 ) Hgb & Hct (01/13/18 01:12) Hgb & Hct (01/13/18 07:12) Hgb & Hct (01/13/18 13:12) Hgb & Hct (01/13/18 19:12) Labs Laboratory Tests Test 01/12/18 17:20 01/12/18 23:05 Prothrombin Time 12.3 SEC Prothromb Time International Ratio 1.2 RATIO Activated Partial Thromboplast Time 24.3 SEC Blood Urea Nitrogen 33 MG/DL Creatinine 1.52 MG/DL Random Glucose 116 MG/DL Calcium Level 8.9 MG/DL Magnesium Level 2.0 MG/DL Sodium Level 140 MEQ/L Potassium Level 4.2 MEQ/L Chloride Level 106 MEQ/L Carbon Dioxide Level 23.0 MEQ/L Anion Gap 11 MEQ/L Estimat Glomerular Filtration Rate 34 ML/MIN Total Creatine Kinase 38 U/L Troponin I LESS THAN 0.02 NG/ML White Blood Count 2.9 TH/MM3 Red Blood Count 1.53 MIL/MM3 Hemoglobin 4.9 GM/DL Hematocrit 15.5 % Mean Corpuscular Volume 101.3 FL Mean Corpuscular Hemoglobin 31.9 PG Mean Corpuscular Hemoglobin Concent 31.5 % Red Cell Distribution Width 25.0 % Platelet Count 196 TH/MM3 Mean Platelet Volume 12.5 FL Neutrophils (%) (Auto) 62.4 % Lymphocytes (%) (Auto) 32.5 % Monocytes (%) (Auto) 2.0 % Eosinophils (%) (Auto) 2.4 % Basophils (%) (Auto) 0.7 % Neutrophils # (Auto) 1.8 TH/MM3 Lymphocytes # (Auto) 0.9 TH/MM3 Monocytes # (Auto) 0.1 TH/MM3 Eosinophils # (Auto) 0.1 TH/MM3 Basophils # (Auto) 0.0 TH/MM3 CBC Comment AUTO DIFF Differential Total Cells Counted 100 Neutrophils % (Manual) 51 % Band Neutrophils % 14 % Lymphocytes % 29 % Monocytes % 5 % Eosinophils % 1 % Neutrophils # (Manual) 1.9 TH/MM3 Differential Comment FINAL DIFF MANUAL Platelet Estimate NORMAL Platelet Morphology Comment ENLARGED Polychromasia 2.3 % Spherocytes OCC Ovalocytes 2+ Acanthocytes OCC MDM Medical Record Reviewed: Yes Supervised Visit with MIKEY: Yes Interpretation(s) Last Impressions Chest X-Ray 01/12/18 1646 Signed Impressions: Service Date/Time: Friday, January 12, 2018 16:57 - CONCLUSION: The lungs are clear. Jefferson Mora MD Narrative Course I, Dr. Kelly, have reviewed the advance practice practitioner's documentation and am in agreement, met with the patient face to face, made the diagnosis, and the medical decision making was done by me. The patient was initially evaluated by Blanca. Please see their complete history and physical. *My assessment and Findings: The patient presents with a history of anemia who presents after being told that she needs to come to the emergency department when hemoglobin was recently noted to be 5 as an outpatient. The patient reports a history of anemia with approximately 5 units of packed red blood cells transfused as September 2017. No source has been able to be identified for the loss of blood. She reports that she last had endoscopy and colonoscopy approximately 10 years ago. She is scheduled to have another one done at the end of the month. During the course of the patient's emergency department visit, the patient's history, examination, and differential diagnosis were reviewed with the patient. The patient was placed on a court monitor with oximetry and frequent blood pressure monitoring. The patient had IV access obtained and blood work sent for analysis. The patient's laboratory studies were reviewed and remarkable for a white count of 2.9, hemoglobin 4.9, platelets 196 with an unremarkable differential. Basic metabolic profile is remarkable for a BUN of 33, creatinine 1.52, glucose 116, cardiac enzymes within normal limits, magnesium 2.0. PT 12.3, PTT 24.3. Radiology studies were reviewed and remarkable for a chest x-ray that shows no acute cardiopulmonary disease. The patient was typed and crossmatched for 4 units of packed red blood cells, 2 units were started in the emergency department. The patient's results were discussed with the patient, including the plan of care. I explained that further testing and/ or monitoring is indicated based on the patient's history, examination, and/ or laboratory findings. Therefore, I recommended admission for additional evaluation. The patient expressed understanding and was agreeable with this plan. The patient was admitted to the hospital in stable condition and sent to a bed under the care of the [facility]. Physician Communication Physician Communication The patient's case including history, pertinent physical examination findings, and laboratory studies were discussed with Dr. Thomas. It was agreed that the patient would be admitted to the [facility] service. Diagnosis Primary Impression: Symptomatic anemia Additional Impression: Renal insufficiency Admitting Information Admitting Physician Requests: Admit Rekha Kelly MD Jan 13, 2018 00:42
[2018-01-13] MEDS ORDERED: SODIUM CHLOR 0.9% 250 ML INJ 250 ML IV ONE (01:00)
[2018-01-13] MEDS ORDERED: SODIUM CHLORIDE 0.9% FLUSH 10 ML FLUSH IV FLUSH PRN (01:15)
[2018-01-13] MEDS ORDERED: ACETAMINOPHEN 325 MG TAB PO PRN (01:15)
[2018-01-13] MEDS ORDERED: ONDANSETRON HCL 4 MG/2 ML VIAL IVP PRN (01:15)
[2018-01-13] MEDS ORDERED: GLUCAGON 1 MG/ML VIAL OTHER PRN (01:15)
[2018-01-13] MEDS ORDERED: DEXTROSE 50% IN WATER 50 ML VIAL(D50) IV PUSH PRN (01:15)
--- NOTE | 2018-01-13 02:32 | HHI.HP ---
[facility]Staff Admission Diagnosis Symptomatic Anemia Diagnoses: Travel History International Travel<30 Days: No Contact w/Intl Traveler <30 Da: No Traveled to Known Affected Are: No History of Present Illness 72-year-old female with a past medical history significant for diabetes mellitus , hypertension, CAD, hyperlipidemia and chronic kidney disease presents to the emergency department after being instructed to do so by her zigzag appliquer for anemia. The patient's outpatient hemoglobin done earlier yesterday was 5.3. She reports associated fatigue and shortness of breath. She denies any dizziness. She denies any hematemesis or black, tarry stools. She is currently scheduled for an EGD/colonoscopy on 01/20. The patient has previously been admitted for symptomatic anemia, last admission on 12/08/17. The patient has a sign hanger in [place] who she has appointment with next month. She denies any chest pain. Denies nausea/vomiting/diarrhea. Review of Systems Except as stated in HPI: all other systems reviewed are Neg Past Family Social History Past Medical History Hypertension Hyperlipidemia Diabetes mellitus Chronic kidney disease Coronary artery disease Past Surgical History Cholecystectomy Bilateral knee replacement Right shoulder repair Cardiac catheterization Heel spurs Reported Medications Reported Meds & Active Scripts Active Aspirin Low Dose (Aspirin) 81 Mg Chew 81 Mg CHEW DAILY 90 Days Reported Nitroglycerin SL (Nitroglycerin) 0.4 Mg Subl 0.4 Mg SL DIRECTED PRN ONE TABLET UNDER THE TONGUE NEEDED FOR CHEST PAIN, MAY REPEAT EVERY FIVE MINUTES FOR A TOTAL OF 3 DOSES OR CALL 911 IF NO RELIEF Lisinopril 20 Mg Tab 20 Mg PO DAILY Glyburide 2.5 Mg Tab 2.5 Mg PO DAILY Take with meals at the same time each day Isosorbide Mononitrate ER (Isosorbide Mononitrate) 30 Mg Nitish 30 Mg PO DAILY Metoprolol Tartrate 25 Mg Tab 25 Mg PO BID Atorvastatin (Atorvastatin Calcium) 40 Mg Tab 40 Mg PO HS Levothyroxine (Levothyroxine Sodium) 25 Mcg Tab 25 Mcg PO DAILY Allergies: Coded Allergies: No Known Allergies (Unverified , 12/7/17) Family History The patient does not know Social History Rare alcohol. Denies tobacco, illicit drugs. Physical Exam Vital Signs Vital Signs Date Time Temp Pulse Resp B/P (MAP) Pulse Ox O2 Delivery O2 Flow Rate FiO2 01/13/18 02:16 98.0 77 18 138/62 99 01/13/18 01:12 98.4 77 18 134/60 99 01/13/18 00:54 97.9 75 18 143/65 99 01/12/18 22:25 60 18 135/60 (85) 98 Room Air 01/12/18 22:25 99 Room Air 01/12/18 16:35 98.0 101 20 165/88 (113) 98 Room Air Physical Exam GENERAL: Obese, female lying in bed SKIN: No rashes, ecchymoses or lesions. Cool and dry. HEAD: Atraumatic. Normocephalic. No temporal or scalp tenderness. EYES: Pupils equal round and reactive. Extraocular motions intact. No scleral icterus. No injection or drainage. ENT: Nose without bleeding, purulent drainage or septal hematoma. Throat without erythema, tonsillar hypertrophy or exudate. Uvula midline. Airway patent. NECK: Trachea midline. No JVD or lymphadenopathy. Supple, nontender, no meningeal signs. CARDIOVASCULAR: Regular rate and rhythm without murmurs, gallops, or rubs. RESPIRATORY: Clear to auscultation. Breath sounds equal bilaterally. No wheezes , rales, or rhonchi. GASTROINTESTINAL: Abdomen soft, non-tender, nondistended. No hepato-splenomegaly , or palpable masses. No guarding. MUSCULOSKELETAL: Extremities without clubbing, cyanosis, or edema. No joint tenderness, effusion, or edema noted. No calf tenderness. NEUROLOGICAL: Awake and alert. Cranial nerves II through XII intact. Motor and sensory grossly within normal limits. Normal speech. Laboratory Laboratory Tests Test 01/12/18 17:20 01/12/18 23:05 Prothrombin Time 12.3 Prothromb Time International Ratio 1.2 Activated Partial Thromboplast Time 24.3 Blood Urea Nitrogen 33 Creatinine 1.52 Random Glucose 116 Calcium Level 8.9 Magnesium Level 2.0 Sodium Level 140 Potassium Level 4.2 Chloride Level 106 Carbon Dioxide Level 23.0 Anion Gap 11 Estimat Glomerular Filtration Rate 34 Total Creatine Kinase 38 Troponin I LESS THAN 0.02 White Blood Count 2.9 Red Blood Count 1.53 Hemoglobin 4.9 Hematocrit 15.5 Mean Corpuscular Volume 101.3 Mean Corpuscular Hemoglobin 31.9 Mean Corpuscular Hemoglobin Concent 31.5 Red Cell Distribution Width 25.0 Platelet Count 196 Mean Platelet Volume 12.5 Neutrophils (%) (Auto) 62.4 Lymphocytes (%) (Auto) 32.5 Monocytes (%) (Auto) 2.0 Eosinophils (%) (Auto) 2.4 Basophils (%) (Auto) 0.7 Neutrophils # (Auto) 1.8 Lymphocytes # (Auto) 0.9 Monocytes # (Auto) 0.1 Eosinophils # (Auto) 0.1 Basophils # (Auto) 0.0 CBC Comment AUTO DIFF Differential Total Cells Counted 100 Neutrophils % (Manual) 51 Band Neutrophils % 14 Lymphocytes % 29 Monocytes % 5 Eosinophils % 1 Neutrophils # (Manual) 1.9 Differential Comment FINAL DIFF MANUAL Platelet Estimate NORMAL Platelet Morphology Comment ENLARGED Polychromasia 2.3 Spherocytes OCC Ovalocytes 2+ Acanthocytes OCC Result Diagram: 01/12/18 2538 01/12/18 1720 Caprini VTE Risk Assessment Caprini VTE Risk Assessment: Mod/High Risk (score >= 2) Caprini Risk Assessment Model Point Value = 1 Point Value = 2 Point Value = 3 Point Value = 5 Age 41-60 Minor surgery BMI > 25 kg/m2 Swollen legs Varicose veins or History of unexplained or recurrent spontaneous Oral contraceptives or hormone replacement Sepsis (< 1 month) Serious lung disease, including pneumonia (< 1 month) Abnormal pulmonary function Acute myocardial infarction Congestive heart failure (< 1 month) History of inflammatory bowel disease Medical patient at bed rest Age 61-74 Arthroscopic surgery Major open surgery (> 45 min) Laparoscopic surgery (> 45 min) Malignancy Confined to bed (> 72 hours) Immobilizing plaster cast Central venous access Age >= 75 History of VTE Family history of VTE Factor V Leiden Prothrombin [id number] Lupus anticoagulant Anticardiolipin antibodies Elevated serum homocysteine Heparin-induced thrombocytopenia Other congenital or acquired thrombophilia Stroke (< 1 month) Elective arthroplasty Hip, pelvis, or leg fracture Acute spinal cord injury (< 1 month) Prophylaxis Regimen Total Risk Factor Score Risk Level Prophylaxis Regimen 0-1 Low Early ambulation 2 Moderate Order ONE of the following: *Sequential Compression Device (SCD) *Heparin 5000 units SQ BID 3-4 Higher Order ONE of the following medications: *Heparin 5000 units SQ TID *Enoxaparin/Lovenox 40 mg SQ daily (WT < 150 kg, CrCl > 30 mL/min) *Enoxaparin/Lovenox 30 mg SQ daily (WT < 150 kg, CrCl > 10-29 mL/min) *Enoxaparin/Lovenox 30 mg SQ BID (WT < 150 kg, CrCl > 30 mL/min) AND/OR *Sequential Compression Device (SCD) 5 or more Highest Order ONE of the following medications: *Heparin 5000 units SQ TID (Preferred with Epidurals) *Enoxaparin/Lovenox 40 mg SQ daily (WT < 150 kg, CrCl > 30 mL/min) *Enoxaparin/Lovenox 30 mg SQ daily (WT < 150 kg, CrCl > 10-29 mL/min) *Enoxaparin/Lovenox 30 mg SQ BID (WT < 150 kg, CrCl > 30 mL/min) AND *Sequential Compression Device (SCD) Assessment and Plan Assessment and Plan Assessment/plan: 1. Symptomatic anemia Transfuse 4 units packed red blood cells Monitor CBC Patient will follow-up with her sign hanger as an outpatient Outpatient follow-up with gastroenterology scheduled for 01/20 2. Diabetes mellitus Sliding scale insulin Monitor blood glucose 3. Hypertension/hyperlipidemia/coronary artery disease Continue home medications 4. Chronic kidney disease Creatinine 1.52, at baseline Monitor renal function FEN Heart healthy diet Electrolytes: Monitor and replete when necessary Holding pharmacologic anticoagulation secondary to anemia Physician Certification 2 Midnight Certification Type: Admission for Inpatient Services Order for Inpatient Services The services are ordered in accordance with Medicare regulations or non- Medicare payer requirements, as applicable. In the case of services not specified as inpatient-only, they are appropriately provided as inpatient services in accordance with the 2-midnight benchmark. Estimated LOS (days): 2 2 days is the estimated time the patient will need to remain in the hospital, assuming treatment plan goals are met and no additional complications. Post-Hospital Plan: Not yet determined Eloisa Edwards MD Jan 13, 2018 02:32
[2018-01-13] MEDS: LEVOTHYROXINE SODIUM 25 MCG TAB PO SCH (06:56)
--- NOTE | 2018-01-13 08:17 | EKG ---
Date Performed: 01/12/2018 Time Performed: 17:14:03 PTAGE: 72 years EKG: Sinus rhythm MODERATE ST DEPRESSION ABNORMAL ECG PREVIOUS TRACING : 10/29/2017 07.31 DOCTOR: Christopher Bertrand Interpretating Date/Time 01/13/2018 08:16:33
[2018-01-13] MEDS: METOPROLOL TARTRATE 25 MG TAB PO SCH ×2 (08:49→20:23)
[2018-01-13] MEDS: INSULIN ASPART SUPPLEMENTAL SCALE SQ SCH ×4 (08:49→20:30)
[2018-01-13] MEDS: ISOSORBIDE MONONITRATE 30 MG CR TAB (IMDUR) PO SCH (08:50)
[2018-01-13] MEDS: SODIUM CHLORIDE 0.9% FLUSH 10 ML FLUSH IV FLUSH SCH ×2 (08:50→20:23)
[2018-01-13 09:27] LABS: HEMOGLOBIN 6.6 GM/DL (11.6-15.3)
[2018-01-13 09:28] LABS: HEMATOCRIT 19.5 % (35.0-46.0)
--- NOTE | 2018-01-13 14:20 | HHI.PR ---
Subjective Remarks Transfusing the third unit of blood, she had 2 units of blood transfused and hemoglobin 6.6. Plan to transfuse total of 4 units PRBC. Patient feels a little bit better no chest pain or shortness of breath. She feels tired. Objective Vitals Vital Signs Date Time Temp Pulse Resp B/P (MAP) Pulse Ox O2 Delivery O2 Flow Rate FiO2 01/13/18 12:00 98.8 52 18 110/54 (72) 01/13/18 11:35 99.2 52 18 130/58 96 01/13/18 11:16 98.8 58 110/54 95 01/13/18 08:00 98.7 71 18 143/63 (89) 94 01/13/18 04:00 98.2 69 18 137/61 (86) 96 01/13/18 03:41 98.0 68 18 120/58 97 01/13/18 03:17 97.9 73 18 113/55 73 01/13/18 02:16 98.0 77 18 138/62 99 01/13/18 01:12 98.4 77 18 134/60 99 01/13/18 00:54 97.9 75 18 143/65 99 01/13/18 00:00 97.9 74 18 113/55 (74) 97 01/12/18 22:25 60 18 135/60 (85) 98 Room Air 01/12/18 22:25 99 Room Air 01/12/18 16:35 98.0 101 20 165/88 (113) 98 Room Air I/O 01/12/18 01/12/18 01/12/18 01/13/18 01/13/18 01/13/18 07:00 15:00 23:00 07:00 15:00 23:00 Intake Total 1050 ml Balance 1050 ml Packed Cells 800 ml Blood Product IV Normal Saline Flush 250 ml Result Diagram: 01/13/18 0714 01/12/18 1720 Imaging Last Impressions Chest X-Ray 01/12/18 1646 Signed Impressions: Service Date/Time: Friday, January 12, 2018 16:57 - CONCLUSION: The lungs are clear. Jefferson Mora MD Objective Remarks GENERAL: Obese, female, well-nourished SKIN: Pale, no ecchymosis. CARDIOVASCULAR: Regular rate and rhythm without murmurs, gallops, or rubs. RESPIRATORY: Clear to auscultation. Breath sounds equal bilaterally. No wheezes , rales, or rhonchi. GASTROINTESTINAL: Abdomen soft, obese, non-tender, nondistended. No hepato- splenomegaly, or palpable masses. No guarding. MUSCULOSKELETAL: Extremities without clubbing, cyanosis, or edema. No joint tenderness, effusion, or edema noted. No calf tenderness. NEUROLOGICAL: Awake and alert. Cranial nerves II through XII intact. Motor and sensory grossly within normal limits. Normal speech. A/P Assessment and Plan Symptomatic anemia Discussed with the patient she has an appointment with GI doctor on Thursday, she also follows with hematology oncology in [place]. Plan for EGD colonoscopy as outpatient with her GI doctor next week. Transfuse 4 units packed red blood cells Monitor CBC Patient will follow-up with her drilling manager as an outpatient Outpatient follow-up with gastroenterology scheduled for 01/20 Diabetes mellitus Sliding scale insulin Monitor blood glucose Hypertension/hyperlipidemia/coronary artery disease Continue home medications Chronic kidney disease Creatinine 1.52, at baseline Monitor renal function FEN Heart healthy diet Electrolytes: Monitor and replete when necessary Holding pharmacologic anticoagulation secondary to anemia Transfuse check H&H and transfuse if hemoglobin less than 7. Possible discharge tomorrow if H&H stable. Patient wants to follow-up as outpatient with GI to colonoscopy daily as planned and also to follow-up with her oncologist outpatient. Dotty Washington MD Jan 13, 2018 14:20
[2018-01-13 19:02] LABS: HEMATOCRIT 26.3 % (35.0-46.0)
[2018-01-13] MEDS ORDERED: ATORVASTATIN 40 MG TAB PO SCH (21:00)
[2018-01-14] VITALS: BP 124/57; PULSE 68; RESP 18; TEMP 98.2; O2SAT 96
[2018-01-14 04:00] VITALS: BP 127/58; PULSE 63; RESP 18; TEMP 97.8; O2SAT 94
[2018-01-14] MEDS: LEVOTHYROXINE SODIUM 25 MCG TAB PO SCH (04:52)
[2018-01-14 05:37] LABS: AUTOMATED NEUTROPHIL # 1.8 TH/MM3 (1.8-7.7); BASOPHIL # 0.1 TH/MM3 (0-0.2); BASOPHIL % 2.2 % (0.0-2.0); EOSINOPHIL # 0.1 TH/MM3 (0-0.4); EOSINOPHIL % 3.1 % (0.0-4.0); HEMATOCRIT 24.7 % (35.0-46.0); HEMOGLOBIN 8.3 GM/DL (11.6-15.3); LYMPH % 34.8 % (9.0-44.0); LYMPHOCYTE # 1.1 TH/MM3 (1.0-4.8); MEAN CELL VOLUME 92.3 FL (80.0-100.0); MEAN CORPUSCULAR HGB CONC 33.6 % (32.0-36.0); MEAN PLATELET VOLUME 12.1 FL (7.0-11.0); MONO % 4.8 % (0.0-8.0); MONOCYTE # 0.2 TH/MM3 (0-0.9); NEUT % 55.1 % (16.0-70.0); PLATELET COUNT 190 TH/MM3 (150-450); RED BLOOD COUNT 2.68 MIL/MM3 (4.00-5.30); RED CELL DISTRIBUTION WIDTH 20.5 % (11.6-17.2); WHITE BLOOD COUNT 3.3 TH/MM3 (4.0-11.0)
[2018-01-14 05:48] LABS: BICARBONATE 25.9 MEQ/L (21.0-32.0); CALCIUM 8.9 MG/DL (8.5-10.1); CREATININE 1.35 MG/DL (0.50-1.00)
[2018-01-14 07:08] LABS: OVALOCYTES 1+ (NORMAL)
[2018-01-14] MEDS: METOPROLOL TARTRATE 25 MG TAB PO SCH (08:11)
[2018-01-14] MEDS: INSULIN ASPART SUPPLEMENTAL SCALE SQ SCH (08:11)
[2018-01-14] MEDS: ISOSORBIDE MONONITRATE 30 MG CR TAB (IMDUR) PO SCH (08:11)
[2018-01-14] MEDS: SODIUM CHLORIDE 0.9% FLUSH 10 ML FLUSH IV FLUSH SCH (08:12)
[2018-01-14 08:39] VITALS: BP 163/66; PULSE 64; RESP 18; TEMP 98.3; O2SAT 97
[2018-01-14 09:26] VITALS: PULSE 59
--- NOTE | 2018-01-14 09:50 | HHI.DS ---
Discharge Summary Admission Date Jan 13, 2018 at 01:16 Discharge Date: Jan 14, 2018 Admitting Diagnosis Symptomatic Anemia (1) Macrocytic anemia ICD Code: D53.9 - Nutritional anemia, unspecified (2) CAD (coronary artery disease) ICD Code: I25.10 - Atherosclerotic heart disease of [place] coronary artery without angina pectoris (3) Diabetes ICD Code: E11.9 - Type 2 diabetes mellitus without complications (4) Hyperlipidemia ICD Code: E78.5 - Hyperlipidemia, unspecified (5) Renal insufficiency ICD Code: N28.9 - Disorder of kidney and ureter, unspecified (6) Symptomatic anemia ICD Code: D64.9 - Anemia, unspecified Procedures No procedures Brief History - From Admission 72-year-old female with a past medical history significant for diabetes mellitus , hypertension, CAD, hyperlipidemia and chronic kidney disease presents to the emergency department after being instructed to do so by her business integration manager for anemia. The patient's outpatient hemoglobin done earlier yesterday was 5.3. She reports associated fatigue and shortness of breath. She denies any dizziness. She denies any hematemesis or black, tarry stools. She is currently scheduled for an EGD/colonoscopy on 01/20. The patient has previously been admitted for symptomatic anemia, last admission on 12/08/17. The patient has a air conditioning coil assembler in [place] who she has appointment with next month. She denies any chest pain. Denies nausea/vomiting/diarrhea. CBC/BMP: 01/14/18 0455 01/14/18 0455 Significant Findings Laboratory Tests Test 01/12/18 17:20 01/12/18 23:05 01/13/18 07:14 01/13/18 18:35 Prothrombin Time 12.3 SEC (9.8-11.6) Blood Urea Nitrogen 33 MG/DL (7-18) Creatinine 1.52 MG/DL (0.50-1.00) Random Glucose 116 MG/DL (74-106) Estimat Glomerular Filtration Rate 34 ML/MIN (>89) Troponin I LESS THAN 0.02 NG/ML White Blood Count 2.9 TH/MM3 (4.0-11.0) Red Blood Count 1.53 MIL/MM3 (4.00-5.30) Hemoglobin 4.9 GM/DL (11.6-15.3) 6.6 GM/DL (11.6-15.3) 9.0 GM/DL (11.6-15.3) Hematocrit 15.5 % (35.0-46.0) 19.5 % (35.0-46.0) 26.3 % (35.0-46.0) Mean Corpuscular Volume 101.3 FL (80.0-100.0) Mean Corpuscular Hemoglobin Concent 31.5 % (32.0-36.0) Red Cell Distribution Width 25.0 % (11.6-17.2) Mean Platelet Volume 12.5 FL (7.0-11.0) Lymphocytes # (Auto) 0.9 TH/MM3 (1.0-4.8) Band Neutrophils % 14 % (0-6) Platelet Morphology Comment ENLARGED (NORMAL) Polychromasia 2.3 % (0.0-1.9) Spherocytes OCC (NORMAL) Ovalocytes 2+ (NORMAL) Acanthocytes OCC (NORMAL) Test 01/14/18 04:55 White Blood Count 3.3 TH/MM3 (4.0-11.0) Red Blood Count 2.68 MIL/MM3 (4.00-5.30) Hemoglobin 8.3 GM/DL (11.6-15.3) Hematocrit 24.7 % (35.0-46.0) Red Cell Distribution Width 20.5 % (11.6-17.2) Mean Platelet Volume 12.1 FL (7.0-11.0) Basophils (%) (Auto) 2.2 % (0.0-2.0) Platelet Morphology Comment ENLARGED (NORMAL) Ovalocytes 1+ (NORMAL) Blood Urea Nitrogen 33 MG/DL (7-18) Creatinine 1.35 MG/DL (0.50-1.00) Random Glucose 109 MG/DL (74-106) Estimat Glomerular Filtration Rate 39 ML/MIN (>89) Imaging Last Impressions Chest X-Ray 01/12/18 1646 Signed Impressions: Service Date/Time: Friday, January 12, 2018 16:57 - CONCLUSION: The lungs are clear. Jefferson Mora MD PE at Discharge GENERAL: Obese, female, well-nourished SKIN: Pale, no ecchymosis. CARDIOVASCULAR: Regular rate and rhythm without murmurs, gallops, or rubs. RESPIRATORY: Clear to auscultation. Breath sounds equal bilaterally. No wheezes , rales, or rhonchi. GASTROINTESTINAL: Abdomen soft, obese, non-tender, nondistended. No hepato- splenomegaly, or palpable masses. No guarding. MUSCULOSKELETAL: Extremities without clubbing, cyanosis, or edema. No joint tenderness, effusion, or edema noted. No calf tenderness. NEUROLOGICAL: Awake and alert. Cranial nerves II through XII intact. Motor and sensory grossly within normal limits. Normal speech. Pt update on day of discharge The patient is in the chair. She appears in no acute distress. No chest pain or pressure. No shortness of breath no lightheadedness. Says she is able to walk, no symptoms. She has a very good appetite and she is eating well. Says her stool has been normal color is not black and she does not have any bleeding from anywhere. She wants to go home and to follow-up with her GI doctor for colonoscopy and EGD as planned. She also has an appointment with her oncology doctor in [place]. She also has an appointment with her nephrology Dr. Perez as outpatient. Hospital Course Symptomatic anemia Discussed with the patient she has an appointment with GI doctor on Thursday, she also follows with hematology oncology in [place]. Plan for EGD colonoscopy as outpatient with her GI doctor next week. Transfused 4 units packed red blood cells. H/H stable. Monitor CBC Patient will follow-up with her air conditioning coil assembler as an outpatient Outpatient follow-up with gastroenterology scheduled for 01/20 Diabetes mellitus Sliding scale insulin Monitor blood glucose Hypertension/hyperlipidemia/coronary artery disease Continue home medications Chronic kidney disease Creatinine 1.52, at baseline Monitor renal function Patient has follow-up appointment with Dr. Perez her nephrology doctor as outpatient H&H stable. Patient wants to follow-up as outpatient with GI to colonoscopy daily as planned and also to follow-up with her oncologist outpatient. Patient feels comfortable to go home. Discharge home with home health to follow -up as outpatient with PCP and consultants Pt Condition on Discharge: Stable Discharge Disposition: Disch w/ Home Health Serv Discharge Time: > 30 minutes Discharge Instructions DIET: Follow Instructions for: Heart Healthy Diet, Diabetic Diet Activities you can perform: Regular-No Restrictions Follow up Referrals: Appointment for Follow Up Appointment for Follow Up Appointment for Follow Up Gastroenterology - 3-5 Days Nephrology - 1 Week Oncology/Hematology - 3-5 Days PCP Follow-up - 2-3 Days PCP Follow-up Continued Medications: Atorvastatin (Atorvastatin) 40 Mg Tab 40 MG PO HS for Cholesterol Management, #30 TAB 0 Refills Glyburide (Glyburide) 2.5 Mg Tab 2.5 MG PO DAILY for Blood Sugar Management, #30 TAB 0 Refills Take with meals at the same time each day Isosorbide Mononitrate ER (Isosorbide Mononitrate ER) 30 Mg Nitish 30 MG PO DAILY for Prevent Chest Pain, #30 TAB 0 Refills Levothyroxine (Levothyroxine) 25 Mcg Tab 25 MCG PO DAILY for Thyroid, #30 TAB 0 Refills Lisinopril (Lisinopril) 20 Mg Tab 20 MG PO DAILY, #30 TAB 0 Refills Metoprolol Tartrate (Metoprolol Tartrate) 25 Mg Tab 25 MG PO BID, #60 TAB 0 Refills Nitroglycerin SL (Nitroglycerin SL) 0.4 Mg Subl 0.4 MG SL DIRECTED PRN for CHEST PAIN, #100 TAB.SL 0 Refills ONE TABLET UNDER THE TONGUE NEEDED FOR CHEST PAIN, MAY REPEAT EVERY FIVE MINUTES FOR A TOTAL OF 3 DOSES OR CALL 911 IF NO RELIEF Discontinued Medications: Aspirin (Aspirin Low Dose) 81 Mg Chew 81 MG CHEW DAILY for CAD for 90 Days, #90 TAB 0 Refills Dotty Washington MD Jan 14, 2018 09:50
--- NOTE | 2018-01-14 09:51 | HHI.FF ---
Face to Face Verification Diagnosis: (1) Symptomatic anemia (2) Renal insufficiency (3) CAD (coronary artery disease) (4) Obese (5) Macrocytic anemia (6) Chest pain (7) Hyperlipidemia (8) Diabetes Physical Therapy Order: Evaluate and Treat Home Health Nursing Order: Medical education Signs/symptoms of disease process Diabetic education Medication education-adverse effect Nursing assessment with vital signs I have seen patient Nica Mcnair on 01/14/18. My clinical findings support the need for the requested home health care services because: Ltd mobility - disease progression I certify that my clinical findings support that this patient is homebound because: Post-op weakness Unsteady gait/balance Dotty Washington MD Jan 14, 2018 09:51
--- NOTE | 2018-01-14 10:32 | PQ ---
Physician Query Response Document PATIENT: BLAISE KEMP : 1945 ADMIT DATE: 01/13/2018 1:16 AM DISCH DATE: RESPONDING PROVIDER #: [email or web address] QUERY TEXT: Kidney Disease, Chronic CKD Stage Chronic Kidney Disease (CKD) is documented in the Medical Record. Please specify the disease stage ( includes probable or suspected) Such as: -- Chronic kidney disease Stage 1 -- Chronic kidney disease Stage 2 -- Chronic kidney disease Stage 3 -- Chronic kidney disease Stage 4 -- Chronic kidney disease Stage 5 -- Chronic kidney disease Stage 5, requiring dialysis -- End Stage Renal Disease -- Other, please specify Stages are defined by the [employer] as follows: CKD Stage I GFR >= 90 ml / min per 1.73 m2 and persistent albuminuria CKD Stage 2 GFR between 60 and 89 with persistent albuminuria CKD Stage 3 GFR between 30 and 59 CKD Stage 4 GFR between 15 and 29 CKD Stage 5 GFR between <15 or End Stage Renal Disease The patient's Clinical Indicators include: Per H Please specify disease stage in the medical record Query created by: Courtney Hubbard on 01/13/2018 8:49 AM RESPONSE TEXT: CKD STAGE 1 QUERY TEXT: Anemia Type Anemia is documented in the Medical Record. Please specify the cause (includes suspected or probable cause) Such as: -- Due to acute blood loss -- Due to chronic blood loss -- Due to iron deficiency -- Due to postoperative blood loss -- Due to chronic disease -- Other, please specify The patient's Clinical Indicators include: Admitting disgnosis "Symptomatic Anemia" Please clarify in the medical record specifity of the anemia, see below for suspected or probable cau se Query created by: Courtney Hubbard on 01/13/2018 8:50 AM RESPONSE TEXT: Anemia macrocytic probable blood loss vs anemia of chronic disease - kidney disease, vs MDS needs fur ther work up. Patient wants to have work up as OP, wants egd/colonoscopy as OP has already an appoint ment with GI and also with hematology Electronically signed by: Dotty Washington MD 01/14/2018 10:27 AM
== END 2018-01-14 13:06 | disposition home or self-care (01) | DRG 812 ==
LOC: NEPC 16:34 → NEDA 01-13 01:16 → N05A 01-13 02:45
PROVIDERS: ADMIT Hospitalist; ATTEND Hospitalist
PROC: 30233N1 Transfusion of Nonautologous Red Blood Cells into Peripheral Vein, Percutaneous Approach (ICD-10-PCS; principal; 2018-01-13)
DX: D53.9 Nutritional anemia, unspecified (principal); E11.22 Type 2 diabetes mellitus with diabetic chronic kidney disease; E11.42 Type 2 diabetes mellitus with diabetic polyneuropathy; Z79.84 Long term (current) use of oral hypoglycemic drugs; Z68.41 Body mass index [BMI] 40.0-44.9, adult; E66.01 Morbid (severe) obesity due to excess calories; I12.9 Hypertensive chronic kidney disease with stage 1 through stage 4 chronic kidney disease, or unspecified chronic kidney disease; N18.1 Chronic kidney disease, stage 1; E78.5 Hyperlipidemia, unspecified; I25.10 Atherosclerotic heart disease of native coronary artery without angina pectoris; Z96.653 Presence of artificial knee joint, bilateral; Z79.82 Long term (current) use of aspirin
CPT/HCPCS: 36430; 71046; 80048; 82550; 82948; 83735; 84484; 85007; 85014; 85018; 85025; 85027; 85610; 85730; 86850; 86900; 86901; 86920; 93005; J1815; J7050; P9016

== ENCOUNTER 2018-01-29 16:07 | Inpatient (IN) | payer OTHER, MEDICARE ==
[~2018-01-29] VITALS: Ht 167.6 cm; Wt 120.5 kg
[2018-01-29] MEDS: LEVOTHYROXINE SODIUM 25 MCG TAB PO SCH (06:00)
[~2018-01-29 16:07] MED LIST changes: -ASPI81CH6 CHEW
[2018-01-29 16:27] VITALS: BP 115/55; PULSE 94; RESP 16; TEMP 98; O2SAT 96
--- NOTE | 2018-01-29 18:36 | PD ---
HPI Chief Complaint: Abnormal Results Time Seen by Provider: 18:16 Travel History International Travel<30 days: No Contact w/Intl Traveler<30days: No Traveled to known affect area: No History of Present Illness HPI 72-year-old female presents emergency department at the request of his primary care physician, Dr. Dangelo with a low hemoglobin. Says that the hemoglobin was 7.0 and the blood was taken last Thursday. Patient states that she "feels great" was surprised at this finding. Patient says that she had a colonoscopy in endoscopy last Thursday which did not demonstrate a source of the potential bleeding. Patient states she has a follow-up with his dramatic director Thursday regarding these findings and to determine what tests they were performed. Says she is due to follow-up with her primary care physician on Thursday. Patient says she was here in December for 4-6 units of blood and at that time she had chest pain, heart palpitations, shortness of breath and was overall feeling fatigued. Patient denies any the symptoms today. PFSH Past Medical History Blood Disorders: No Heart Rhythm Problems: No Cancer: No Cardiovascular Problems: Yes High Cholesterol: No Chemotherapy: No Chest Pain: No Congestive Heart Failure: No Diabetes: Yes Diminished Hearing: No Endocrine: No Genitourinary: No Hypertension: Yes Immune Disorder: No Musculoskeletal: No Neurologic: No Psychiatric: No Reproductive: No Respiratory: No Immunizations Current: No Radiation Therapy: No Sleep Apnea: Yes Thyroid Disease: No Past Surgical History Cholecystectomy: Yes Other Surgery: Yes (bilat knee, right shoulder, drake) Social History Alcohol Use: Yes (2X YEAR) Tobacco Use: No Substance Use: No Allergies-Medications (Allergen,Severity, Reaction): Coded Allergies: No Known Allergies (Unverified , 10/29/17) Reported Meds & Prescriptions Reported Meds & Active Scripts Active Reported Nitroglycerin SL (Nitroglycerin) 0.4 Mg Subl 0.4 Mg SL DIRECTED PRN ONE TABLET UNDER THE TONGUE NEEDED FOR CHEST PAIN, MAY REPEAT EVERY FIVE MINUTES FOR A TOTAL OF 3 DOSES OR CALL 911 IF NO RELIEF Lisinopril 20 Mg Tab 20 Mg PO DAILY Glyburide 2.5 Mg Tab 2.5 Mg PO DAILY Take with meals at the same time each day Isosorbide Mononitrate ER (Isosorbide Mononitrate) 30 Mg Nitish 30 Mg PO DAILY Metoprolol Tartrate 25 Mg Tab 25 Mg PO BID Atorvastatin (Atorvastatin Calcium) 40 Mg Tab 40 Mg PO HS Levothyroxine (Levothyroxine Sodium) 25 Mcg Tab 25 Mcg PO DAILY Review of Systems Except as stated in HPI: all other systems reviewed are Neg Physical Exam Narrative GENERAL: Well-developed, well-nourished in no apparent distress, reading in bed upon my assessment SKIN: Focused skin assessment warm/dry. pale skin HEAD: Atraumatic. Normocephalic. EYES: Pupils equal and round. No scleral icterus. No injection or drainage. ENT: No nasal bleeding or discharge. Mucous membranes pink and moist. NECK: Trachea midline. No JVD. CARDIOVASCULAR: Regular rate and rhythm. No murmur appreciated. RESPIRATORY: No accessory muscle use. Clear to auscultation. Breath sounds equal bilaterally. GASTROINTESTINAL: Abdomen soft, non-tender, nondistended. MUSCULOSKELETAL: No obvious deformities. No clubbing. No cyanosis. No edema. NEUROLOGICAL: Awake and alert. No obvious cranial nerve deficits. Motor grossly within normal limits. Normal speech. PSYCHIATRIC: Appropriate mood and affect; insight and judgment normal. Data Data Last Documented VS Vital Signs Date Time Temp Pulse Resp B/P (MAP) Pulse Ox O2 Delivery O2 Flow Rate FiO2 01/29/18 20:31 72 18 169/71 (103) 100 Room Air 01/29/18 16:27 98.0 Orders Orders Complete Blood Count With Diff (01/29/18 16:30) Comprehensive Metabolic Panel (01/29/18 16:30) Prothrombin Time / Inr (Pt) (01/29/18 16:30) Act Partial Throm Time (Ptt) (01/29/18 16:30) Type And Screen (01/29/18 16:30) Red Blood Cells (Rbc) (01/29/18 20:24) Blood Product Administration (01/29/18 20:24) Sodium Chlor 0.9% 250 Ml Inj (Ns 250 Ml (01/29/18 20:30) Admit Order (Ed Use Only) (01/29/18 20:47) Labs Laboratory Tests Test 01/29/18 17:56 01/29/18 19:54 Prothrombin Time 12.6 SEC Prothromb Time International Ratio 1.2 RATIO Activated Partial Thromboplast Time 19.7 SEC Blood Urea Nitrogen 23 MG/DL Creatinine 1.39 MG/DL Random Glucose 119 MG/DL Total Protein 7.1 GM/DL Albumin 3.9 GM/DL Calcium Level 8.7 MG/DL Alkaline Phosphatase 94 U/L Aspartate Amino Transf (AST/SGOT) 15 U/L Alanine Aminotransferase (ALT/SGPT) 16 U/L Total Bilirubin 0.8 MG/DL Sodium Level 143 MEQ/L Potassium Level 4.5 MEQ/L Chloride Level 108 MEQ/L Carbon Dioxide Level 26.7 MEQ/L Anion Gap 8 MEQ/L Estimat Glomerular Filtration Rate 37 ML/MIN White Blood Count 3.9 TH/MM3 Red Blood Count 1.96 MIL/MM3 Hemoglobin 6.5 GM/DL Hematocrit 18.5 % Mean Corpuscular Volume 94.2 FL Mean Corpuscular Hemoglobin 33.3 PG Mean Corpuscular Hemoglobin Concent 35.4 % Red Cell Distribution Width 21.5 % Platelet Count 329 TH/MM3 Mean Platelet Volume 11.9 FL Neutrophils (%) (Auto) 61.9 % Lymphocytes (%) (Auto) 27.3 % Monocytes (%) (Auto) 5.6 % Eosinophils (%) (Auto) 2.3 % Basophils (%) (Auto) 2.9 % Neutrophils # (Auto) 2.4 TH/MM3 Lymphocytes # (Auto) 1.1 TH/MM3 Monocytes # (Auto) 0.2 TH/MM3 Eosinophils # (Auto) 0.1 TH/MM3 Basophils # (Auto) 0.1 TH/MM3 CBC Comment AUTO DIFF MDM Medical Decision Making Medical Screen Exam Complete: Yes Emergency Medical Condition: Yes Differential Diagnosis Anemia, symptomatic anemia, GI bleed Narrative Course 72-year-old female with history of diabetes mellitus with CKD 3, hypertension, CAD, hyperlipidemia presents emergency department at the request of her primary care physician, Dr. Dangelo with a low hemoglobin. Says that the hemoglobin was 7.0 and the blood was taken last Thursday. She was seen by her government affairs specialist who recommended a bone marrow biopsy but she is undecided on whether or not she wants to get this done. Patient states that she "feels great" was surprised at this finding today with her hemoglobin. Patient says that she had a colonoscopy in endoscopy last Thursday which did not demonstrate a source of the potential bleeding. Patient states she has a follow-up with her dramatic director Thursday regarding these findings and to determine what tests to perform next. There was a mention of a 'camera that she swallows to evaluate for her bleeding'. Says she is due to follow-up with her primary care physician on Thursday. Patient says she was here in December for 4 units of blood and at that time she had chest pain, heart palpitations, shortness of breath and was overall feeling fatigued. Patient denies any of the symptoms today. Vital signs stable, blood pressure 115/55, heart rate 94, SaO2 96% on room air. Physical exam findings consistent with a 72-year-old female in no acute distress , resting comfortably in bed. Patient is reading a book at the time of my evaluation. Patient does have pale mucous membranes and skin but demonstrates no focal deficits or weakness. Review of the EMR shows that patient was admitted January 12 for H&H 4.9/15.5. She was given 4 units PRBCs with an improvement to 8.3/24.7. Labs ordered. H&H 6.5/18.5. 2 units PRBCs ordered for administration. Patient be admitted for severe anemia. I explained the findings and the plan to the patient and she agreed. She will be admitted to Dr. Jimenez. Diagnosis Primary Impression: Anemia Qualified Codes: D64.89 - Other specified anemias Admitting Information Admitting Physician Requests: Admit Condition: Stable Blanca Ochoa Jan 29, 2018 18:36
[2018-01-29 18:39] VITALS: BP 205/81; PULSE 74; RESP 18; O2SAT 100
[2018-01-29 18:57] LABS: INTERNATIONAL NORMALIZED RATIO 1.2 RATIO; PROTHROMBIN TIME - PATIENT 12.6 SEC (9.8-11.6)
[2018-01-29 19:02] LABS: ALBUMIN 3.9 GM/DL (3.4-5.0); AST (GOT) 15 U/L (15-37); BICARBONATE 26.7 MEQ/L (21.0-32.0); BLOOD UREA NITROGEN 23 MG/DL (7-18); CALCIUM 8.7 MG/DL (8.5-10.1); CHLORIDE 108 MEQ/L (98-107); CREATININE 1.39 MG/DL (0.50-1.00); GLOMERULAR FILTRATION RATE 37 ML/MIN (>89); GLUCOSE,RANDOM 119 MG/DL (74-106); SODIUM (NA) 143 MEQ/L (136-145)
[2018-01-29 19:03] LABS: ALT (GPT) 16 U/L (10-53)
[2018-01-29 19:05] LABS: ALKALINE PHOSPHATASE 94 U/L (45-117); TOTAL BILIRUBIN ADULT 0.8 MG/DL (0.2-1.0); TOTAL PROTEIN 7.1 GM/DL (6.4-8.2)
[2018-01-29 20:15] LABS: AUTOMATED NEUTROPHIL # 2.4 TH/MM3 (1.8-7.7); BASOPHIL # 0.1 TH/MM3 (0-0.2); BASOPHIL % 2.9 % (0.0-2.0); EOSINOPHIL # 0.1 TH/MM3 (0-0.4); EOSINOPHIL % 2.3 % (0.0-4.0); LYMPH % 27.3 % (9.0-44.0); LYMPHOCYTE # 1.1 TH/MM3 (1.0-4.8); MEAN CELL VOLUME 94.2 FL (80.0-100.0); MEAN CORPUSCULAR HEMOGLOBIN 33.3 PG (27.0-34.0); MEAN CORPUSCULAR HGB CONC 35.4 % (32.0-36.0); MEAN PLATELET VOLUME 11.9 FL (7.0-11.0); MONO % 5.6 % (0.0-8.0); MONOCYTE # 0.2 TH/MM3 (0-0.9); NEUT % 61.9 % (16.0-70.0); PLATELET COUNT 329 TH/MM3 (150-450); RED BLOOD COUNT 1.96 MIL/MM3 (4.00-5.30); RED CELL DISTRIBUTION WIDTH 21.5 % (11.6-17.2); WHITE BLOOD COUNT 3.9 TH/MM3 (4.0-11.0)
[2018-01-29 20:23] LABS: HEMATOCRIT 18.5 % (35.0-46.0); HEMOGLOBIN 6.5 GM/DL (11.6-15.3)
[2018-01-29] MEDS ORDERED: SODIUM CHLOR 0.9% 250 ML INJ 250 ML IV ONE (20:30)
[2018-01-29 20:31] VITALS: BP 169/71; PULSE 72; RESP 18; O2SAT 100
--- NOTE | 2018-01-29 20:51 | HHI.HP ---
HPI Service [facility] Primary Care Physician Non-Staff Admission Diagnosis severe anemia Diagnoses: (1) Anemia Diagnosis: Principal (2) HTN (hypertension) Diagnosis: Principal (3) Renal insufficiency Diagnosis: Principal (4) DM (diabetes mellitus) Diagnosis: Principal Travel History International Travel<30 Days: No Contact w/Intl Traveler <30 Da: No Traveled to Known Affected Are: No History of Present Illness This is a 72-year-old female with a PMH of HTN, DM and Anemia who was referred to the ER by her PCP secondary to low hemoglobin. Previous admit 01/13-01/14/18 for similar, Hgb 4.9 at that time s/p transfusion. Hgb 8.3 at that time of d/c on 01/14/18. States symptoms started in September w/ no trigger. Has been following w/ her GI doc, had EGD/Colonoscopy on Thursday w/ no active bleeding found, plan for possible video endoscopy to eval for bleeding. Also follows w/ Audit Machine Operator, plan for BM biopsy in future if no other cause of anemia found. Currently asymptomatic. On arrival, BP 142/66, HR 107, O2 sat on 100% on RA, Afebrile. Hemoglobin 6.5. Platelets normal. Creatinine 1.39, previously 1.35 on 01/14/18. INR 1.2. CXR with no acute findings. 2u pRBC ordered in ER, pending transfusion. Review of Systems Except as stated in HPI: all other systems reviewed are Neg ROS: 14 point review of systems otherwise negative. Past Family Social History Past Medical History PMH: HTN, DM and Anemia Past Surgical History PAST SURGICAL HISTORY: Cholecystectomy, Bilateral Knee Replacement, Right Shoulder Surgery Allergies: Coded Allergies: No Known Allergies (Unverified , 10/29/17) Family History PAST FAMILY HISTORY: Reviewed. No h/o DM or CAD Social History PAST SOCIAL HISTORY: Occasional alcohol. Negative for tobacco or drugs. Physical Exam Vital Signs Vital Signs Date Time Temp Pulse Resp B/P (MAP) Pulse Ox O2 Delivery O2 Flow Rate FiO2 01/29/18 20:31 72 18 169/71 (103) 100 Room Air 01/29/18 18:46 Room Air 01/29/18 18:39 74 18 205/81 (122) 100 01/29/18 16:27 98.0 94 16 115/55 (75) 96 Physical Exam PE: GENERAL: Very pleasant middle-aged white female in no acute distress. Pallor. HEENT: PERRLA, EOMI. No scleral icterus or conjunctival pallor. No lid lag or facial droop. CARDIOVASCULAR: Regular rate and rhythm. No obvious murmurs to auscultation. No chest tenderness to palpation. RESPIRATORY: No obvious rhonchi or wheezing. Clear to auscultation. Breath sounds equal bilaterally. GASTROINTESTINAL: Abdomen soft, non-tender, nondistended. BS normal. MUSCULOSKELETAL: Extremities without clubbing, cyanosis, or edema. No obvious deformities. NEUROLOGICAL: Awake, alert and oriented x4. No focal neurologic deficits. Moving both upper and lower extremities spontaneously. Laboratory Laboratory Tests Test 01/29/18 17:56 01/29/18 19:54 Prothrombin Time 12.6 Prothromb Time International Ratio 1.2 Activated Partial Thromboplast Time 19.7 Blood Urea Nitrogen 23 Creatinine 1.39 Random Glucose 119 Total Protein 7.1 Albumin 3.9 Calcium Level 8.7 Alkaline Phosphatase 94 Aspartate Amino Transf (AST/SGOT) 15 Alanine Aminotransferase (ALT/SGPT) 16 Total Bilirubin 0.8 Sodium Level 143 Potassium Level 4.5 Chloride Level 108 Carbon Dioxide Level 26.7 Anion Gap 8 Estimat Glomerular Filtration Rate 37 White Blood Count 3.9 Red Blood Count 1.96 Hemoglobin 6.5 Hematocrit 18.5 Mean Corpuscular Volume 94.2 Mean Corpuscular Hemoglobin 33.3 Mean Corpuscular Hemoglobin Concent 35.4 Red Cell Distribution Width 21.5 Platelet Count 329 Mean Platelet Volume 11.9 Neutrophils (%) (Auto) 61.9 Lymphocytes (%) (Auto) 27.3 Monocytes (%) (Auto) 5.6 Eosinophils (%) (Auto) 2.3 Basophils (%) (Auto) 2.9 Neutrophils # (Auto) 2.4 Lymphocytes # (Auto) 1.1 Monocytes # (Auto) 0.2 Eosinophils # (Auto) 0.1 Basophils # (Auto) 0.1 CBC Comment AUTO DIFF Result Diagram: 01/29/18195301/29/181755 Caprini VTE Risk Assessment Caprini VTE Risk Assessment: No/Low Risk (score <= 1) Caprini Risk Assessment Model Point Value = 1 Point Value = 2 Point Value = 3 Point Value = 5 Age 41-60 Minor surgery BMI > 25 kg/m2 Swollen legs Varicose veins or History of unexplained or recurrent spontaneous Oral contraceptives or hormone replacement Sepsis (< 1 month) Serious lung disease, including pneumonia (< 1 month) Abnormal pulmonary function Acute myocardial infarction Congestive heart failure (< 1 month) History of inflammatory bowel disease Medical patient at bed rest Age 61-74 Arthroscopic surgery Major open surgery (> 45 min) Laparoscopic surgery (> 45 min) Malignancy Confined to bed (> 72 hours) Immobilizing plaster cast Central venous access Age >= 75 History of VTE Family history of VTE Factor V Leiden Prothrombin [id number] Lupus anticoagulant Anticardiolipin antibodies Elevated serum homocysteine Heparin-induced thrombocytopenia Other congenital or acquired thrombophilia Stroke (< 1 month) Elective arthroplasty Hip, pelvis, or leg fracture Acute spinal cord injury (< 1 month) Prophylaxis Regimen Total Risk Factor Score Risk Level Prophylaxis Regimen 0-1 Low Early ambulation 2 Moderate Order ONE of the following: *Sequential Compression Device (SCD) *Heparin 5000 units SQ BID 3-4 Higher Order ONE of the following medications: *Heparin 5000 units SQ TID *Enoxaparin/Lovenox 40 mg SQ daily (WT < 150 kg, CrCl > 30 mL/min) *Enoxaparin/Lovenox 30 mg SQ daily (WT < 150 kg, CrCl > 10-29 mL/min) *Enoxaparin/Lovenox 30 mg SQ BID (WT < 150 kg, CrCl > 30 mL/min) AND/OR *Sequential Compression Device (SCD) 5 or more Highest Order ONE of the following medications: *Heparin 5000 units SQ TID (Preferred with Epidurals) *Enoxaparin/Lovenox 40 mg SQ daily (WT < 150 kg, CrCl > 30 mL/min) *Enoxaparin/Lovenox 30 mg SQ daily (WT < 150 kg, CrCl > 10-29 mL/min) *Enoxaparin/Lovenox 30 mg SQ BID (WT < 150 kg, CrCl > 30 mL/min) AND *Sequential Compression Device (SCD) Assessment and Plan Problem List: (1) Anemia ICD Code: D64.9 - Anemia, unspecified Status: Acute (2) HTN (hypertension) ICD Code: I10 - Essential (primary) hypertension (3) Renal insufficiency ICD Code: N28.9 - Disorder of kidney and ureter, unspecified (4) DM (diabetes mellitus) ICD Code: E11.9 - Type 2 diabetes mellitus without complications Assessment and Plan A/P: 1. Anemia: Critical. Recurrent. Hgb 6.5, asymptomatic at this time. Multiple episodes of profound anemia since September, undergoing extensive work up by GI and Hematology as outpatient. Negative EGD/Colonoscopy. Plan is to continue outpatient therapy/eval after transfusion. 2u pRBC ordered, pending transfusion. Check Hgb/Hct following transfusion. Monitor for bleeding. 2. HTN: Uncontrolled. BP 205/81, HR 81. Monitor BP closely, resume home medications. 3. Renal Insufficiency: Creatinine 1.39, previously 1.35 on 01/14/18. Will monitor. Repeat labs in am. 4. DM: Sliding scale w/ Accu-Cheks. Resume home Glyburide 5. DVT Prophylaxis: Pharmacologic anticoagulation in light of severe anemia 6. Case discussed w/ ER physician at length, labs/records/imaging reviewed by me. Physician Certification 2 Midnight Certification Type: Admission for Inpatient Services Order for Inpatient Services The services are ordered in accordance with Medicare regulations or non- Medicare payer requirements, as applicable. In the case of services not specified as inpatient-only, they are appropriately provided as inpatient services in accordance with the 2-midnight benchmark. Estimated LOS (days): 2 days is the estimated time the patient will need to remain in the hospital, assuming treatment plan goals are met and no additional complications. Post-Hospital Plan: Not yet determined Problem Qualifiers (1) Anemia: Qualified Codes: D64.89 - Other specified anemias Hayley Jimenez MD Jan 29, 2018 20:51
[2018-01-29] MEDS: INSULIN ASPART SUPPLEMENTAL SCALE SQ SCH (21:00)
[2018-01-29] MEDS: METOPROLOL TARTRATE 25 MG TAB PO SCH (21:00)
[2018-01-29] MEDS ORDERED: ONDANSETRON HCL 4 MG/2 ML VIAL IVP PRN (21:00)
[2018-01-29] MEDS ORDERED: ACETAMINOPHEN/HYDROcodone 325 MG/10 MG TAB PO PRN (21:00)
[2018-01-29] MEDS ORDERED: SODIUM CHLORIDE 0.9% FLUSH 10 ML FLUSH IV FLUSH PRN (21:00)
[2018-01-29] MEDS ORDERED: ACETAMINOPHEN 325 MG TAB PO PRN (21:00)
[2018-01-29] MEDS ORDERED: BISACODYL 10 MG SUPP RECTAL PRN (21:00)
[2018-01-29] MEDS ORDERED: SENNOSIDES 8.6 MG TAB PO PRN (21:00)
[2018-01-29] MEDS ORDERED: GLUCAGON 1 MG/ML VIAL OTHER PRN (21:00)
[2018-01-29] MEDS ORDERED: ATORVASTATIN 40 MG TAB PO SCH (21:00)
[2018-01-29] MEDS ORDERED: ACETAMINOPHEN/HYDROcodone 325 MG/5 MG TAB PO PRN (21:00)
[2018-01-29] MEDS ORDERED: MAGNESIUM HYDROXIDE SUSP 30 ML CUP PO PRN (21:00)
[2018-01-29] MEDS ORDERED: LACTULOSE SYRUP 20 GM/30 ML CUP PO PRN (21:00)
[2018-01-29] MEDS ORDERED: DEXTROSE 50% IN WATER 50 ML VIAL(D50) IV PUSH PRN (21:00)
[2018-01-29 21:22] LABS: BANDS 26 % (0-6); BASOPHILS 1 % (0-2); LYMPHOCYTES 20 % (9-44); MONOCYTES 3 % (0-8); NEUTROPHIL # MANUAL DIFF 2.9 TH/MM3 (1.8-7.7); POLYS (SEG NEUTROPHILS) 48 % (16-70)
[2018-01-29 21:23] LABS: ACANTHOCYTES OCC (NORMAL); DOHLE BODIES PRESENT (NONE SEEN); OVALOCYTES 1+ (NORMAL)
[2018-01-29 21:24] LABS: SPHEROCYTES OCC (NORMAL)
[2018-01-29 21:34] VITALS: BP 146/65; PULSE 69; RESP 18; TEMP 99; O2SAT 100
[2018-01-29 21:46] VITALS: BP 139/62; PULSE 60; RESP 18; TEMP 99; O2SAT 100
[2018-01-29] MEDS: DOCUSATE SODIUM 50 MG/SENNA 8.6 MG TAB PO SCH (22:30)
[2018-01-29] MEDS: SODIUM CHLORIDE 0.9% FLUSH 10 ML FLUSH IV FLUSH SCH (22:30)
[2018-01-29 23:31] VITALS: BP 142/66; PULSE 107; RESP 18; TEMP 98.7; O2SAT 93
[2018-01-30 00:22] VITALS: BP 129/63; PULSE 64; RESP 17; TEMP 98.4; O2SAT 92
[2018-01-30 00:51] VITALS: BP 129/82; PULSE 61; RESP 17; TEMP 98.4; O2SAT 92
[2018-01-30 03:35] VITALS: BP 128/62; PULSE 67; RESP 18; TEMP 97.8; O2SAT 91
[2018-01-30] MEDS: LEVOTHYROXINE SODIUM 25 MCG TAB PO SCH (06:07)
[2018-01-30 07:29] LABS: HEMATOCRIT 25.9 % (35.0-46.0); HEMOGLOBIN 8.6 GM/DL (11.6-15.3); MEAN CELL VOLUME 90.2 FL (80.0-100.0); MEAN CORPUSCULAR HEMOGLOBIN 30.1 PG (27.0-34.0); MEAN CORPUSCULAR HGB CONC 33.4 % (32.0-36.0); MEAN PLATELET VOLUME 12.2 FL (7.0-11.0); PLATELET COUNT 348 TH/MM3 (150-450); RED BLOOD COUNT 2.87 MIL/MM3 (4.00-5.30); RED CELL DISTRIBUTION WIDTH 20.5 % (11.6-17.2)
[2018-01-30 07:36] LABS: ALBUMIN 3.6 GM/DL (3.4-5.0); AST (GOT) 13 U/L (15-37); BICARBONATE 25.2 MEQ/L (21.0-32.0); BLOOD UREA NITROGEN 21 MG/DL (7-18); CALCIUM 8.1 MG/DL (8.5-10.1); CHLORIDE 108 MEQ/L (98-107); CREATININE 1.31 MG/DL (0.50-1.00); GLOMERULAR FILTRATION RATE 40 ML/MIN (>89); GLUCOSE,RANDOM 94 MG/DL (74-106); SODIUM (NA) 143 MEQ/L (136-145)
[2018-01-30 07:39] LABS: ALKALINE PHOSPHATASE 88 U/L (45-117); ALT (GPT) 15 U/L (10-53); TOTAL BILIRUBIN ADULT 1.3 MG/DL (0.2-1.0); TOTAL PROTEIN 6.6 GM/DL (6.4-8.2)
[2018-01-30 08:00] VITALS: BP 175/64; PULSE 66; RESP 17; TEMP 97.9; O2SAT 99
[2018-01-30] MEDS: INSULIN ASPART SUPPLEMENTAL SCALE SQ SCH ×2 (08:00→12:30)
[2018-01-30] MEDS: METOPROLOL TARTRATE 25 MG TAB PO SCH (08:42)
[2018-01-30] MEDS: SODIUM CHLORIDE 0.9% FLUSH 10 ML FLUSH IV FLUSH SCH (08:42)
[2018-01-30] MEDS: DOCUSATE SODIUM 50 MG/SENNA 8.6 MG TAB PO SCH (09:00)
[2018-01-30] MEDS ORDERED: ISOSORBIDE MONONITRATE 30 MG CR TAB (IMDUR) PO SCH (09:00)
[2018-01-30] MEDS ORDERED: glyBURIDE 2.5 MG TAB PO SCH (09:00)
[2018-01-30 10:06] LABS: BANDS 20 % (0-6); BASOPHILS 1 % (0-2); BLASTS 1 % (0-0); LYMPHOCYTES 32 % (9-44); MONOCYTES 5 % (0-8); MYELOCYTES 1 % (0-0); NEUTROPHIL # MANUAL DIFF 2.4 TH/MM3 (1.8-7.7); POLYS (SEG NEUTROPHILS) 40 % (16-70)
[2018-01-30 10:07] LABS: OVALOCYTES 1+ (NORMAL)
[2018-01-30 12:08] VITALS: BP 130/68; PULSE 59; RESP 18; TEMP 97.8; O2SAT 94
--- NOTE | 2018-01-30 12:37 | HHI.PR ---
Subjective Remarks resting comfortably with no distress. denies pain. no sob or dizziness. wants to go home today. d/w the RN and no acute issues over night. Objective Vitals Vital Signs Date Time Temp Pulse Resp B/P (MAP) Pulse Ox O2 Delivery O2 Flow Rate FiO2 01/30/18 12:08 97.8 59 18 130/68 (88) 94 01/30/18 08:00 97.9 66 17 175/64 (101) 99 01/30/18 03:35 97.8 67 18 128/62 91 01/30/18 00:51 98.4 61 17 129/82 92 01/30/18 00:22 98.4 64 17 129/63 92 01/29/18 23:31 98.7 107 18 142/66 (91) 93 01/29/18 23:31 98.7 107 18 142/66 93 01/29/18 21:46 99.0 60 18 139/62 100 01/29/18 21:34 99.0 69 18 146/65 100 01/29/18 20:31 72 18 169/71 (103) 100 Room Air 01/29/18 18:46 Room Air 01/29/18 18:39 74 18 205/81 (122) 100 01/29/18 16:27 98.0 94 16 115/55 (75) 96 I/O 01/29/18 01/29/18 01/29/18 01/30/18 01/30/18 01/30/18 07:00 15:00 23:00 07:00 15:00 23:00 Intake Total 1260 ml Balance 1260 ml Intake Oral 360 ml Packed Cells 800 ml Blood Product IV Normal Saline Flush 100 ml # Voids 1 # Bowel Movements 0 Result Diagram: 01/30/1838 01/30/18 0638 Objective Remarks GENERAL: This is a well-nourished, well-developed patient, in no apparent distress. CARDIOVASCULAR: Regular rate and regular rhythm without murmurs, gallops, or rubs. RESPIRATORY: Clear to auscultation. Breath sounds equal bilaterally. No wheezes , rales, or rhonchi. GASTROINTESTINAL: Abdomen soft, non-tender, nondistended. Normal, active bowel sounds MUSCULOSKELETAL: Extremities without clubbing, cyanosis, or edema. NEURO: Alert & Oriented x4 to person, place, time, situation. Moves all ext x4 Medications and IVs Inpatient Medications Acetaminophen (Tylenol) 650 mg Q6H PRN PO FEVER/PAIN SCALE 1 TO 2; Start at 21:00 Acetaminophen/ Hydrocodone Bitart (Blakely 5-325 Mg) 1 tab Q4H PRN PO PAIN SCALE 3 TO 5; Start 01/29/18 at 21:00 Acetaminophen/ Hydrocodone Bitart (Blakely 10-325 Mg) 1 tab Q4H PRN PO PAIN SCALE 6 TO 10; Start 01/29/18 at 21:00 Atorvastatin Calcium (Lipitor) 40 mg HS PO Last administered on 01/29/18at 22:40 ; Start 01/29/18 at 21:00 Bisacodyl (Dulcolax Supp) 10 mg DAILY PRN RECTAL SEVERE CONSITIPATION; Start at 21:00 Dextrose (D50w (Vial) Inj) 50 ml UNSCH PRN IV PUSH HYPOGLYCEMIA-SEE COMMENTS; Start 01/29/18 at 21:00 Glucagon (Glucagon Inj) 1 mg UNSCH PRN OTHER HYPOGLYCEMIA-SEE COMMENTS; Start 01/29/18 at 21:00 Glyburide (Diabeta) 2.5 mg DAILY PO Last administered on 01/30/18at 08:42; Start 01/30/18 at 09:00 Insulin Aspart (NovoLOG SUPPLEMENTAL SCALE) 1 ACHS SLIDING SCALE SQ ; Start 01/29/18 at 21:00 Isosorbide Mononitrate (Imdur) 30 mg DAILY PO Last administered on 01/30/18at 08 :41; Start 01/30/18 at 09:00 Lactulose (Lactulose Liq) 30 ml DAILY PRN PO SEVERE CONSITIPATION; Start at 21:00 Levothyroxine Sodium (Synthroid) 25 mcg DAILY@0600 PO Last administered on 01/30at 06:07; Start 01/29/18 at 06:00 Magnesium Hydroxide (Milk Of Magnesia Liq) 30 ml Q12H PRN PO Mild constipation ; Start 01/29/18 at 21:00 Metoprolol Tartrate (Lopressor) 25 mg BID PO Last administered on 01/30/18at 08: 42; Start 01/29/18 at 21:00 Ondansetron HCl (Zofran Inj) 4 mg Q6H PRN IVP NAUSEA OR VOMITING; Start at 21:00 Senna/Docusate Sodium (Sasha-Colace) 1 tab BID PO ; Start 01/29/18 at 21:00 Sennosides (Senokot) 17.2 mg Q12H PRN PO Moderate constipation; Start 01/29/18 at 21:00 Sodium Chloride (NS Flush) 2 ml BID IV FLUSH Last administered on 01/30/18at 08: 42; Start 01/29/18 at 21:00 A/P Problem List: (1) Anemia ICD Code: D64.9 - Anemia, unspecified Status: Acute (2) HTN (hypertension) ICD Code: I10 - Essential (primary) hypertension (3) Renal insufficiency ICD Code: N28.9 - Disorder of kidney and ureter, unspecified (4) DM (diabetes mellitus) ICD Code: E11.9 - Type 2 diabetes mellitus without complications Assessment and Plan A/P 1. Anemia: undergoing extensive work up by GI and Hematology as outpatient. Negative recent EGD/Colonoscopy. Plan is to continue outpatient therapy/eval after transfusion. H/H improved after transfusion. already has an appointment with her GI and Epidemiologist. 2. HTN: overall better controlled. . resume home medications. 3. Renal Insufficiency: stable- f/u as outpatient. 4. DM: Sliding scale w/ Accu-Cheks. Resume home Glyburide Discharge Planning dc home. f/u; pcp, GI and Hematology. d/w the patient and RN. Problem Qualifiers (1) Anemia: Qualified Codes: D64.89 - Other specified anemias Edgar Curran MD Jan 30, 2018 12:37
== END 2018-01-30 13:18 | disposition home or self-care (01) | DRG 812 ==
LOC: NEPC 16:07 → OBSVTOIN 20:48 → NEDA 20:48 → INTOOBSV 20:48 → N06B 22:10
PROVIDERS: ADMIT Internal Medicine; ATTEND Internal Medicine
PROC: 30233N1 Transfusion of Nonautologous Red Blood Cells into Peripheral Vein, Percutaneous Approach (ICD-10-PCS; principal; 2018-01-29)
DX: D64.9 Anemia, unspecified (principal); E11.22 Type 2 diabetes mellitus with diabetic chronic kidney disease; Z79.84 Long term (current) use of oral hypoglycemic drugs; I12.9 Hypertensive chronic kidney disease with stage 1 through stage 4 chronic kidney disease, or unspecified chronic kidney disease; N18.3 Chronic kidney disease, stage 3 (moderate); Z96.653 Presence of artificial knee joint, bilateral
CPT/HCPCS: 36430; 80053; 82948; 85007; 85027; 85610; 85730; 86850; 86900; 86901; 86920; 99285; J7050; P9016

== ENCOUNTER 2018-02-17 11:21 | Inpatient (IN) | payer OTHER, MEDICARE ==
[~2018-02-17] VITALS: Ht 170.2 cm; Wt 117.7 kg
[2018-02-17 11:53] VITALS: BP 127/85; PULSE 71; RESP 26; TEMP 98.1; O2SAT 100
[2018-02-17 13:03] LABS: BICARBONATE 23.9 MEQ/L (21.0-32.0); CALCIUM 8.8 MG/DL (8.5-10.1); CREATININE 1.4 MG/DL (0.50-1.00)
--- NOTE | 2018-02-17 16:33 | PD ---
HPI Chief Complaint: Abnormal Results Time Seen by Provider: 16:23 Travel History International Travel<30 days: No Contact w/Intl Traveler<30days: No Traveled to known affect area: No History of Present Illness HPI 72-year-old female came to the emergency room with history of anemia. Patient says she gets transfused every 2 weeks. She had a blood work done last and was told yesterday that hemoglobin was 7.5. Patient decided to come in today to be transfused. She has had GI workup thoroughly done for the anemia and no source of bleeding has been found. She is also seen cafeteria supervisor Dr. Anders who intends to do a bone marrow biopsy. Vital signs are stable otherwise. No history of chest pain, shortness of breath, lightheadedness or syncopal episode. [facility] Past Medical History Narrative Medical List of her past medical, surgical, social and family history is reviewed from the nursing note. Anemia: Yes (BLOOD TRANSFUSION ) Blood Disorders: No Heart Rhythm Problems: No Cancer: No Cardiovascular Problems: Yes High Cholesterol: Yes Chemotherapy: No Chest Pain: No Congestive Heart Failure: No Diabetes: Yes Patient Takes Glucophage: No Diminished Hearing: No Endocrine: No Genitourinary: No Hypertension: Yes Immune Disorder: No Implanted Vascular Access Dvce: No Musculoskeletal: No Neurologic: Yes Psychiatric: No Reproductive: No Respiratory: No Immunizations Current: Yes Radiation Therapy: No Sleep Apnea: Yes Thyroid Disease: Yes (hypothyroid) Tetanus Vaccination: Unknown ?: Not Menopausal: Yes Past Surgical History Abdominal Surgery: Yes (gallbladder removal) Cholecystectomy: Yes Joint Replacement: Yes Other Surgery: Yes (BILATERAL HEEL SPUR ) Social History Alcohol Use: Yes (2X YEAR) Tobacco Use: No Substance Use: No Allergies-Medications (Allergen,Severity, Reaction): Coded Allergies: No Known Allergies (Unverified , 02/17/18) Comments No known drug allergies. Reported Meds & Prescriptions Reported Meds & Active Scripts Active Reported Nitroglycerin SL (Nitroglycerin) 0.4 Mg Subl 0.4 Mg SL DIRECTED PRN ONE TABLET UNDER THE TONGUE NEEDED FOR CHEST PAIN, MAY REPEAT EVERY FIVE MINUTES FOR A TOTAL OF 3 DOSES OR CALL 911 IF NO RELIEF Lisinopril 20 Mg Tab 20 Mg PO DAILY Glyburide 2.5 Mg Tab 2.5 Mg PO DAILY Take with meals at the same time each day Isosorbide Mononitrate ER (Isosorbide Mononitrate) 30 Mg Nitish 30 Mg PO DAILY Metoprolol Tartrate 25 Mg Tab 25 Mg PO BID Atorvastatin (Atorvastatin Calcium) 40 Mg Tab 40 Mg PO HS Levothyroxine (Levothyroxine Sodium) 25 Mcg Tab 25 Mcg PO DAILY Narrative Medication List of her home medications reviewed from the nursing note. Review of Systems Except as stated in HPI: all other systems reviewed are Neg Physical Exam Narrative GENERAL: Awake, alert, no obvious distress SKIN: Focused skin assessment warm/dry. Pale HEAD: Atraumatic. Normocephalic. EYES: Pupils equal and round. No scleral icterus. No injection or drainage. ENT: No nasal bleeding or discharge. Mucous membranes pink and moist. NECK: Trachea midline. No JVD. CARDIOVASCULAR: Regular rate and rhythm. No murmur appreciated. RESPIRATORY: No accessory muscle use. Clear to auscultation. Breath sounds equal bilaterally. GASTROINTESTINAL: Abdomen soft, non-tender, nondistended. Hepatic and splenic margins not palpable. MUSCULOSKELETAL: No obvious deformities. No clubbing. No cyanosis. No edema. NEUROLOGICAL: Awake and alert. No obvious cranial nerve deficits. Motor grossly within normal limits. Normal speech. PSYCHIATRIC: Appropriate mood and affect; insight and judgment normal. Data Data Last Documented VS Vital Signs Date Time Temp Pulse Resp B/P (MAP) Pulse Ox O2 Delivery O2 Flow Rate FiO2 02/17/18 18:00 71 20 131/59 (83) 100 Room Air 02/17/18 11:53 98.1 Orders Orders Complete Blood Count With Diff (02/17/18 11:55) Basic Metabolic Panel (Bmp) (02/17/18 11:55) Act Partial Throm Time (Ptt) (02/17/18 11:55) Prothrombin Time / Inr (Pt) (02/17/18 11:55) Type And Screen (02/17/18 11:55) Red Blood Cells (Rbc) (02/17/18 21:19) Blood Product Administration (02/17/18 21:19) Sodium Chlor 0.9% 250 Ml Inj (Ns 250 Ml (02/17/18 21:30) Admit Order (Ed Use Only) (02/17/18 ) Promotional Advertising Assistant / Telemetry JOSE A.Q8H (02/17/18 21:42) Activity Oob With Assistance (02/17/18 21:42) Notify Dr: Other (02/17/18 21:42) Labs Laboratory Tests Test 02/17/18 12:09 02/17/18 19:54 Prothrombin Time 12.2 SEC Prothromb Time International Ratio 1.2 RATIO Activated Partial Thromboplast Time 25.8 SEC Blood Urea Nitrogen 21 MG/DL Creatinine 1.40 MG/DL Random Glucose 111 MG/DL Calcium Level 8.8 MG/DL Sodium Level 142 MEQ/L Potassium Level 4.7 MEQ/L Chloride Level 110 MEQ/L Carbon Dioxide Level 23.9 MEQ/L Anion Gap 8 MEQ/L Estimat Glomerular Filtration Rate 37 ML/MIN White Blood Count 4.3 TH/MM3 Red Blood Count 2.11 MIL/MM3 Hemoglobin 6.4 GM/DL Hematocrit 19.4 % Mean Corpuscular Volume 91.6 FL Mean Corpuscular Hemoglobin 30.4 PG Mean Corpuscular Hemoglobin Concent 33.2 % Red Cell Distribution Width 20.9 % Platelet Count 234 TH/MM3 Mean Platelet Volume 12.1 FL Neutrophils (%) (Auto) 64.2 % Lymphocytes (%) (Auto) 26.4 % Monocytes (%) (Auto) 4.2 % Eosinophils (%) (Auto) 2.9 % Basophils (%) (Auto) 2.3 % Neutrophils # (Auto) 2.8 TH/MM3 Lymphocytes # (Auto) 1.1 TH/MM3 Monocytes # (Auto) 0.2 TH/MM3 Eosinophils # (Auto) 0.1 TH/MM3 Basophils # (Auto) 0.1 TH/MM3 CBC Comment AUTO DIFF Differential Total Cells Counted 100 Neutrophils % (Manual) 48 % Band Neutrophils % 17 % Lymphocytes % 26 % Monocytes % 1 % Eosinophils % 4 % Basophils % 3 % Neutrophils # (Manual) 2.8 TH/MM3 Myelocytes 1 % Differential Comment FINAL DIFF MANUAL Platelet Estimate NORMAL Platelet Morphology Comment ENLARGED Spherocytes OCC Ovalocytes 2+ Acanthocytes OCC MDM Medical Decision Making Medical Screen Exam Complete: Yes Emergency Medical Condition: Yes Medical Record Reviewed: Yes Differential Diagnosis Anemia Narrative Course 7:35 PM awaiting for CBC. Case has been signed over to the oncoming ER physician. Procedures EKG Prior to Arrival: Shirley Gregory MD Feb 17, 2018 16:33
[2018-02-17 18:00] VITALS: BP 131/59; PULSE 71; RESP 20; O2SAT 100
--- NOTE | 2018-02-17 19:36 | PD ---
Physical Exam Date Seen by Provider: Feb 17, 2018 Time Seen by Provider: 19:34 Narrative accepted in transfer of care from Dr Preciado Data Data Last Documented VS Vital Signs Date Time Temp Pulse Resp B/P (MAP) Pulse Ox O2 Delivery O2 Flow Rate FiO2 02/17/18 18:00 71 20 131/59 (83) 100 Room Air 02/17/18 11:53 98.1 Orders Orders Complete Blood Count With Diff (02/17/18 11:55) Basic Metabolic Panel (Bmp) (02/17/18 11:55) Act Partial Throm Time (Ptt) (02/17/18 11:55) Prothrombin Time / Inr (Pt) (02/17/18 11:55) Type And Screen (02/17/18 11:55) Red Blood Cells (Rbc) (02/17/18 21:19) Blood Product Administration (02/17/18 21:19) Sodium Chlor 0.9% 250 Ml Inj (Ns 250 Ml (02/17/18 21:30) Admit Order (Ed Use Only) (02/17/18 ) M[employer] Acquis[employer] Attorney / Telemetry JOSE A.Q8H (02/17/18 21:42) Diet Heart Healthy (02/18/18 Breakfast) Activity Oob With Assistance (02/17/18 21:42) Notify Dr: Other (02/17/18 21:42) Labs Laboratory Tests Test 02/17/18 12:09 02/17/18 19:54 Prothrombin Time 12.2 SEC Prothromb Time International Ratio 1.2 RATIO Activated Partial Thromboplast Time 25.8 SEC Blood Urea Nitrogen 21 MG/DL Creatinine 1.40 MG/DL Random Glucose 111 MG/DL Calcium Level 8.8 MG/DL Sodium Level 142 MEQ/L Potassium Level 4.7 MEQ/L Chloride Level 110 MEQ/L Carbon Dioxide Level 23.9 MEQ/L Anion Gap 8 MEQ/L Estimat Glomerular Filtration Rate 37 ML/MIN White Blood Count 4.3 TH/MM3 Red Blood Count 2.11 MIL/MM3 Hemoglobin 6.4 GM/DL Hematocrit 19.4 % Mean Corpuscular Volume 91.6 FL Mean Corpuscular Hemoglobin 30.4 PG Mean Corpuscular Hemoglobin Concent 33.2 % Red Cell Distribution Width 20.9 % Platelet Count 234 TH/MM3 Mean Platelet Volume 12.1 FL Neutrophils (%) (Auto) 64.2 % Lymphocytes (%) (Auto) 26.4 % Monocytes (%) (Auto) 4.2 % Eosinophils (%) (Auto) 2.9 % Basophils (%) (Auto) 2.3 % Neutrophils # (Auto) 2.8 TH/MM3 Lymphocytes # (Auto) 1.1 TH/MM3 Monocytes # (Auto) 0.2 TH/MM3 Eosinophils # (Auto) 0.1 TH/MM3 Basophils # (Auto) 0.1 TH/MM3 CBC Comment AUTO DIFF Differential Total Cells Counted 100 Neutrophils % (Manual) 48 % Band Neutrophils % 17 % Lymphocytes % 26 % Monocytes % 1 % Eosinophils % 4 % Basophils % 3 % Neutrophils # (Manual) 2.8 TH/MM3 Myelocytes 1 % Differential Comment FINAL DIFF MANUAL Platelet Estimate NORMAL Platelet Morphology Comment ENLARGED Spherocytes OCC Ovalocytes 2+ Acanthocytes OCC MDM Medical Record Reviewed: Yes Supervised Visit with MIKEY: No Interpretation(s) CBC & BMP Diagram 02/17/18 12:09 Calcium Level 8.8 02/17/18 19:54 Vital Signs Date Time Temp Pulse Resp B/P (MAP) Pulse Ox O2 Delivery O2 Flow Rate FiO2 02/17/18 18:00 71 20 131/59 (83) 100 Room Air 02/17/18 16:22 20 02/17/18 11:53 98.1 71 26 127/85 (99) 100 Differential Diagnosis accepted in transfer of care from Dr Preciado; please refer to her dictation Narrative Course accepted in transfer of care from Dr Preciado; follow up hemoglobin --may require transfusion @ 20:15 redraw labs remain pending Physician Communication Physician Communication discussed with Dr Edwards for Obs Diagnosis Primary Impression: Symptomatic anemia Admitting Information Admitting Physician Requests: Observation Trisha Ahumada MD Feb 17, 2018 19:36
[2018-02-17 20:40] LABS: INTERNATIONAL NORMALIZED RATIO 1.2 RATIO; PROTHROMBIN TIME - PATIENT 12.2 SEC (9.8-11.6)
[2018-02-17 21:07] LABS: AUTOMATED NEUTROPHIL # 2.8 TH/MM3 (1.8-7.7); BASOPHIL # 0.1 TH/MM3 (0-0.2); BASOPHIL % 2.3 % (0.0-2.0); EOSINOPHIL # 0.1 TH/MM3 (0-0.4); EOSINOPHIL % 2.9 % (0.0-4.0); LYMPH % 26.4 % (9.0-44.0); LYMPHOCYTE # 1.1 TH/MM3 (1.0-4.8); MEAN CELL VOLUME 91.6 FL (80.0-100.0); MEAN CORPUSCULAR HEMOGLOBIN 30.4 PG (27.0-34.0); MEAN CORPUSCULAR HGB CONC 33.2 % (32.0-36.0); MEAN PLATELET VOLUME 12.1 FL (7.0-11.0); MONO % 4.2 % (0.0-8.0); MONOCYTE # 0.2 TH/MM3 (0-0.9); NEUT % 64.2 % (16.0-70.0); PLATELET COUNT 234 TH/MM3 (150-450); RED BLOOD COUNT 2.11 MIL/MM3 (4.00-5.30); RED CELL DISTRIBUTION WIDTH 20.9 % (11.6-17.2); WHITE BLOOD COUNT 4.3 TH/MM3 (4.0-11.0)
[2018-02-17] MEDS ORDERED: SODIUM CHLOR 0.9% 250 ML INJ 250 ML IV ONE (21:30)
[2018-02-17 21:38] LABS: HEMATOCRIT 19.4 % (35.0-46.0); HEMOGLOBIN 6.4 GM/DL (11.6-15.3)
[2018-02-17 21:43] LABS: BANDS 17 % (0-6); BASOPHILS 3 % (0-2); LYMPHOCYTES 26 % (9-44); MONOCYTES 1 % (0-8); MYELOCYTES 1 % (0-0); NEUTROPHIL # MANUAL DIFF 2.8 TH/MM3 (1.8-7.7); POLYS (SEG NEUTROPHILS) 48 % (16-70)
[2018-02-17 21:44] LABS: OVALOCYTES 2+ (NORMAL)
[2018-02-17 21:45] LABS: ACANTHOCYTES OCC (NORMAL); SPHEROCYTES OCC (NORMAL)
[2018-02-17] MEDS ORDERED: SODIUM CHLORIDE 0.9% FLUSH 10 ML FLUSH IV FLUSH PRN (22:45)
[2018-02-17] MEDS ORDERED: ONDANSETRON HCL 4 MG/2 ML VIAL IVP PRN (22:45)
[2018-02-17] MEDS ORDERED: GLUCAGON 1 MG/ML VIAL OTHER PRN (22:45)
[2018-02-17] MEDS ORDERED: DEXTROSE 50% IN WATER 50 ML VIAL(D50) IV PUSH PRN (22:45)
[2018-02-17] MEDS ORDERED: NALOXONE HCL 0.4 MG/ML AMP IV PUSH PRN (22:45)
--- NOTE | 2018-02-17 22:58 | HHI.HP ---
[facility]Staff Admission Diagnosis symptomatic anemia Diagnoses: Travel History International Travel<30 Days: No Contact w/Intl Traveler <30 Da: No Traveled to Known Affected Are: No History of Present Illness 72-year-old female with a past medical history significant for diabetes mellitus , hypertension, CAD, hyperlipidemia and chronic kidney disease resents to the emergency department for evaluation of increasing fatigue and shortness of breath. The patient reports that she had her lab work done on Thursday and got the results on . She was told that her hemoglobin was 7.5. She came to the emergency department for transfusion. The patient has had a history of anemia requiring transfusions. He has had multiple endoscopies and colonoscopies all of which were negative. She is followed by a dandy operator, Dr. Haq, who is scheduling her for a bone marrow biopsy next week. The patient denies any chest pain. No nausea/vomiting/ diarrhea. She reports that she is "extremely hungry." She denies any diarrhea or abdominal pain. No lateralizing signs/symptoms. Review of Systems Except as stated in HPI: all other systems reviewed are Neg Past Family Social History Past Medical History Hypertension Hyperlipidemia Diabetes mellitus Chronic kidney disease Coronary artery disease Past Surgical History Cholecystectomy Bilateral knee replacement Right shoulder repair Cardiac catheterization Heel spurs Reported Medications Reported Meds & Active Scripts Active Reported Nitroglycerin SL (Nitroglycerin) 0.4 Mg Subl 0.4 Mg SL DIRECTED PRN ONE TABLET UNDER THE TONGUE NEEDED FOR CHEST PAIN, MAY REPEAT EVERY FIVE MINUTES FOR A TOTAL OF 3 DOSES OR CALL 911 IF NO RELIEF Lisinopril 20 Mg Tab 20 Mg PO DAILY Glyburide 2.5 Mg Tab 2.5 Mg PO DAILY Take with meals at the same time each day Isosorbide Mononitrate ER (Isosorbide Mononitrate) 30 Mg Nitish 30 Mg PO DAILY Metoprolol Tartrate 25 Mg Tab 25 Mg PO BID Atorvastatin (Atorvastatin Calcium) 40 Mg Tab 40 Mg PO HS Levothyroxine (Levothyroxine Sodium) 25 Mcg Tab 25 Mcg PO DAILY Allergies: Coded Allergies: No Known Allergies (Unverified , 02/17/18) Family History The patient does not know Social History Rare alcohol. Denies tobacco, illicit drugs. Physical Exam Vital Signs Vital Signs Date Time Temp Pulse Resp B/P (MAP) Pulse Ox O2 Delivery O2 Flow Rate FiO2 02/17/18 18:00 71 20 131/59 (83) 100 Room Air 02/17/18 16:22 20 02/17/18 11:53 98.1 71 26 127/85 (99) 100 Physical Exam GENERAL: Obese, female lying in bed SKIN: No rashes, ecchymoses or lesions. Cool and dry. HEAD: Atraumatic. Normocephalic. No temporal or scalp tenderness. EYES: Pupils equal round and reactive. Extraocular motions intact. No scleral icterus. No injection or drainage. ENT: Nose without bleeding, purulent drainage or septal hematoma. Throat without erythema, tonsillar hypertrophy or exudate. Uvula midline. Airway patent. NECK: Trachea midline. No JVD or lymphadenopathy. Supple, nontender, no meningeal signs. CARDIOVASCULAR: Regular rate and rhythm without murmurs, gallops, or rubs. RESPIRATORY: Clear to auscultation. Breath sounds equal bilaterally. No wheezes , rales, or rhonchi. GASTROINTESTINAL: Abdomen soft, non-tender, nondistended. No hepato-splenomegaly , or palpable masses. No guarding. MUSCULOSKELETAL: Extremities without clubbing, cyanosis, or edema. No joint tenderness, effusion, or edema noted. No calf tenderness. NEUROLOGICAL: Awake and alert. Cranial nerves II through XII intact. Motor and sensory grossly within normal limits. Normal speech. Laboratory Laboratory Tests Test 02/17/18 12:09 02/17/18 19:54 Prothrombin Time 12.2 Prothromb Time International Ratio 1.2 Activated Partial Thromboplast Time 25.8 Blood Urea Nitrogen 21 Creatinine 1.40 Random Glucose 111 Calcium Level 8.8 Sodium Level 142 Potassium Level 4.7 Chloride Level 110 Carbon Dioxide Level 23.9 Anion Gap 8 Estimat Glomerular Filtration Rate 37 White Blood Count 4.3 Red Blood Count 2.11 Hemoglobin 6.4 Hematocrit 19.4 Mean Corpuscular Volume 91.6 Mean Corpuscular Hemoglobin 30.4 Mean Corpuscular Hemoglobin Concent 33.2 Red Cell Distribution Width 20.9 Platelet Count 234 Mean Platelet Volume 12.1 Neutrophils (%) (Auto) 64.2 Lymphocytes (%) (Auto) 26.4 Monocytes (%) (Auto) 4.2 Eosinophils (%) (Auto) 2.9 Basophils (%) (Auto) 2.3 Neutrophils # (Auto) 2.8 Lymphocytes # (Auto) 1.1 Monocytes # (Auto) 0.2 Eosinophils # (Auto) 0.1 Basophils # (Auto) 0.1 CBC Comment AUTO DIFF Differential Total Cells Counted 100 Neutrophils % (Manual) 48 Band Neutrophils % 17 Lymphocytes % 26 Monocytes % 1 Eosinophils % 4 Basophils % 3 Neutrophils # (Manual) 2.8 Myelocytes 1 Differential Comment FINAL DIFF MANUAL Platelet Estimate NORMAL Platelet Morphology Comment ENLARGED Spherocytes OCC Ovalocytes 2+ Acanthocytes OCC Result Diagram: 02/17/18195302/17/18 1209 Caprini VTE Risk Assessment Caprini VTE Risk Assessment: Mod/High Risk (score >= 2) Caprini Risk Assessment Model Point Value = 1 Point Value = 2 Point Value = 3 Point Value = 5 Age 41-60 Minor surgery BMI > 25 kg/m2 Swollen legs Varicose veins or History of unexplained or recurrent spontaneous Oral contraceptives or hormone replacement Sepsis (< 1 month) Serious lung disease, including pneumonia (< 1 month) Abnormal pulmonary function Acute myocardial infarction Congestive heart failure (< 1 month) History of inflammatory bowel disease Medical patient at bed rest Age 61-74 Arthroscopic surgery Major open surgery (> 45 min) Laparoscopic surgery (> 45 min) Malignancy Confined to bed (> 72 hours) Immobilizing plaster cast Central venous access Age >= 75 History of VTE Family history of VTE Factor V Leiden Prothrombin [id number] Lupus anticoagulant Anticardiolipin antibodies Elevated serum homocysteine Heparin-induced thrombocytopenia Other congenital or acquired thrombophilia Stroke (< 1 month) Elective arthroplasty Hip, pelvis, or leg fracture Acute spinal cord injury (< 1 month) Prophylaxis Regimen Total Risk Factor Score Risk Level Prophylaxis Regimen 0-1 Low Early ambulation 2 Moderate Order ONE of the following: *Sequential Compression Device (SCD) *Heparin 5000 units SQ BID 3-4 Higher Order ONE of the following medications: *Heparin 5000 units SQ TID *Enoxaparin/Lovenox 40 mg SQ daily (WT < 150 kg, CrCl > 30 mL/min) *Enoxaparin/Lovenox 30 mg SQ daily (WT < 150 kg, CrCl > 10-29 mL/min) *Enoxaparin/Lovenox 30 mg SQ BID (WT < 150 kg, CrCl > 30 mL/min) AND/OR *Sequential Compression Device (SCD) 5 or more Highest Order ONE of the following medications: *Heparin 5000 units SQ TID (Preferred with Epidurals) *Enoxaparin/Lovenox 40 mg SQ daily (WT < 150 kg, CrCl > 30 mL/min) *Enoxaparin/Lovenox 30 mg SQ daily (WT < 150 kg, CrCl > 10-29 mL/min) *Enoxaparin/Lovenox 30 mg SQ BID (WT < 150 kg, CrCl > 30 mL/min) AND *Sequential Compression Device (SCD) Assessment and Plan Assessment and Plan Assessment/plan: 1. Symptomatic anemia Transfuse 2 units packed red blood cells Monitor CBC Patient will follow-up with her dandy operator as an outpatient, she is being scheduled for a bone marrow biopsy Complete gastroenterology workup negative 2. Diabetes mellitus Sliding scale insulin Monitor blood glucose 3. Hypertension/hyperlipidemia/coronary artery disease Continue home medications 4. Chronic kidney disease Creatinine 1.40, at baseline Monitor renal function FEN Heart healthy diet Electrolytes: Monitor and replete when necessary Holding pharmacologic anticoagulation secondary to anemia Physician Certification 2 Midnight Certification Type: Admission for Inpatient Services Order for Inpatient Services The services are ordered in accordance with Medicare regulations or non- Medicare payer requirements, as applicable. In the case of services not specified as inpatient-only, they are appropriately provided as inpatient services in accordance with the 2-midnight benchmark. Estimated LOS (days): 2 2 days is the estimated time the patient will need to remain in the hospital, assuming treatment plan goals are met and no additional complications. Post-Hospital Plan: Not yet determined Eloisa Edwards MD Feb 17, 2018 22:58
[2018-02-17 23:16] VITALS: BP 166/67; PULSE 63; RESP 18; TEMP 98.6; O2SAT 95
[2018-02-17 23:30] VITALS: BP 172/70; PULSE 81; RESP 18; TEMP 98.6; O2SAT 95
[2018-02-18] VITALS (14 sets, daily range): BP systolic 121–157; BP diastolic 52–72; PULSE 49–77; RESP 18–22; TEMP 96.6–98.9; O2SAT 91–99
[2018-02-18] MEDS: LEVOTHYROXINE SODIUM 25 MCG TAB PO SCH (05:51)
[2018-02-18] MEDS: SODIUM CHLOR 0.9% 1000 ML INJ 1,000 ML IV SCH ×3 (05:51→17:56)
[2018-02-18] MEDS: ISOSORBIDE MONONITRATE 30 MG CR TAB (IMDUR) PO SCH (05:51)
[2018-02-18] MEDS: INSULIN ASPART SUPPLEMENTAL SCALE SQ SCH ×4 (08:00→21:00)
[2018-02-18] MEDS: LISINOPRIL 20 MG TAB PO SCH (08:33)
[2018-02-18] MEDS: METOPROLOL TARTRATE 25 MG TAB PO SCH ×2 (08:33→21:50)
[2018-02-18] MEDS: SODIUM CHLORIDE 0.9% FLUSH 10 ML FLUSH IV FLUSH SCH ×2 (08:33→21:50)
[2018-02-18 08:38] LABS: HEMATOCRIT 23.5 % (35.0-46.0); HEMOGLOBIN 7.8 GM/DL (11.6-15.3); MEAN CELL VOLUME 90.1 FL (80.0-100.0); MEAN CORPUSCULAR HGB CONC 33.3 % (32.0-36.0); MEAN PLATELET VOLUME 12.2 FL (7.0-11.0); PLATELET COUNT 250 TH/MM3 (150-450); RED BLOOD COUNT 2.61 MIL/MM3 (4.00-5.30); RED CELL DISTRIBUTION WIDTH 18.5 % (11.6-17.2); WHITE BLOOD COUNT 4.2 TH/MM3 (4.0-11.0)
[2018-02-18 08:59] LABS: BICARBONATE 26.2 MEQ/L (21.0-32.0); CALCIUM 8.6 MG/DL (8.5-10.1); CREATININE 1.16 MG/DL (0.50-1.00)
[2018-02-18 09:43] LABS: BANDS 24 % (0-6); CORRECTED NUCLEATED RBC 1 /100 WBC (0-0); METAMYELOCYTES 2 % (0-1); MONOCYTES 2 % (0-8); NEUTROPHIL # MANUAL DIFF 3.4 TH/MM3 (1.8-7.7); NUCLEATED RED BLOOD CELL 1 (0-0); POLYS (SEG NEUTROPHILS) 54 % (16-70)
[2018-02-18 09:45] LABS: LYMPHOCYTES 13 % (9-44); OVALOCYTES 1+ (NORMAL)
[2018-02-18 09:46] LABS: KERATOCYTES OCC (NORMAL)
[2018-02-18] MEDS ORDERED: SODIUM CHLOR 0.9% 250 ML INJ 250 ML IV ONE (11:45)
--- NOTE | 2018-02-18 14:15 | HHI.PR ---
Addendum to Inpatient Note Addendum Reason: Additional Documentation Additional Information Denies any rectal bleeding or nausea or vomiting. Says her lightheadedness has resolved. Confirm with nursing that the patient did receive an finish transfusion of 2 units of blood earlier this morning. However her recheck H&H is still showing a drop below 8. I will order 2 more units of blood. The patient says she has had her workup of colonoscopies and EGDs in the recent past with no findings. I will consult hematology as the blood is being ordered. Anticipate keeping her over midnight for another recheck in the morning unless hematology clearance for discharge this evening. Anil Reddy MD Feb 18, 2018 14:15
--- NOTE | 2018-02-18 14:17 | HHI.PR ---
Subjective Remarks Nursing denies any deterioration since last night. Patient denies any further lightheadedness. Denies any nausea vomiting or rectal bleeding. Wanting to eat. Objective Vital Signs Date Time Temp Pulse Resp B/P (MAP) Pulse Ox O2 Delivery O2 Flow Rate FiO2 02/18/18 12:00 97.1 49 18 121/52 (75) 99 02/18/18 08:00 98.0 62 18 151/72 (98) 93 02/18/18 08:00 66 02/18/18 05:49 96.6 77 22 143/64 (90) 94 02/18/18 02:36 97.8 68 22 141/66 97 02/18/18 02:20 97.9 74 22 140/63 94 02/18/18 02:04 97.6 63 22 152/65 91 02/18/18 02:00 70 02/18/18 01:09 97.6 63 22 152/65 (94) 91 02/17/18 23:30 98.6 81 18 172/70 95 02/17/18 23:16 98.6 63 18 166/67 95 02/17/18 18:00 71 20 131/59 (83) 100 Room Air 02/17/18 16:22 20 I/O 02/17/18 02/17/18 02/17/18 02/18/18 02/18/18 02/18/18 07:00 15:00 23:00 07:00 15:00 23:00 Intake Total 400 ml Balance 400 ml Intake Packed Cells 400 ml Result Diagram: 02/18/18 0643 02/18/18 0643 Objective Remarks Clear lungs bilaterally, unlabored breathing, abdomen soft, nontender, nondistended A/P Assessment and Plan Chronic anemia of unknown origin -Still dropping H&H despite having received 2 units of blood earlier this morning which nursing did confirm but the blood bank records showing a transfusion of just 1 unit. I will thus order 2 more units and consult hematology. Anticipate keeping the patient overnight for another recheck in the morning was hematology clears for discharge this evening. Patient says she has had her workup of colonoscopies and EGDs in the past with no findings and just gets routine transfusions every week or 2 weeks. -Diabetes mellitus Sliding scale insulin Monitor blood glucose -Hypertension/hyperlipidemia/coronary artery disease Continue home medications acute on chronic - improved SCDs Anil Reddy MD Feb 18, 2018 14:17
[2018-02-18] MEDS ORDERED: ATORVASTATIN 40 MG TAB PO SCH (21:00)
[2018-02-19 00:04] VITALS: BP 121/57; PULSE 56; RESP 20; TEMP 96.8; O2SAT 94
[2018-02-19] MEDS: SODIUM CHLOR 0.9% 1000 ML INJ 1,000 ML IV SCH (01:07)
[2018-02-19] MEDS: ISOSORBIDE MONONITRATE 30 MG CR TAB (IMDUR) PO SCH (05:59)
[2018-02-19] MEDS: LEVOTHYROXINE SODIUM 25 MCG TAB PO SCH (05:59)
[2018-02-19 08:00] VITALS: BP 162/70; PULSE 54; RESP 18; TEMP 98.1; O2SAT 94
[2018-02-19] MEDS: INSULIN ASPART SUPPLEMENTAL SCALE SQ SCH ×2 (08:00→12:00)
[2018-02-19] MEDS: SODIUM CHLORIDE 0.9% FLUSH 10 ML FLUSH IV FLUSH SCH (08:31)
[2018-02-19] MEDS: LISINOPRIL 20 MG TAB PO SCH (09:22)
[2018-02-19] MEDS: METOPROLOL TARTRATE 25 MG TAB PO SCH (09:22)
[2018-02-19 11:52] LABS: HEMATOCRIT 29.4 % (35.0-46.0); HEMOGLOBIN 9.9 GM/DL (11.6-15.3); MEAN CELL VOLUME 89.3 FL (80.0-100.0); MEAN CORPUSCULAR HGB CONC 33.7 % (32.0-36.0); MEAN PLATELET VOLUME 11.7 FL (7.0-11.0); PLATELET COUNT 228 TH/MM3 (150-450); RED BLOOD COUNT 3.29 MIL/MM3 (4.00-5.30); RED CELL DISTRIBUTION WIDTH 18.9 % (11.6-17.2); WHITE BLOOD COUNT 4.6 TH/MM3 (4.0-11.0)
[2018-02-19 12:00] VITALS: BP 136/65; PULSE 51; RESP 19; TEMP 97.9; O2SAT 96
[2018-02-19 12:44] LABS: BANDS 26 % (0-6); BLASTS 2 % (0-0); LYMPHOCYTES 18 % (9-44); MONOCYTES 4 % (0-8); NEUTROPHIL # MANUAL DIFF 3.3 TH/MM3 (1.8-7.7); POLYS (SEG NEUTROPHILS) 46 % (16-70)
[2018-02-19 12:47] LABS: ACANTHOCYTES OCC (NORMAL)
[2018-02-19 12:54] LABS: OVALOCYTES 2+ (NORMAL)
--- NOTE | 2018-02-19 12:59 | HHI.DCPOC ---
Discharge Care Plan Diagnosis: (1) Symptomatic anemia (2) Acute kidney injury Goals to Promote Your Health * To prevent worsening of your condition and complications * To maintain your health at the optimal level Directions to Meet Your Goals Take your medications as prescribed Follow your dietary instruction Follow activity as directed Keep your appointments as scheduled Take your immunizations and boosters as scheduled If your symptoms worsen call your PCP, if no PCP go to Urgent Care Center or Emergency Room Smoking is Dangerous to Your Health. Avoid second hand smoke Call the 24-hour hour crisis hotline for domestic abuse at Anil Reddy MD Feb 19, 2018 12:59
--- NOTE | 2018-02-19 13:02 | HHI.PR ---
Subjective Remarks Nursing denies any deterioration since last night. Denies any nausea vomiting or rectal bleeding. Wanting to go home Objective Vital Signs Date Time Temp Pulse Resp B/P (MAP) Pulse Ox O2 Delivery O2 Flow Rate FiO2 02/19/18 08:00 98.1 54 18 162/70 (100) 94 02/19/18 00:04 96.8 56 20 121/57 (78) 94 02/18/18 20:00 66 02/18/18 20:00 98.6 61 18 157/72 (100) 98 02/18/18 19:48 98.0 63 18 157/64 98 02/18/18 19:30 98.9 65 18 143/72 97 02/18/18 15:30 98.4 60 18 154/62 96 02/18/18 15:25 96.6 59 18 121/61 96 I/O 02/18/18 02/18/18 02/18/18 02/19/18 02/19/18 02/19/18 07:00 15:00 23:00 07:00 15:00 23:00 Intake Total 400 ml 2150 ml 480 ml Balance 400 ml 2150 ml 480 ml Intake Oral 1180 ml 480 ml Packed Cells 400 ml 800 ml Blood Product IV Normal Saline Flush 170 ml # Voids 3 2 # Bowel Movements 1 0 Result Diagram: 02/19/18 1055 02/18/18 0643 Objective Remarks Clear lungs bilaterally, unlabored breathing, abdomen soft, nontender, nondistended A/P Assessment and Plan Chronic anemia of unknown origin -H&H is stable at 9.9, clear for discharge from hematology standpoint, patient understands to follow-up with her self pay specialist closely. Anticipates outpatient bone marrow biopsy. Asymptomatic at this time. Patient has met maximal benefit from hospitalization is clinically stable for discharge. Kidney function has also stabilized Anli Reddy MD Feb 19, 2018 13:02
--- NOTE | 2018-02-19 13:43 | MB ---
cc: Dylan Mittal MD DATE: 02/19/2018 Cc: Dr. Haq, [facility], [place], [place] TIME OF CONSULTATION: 12:30 p.m. REASON FOR CONSULTATION: Severe symptomatic normocytic anemia. HISTORY OF PRESENT ILLNESS: Ms. Mcnair reports having progressive fatigue and weakness. She presented to the emergency department because of recurrent anemia-like symptoms. HISTORY OF PRESENT ILLNESS: Ms. Mcnair is a very pleasant 72-year-old female who recently relocated from [place] to the [facility], the patient reports having been diagnosed with anemia in September of 2017. She reports her initial symptoms were that of breathlessness with exertion and central chest pressure. She was referred to Dr. Amor of cardiology, who performed a cardiac stent and noted her to have a 70% occlusion of one of the proximal coronary arteries as well as additional lower grade coronary artery atherosclerosis. She was recommended medical management. As a part of that workup, she was found to have unexplained anemia. The patient does have chronic kidney disease related to her history of diabetes and hypertension. She was referred to the [facility] in [place] and was recommended a GI workup which was performed, this included an EGD and colonoscopy performed about 3 weeks ago; no evidence of GI bleeding was noted. The patient was subsequently scheduled to undergo a bone marrow biopsy in the upcoming weeks under CT guidance. The patient tells me that since September she has required blood transfusions every 2 or 3 weeks. She is concerned about there being a possible underlying bone marrow disorder, which is what her primary chain sales consultant, Dr. Haq, informed the patient was a possible differential diagnosis. The patient, since her hospitalization at [place] on 02/17/2018, has been transfused 4 units packed red blood cells. Her hemoglobin has improved from 6.4 g/dL up to 9.9 mg/dL. PAST MEDICAL HISTORY: 1. Anemia. 2. Coronary artery disease (on medical management). 3. Type 2 diabetes. 4. Chronic kidney disease. 5. Hypertension. 6. Obesity. 7. Chronic lower extremity edema. 8. Hypothyroidism. 9. Hyperlipidemia. PAST SURGICAL HISTORY: 1. Cholecystectomy about 40 years ago. 2. Right and left total knee arthroplasty. 3. Right shoulder surgery about 3 years ago. 4. Heart catheterization. GYNECOLOGIC HISTORY: 3, para 3. 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 She has 3 adult children, all of whom live in [place]. The patient is not a smoker and denies alcohol abuse. HEALTH MAINTENANCE: She has never had a mammogram. Her first colonoscopy was about 3 weeks ago. FAMILY HISTORY: Patient denies any knowledge of oncologic or hematologic diagnoses in the family CURRENT INPATIENT MEDICATIONS: 1. Normal saline 100 mL per hour. 2. Atorvastatin 40 mg once a day. 3. Isosorbide mononitrate 30 mg p.o. daily. 4. Levothyroxine 25 mcg p.o. daily. 5. Lisinopril 20 mg once a day. 6. Low-dose insulin sliding scale. 7. Metoprolol 25 mg p.o. b.i.d. 8. Zofran 4 mg IV q. 6 hours. REVIEW OF SYSTEMS: CONSTITUTIONAL: The patient reports fatigue and weakness, she reports exertional dyspnea. Her appetite is fair. She denies fevers or chills. She denies weight loss. HEENT: Denies headaches, blurry vision, difficulty swallowing or soreness in the throat. RESPIRATORY: Difficulty breathing with minimal exertion, She denies cough or hemoptysis. Denies pleuritic chest pain. CARDIOVASCULAR: Denies anginal-like chest pain, PND or orthopnea. She does report chronic lower extremity edema. GASTROINTESTINAL: Denies nausea, vomiting, diarrhea, hematochezia, melena, abdominal distention, yellow jaundice. UG: No complaints of dysuria, hematuria, incontinence. FLIGHT MECHANIC: Denies any focal sensorimotor deficits. No other complaints reported. PHYSICAL EXAMINATION: VITAL SIGNS: Temperature 98.1 degrees Fahrenheit, heart rate 54 beats per minute, respiratory rate ranging between 18 and 20 breaths per minute, blood pressure is 162/70, O2 saturations 94% on room air. GENERAL PHYSICAL APPEARANCE: Ms. Mcnair is an elderly lady, she is sitting up on the bedside. She appears to be somewhat pale and a little bit anxious. She is in no acute distress. HEENT: Head atraumatic, normocephalic. Conjunctivae are mildly pale. Sclerae are anicteric. EOMI, PERRLA. Oral exam: No pharyngeal erythema. NECK: No palpable cervical or supraclavicular lymphadenopathy. RESPIRATORY: Good air movement bilaterally. CARDIOVASCULAR: Regular rate and rhythm, S1, S2. No obvious murmurs, rubs or gallops. ABDOMEN: Protuberant/obese, soft, nontender, nondistended. No palpable organ enlargement, specifically splenomegaly. LOWER EXTREMITIES: She has nonpitting edema from her feet all the way up to her mid-leg region. FLIGHT MECHANIC: No focal sensorimotor deficits. SKIN: No abnormality, specifically ecchymosis, petechia or skin lesions concerning for malignancy. LABORATORY DATA: Blood work dated 02/19/2018: WBC count 4.6, hemoglobin 9.9 g/dL, hematocrit is 29.4%, platelet count is 228, absolute neutrophil count is 3.3. Blast cells are noted to be 2%, platelet estimate is noted to be a normal. She does have in the circulation metamyelocytes, nucleated RBCs, as well as elevated basophil and eosinophil percentage. Chemistries: Sodium 143, potassium 4.1, chloride is 110, bicarbonate 26.2, BUN 18, creatinine 1.16, eGFR is 46, calcium is 8.6. Coags: PT 12.2, INR 1.2, PTT is 25.8. ASSESSMENT AND PLAN: Ms. Mcnair is a 72-year-old female with an unexplained anemia. In her peripheral circulation she has myelocytes, metamyelocytes, and blast-like cells. The relative proportion of these is quite low. She is currently under the care of Dr. Haq of [facility] in [place]. The patient tells me she has required blood transfusions for the past 4 months at a frequency of once every 2-3 weeks. The patient presented to the hospital with complaints of difficulty breathing with exertion and fatigue. She was found to have hemoglobin of 6.4 g/dL at presentation. The primary concern is for an underlying bone marrow disorder such as myelodysplasia or a myeloproliferative neoplasm. I am concerned about the former because of her circulating blast percentage of 2% as well as the presence of metamyelocytes. The patient feels well enough to go home at this point and I would recommend she go home provided she followup with her primary chain sales consultant and also follow through with the bone marrow biopsy, which ought to be done promptly. I did talk to the patient about the concerns of a primary bone marrow disorder. The patient is asked to transfer her care to [facility] because it is closer to her home and I will try to make those arrangements. MD ALF Love , 01:12 PM , 01:42 PM
== END 2018-02-19 14:02 | disposition home or self-care (01) | DRG 812 ==
LOC: NEPC 11:21 → NEDA 21:44 → OBSVTOIN 22:38 → HOCB 02-18 00:26
PROVIDERS: ADMIT Internal Medicine; ATTEND Internal Medicine
PROC: 30233N1 Transfusion of Nonautologous Red Blood Cells into Peripheral Vein, Percutaneous Approach (ICD-10-PCS; principal; 2018-02-17)
DX: D64.9 Anemia, unspecified (principal); N17.9 Acute kidney failure, unspecified; Z68.41 Body mass index [BMI] 40.0-44.9, adult; E11.22 Type 2 diabetes mellitus with diabetic chronic kidney disease; I12.9 Hypertensive chronic kidney disease with stage 1 through stage 4 chronic kidney disease, or unspecified chronic kidney disease; E03.9 Hypothyroidism, unspecified; E78.5 Hyperlipidemia, unspecified; G47.30 Sleep apnea, unspecified; E07.9 Disorder of thyroid, unspecified; I25.10 Atherosclerotic heart disease of native coronary artery without angina pectoris; N18.9 Chronic kidney disease, unspecified; E66.9 Obesity, unspecified; R60.0 Localized edema; Z96.653 Presence of artificial knee joint, bilateral
CPT/HCPCS: 36430; 80048; 82948; 85007; 85027; 85610; 85730; 86850; 86900; 86901; 86920; 99285; J7030; J7050; P9016

== ENCOUNTER 2018-02-25 09:51 | Day surgery (SDC) | payer OTHER ==
[~2018-02-25] VITALS: Ht 170.2 cm; Wt 118.0 kg
[2018-02-25 10:30] VITALS: BP 156/61; PULSE 74; RESP 20; TEMP 98.8; O2SAT 94
[2018-02-25] MEDS ORDERED: SODIUM CHLOR 0.9% 1000 ML IV SCH (11:30)
[2018-02-25] MEDS ORDERED: SODIUM CHLORIDE 2 ML FLUSH PRN IV FLUSH (11:30)
[2018-02-25 12:21] LABS: HEMATOCRIT 27.1 % (35.0-46.0); MEAN CORPUSCULAR HEMOGLOBIN 29.9 PG (27.0-34.0); MEAN CORPUSCULAR HGB CONC 33.3 % (32.0-36.0); MEAN PLATELET VOLUME 11.8 FL (7.0-11.0); PLATELET COUNT 229 TH/MM3 (150-450); RED BLOOD COUNT 3.01 MIL/MM3 (4.00-5.30); RED CELL DISTRIBUTION WIDTH 18.2 % (11.6-17.2); WHITE BLOOD COUNT 4.6 TH/MM3 (4.0-11.0)
[2018-02-25] MEDS ORDERED: MIDAZOLAM HCL 5 MG/5 ML VIAL ONE (12:36)
[2018-02-25] MEDS ORDERED: fentaNYL CITRATE 250 MCG/5 ML AMP ONE (12:36)
[2018-02-25 13:13] LABS: BANDS 30 % (0-6); BASOPHILS 1 % (0-2); LYMPHOCYTES 20 % (9-44); METAMYELOCYTES 3 % (0-1); MONOCYTES 2 % (0-8); MYELOCYTES 1 % (0-0); NEUTROPHIL # MANUAL DIFF 3.5 TH/MM3 (1.8-7.7); PLASMA CELLS 1 % (0-0); POLYS (SEG NEUTROPHILS) 41 % (16-70); PROMYELOCYTES 1 % (0-0)
[2018-02-25 13:15] LABS: OVALOCYTES 1+ (NORMAL)
[2018-02-25 13:19] LABS: ACANTHOCYTES OCC (NORMAL)
--- NOTE | 2018-02-25 13:39 | PD.RAD ---
Post CT Procedure Prog Note Pre Procedure Diagnosis: (1) Macrocytic anemia Post Procedure Diagnosis: (1) Macrocytic anemia Procedure Date: Feb 25, 2018 Supervising Radiologist: Frederick Gamez Anesthesia: Local, Analgesia, Conscious Sedation Plan of Activity Patient to Unit: ROPU Patient Condition: Good See PACS Report for procedural detail/treatment Biopsy Imaging Guidance: CT Side: Right Biopsy Procedure: Bone Marrow Specimen: Core Biopsy, Fine Needle Aspirate Fluid Description: Frederick Reyes MD Feb 25, 2018 13:39
[2018-02-25 13:50] VITALS: BP 157/67; PULSE 80; RESP 16; TEMP 98.2; O2SAT 94
[2018-02-25] MEDS ORDERED: LIDOCAINE HCL 1% 20 ML VIAL OTHER ONE (14:04)
[2018-02-25 14:05] VITALS: BP 136/54; PULSE 64; RESP 16; O2SAT 94
--- NOTE | 2018-02-25 14:15 | RADRPT ---
EXAM DATE/TIME: 02/25/2018 00:00 [place] COMPARISON: No previous studies available for comparison. INDICATIONS : Patient presents with anemia in need of peripheral intravenous access for bone marrow biopsy. MEDICAL HISTORY : DM HTN CRI CKD CAD Anemia Hyperlipidemia SURGICAL HISTORY : Right heel spur Nelsy Rotator cuff Bilat total knee replacement Cardiac cath ENCOUNTER: Initial ACUITY: 1 week PAIN SCORE: 0/10 LOCATION: N/A IMAGE SERIES: 0 ACCESS: Right brachial vein DEVICE(S): 1.) 3/4 Indonesian Dilator PROCEDURE : 1. Ultrasound guided venous access. The risks, benefits and alternatives to the procedure were explained and verbal and written consent w as obtained. The site was prepped in sterile fashion. Full sterile technique was used, including ca p, mask, sterile gloves and gown and a large sterile sheet. Hand hygiene and 2% chlorhexidine and/or betadine/alcohol prep was utilized per protocol for cutaneous antisepsis. Sterile gel and sterile p robe cover were utilized for ultrasound guidance. The skin and subcutaneous tissues were infiltrate d with local anesthetic solution. With ultrasound guidance the prescribed vein was punctured for venous access. A 4 Indonesian dilator was placed and was flushed and locked with heparin. The patient tolerated procedure well and there were n o complications. CONCLUSION: Uncomplicated ultrasound guided venous access. Alvaro Elkins MD on February 25, 2018 at 14:12 Board Certified Radiologist. This report was verified electronically.
[2018-02-25 14:30] VITALS: BP 131/56; PULSE 56; RESP 18; O2SAT 97
--- NOTE | 2018-02-25 14:44 | RADRPT ---
EXAM DATE/TIME: 02/25/2018 13:11 [facility] COMPARISON: No previous studies available for comparison. INDICATIONS : Leukemia. SEDATION TIME: 15 minutes BIOPSY SITE: Right iliac MEDICATION(S): 1.) 4 mg midazolam (Versed) IV 2.) 200 mcg fentanyl (Sublimaze) IV DEVICE(S): 1.) 11 gauge Bone marrow biopsy needle MEDICAL HISTORY : Anemia, diabetes SURGICAL HISTORY : Cholecystectomy ENCOUNTER: Initial ACUITY: 1 day PAIN SCORE: 0/10 LOCATION: Right pelvis A total of one core specimen(s) were obtained and sent to the laboratory for pathologic evaluation. PROCEDURE: 1. CT guided bone marrow biopsy. 2. Conscious sedation with continuous EKG and oximetry monitoring. Prior to the procedure informed consent was obtained. Any appropriate prior imaging studies were rev iewed. Using automated exposure control and adjustment of the mA and/or kV according to patient size , radiation dose was kept as low as reasonably achievable to obtain optimal diagnostic quality images . DICOM format image data is available electronically for review and comparison. The site was prepped in a sterile fashion. Full sterile technique was used, including cap, mask, anay rile gloves and gown and a large sterile sheet. Hand hygiene and 2% chlorhexidine and/or betadine/al cohol prep was utilized per protocol for cutaneous antisepsis. The skin and subcutaneous tissues wer e infiltrated with local anesthetic solution. With CT guidance the previously identified target was localized. Biopsy was performed using the presc ribed needle as above. Following biopsy marrow aspiration was performed with repeat puncture. [place] te hemostasis was obtained with compression at the puncture site. Follow-up CT scan reveals no hemorrhage. Conscious sedation was performed with the prescribed dosages and duration as above in the presence of an independent trained radiology nurse to assist in the monitoring of the patient. EKG and oximetry remained stable throughout the procedure. The patient tolerated the procedure well and there were no complications. The patient was sent to Radiology Outpatient Unit in stable condition. CONCLUSION: 1. Uncomplicated CT guided bone marrow aspirate. 2. Uncomplicated CT guided bone marrow biopsy. Frederick Gamez MD on February 25, 2018 at 14:41 Board Certified Radiologist. This report was verified electronically.
[2018-02-25 15:00] VITALS: BP 121/56; PULSE 57; PULSE 60; RESP 18; O2SAT 96
[2018-02-25 15:30] VITALS: BP 135/57; PULSE 60; RESP 16; O2SAT 97
[2018-02-25] MEDS ORDERED: SODIUM CHLORIDE 2 ML FLUSH BID IV FLUSH SCH (21:00)
== END 2018-02-25 16:30 | disposition home or self-care (01) ==
LOC: HRAD 09:51 → HRIP 09:52 → HRAD 16:30
PROVIDERS: ATTEND Radiology Body Imaging
DX: C95.90 Leukemia, unspecified not having achieved remission (principal); D53.9 Nutritional anemia, unspecified; I12.9 Hypertensive chronic kidney disease with stage 1 through stage 4 chronic kidney disease, or unspecified chronic kidney disease; N18.4 Chronic kidney disease, stage 4 (severe); E11.22 Type 2 diabetes mellitus with diabetic chronic kidney disease; E78.5 Hyperlipidemia, unspecified; I25.10 Atherosclerotic heart disease of native coronary artery without angina pectoris; Z79.84 Long term (current) use of oral hypoglycemic drugs
CPT/HCPCS: 36410; 38222; 76937; 77012; 85007; 85027; 85097; 88184; 88185; 88237; 88264; 88280; 88305; 88311; 88313; 88377; 99152; C1830; J2250; J3010

== ENCOUNTER 2018-04-02 16:03 | Emergency (ER) | payer OTHER ==
[~2018-04-02] VITALS: Ht 170.2 cm; Wt 118.5 kg
[2018-04-02 16:27] VITALS: BP 138/58; PULSE 77; RESP 15; TEMP 99.4; O2SAT 97
[2018-04-02] MEDS ORDERED: CLINDAMYCIN PHOS 600 MG/4 ML VIAL IM ONE (17:15)
[2018-04-02] MEDS ORDERED: BACT800T5 PO (18:41)
--- NOTE | 2018-04-02 18:45 | PD ---
HPI Chief Complaint: Pain: Acute or Chronic Time Seen by Provider: 16:36 Travel History International Travel<30 days: No Contact w/Intl Traveler<30days: No Traveled to known affect area: No History of Present Illness HPI This patient complains of an infection in her right second toe. Duration 3 days. Severity is mild to moderate. She denies any drainage. She is diabetic. She has chronic diabetic neuropathy. No alleviating factors. No exacerbating factors. PFSH Past Medical History Anemia: Yes (BLOOD TRANSFUSION ) Blood Disorders: No Heart Rhythm Problems: No Cancer: Yes (LEUKEMIA) Cardiovascular Problems: Yes High Cholesterol: Yes Chemotherapy: No Chest Pain: No Congestive Heart Failure: No Diabetes: Yes Patient Takes Glucophage: Yes Diminished Hearing: No Endocrine: No Genitourinary: No Hepatitis: No Hypertension: Yes Immune Disorder: No Implanted Vascular Access Dvce: No Musculoskeletal: No Neurologic: Yes Psychiatric: No Reproductive: No Respiratory: No Immunizations Current: No (PT DECLINED) Radiation Therapy: No Sleep Apnea: Yes Thyroid Disease: Yes (hypothyroid) Influenza Vaccination: No ?: Not Menopausal: Yes Past Surgical History Abdominal Surgery: Yes (gallbladder removal) AICD: No Cholecystectomy: Yes Joint Replacement: Yes Pacemaker: No Other Surgery: Yes (BILATERAL HEEL SPUR ) Social History Alcohol Use: Yes (2X YEAR) Tobacco Use: No Substance Use: No Allergies-Medications (Allergen,Severity, Reaction): Coded Allergies: No Known Allergies (Unverified , 02/25/18) Reported Meds & Prescriptions Reported Meds & Active Scripts Active Bactrim DS (Sulfamethoxazole-Trimethoprim) 800-160 Mg Tab 1 Tab PO BID Reported Nitroglycerin SL (Nitroglycerin) 0.4 Mg Subl 0.4 Mg SL DIRECTED PRN ONE TABLET UNDER THE TONGUE NEEDED FOR CHEST PAIN, MAY REPEAT EVERY FIVE MINUTES FOR A TOTAL OF 3 DOSES OR CALL 911 IF NO RELIEF Lisinopril 20 Mg Tab 20 Mg PO DAILY Glyburide 2.5 Mg Tab 2.5 Mg PO DAILY Take with meals at the same time each day Isosorbide Mononitrate ER (Isosorbide Mononitrate) 30 Mg Nitish 30 Mg PO DAILY Metoprolol Tartrate 25 Mg Tab 25 Mg PO BID Atorvastatin (Atorvastatin Calcium) 40 Mg Tab 40 Mg PO HS Levothyroxine (Levothyroxine Sodium) 25 Mcg Tab 25 Mcg PO DAILY Review of Systems General / Constitutional: No: Fever Eyes: No: Visual changes HENT: No: Headaches Cardiovascular: No: Chest Pain or Discomfort Respiratory: No: Shortness of Breath Gastrointestinal: No: Abdominal Pain Genitourinary: No: Dysuria Musculoskeletal: Positive: Edema, Pain Skin: No Rash Neurologic: No: Weakness Psychiatric: No: Depression Endocrine: No: Polydipsia Hematologic/Lymphatic: No: Easy Bruising Physical Exam Narrative GENERAL: Well-nourished, well-developed patient in no apparent distress. SKIN: Focused skin assessment reveals no rash and nodules. Skin is Warm and dry. HEAD: Atraumatic. Normocephalic. EYES: Pupils equal and round. No scleral icterus. No injection or drainage. ENT: No nasal bleeding or discharge. Mucous membranes pink and moist. NECK: Trachea midline. No JVD. CARDIOVASCULAR: Regular rate and rhythm. No murmur appreciated. RESPIRATORY: No accessory muscle use. Clear to auscultation. Breath sounds equal bilaterally. GASTROINTESTINAL: Abdomen soft, non-tender, nondistended. Hepatic and splenic margins not palpable. MUSCULOSKELETAL: No obvious deformities. No clubbing. No cyanosis. There is some macular erythema on the top of the right second toe. There is a bit of swelling and it is a bit tender. There is no fluctuance or drainage. The bottom of the toe looks normal. No involvement of the foot. NEUROLOGICAL: Awake and alert. No obvious cranial nerve deficits. Motor grossly within normal limits. Normal speech. PSYCHIATRIC: Appropriate mood and affect; insight and judgment normal. Data Data Last Documented VS Vital Signs Date Time Temp Pulse Resp B/P (MAP) Pulse Ox O2 Delivery O2 Flow Rate FiO2 04/02/18 16:27 99.4 77 15 138/58 (84) 97 Orders Orders Clindamycin Inj (Cleocin Inj) (04/02/18 17:15) [facility] Medical Decision Making Medical Screen Exam Complete: Yes Emergency Medical Condition: Yes Medical Record Reviewed: Yes Differential Diagnosis Cellulitis, abscess, diabetic foot infection Narrative Course I have reviewed the patient's electronic medical record. This patient has a minor infection limited to the top half of the distal right second toe. I gave her injection of clindamycin. I am going to follow that up with 1 week of Bactrim DS. She should follow-up with her primary physician. She has an appointment for Thursday set up already. Diagnosis Primary Impression: Toe infection Additional Impression: DM (diabetes mellitus) Qualified Codes: E11.8 - Type 2 diabetes mellitus with unspecified complications Additional Instructions: The patient was advised to follow up with their physician and return if they worsen. Med/Other Pt SpecificInfo: Prescription(s) given Scripts Sulfamethoxazole-Trimethoprim (Bactrim DS) 800-160 Mg Tab 1 TAB PO BID for Infection, #14 TAB 0 Refills Prov: Cody Newman MD 04/02/18 Disposition: 01 DISCHARGE HOME Condition: Stable Cody Newman MD April 02, 2018 18:45
== END 2018-04-02 19:36 | disposition home or self-care (01) ==
LOC: NEPC 16:03
DX: L08.9 Local infection of the skin and subcutaneous tissue, unspecified (principal); E11.40 Type 2 diabetes mellitus with diabetic neuropathy, unspecified; E03.9 Hypothyroidism, unspecified; I10 Essential (primary) hypertension
CPT/HCPCS: 96372

== ENCOUNTER 2018-04-05 11:48 | Inpatient (IN) | payer OTHER, MEDICARE ==
[~2018-04-05] VITALS: Ht 170.2 cm; Wt 121.5 kg
[2018-04-05] VITALS (9 sets, daily range): BP systolic 106–139; BP diastolic 49–76; PULSE 68–96; RESP 16–20; TEMP 97.5–103; O2SAT 94–100
[~2018-04-05 11:48] MED LIST changes: +BACT800T5 PO
[2018-04-05 12:27] LABS: MEAN CELL VOLUME 85.5 FL (80.0-100.0); MEAN CORPUSCULAR HEMOGLOBIN 28.4 PG (27.0-34.0); MEAN CORPUSCULAR HGB CONC 33.2 % (32.0-36.0); MEAN PLATELET VOLUME 13.2 FL (7.0-11.0); PLATELET COUNT 101 TH/MM3 (150-450); RED BLOOD COUNT 2.01 MIL/MM3 (4.00-5.30); RED CELL DISTRIBUTION WIDTH 18.8 % (11.6-17.2); WHITE BLOOD COUNT 5.2 TH/MM3 (4.0-11.0)
[2018-04-05] MEDS ORDERED: ACETAMINOPHEN/HYDROcodone 325 MG/5 MG TAB PO ONE (12:30)
[2018-04-05 12:34] LABS: HEMATOCRIT 17.2 % (35.0-46.0); HEMOGLOBIN 5.7 GM/DL (11.6-15.3)
[2018-04-05 12:44] LABS: ALBUMIN 3.3 GM/DL (3.4-5.0); AST (GOT) 13 U/L (15-37); BICARBONATE 22.8 MEQ/L (21.0-32.0); BLOOD UREA NITROGEN 24 MG/DL (7-18); CALCIUM 8.5 MG/DL (8.5-10.1); CHLORIDE 108 MEQ/L (98-107); GLOMERULAR FILTRATION RATE 28 ML/MIN (>89); GLUCOSE,RANDOM 146 MG/DL (74-106); SODIUM (NA) 142 MEQ/L (136-145)
[2018-04-05 12:45] LABS: ALT (GPT) 14 U/L (10-53)
[2018-04-05 12:47] LABS: ALKALINE PHOSPHATASE 114 U/L (45-117); TOTAL PROTEIN 7.3 GM/DL (6.4-8.2)
[2018-04-05] MEDS ORDERED: VANCOMYCIN INJ 1,800 MG in SODIUM CHLORID 0.9% 500 ML INJ 500 ML IV ONE (13:00)
[2018-04-05] MEDS ORDERED: SODIUM CHLOR 0.9% 250 ML INJ 250 ML IV ONE (13:00)
--- NOTE | 2018-04-05 13:10 | PD ---
HPI Chief Complaint: General Weakness Time Seen by Provider: 12:00 Travel History International Travel<30 days: No Contact w/Intl Traveler<30days: No Traveled to known affect area: No History of Present Illness HPI This is a 72-year-old female who has a history of diabetes and myelodysplastic syndrome who presents to the emergency department with 1 week of worsening pain in her right foot, constant, severe, leading her to be unable to walk. She was seen in the emergency department 3 days ago and was discharged on Bactrim. She has been taking it but her symptoms have not improved. She feels like the swelling and pain is gotten worse and now she has some discharge from her right second toe. She says she feels fevers, and she also feels lightheaded and weak. She follows with Dr. Mittal for her myelodysplastic syndrome. PFSH Past Medical History Anemia: Yes (BLOOD TRANSFUSION ) Blood Disorders: No Heart Rhythm Problems: No Cancer: Yes (LEUKEMIA) Cardiovascular Problems: Yes High Cholesterol: Yes Chemotherapy: No Chest Pain: No Congestive Heart Failure: No Diabetes: Yes Patient Takes Glucophage: Yes Diminished Hearing: No Endocrine: No Genitourinary: No Hepatitis: No Hypertension: Yes Immune Disorder: No Implanted Vascular Access Dvce: No Musculoskeletal: No Neurologic: Yes Psychiatric: No Reproductive: No Respiratory: No Immunizations Current: No (PT DECLINED) Radiation Therapy: No Sleep Apnea: Yes Thyroid Disease: Yes (hypothyroid) Menopausal: Yes Past Surgical History Abdominal Surgery: Yes (gallbladder removal) AICD: No Cholecystectomy: Yes Joint Replacement: Yes Pacemaker: No Other Surgery: Yes (BILATERAL HEEL SPUR ) Social History Alcohol Use: Yes (RARE) Tobacco Use: No Substance Use: No Allergies-Medications (Allergen,Severity, Reaction): Coded Allergies: No Known Allergies (Unverified , 04/05/18) Reported Meds & Prescriptions Reported Meds & Active Scripts Active Bactrim DS (Sulfamethoxazole-Trimethoprim) 800-160 Mg Tab 1 Tab PO BID Reported Montelukast (Montelukast Sodium) 10 Mg Tab 10 Mg PO HS Revlimid (Lenalidomide) 10 Mg Capsule Levothyroxine (Levothyroxine Sodium) 75 Mcg Tab 75 Mcg PO DAILY Losartan (Losartan Potassium) 25 Mg Tab 25 Mg PO DAILY Nitroglycerin SL (Nitroglycerin) 0.4 Mg Subl 0.4 Mg SL DIRECTED PRN ONE TABLET UNDER THE TONGUE NEEDED FOR CHEST PAIN, MAY REPEAT EVERY FIVE MINUTES FOR A TOTAL OF 3 DOSES OR CALL 911 IF NO RELIEF Lisinopril 20 Mg Tab 20 Mg PO DAILY Glyburide 2.5 Mg Tab 2.5 Mg PO DAILY Take with meals at the same time each day Isosorbide Mononitrate ER (Isosorbide Mononitrate) 30 Mg Nitish 30 Mg PO DAILY Metoprolol Tartrate 25 Mg Tab 25 Mg PO BID Atorvastatin (Atorvastatin Calcium) 40 Mg Tab 40 Mg PO HS Review of Systems Except as stated in HPI: all other systems reviewed are Neg Physical Exam Narrative GENERAL: Unwell appearing SKIN: Erythema and tenderness of the right second toe with purulent drainage HEAD: Atraumatic. Normocephalic. EYES: Pupils equal and round. No injection or drainage. ENT: Moist mucous membranes NECK: Trachea midline. CARDIOVASCULAR: Regular rate and rhythm. No murmur appreciated. RESPIRATORY: Clear to auscultation. Breath sounds equal bilaterally. GASTROINTESTINAL: Abdomen soft, non-tender, nondistended. MUSCULOSKELETAL: No obvious deformities. NEUROLOGICAL: Awake and alert. No obvious cranial nerve deficits. Moving all extremities. PSYCHIATRIC: Appropriate mood and affect; insight and judgment normal. Data Data Last Documented VS Vital Signs Date Time Temp Pulse Resp B/P (MAP) Pulse Ox O2 Delivery O2 Flow Rate FiO2 04/05/18 14:07 16 04/05/18 14:05 102.3 71 96 Room Air 04/05/18 11:58 139/63 (88) Orders Orders Complete Blood Count With Diff (04/05/18 12:07) Comprehensive Metabolic Panel (04/05/18 12:07) W[place]gren Sedimentation Rate (04/05/18 12:07) C-Reactive Protein (Crp) (04/05/18 12:07) ^ Insert Iv (04/05/18 12:07) Foot, Complete ([id number]) (04/05/18 ) Acetamin-Hydrocod 325-5 Mg ([place] 5-325 (04/05/18 12:30) Type And Screen (04/05/18 12:55) Vancomycin Inj (Vancomycin Inj) (04/05/18 13:00) Wound Culture And Gram Stain (04/05/18 12:58) Red Blood Cells (Rbc) (04/05/18 12:58) Blood Product Administration (04/05/18 12:58) Sodium Chlor 0.9% 250 Ml Inj (Ns 250 Ml (04/05/18 13:00) Acetaminophen (Tylenol) (04/05/18 14:15) Lactic Acid (04/05/18 14:08) Blood Culture (04/05/18 14:08) Admit Order (Ed Use Only) (04/05/18 14:13) Admit To Inpatient (04/05/18 ) Vital Signs (Adult) JOSE A.Q4H (04/05/18 14:13) Activity Oob With Assistance (04/05/18 14:13) Inpatient Certification (04/05/18 ) Mri Foot W/O Contrast (04/05/18 ) Labs Laboratory Tests Test 04/05/18 12:15 White Blood Count 5.2 TH/MM3 Red Blood Count 2.01 MIL/MM3 Hemoglobin 5.7 GM/DL Hematocrit 17.2 % Mean Corpuscular Volume 85.5 FL Mean Corpuscular Hemoglobin 28.4 PG Mean Corpuscular Hemoglobin Concent 33.2 % Red Cell Distribution Width 18.8 % Platelet Count 101 TH/MM3 Mean Platelet Volume 13.2 FL CBC Comment AUTO DIFF Differential Total Cells Counted 100 Neutrophils % (Manual) 40 % Band Neutrophils % 43 % Lymphocytes % 9 % Monocytes % 1 % Eosinophils % 2 % Neutrophils # (Manual) 4.6 TH/MM3 Metamyelocytes 4 % Myelocytes 1 % Differential Comment FINAL DIFF MANUAL Platelet Estimate LOW Platelet Morphology Comment GIANT Erythrocyte Sedimentation Rate GREATER THAN 140 mm/hr Blood Urea Nitrogen 24 MG/DL Creatinine 1.80 MG/DL Random Glucose 146 MG/DL Total Protein 7.3 GM/DL Albumin 3.3 GM/DL Calcium Level 8.5 MG/DL Alkaline Phosphatase 114 U/L Aspartate Amino Transf (AST/SGOT) 13 U/L Alanine Aminotransferase (ALT/SGPT) 14 U/L Total Bilirubin 1.0 MG/DL Sodium Level 142 MEQ/L Potassium Level 4.7 MEQ/L Chloride Level 108 MEQ/L Carbon Dioxide Level 22.8 MEQ/L Anion Gap 11 MEQ/L Estimat Glomerular Filtration Rate 28 ML/MIN C-Reactive Protein 16.00 MG/DL MDM Medical Decision Making Medical Screen Exam Complete: Yes Emergency Medical Condition: Yes Interpretation(s) 43% bandemia Hemoglobin is 5.7 Sed rate is 140 Renal insufficiency Lactic acid is 2.3 CRP is 16 Last 24 hours Impressions Foot X-Ray 04/05/18 0000 Signed Impressions: Service Date/Time: Thursday, April 05, 2018 12:37 - CONCLUSION: 1. Degenerative osteoarthritis. 2. Diffuse soft tissue swelling without acute fracture. Huber Plunkett MD Foot MRI 04/05/18 0000 Signed Impressions: Service Date/Time: Thursday, April 05, 2018 15:08 - CONCLUSION: Negative runoff myelitis or deep space abscess SPECT TAGGED white cell study may be of benefit if symptoms persist. Nolberto Elkins MD FACR Differential Diagnosis Diabetic foot infection, osteomyelitis, sepsis, anemia Narrative Course This is a 72-year-old female who has a history of myelodysplastic syndrome who is immunosuppressed who presents to the emergency department with a diabetic foot infection involving the right second toe. Her pain has worsened over the past several days despite being on Bactrim and she is unable to walk. She was placed on a monitor and an IV was established. Labs demonstrate hemoglobin of 5.7 consistent with the patient's MDS. Her lactic acid is 2.3. Patient will be transfused 2 units of blood. I deferred IV fluids I was afraid to volume overload the patient in the setting of blood transfusion. Cultures were obtained and the patient was started on vancomycin. She spiked a fever to 102 in the emergency department. Patient will be admitted for blood transfusion, IV antibiotics in the setting of sepsis and workup for osteomyelitis Diagnosis Primary Impression: Sepsis Qualified Codes: A41.9 - Sepsis, unspecified organism Additional Impression: Myelodysplastic syndrome Admitting Information Admitting Physician Requests: Admit Sun Eid MD April 05, 2018 13:10
[2018-04-05 13:30] LABS: BANDS 43 % (0-6); LYMPHOCYTES 9 % (9-44); METAMYELOCYTES 4 % (0-1); MONOCYTES 1 % (0-8); MYELOCYTES 1 % (0-0); NEUTROPHIL # MANUAL DIFF 4.6 TH/MM3 (1.8-7.7); POLYS (SEG NEUTROPHILS) 40 % (16-70)
--- NOTE | 2018-04-05 13:35 | RADRPT ---
EXAM DATE/TIME: 04/05/2018 12:37 [facility] COMPARISON: No previous studies available for comparison. INDICATIONS : Patient states second digit pain and swelling. MEDICAL HISTORY : Hypertension. Diabetes mellitus type II. SURGICAL HISTORY : None. ENCOUNTER: Initial ACUITY: 1 week PAIN SCORE: 8/10 LOCATION: Right Foot FINDINGS: Three-view examination of the right foot demonstrates joint space narrowing with osteophyte formation primarily involving the distal first and second interphalangeal joints. There is also degenerative c hange involving the talonavicular joints. Osseous structures appear intact without evidence for acute fracture. Diffuse soft tissue prominence throughout the foot. CONCLUSION: 1. Degenerative osteoarthritis. 2. Diffuse soft tissue swelling without acute fracture. Huber Plunkett MD on April 05, 2018 at 13:08 Board Certified Radiologist. This report was verified electronically.
[2018-04-05] MEDS ORDERED: ACETAMINOPHEN 500 MG CPLT PO ONE (14:15)
[2018-04-05] MEDS ORDERED: SODIUM CHLOR 0.9% 1000 ML INJ 1,000 ML IV ONE (14:15)
[2018-04-05] MEDS ORDERED: LENA10CA (14:25)
[2018-04-05] MEDS ORDERED: MONT10TA4 PO (14:25)
[2018-04-05] MEDS ORDERED: LOSA25TA PO (14:25)
[2018-04-05] MEDS ORDERED: LEVO75TA3 PO (14:25)
--- NOTE | 2018-04-05 15:09 | HHI.HP ---
[facility] Unknown Admission Diagnosis sepsis, anemia Diagnoses: Chief Complaint: Pain in my feet Travel History International Travel<30 Days: No Contact w/Intl Traveler <30 Da: No Traveled to Known Affected Are: No History of Present Illness 72-year-old white female being admitted for suspected osteomyelitis. Patient was in her usual state of health until a few days ago when she first came to the emergency department due to pain in her right second toe. She was discharged with oral antibiotics but says that the redness of her toe persisted with no improvement. Says that the pain in her right foot increased and thus she decided come back to the emergency department. She started feeling subjective fevers and chills. Denies any nausea vomiting diarrhea or any coughing. She says she had to call 911 and was not able to drive due to the severe pain in her foot. Says that it hurts to bear weight on both feet but the right foot is substantially greater. Denies any puncturing injury. She reports chronic lower extremity edema which is worse than her baseline, says she takes a diuretic at home otherwise. Reports being compliant with her medications. She says that normally his sugars run in the 120s in the morning fasting. Patient says she gets blood transfusions twice a month, follows up with oncology. In the emergency department she was noted to have a climbing fever from 102- 103. ESR obtained is greater than 140. Hemoglobin was 5.7. Blood cultures were drawn and vancomycin dose was administered in the emergency department. Review of Systems Except as stated in HPI: all other systems reviewed are Neg Past Family Social History Past Medical History Hypertension Diabetes Diabetic neuropathy nephrosclerosis Myelodysplastic syndrome Chronic kidney disease Allergies: Coded Allergies: No Known Allergies (Unverified , 04/05/18) Family History pt is adopted, doesn't know Social History Denies smoking, reports only light social drinking. Lives by herself down here. 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 Physical Exam Vital Signs Vital Signs Date Time Temp Pulse Resp B/P (MAP) Pulse Ox O2 Delivery O2 Flow Rate FiO2 04/05/18 14:45 103.0 77 16 128/58 96 04/05/18 14:35 102.6 80 19 124/54 (77) 94 Room Air 04/05/18 14:33 102.6 76 19 124/54 (77) 95 Room Air 04/05/18 14:30 102.6 73 19 122/58 96 04/05/18 14:07 16 04/05/18 14:05 102.3 71 20 96 Room Air 04/05/18 11:58 97.5 81 20 139/63 (88) 98 Physical Exam VS: afebrile GENERAL: Lying in bed, awake, alert, no acute distress, obese elderly white female SKIN: Warm and dry. EYES: No scleral icterus. No injection or drainage. ENT: No nasal bleeding or discharge. Mucous membranes pink and moist. CARDIOVASCULAR: Regular rate and rhythm. no murmurs RESPIRATORY: No accessory muscle use. Clear to auscultation. Breath sounds equal bilaterally. GASTROINTESTINAL: Abdomen soft, non-tender, nondistended. Obese abdomen Extremities: No clubbing, cyanosis. Moderate to severe bilateral lower extremity edema MUSCULOSKELETAL: Right second toe is edematous, mild to moderate tenderness to palpation with manipulation of the toe, there is tenderness to palpation on dorsum of the foot globally even though there is no erythema as well as pain being elicited on the plantar aspect of the ball of the foot upon forceful palpation; she also has tenderness to deep palpation on the plantar aspect of her left foot as well even though there is no visual abnormality noted otherwise. Both feet are quite edematous. NEUROLOGICAL: Awake and alert. No obvious cranial nerve deficits. No facial droop nor slurred speech noted. PSYCHIATRIC: Appropriate mood and affect; insight and judgment normal. Laboratory Laboratory Tests Test 04/05/18 12:15 04/05/18 14:25 White Blood Count 5.2 Red Blood Count 2.01 Hemoglobin 5.7 Hematocrit 17.2 Mean Corpuscular Volume 85.5 Mean Corpuscular Hemoglobin 28.4 Mean Corpuscular Hemoglobin Concent 33.2 Red Cell Distribution Width 18.8 Platelet Count 101 Mean Platelet Volume 13.2 CBC Comment AUTO DIFF Differential Total Cells Counted 100 Neutrophils % (Manual) 40 Band Neutrophils % 43 Lymphocytes % 9 Monocytes % 1 Eosinophils % 2 Neutrophils # (Manual) 4.6 Metamyelocytes 4 Myelocytes 1 Differential Comment FINAL DIFF MANUAL Platelet Estimate LOW Platelet Morphology Comment GIANT Erythrocyte Sedimentation Rate GREATER THAN 140 Blood Urea Nitrogen 24 Creatinine 1.80 Random Glucose 146 Total Protein 7.3 Albumin 3.3 Calcium Level 8.5 Alkaline Phosphatase 114 Aspartate Amino Transf (AST/SGOT) 13 Alanine Aminotransferase (ALT/SGPT) 14 Total Bilirubin 1.0 Sodium Level 142 Potassium Level 4.7 Chloride Level 108 Carbon Dioxide Level 22.8 Anion Gap 11 Estimat Glomerular Filtration Rate 28 C-Reactive Protein 16.00 Lactic Acid Level 2.3 Date/Time Source Procedure Growth Status 04/05/18 13:00 Blood Peripheral Aerobic Blood Culture Pending Received 04/05/18 13:00 Blood Peripheral Anaerobic Blood Culture Pending Received Result Diagram: 04/05/18 1215 04/05/18 1215 Imaging Last Impressions Foot X-Ray 04/05/18 0000 Signed Impressions: Service Date/Time: Thursday, April 05, 2018 12:37 - CONCLUSION: 1. Degenerative osteoarthritis. 2. Diffuse soft tissue swelling without acute fracture. MD Bree Espinoza VTE Risk Assessment Bree VTE Risk Assessment: Mod/High Risk (score >= 2) VTE Pharm Contraindication: High risk for bleeding VTE [facility] Contraindication: Severe LE edema Balbiri Risk Assessment Model Point Value = 1 Point Value = 2 Point Value = 3 Point Value = 5 Age 41-60 Minor surgery BMI > 25 kg/m2 Swollen legs Varicose veins or History of unexplained or recurrent spontaneous Oral contraceptives or hormone replacement Sepsis (< 1 month) Serious lung disease, including pneumonia (< 1 month) Abnormal pulmonary function Acute myocardial infarction Congestive heart failure (< 1 month) History of inflammatory bowel disease Medical patient at bed rest Age 61-74 Arthroscopic surgery Major open surgery (> 45 min) Laparoscopic surgery (> 45 min) Malignancy Confined to bed (> 72 hours) Immobilizing plaster cast Central venous access Age >= 75 History of VTE Family history of VTE Factor V Leiden Prothrombin [id number] Lupus anticoagulant Anticardiolipin antibodies Elevated serum homocysteine Heparin-induced thrombocytopenia Other congenital or acquired thrombophilia Stroke (< 1 month) Elective arthroplasty Hip, pelvis, or leg fracture Acute spinal cord injury (< 1 month) Prophylaxis Regimen Total Risk Factor Score Risk Level Prophylaxis Regimen 0-1 Low Early ambulation 2 Moderate Order ONE of the following: *Sequential Compression Device (SCD) *Heparin 5000 units SQ BID 3-4 Higher Order ONE of the following medications: *Heparin 5000 units SQ TID *Enoxaparin/Lovenox 40 mg SQ daily (WT < 150 kg, CrCl > 30 mL/min) *Enoxaparin/Lovenox 30 mg SQ daily (WT < 150 kg, CrCl > 10-29 mL/min) *Enoxaparin/Lovenox 30 mg SQ BID (WT < 150 kg, CrCl > 30 mL/min) AND/OR *Sequential Compression Device (SCD) 5 or more Highest Order ONE of the following medications: *Heparin 5000 units SQ TID (Preferred with Epidurals) *Enoxaparin/Lovenox 40 mg SQ daily (WT < 150 kg, CrCl > 30 mL/min) *Enoxaparin/Lovenox 30 mg SQ daily (WT < 150 kg, CrCl > 10-29 mL/min) *Enoxaparin/Lovenox 30 mg SQ BID (WT < 150 kg, CrCl > 30 mL/min) AND *Sequential Compression Device (SCD) Assessment and Plan Assessment and Plan 72-year-old white female being admitted for suspected osteomyelitis Cellulitis with possible osteomyelitis -Already failed outpatient Bactrim, blood cultures obtained -Started on vancomycin, will add on Zosyn -We will obtain right foot MRI without contrast for now given patient's acute on chronic kidney disease -May consider consulting podiatry and/or infectious disease Acute anemia -Acute on chronic myelodysplastic syndrome, transfused 2 units as ordered by the emergency department -Consider oncology consult levels dropped off again Acute on chronic kidney injury -Given about 500 mL's of normal saline once bilateral lower extremity edema was realized. -BMP in a.m. -May consult nephrology, can consider infusing albumin with Lasix to better address edema -Hold home lisinopril Bilateral lower extremity edema -Likely dependent edema with a component of chronic kidney disease, keep legs elevated -May consult nephrology, will infuse albumin better address edema -echo from 5 months ago shows intact EF Coronary artery disease -Continue home Lipitor and beta-cherri DM - LDSS w/ accuchecks Unable to pharmacologically anticoagulant given acute anemia, unable to mechanically anticoagulate given severe lower extremity edema Physician Certification 2 Midnight Certification Type: Admission for Inpatient Services Order for Inpatient Services The services are ordered in accordance with Medicare regulations or non- Medicare payer requirements, as applicable. In the case of services not specified as inpatient-only, they are appropriately provided as inpatient services in accordance with the 2-midnight benchmark. Estimated LOS (days): 3 3 days is the estimated time the patient will need to remain in the hospital, assuming treatment plan goals are met and no additional complications. Post-Hospital Plan: Not yet determined Anil Reddy MD April 05, 2018 15:09
[2018-04-05] MEDS: PIPERACIL-TAZO 3.375 GM PREMIX 50 ML IV SCH ×2 (16:00→20:59)
--- NOTE | 2018-04-05 16:04 | RADRPT ---
EXAM DATE/TIME: 04/05/2018 15:08 [facility] COMPARISON: No previous studies available for comparison. INDICATIONS : Osteoarthritis. Redness and swelling rt distal foot MEDICAL HISTORY : Hypertension. Hypertension. SURGICAL HISTORY : Total knee replacement, right. Total knee replacement, left. Cholecystectomy. ENCOUNTER: Initial ACUITY: 2 day PAIN SCORE: 5/10 LOCATION: Right foot TECHNIQUE: Multiplanar, multisequence MRI examination was performed without contrast. Study was performed witho ut contrast because of patient's GFR. FINDINGS: Generalized soft tissue edema is present. I do not see marrow changes in the metatarsals were told t arsals that would be suspicious for osteomyelitis. Most of the marrow changes in the metatarsals or believe is related to degenerative changes. The calcaneus and talus are intact. I do not see the de ep space abscess. CONCLUSION: Negative runoff myelitis or deep space abscess SPECT TAGGED white cell study may be of benefit if symptoms persist. Nolberto Elkins MD FACR on April 05, 2018 at 16:00 Board Certified Radiologist. This report was verified electronically.
[2018-04-05] MEDS: ALBUMIN 25% INJ 50 ML IV SCH (16:28)
[2018-04-05] MEDS: ACETAMINOPHEN/HYDROcodone 325 MG/7.5 MG TAB PO PRN ×2 (16:28→21:02)
[2018-04-05] MEDS: METOPROLOL TARTRATE 25 MG TAB PO SCH (20:59)
[2018-04-05] MEDS: MONTELUKAST SODIUM 10 MG TAB PO SCH (20:59)
[2018-04-05] MEDS: ATORVASTATIN 40 MG TAB PO SCH (20:59)
--- NOTE | 2018-04-05 22:28 | RADRPT ---
EXAM DATE/TIME: 04/05/2018 22:09 [facility] COMPARISON: CHEST PA & LAT, January 12, 2018, 16:57. INDICATIONS : Fever. MEDICAL HISTORY : Hypertension. Diabetes mellitus type II. Coronary artery disease SURGICAL HISTORY : None. ENCOUNTER: Initial ACUITY: 1 day PAIN SCORE: 0/10 LOCATION: Bilateral chest FINDINGS: There is stable medial elevation or eventration of the right diaphragm. No evidence of focal infiltra te or pleural effusion. Cardiac contours are stable with heart size at upper limits of normal. Mild d egenerative changes in the spine and shoulders. CONCLUSION: No acute disease Thien Davidson MD on April 05, 2018 at 22:25 Board Certified Radiologist. This report was verified electronically.
[2018-04-06] VITALS (9 sets, daily range): BP systolic 103–153; BP diastolic 49–69; PULSE 52–78; RESP 16–18; TEMP 97.5–102; O2SAT 94–99
[2018-04-06] MEDS: ACETAMINOPHEN/HYDROcodone 325 MG/7.5 MG TAB PO PRN ×4 (04:52→22:08)
[2018-04-06] MEDS: LEVOTHYROXINE SODIUM 75 MCG TAB PO SCH (04:53)
[2018-04-06] MEDS: PIPERACIL-TAZO 3.375 GM PREMIX 50 ML IV SCH ×4 (04:53→22:08)
[2018-04-06] MEDS: ALBUMIN 25% INJ 50 ML IV SCH ×2 (04:53→16:54)
[2018-04-06 07:14] LABS: MEAN CORPUSCULAR HEMOGLOBIN 28.8 PG (27.0-34.0); MEAN CORPUSCULAR HGB CONC 34.3 % (32.0-36.0); MEAN PLATELET VOLUME 12.8 FL (7.0-11.0); RED BLOOD COUNT 2.27 MIL/MM3 (4.00-5.30); RED CELL DISTRIBUTION WIDTH 17.8 % (11.6-17.2); WHITE BLOOD COUNT 4.2 TH/MM3 (4.0-11.0)
[2018-04-06 07:17] LABS: HEMATOCRIT 19.1 % (35.0-46.0); HEMOGLOBIN 6.5 GM/DL (11.6-15.3)
--- NOTE | 2018-04-06 07:53 | PD.CONS ---
History of Present Illness Service Hematology/oncology. Consult Requested By Hospitalist service. Reason for Consult Patient with diagnosis of myelodysplastic syndrome. Refractory anemia Sepsis secondary to cellulitis on the toe. 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 Prognostication: TP53 mutation negative, Karlene-2 mutation negative, MPL mutation negative, CALR mutation negative. Current treatment: Patient had started Revlimid 10 mg once daily 3 days prior to hospitalization. Chief Complaint: Fever. Pain and swelling of the second digit of the right foot. HISTORY OF PRESENT ILLNESS: Ms. Mcnair is a pleasant 72-year-old female with a recent diagnosis of myelodysplastic syndrome associated with an isolated deletion 5q mutation. She presented with unexplained anemia requiring transfusions at a frequency of approximately 1 unit every 10 days. This is been going on for about 3 months now. As a result of the anemia she developed anginal-like chest pain and had undergone a cardiology workup, she was found to have noncritical coronary artery obstruction /occlusion and has been recommended medical management by a substance abuse technician thus far. A GI workup was also obtained including a colonoscopy and EGD, she was found to have no evidence of iron deficiency Or GI bleeding. Bone marrow biopsy performed earlier in February revealed findings consistent with myelodysplastic syndrome, mutational analysis revealed an isolated deletion 5Q mutation ([id number] ). Prior to establishing follow-up with [facility] she was being evaluated and managed by [facility] specialists in [facility]. She presented to [facility] initially on 04/02/2017 with complaints of pain and swelling of the second digit on her right foot. She was prescribed Bactrim and sent home from the emergency department. Her symptoms did not resolve and she therefore presented to [facility] emergency department about 36 hours ago with high-grade fevers. She was initiated on broad-spectrum antibiotic coverage for management of sepsis secondary to cellulitis of the toe. Review of Systems Constitutional: COMPLAINS OF: Fatigue, Fever, Chills, Change in appetite, DENIES: Diaphoretic episodes, Weight gain, Weight loss, Dizziness Endocrine: DENIES: Abnorml menstrual pattern, Heat/cold intolerance, Polydipsia , Polyuria, Polyphagia Eyes: DENIES: Blurred vision, Diplopia, Eye inflammation, Eye pain, Vision loss , Photosensitivity, Double Vision Ears, nose, mouth, throat: DENIES: Tinnitus, Hearing loss, Vertigo, Nasal discharge, Oral lesions, Throat pain, Hoarseness, Ear Pain, Running Nose, Epistaxis, Sinus Pain, Toothache, Odynophagia Respiratory: COMPLAINS OF: Shortness of breath, DENIES: Apneas, Cough, Snoring , Wheezing, Hemoptysis, Sputum production Cardiovascular: COMPLAINS OF: Palpitations, Dyspnea on Exertion, Lower Extremity Edema, DENIES: Chest pain, Syncope, PND, Orthopnea, Claudication Gastrointestinal: DENIES: Abdominal pain, Black stools, Bloody stools, Constipation, Diarrhea, Nausea, Vomiting, Difficulty Swallowing, Anorexia Genitourinary: DENIES: Abnormal vaginal bleeding, Dysmenorrhea, Dyspareunia, Sexual dysfunction, Urinary frequency, Urinary incontinence, Urgency, Hematuria , Dysuria, Nocturia, Vaginal discharge Musculoskeletal: COMPLAINS OF: Joint pain, Muscle aches, Stiffness, Joint Swelling, Back pain, DENIES: Neck pain Integumentary: DENIES: Abnormal pigmentation, Pruritus, Rash, Nail changes, Breast masses, Breast skin changes, Nipple discharge Hematologic/lymphatic: DENIES: Bruising, Lymphadenopathy Immunologic/allergic: DENIES: Eczema, Urticaria Neurologic: COMPLAINS OF: Abnormal gait, Paresthesias (Peripheral neuropathy), Poor Balance, DENIES: Headache, Localized weakness, Seizures, Speech Problems, Tremor Psychiatric: COMPLAINS OF: Anxiety, Depression, DENIES: Confusion, Mood changes , Hallucinations, Agitation, Suicidal Ideation, Homicidal Ideation, Delusions Except as stated in HPI: all other systems reviewed are Neg Past Family Social History Allergies: Coded Allergies: No Known Allergies (Unverified , 04/05/18) Past Medical History PAST MEDICAL HISTORY: Chronic kidney disease Coronary Artery Disease Diabetes Type II Hyperlipidemia Hypertension Hypothyroidism Myelodysplastic Syndrome (del 5q) Past Surgical History PAST SURGICAL HISTORY: Bilateral heel surgery Cardiac catheterization Cholecystectomy Heal Spur surgery - both feet Knee Surgery, Left Knee Surgery, Right Right shoulder repair Bone marrow aspiration in 2018 Bone marrow biopsy in 2018 Colonoscopy in 2018 Active Ordered Medications Albumin 25% injection every 12 hours Zosyn 3.375 g IV every 6 hours Vancomycin 1.8 g IV 1 Hydrocodone/acetaminophen 7.5/325 1 tablet every 6 hours as needed for pain. Atorvastatin 40 mg p.o. nightly Levothyroxine 75 mcg p.o. daily Metoprolol 25 mill grams p.o. twice daily Singular 10 mg p.o. nightly Family History No known malignant hematologic diagnoses in the family. Parents are both . Social History Lives at home alone. She is . She is originally from [place]. 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 She has 3 adult children. They all live in [place]. She denies alcohol abuse or tobaccoism. Physical Exam Vital Signs Vital Signs Date Time Temp Pulse Resp B/P (MAP) Pulse Ox O2 Delivery O2 Flow Rate FiO2 04/06/18 04:01 98.4 62 18 112/49 (70) 98 04/06/18 00:01 98.3 58 17 103/49 (67) 98 04/06/18 00:01 Room Air 04/05/18 20:49 96 20 131/76 97 04/05/18 20:00 Room Air 04/05/18 20:00 98.4 68 19 106/49 (68) 100 04/05/18 16:52 100.2 80 18 121/52 (75) 98 04/05/18 15:15 04/05/18 14:45 103.0 77 16 128/58 96 04/05/18 14:35 102.6 80 19 124/54 (77) 94 Room Air 04/05/18 14:33 102.6 76 19 124/54 (77) 95 Room Air 04/05/18 14:30 102.6 73 19 122/58 96 04/05/18 14:07 16 04/05/18 14:05 102.3 71 20 96 Room Air 04/05/18 11:58 97.5 81 20 139/63 (88) 98 Physical Exam GENERAL: She appears pale and somewhat frail.Elderly lady, laying in bed, appears to be no acute distress. She is somewhat depressed. SKIN: No rashes, ecchymoses or lesions. Cool and dry. HEAD: Atraumatic. Normocephalic. No temporal or scalp tenderness. EYES: Pupils equal round and reactive. Extraocular motions intact. No scleral icterus. No injection or drainage. ENT: Nose without bleeding, purulent drainage or septal hematoma. Throat without erythema, tonsillar hypertrophy or exudate. Uvula midline. Airway patent. NECK: Trachea midline. No JVD or lymphadenopathy. Supple, nontender, no meningeal signs. CARDIOVASCULAR: Regular rate and rhythm without murmurs, gallops, or rubs. RESPIRATORY: Clear to auscultation. Breath sounds equal bilaterally. No wheezes , rales, or rhonchi. GASTROINTESTINAL: Abdomen soft, non-tender, nondistended. No hepato-splenomegaly , or palpable masses. No guarding. MUSCULOSKELETAL: Extremities without clubbing, cyanosis, or edema. No joint tenderness, effusion, or edema noted. No calf tenderness. Negative Homans sign bilaterally. NEUROLOGICAL: Awake and alert. Cranial nerves II through XII intact. Motor and sensory grossly within normal limits. Five out of 5 muscle strength in all muscle groups. Peripheral neuropathy with decreased sensation of the lower extremities distal to the knees. Skin: Purulent discharge noted from a infected appearing ulcer on the right second digit of the foot. Malodorous discharge noted from the wound. Laboratory Laboratory Tests Test 04/05/18 12:15 04/05/18 14:25 04/06/18 04:38 04/06/18 07:35 White Blood Count 5.2 4.2 Red Blood Count 2.01 2.27 Hemoglobin 5.7 6.5 Hematocrit 17.2 19.1 Mean Corpuscular Volume 85.5 84.0 Mean Corpuscular Hemoglobin 28.4 28.8 Mean Corpuscular Hemoglobin Concent 33.2 34.3 Red Cell Distribution Width 18.8 17.8 Platelet Count 101 58 Mean Platelet Volume 13.2 12.8 CBC Comment AUTO DIFF AUTO DIFF Differential Total Cells Counted 100 Neutrophils % (Manual) 40 Band Neutrophils % 43 Lymphocytes % 9 Monocytes % 1 Eosinophils % 2 Neutrophils # (Manual) 4.6 Metamyelocytes 4 Myelocytes 1 Differential Comment FINAL DIFF MANUAL Platelet Estimate LOW Platelet Morphology Comment GIANT Erythrocyte Sedimentation Rate GREATER THAN 140 Blood Urea Nitrogen 24 Creatinine 1.80 Random Glucose 146 Total Protein 7.3 Albumin 3.3 Calcium Level 8.5 Alkaline Phosphatase 114 Aspartate Amino Transf (AST/SGOT) 13 Alanine Aminotransferase (ALT/SGPT) 14 Total Bilirubin 1.0 Sodium Level 142 Potassium Level 4.7 Chloride Level 108 Carbon Dioxide Level 22.8 Anion Gap 11 Estimat Glomerular Filtration Rate 28 C-Reactive Protein 16.00 Lactic Acid Level 2.3 Hematology Comments Date/Time Source Procedure Growth Status 04/05/18 13:00 Blood Peripheral Aerobic Blood Culture Pending Received 04/05/18 13:00 Blood Peripheral Anaerobic Blood Culture Pending Received Result Diagram: 04/06/18 0438 04/05/18 1215 Imaging MRI of the right foot dated 04/05/2018: Conclusion: Negative runoff myelitis or deep space abscess. Generalized soft tissue edema is present there appears to be no marrow changes in the metatarsals cyst patient is from osteomyelitis. Degenerative changes noted. Assessment and Plan Assessment and Plan 9-year-old female with a recent diagnosis of myelodysplastic syndrome associated with deletion 5 q. was recently initiated on Revlimid 10 mg p.o. daily for management of the underlying myelodysplastic syndrome. She took a total of 2 doses prior to presented to [facility] earlier this week with complaints of severe pain involving the right foot associated with redness and purulent discharge from the second digit. She was hospitalized with sepsis related to cellulitis. She is on broad-spectrum antibiotics. The patient's myelodysplastic syndrome has resulted in significant refractory anemia requiring red cell transfusions on a weekly basis. Plan: 1. Myelodysplastic syndrome: Continue supportive transfusions. Revlimid will remain on hold until her sepsis/cellulitis resolved. Her WBC counts are within normal limits. 2 units packed red blood cells to be ordered for today. Continue ongoing care. Dylan Mittal MD April 06, 2018 07:53
[2018-04-06] MEDS ORDERED: SODIUM CHLOR 0.9% 250 ML INJ 250 ML IV ONE (08:00)
[2018-04-06] MEDS ORDERED: diphenhydrAMINE HCL 25 MG CAP PO PRN (08:00)
[2018-04-06] MEDS ORDERED: ACETAMINOPHEN 325 MG TAB PO PRN (08:00)
[2018-04-06 08:18] LABS: BICARBONATE 24.9 MEQ/L (21.0-32.0); CALCIUM 7.9 MG/DL (8.5-10.1); CREATININE 1.8 MG/DL (0.50-1.00)
[2018-04-06 08:35] LABS: BANDS 46 % (0-6); CORRECTED NUCLEATED RBC 2 /100 WBC (0-0); DOHLE BODIES PRESENT (NONE SEEN); LYMPHOCYTES 15 % (9-44); METAMYELOCYTES 6 % (0-1); MONOCYTES 1 % (0-8); MYELOCYTES 4 % (0-0); NEUTROPHIL # MANUAL DIFF 3.3 TH/MM3 (1.8-7.7); NUCLEATED RED BLOOD CELL 2 (0-0); POLYS (SEG NEUTROPHILS) 23 % (16-70)
[2018-04-06 08:38] LABS: PLATELET COUNT 58 TH/MM3 (150-450)
[2018-04-06] MEDS: METOPROLOL TARTRATE 25 MG TAB PO SCH ×2 (08:58→22:08)
[2018-04-06] MEDS ORDERED: FUROSEMIDE 20 MG/2 ML VIAL IV PUSH ONE (09:00)
[2018-04-06] MEDS ORDERED: GLUCAGON 1 MG/ML VIAL OTHER PRN (10:00)
[2018-04-06] MEDS ORDERED: DEXTROSE 50% IN WATER 50 ML VIAL(D50) IV PUSH PRN (10:00)
--- NOTE | 2018-04-06 11:28 | HHI.PR ---
Subjective Remarks Nursing denies any deterioration since last night except for unexplained hypoglycemia where the patient's blood sugars went into the 20s on a serum but checked this morning. Patient herself says she ate some dinner last night but was apparently asymptomatic even with the sugar dropped this morning. Says she has never had hypoglycemia episodes like this in the past. Objective Vital Signs Date Time Temp Pulse Resp B/P (MAP) Pulse Ox O2 Delivery O2 Flow Rate FiO2 04/06/18 10:47 98.5 55 17 117/49 98 04/06/18 08:00 98.3 54 17 123/54 (77) 96 04/06/18 08:00 Room Air 04/06/18 04:01 98.4 62 18 112/49 (70) 98 04/06/18 00:01 98.3 58 17 103/49 (67) 98 04/06/18 00:01 Room Air 04/05/18 20:49 96 20 131/76 97 04/05/18 20:00 Room Air 04/05/18 20:00 98.4 68 19 106/49 (68) 100 04/05/18 16:52 100.2 80 18 121/52 (75) 98 04/05/18 15:15 04/05/18 14:45 103.0 77 16 128/58 96 04/05/18 14:35 102.6 80 19 124/54 (77) 94 Room Air 04/05/18 14:33 102.6 76 19 124/54 (77) 95 Room Air 04/05/18 14:30 102.6 73 19 122/58 96 04/05/18 14:07 16 04/05/18 14:05 102.3 71 20 96 Room Air 04/05/18 11:58 97.5 81 20 139/63 (88) 98 I/O 04/05/18 04/05/18 04/05/18 04/06/18 04/06/18 04/06/18 07:00 15:00 23:00 07:00 15:00 23:00 Intake Total 10 ml 2360 ml 340 ml 10 ml Balance 10 ml 2360 ml 340 ml 10 ml Intake Oral 500 ml 240 ml IV Total 650 ml 100 ml Packed Cells 800 ml Blood Product IV Normal Saline Flush 10 ml 410 ml 10 ml Result Diagram: 04/06/18 0438 04/06/18 0735 Objective Remarks Right second toe seems to have improved erythema compared to yesterday but has more of a purulent head noted today on the lateral aspect of her second toe Patient has Tenderness to palpation over on the plantar aspects of the diffuse MTP joints on both feet A/P Assessment and Plan 72-year-old white female being admitted for suspected osteomyelitis Cellulitis with possible osteomyelitis - Already failed outpatient Bactrim, blood cultures obtained -Mild improvement since yesterday both in appearance and with cessation of fevers, continue vancomycin and Zosyn - right foot MRI without contrast (given patient's LA) shows no definitive evidence of osteo-myelitis - Awaiting podiatry consultation DM - Unexplained transient drop in sugar that responded to D50, could have been due to poor p.o. intake, will monitor for now w/ accuchedcks and if recurs then we will proceed with aggressive hypoglycemia workup Acute anemia -Acute on chronic myelodysplastic syndrome, already received 2 units of blood yesterday, but still dropping, -Hematology following, ordering 2 more units of blood Acute on chronic kidney injury -Despite IV albumin, creatinine and change, consulting nephrology, hold home lisinopril -BMP in a.m. Bilateral lower extremity edema -Likely dependent edema with a component of chronic kidney disease, keep legs elevated -consulting nephrology -echo from 5 months ago shows intact EF Coronary artery disease -Continue home Lipitor and beta-cherri Unable to pharmacologically anticoagulant given acute anemia, unable to mechanically anticoagulate given severe lower extremity edema Anil Reddy MD April 06, 2018 11:28
--- NOTE | 2018-04-06 17:10 | PD.CONS ---
HPI Service Nephrology Consult Requested By Barry Reason for Consult LA on CKD Primary Care Physician Unknown History of Present Illness This is out 72 y/o female patient with CKD 3-4 who we follow outpatient. PMH includes obesity, DM II, HTN, and anemia. She was recently diagnosed with myelodysplastic syndrome, follows with hematology and requires one unit transfusion every 10 days. She came to ER last Thursday for R 2nd toe wound, was given Bactrim and discharged home. She took maybe 6 doses. The pain became so severe she called 911 to come back to ER. She had fever on admission, is being treated for cellulitis and associated sepsis, was on IV vancomycin and now receiving IV Zosyn. Her creatinine has been 1.8 since arrival and stable. She reports making urine. Looking back her creatinine had been running 1.5-1.7, GR 29-35 through 2017. A few months ago it was 1.25, GFR 44. She is also anemic , Hb was 5.7 and improved to 6.5 with 3 units. The patient is awake, we were consulted to assist with renal management. (Ai Malave) Review of Systems Constitutional: COMPLAINS OF: Fatigue, Fever, Weight gain, Chills Respiratory: DENIES: Shortness of breath Cardiovascular: COMPLAINS OF: Lower Extremity Edema, DENIES: Chest pain, Dyspnea on Exertion Gastrointestinal: DENIES: Abdominal pain Musculoskeletal: COMPLAINS OF: Stiffness, DENIES: Joint pain, Muscle aches ( Ai Malave) Past Family Social History Allergies: Coded Allergies: No Known Allergies (Unverified , 04/05/18) Past Medical History CKD 3-4, baseline creatinine 1.2-1.8. Hypertension Diabetes Mellitus II Diabetic neuropathy nephrosclerosis Myelodysplastic syndrome, follows with hematology Anemia due to above, needs one unit transfused Q10 days Past Surgical History Bone marrow biopsy Bilateral total knee replacement right shoulder surgery cholecystectomy Reported Medications Montelukast (Montelukast Sodium) 10 Mg Tab 10 Mg PO HS Revlimid (Lenalidomide) 10 Mg Capsule Levothyroxine (Levothyroxine Sodium) 75 Mcg Tab 75 Mcg PO DAILY Losartan (Losartan Potassium) 25 Mg Tab 25 Mg PO DAILY Nitroglycerin SL (Nitroglycerin) 0.4 Mg Subl 0.4 Mg SL DIRECTED PRN ONE TABLET UNDER THE TONGUE NEEDED FOR CHEST PAIN, MAY REPEAT EVERY FIVE MINUTES FOR A TOTAL OF 3 DOSES OR CALL 911 IF NO RELIEF Lisinopril 20 Mg Tab 20 Mg PO DAILY Glyburide 2.5 Mg Tab 2.5 Mg PO DAILY Take with meals at the same time each day Isosorbide Mononitrate ER (Isosorbide Mononitrate) 30 Mg Nitish 30 Mg PO DAILY Metoprolol Tartrate 25 Mg Tab 25 Mg PO BID Atorvastatin (Atorvastatin Calcium) 40 Mg Tab 40 Mg PO HS Active Ordered Medications Current Medications Medications (Trade) Dose Ordered Sig/Riley Route Start Time Stop Time Status Last Admin (Lipitor) 40 mg HS PO 04/05/18 21:00 04/05/18 20:59 (Synthroid) 75 mcg DAILY@0600 PO 04/06/18 06:00 04/06/18 04:53 (Lopressor) 25 mg BID PO 04/05/18 21:00 04/06/18 08:58 (Singulair) 10 mg HS PO 04/05/18 21:00 04/05/18 20:59 Piperacillin Sod/ Tazobactam Sod 50 ml @ 100 mls/hr Q6H IV 04/05/18 16:00 04/06/18 16:54 (Potter 7.5-325 Mg) 1 tab Q6H PRN PO 04/05/18 15:15 04/06/18 10:58 Albumin Human 50 ml @ 60 mls/hr Q12H IV 04/05/18 16:00 04/06/18 16:54 Sodium Chloride 250 ml @ 15 mls/hr ONCE ONCE IV 04/06/18 08:00 04/07/18 00:39 04/06/18 08:59 (Tylenol) 650 mg Q4H PRN PO 04/06/18 08:00 04/06/18 23:59 (Benadryl) 25 mg Q4H PRN PO 04/06/18 08:00 04/06/18 23:59 04/06/18 10:16 (D50w (Vial) Inj) 50 ml UNSCH PRN IV PUSH 04/06/18 10:00 04/06/18 12:21 (Glucagon Inj) 1 mg UNSCH PRN OTHER 04/06/18 10:00 04/06/18 10:16 Family History DM II, obesity, HTN Social History Obese, ambulatory Non smoker Lives alone From [place] Single Retired (Ai Malave TOMÁS) Physical Exam Vital Signs Vital Signs Date Time Temp Pulse Resp B/P (MAP) Pulse Ox O2 Delivery O2 Flow Rate FiO2 04/06/18 12:00 98.5 52 17 117/49 (71) 95 04/06/18 11:30 97.6 55 18 105/51 99 04/06/18 11:00 97.5 68 16 148/53 98 04/06/18 10:47 98.5 55 17 117/49 98 04/06/18 08:00 98.3 54 17 123/54 (77) 96 04/06/18 08:00 Room Air 04/06/18 04:01 98.4 62 18 112/49 (70) 98 04/06/18 00:01 98.3 58 17 103/49 (67) 98 04/06/18 00:01 Room Air 04/05/18 20:49 96 20 131/76 97 04/05/18 20:00 Room Air 04/05/18 20:00 98.4 68 19 106/49 (68) 100 Physical Exam Obese female lying in bed Awake, alert, oriented and following commands S1/s2, RRR quiet precordium, no murmurs or rubs Lungs clear Abd soft, obese 2-3+ edema up to thighs, distal pulses intact Laboratory Laboratory Tests Test 04/06/18 04:38 04/06/18 07:35 White Blood Count 4.2 Red Blood Count 2.27 Hemoglobin 6.5 Hematocrit 19.1 Mean Corpuscular Volume 84.0 Mean Corpuscular Hemoglobin 28.8 Mean Corpuscular Hemoglobin Concent 34.3 Red Cell Distribution Width 17.8 Platelet Count 58 Mean Platelet Volume 12.8 CBC Comment AUTO DIFF Differential Total Cells Counted 100 Neutrophils % (Manual) 23 Band Neutrophils % 46 Lymphocytes % 15 Monocytes % 1 Eosinophils % 5 Neutrophils # (Manual) 3.3 Metamyelocytes 6 Myelocytes 4 Nucleated Red Blood Cells 2 Differential Comment FINAL DIFF MANUAL Dohle Bodies PRESENT Platelet Estimate LOW Platelet Morphology Comment ENLARGED Hematology Comments Blood Urea Nitrogen 34 Creatinine 1.80 Random Glucose 29 Calcium Level 7.9 Sodium Level 141 Potassium Level 3.6 Chloride Level 106 Carbon Dioxide Level 24.9 Anion Gap 10 Estimat Glomerular Filtration Rate 28 Date/Time Source Procedure Growth Status 04/05/18 13:00 Blood Peripheral Aerobic Blood Culture - Preliminary NO GROWTH IN 1 DAY Resulted 04/05/18 13:00 Blood Peripheral Anaerobic Blood Culture - Preliminary NO GROWTH IN 1 DAY Resulted (Ai Malave) Result Diagram: 04/06/18 0438 04/06/18 0735 Imaging Last 72 hours Impressions Foot X-Ray 04/05/18 0000 Signed Impressions: Service Date/Time: Thursday, April 05, 2018 12:37 - CONCLUSION: 1. Degenerative osteoarthritis. 2. Diffuse soft tissue swelling without acute fracture. Huber Plunkett MD Foot MRI 04/05/18 0000 Signed Impressions: Service Date/Time: Thursday, April 05, 2018 15:08 - CONCLUSION: Negative runoff myelitis or deep space abscess SPECT TAGGED white cell study may be of benefit if symptoms persist. Nolberto Elkins MD FACR Chest X-Ray 04/05/18 0000 Signed Impressions: Service Date/Time: Thursday, April 05, 2018 22:09 - CONCLUSION: No acute disease Thien Davidson MD (Ai Malave) Assessment and Plan Problem List: (1) Acute kidney injury ICD Codes: N17.9 - Acute kidney failure, unspecified Plan: LA on CKD 3-4 Baseline creatinine 1.2-1.8, suspected underlying nephrosclerosis Her creatinine has been stable most of this admission Have ordered renal US and UA Monitor urine output Avoid nephrotoxic agents, renally dose Zosyn appropriate to her PO fluids encouraged. (2) Sepsis ICD Codes: A41.9 - Sepsis, unspecified organism Status: Acute Plan: Due to cellulitis Has fever, cultures negative to date On Zosyn currently (3) Myelodysplastic syndrome ICD Codes: D46.9 - Myelodysplastic syndrome, unspecified Status: Acute Plan: Hematology is following No evidence of iron deficiency s/p 3 units PRBC continue to transfuse if needed (4) DM (diabetes mellitus) ICD Codes: E11.9 - Type 2 diabetes mellitus without complications Plan: Maintain glucose 140-180 mg/dL She was severely hypoglycemic today, able to take PO (5) HTN (hypertension) ICD Codes: I10 - Essential (primary) hypertension Plan: Monitor blood pressure Lisinopril is being held currently Assessment and Plan Thank you for the consult, we will continue to follow. (Ai Malave) Assessment and Plan patient was seen and examined. Stable renal function. Avoid nephrotoxic agents. Obtain UA and renal US, dose medications appropriate to renal function, the dose of Zosyn needs to be reduced. (Smith Grant MD) Problem Qualifiers (1) Sepsis: Qualified Codes: A41.9 - Sepsis, unspecified organism Ai Malave April 06, 2018 17:10 Smith Grant MD April 06, 2018 17:48
--- NOTE | 2018-04-06 17:47 | RADRPT ---
EXAM DATE/TIME: 04/06/2018 17:09 [facility] COMPARISON: No previous studies available for comparison. EXTERNAL COMPARISON : [facility], US KIDNEY BILATERAL, April 15, 2016 INDICATIONS : Increased BUN/Creatinine. MEDICAL HISTORY : Hypothyroidism. Hypercholesterolemia. Hypertension. Sleep apnea. Dyspnea. Diabetes. Depression. Anxie ty. Anemia. Leukemia. SURGICAL HISTORY : Cholecystectomy. Bilateral knee replacement. Right shoulder surgery. Bilateral heel spur. ENCOUNTER: Initial ACUITY: > 1 year PAIN SCORE: 1/10 LOCATION: Bilateral flank MEASUREMENTS: RIGHT KIDNEY: 10.1 x 3.8 x 4.3 cm LEFT KIDNEY: 10.7 x 4.0 x 4.3 cm FINDINGS: RIGHT KIDNEY: Renal cortex is normal in thickness and echotexture. No hydronephrosis, stone, or mass. LEFT KIDNEY: Renal cortex is normal in thickness and echotexture. No hydronephrosis, stone, or mass. BLADDER: Within normal limits given the degree of distension. CONCLUSION: Normal examination. Michael Parsons MD on April 06, 2018 at 17:44 Board Certified Radiologist. This report was verified electronically.
[2018-04-06] MEDS ORDERED: Vancomycin Consult Pharmacy 1 EA OTHER SCH (18:45)
[2018-04-06 19:41] LABS: BILIRUBIN, URINE NEG (NEG); BLOOD, URINE NEG (NEG); GLUCOSE,URINE NEG (NEG); KETONE, URINE NEG (NEG); NITRITE,URINE NEG (NEG); SQUAMOUS EPITHELIAL CELL URINE 1 /hpf (0-5); URINE COLOR LIGHT-YELLOW (YELLW/STRAW); URINE LEUKOCYTE ESTERASE NEG (NEG)
[2018-04-06] MEDS: ATORVASTATIN 40 MG TAB PO SCH (22:08)
[2018-04-06] MEDS: MONTELUKAST SODIUM 10 MG TAB PO SCH (22:08)
[2018-04-06] MEDS ORDERED: VANCOMYCIN INJ 1,500 MG in SODIUM CHLORID 0.9% 500 ML INJ 500 ML IV SCH (23:00)
[2018-04-07] VITALS (7 sets, daily range): BP systolic 100–140; BP diastolic 49–74; PULSE 50–83; RESP 16–19; TEMP 97.3–100.3; O2SAT 94–100
[2018-04-07] MEDS: PIPERACIL-TAZO 3.375 GM PREMIX 50 ML IV SCH (04:38)
[2018-04-07] MEDS: ALBUMIN 25% INJ 50 ML IV SCH ×2 (04:38→18:00)
[2018-04-07] MEDS: ACETAMINOPHEN/HYDROcodone 325 MG/7.5 MG TAB PO PRN ×3 (04:39→22:26)
[2018-04-07] MEDS: LEVOTHYROXINE SODIUM 75 MCG TAB PO SCH (04:39)
--- NOTE | 2018-04-07 08:01 | MB ---
cc: PamellaSundar B DPM DATE: 04/07/2018 REASON FOR CONSULTATION: Right second digit toe abscess, cellulitis. HISTORY OF PRESENT ILLNESS: This patient is [id number] who has a history of bilateral foot pain, right worse than left. Denies any incident or injury. Pain was so intense she had to call 911. The patient says she was diagnosed with leukemia. She says normally her sugars ran in the 120s. Currently, I am seeing the patient bedside. She is having slight decrease in pain, but bilateral feet hurt, right worse than left. PAST MEDICAL HISTORY: Hypertension, diabetes, diabetic neuropathy, nephrosclerosis, myelodysplastic syndrome, chronic kidney disease. ALLERGIES: NONE LISTED. INPATIENT MEDICATIONS: Reviewed. The patient is receiving vancomycin and Zosyn. PHYSICAL EXAMINATION: VITAL SIGNS: Temperature is 97.3, pulse rate 64, respiratory rate 16, blood pressure 107/52. She is sating 94% on room air. GENERAL: This is 121 kilogram female seen at bedside exhibiting not labored respirations. EXTREMITIES: Bilateral lower extremities are examined. Right lower extremity, there is noted to be significant erythema, edema, and a draining purulent chalky substance coming from the distal lateral aspect of the right second digit PIPJ. This appears to correlate with abscess, possible gout. Pulses are hard to palpate, but the feet are warm. Sensation is decreased to light touch. Upon range of motion of the forefoot, hindfoot and ankle, there is no crepitus or instability to suggest Charcot arthropathy. LABORATORY FINDINGS: White blood cell 4.2, hemoglobin and hematocrit 6.5 and 19.1, platelet count is 58. ESR greater than 140. Chem-7: Sodium is 141, potassium 3.6, chloride 106, CO2 24.9, BUN is 34, creatinine 1.80, glucose random 29, this is at 5:15. The patient, however, clinically, has no signs of hypoglycemic shock. IMAGING FINDINGS: MRI appears to correlate with generalized soft tissue edema. However, upon my read per looking at the toes, there appears to be significant effusion at the distal aspect of the second digit PIPJ, which may correlate with a septic tophaceous-type joint with possible osteomyelitis. X-ray reviewed, right foot, diffuse arthritis. No obvious fracture. ASSESSMENT: Right second digit septic PIPJ, open, draining, possible gout versus osteomyelitis. PLAN: My plan is for incision, drainage, and debridement tomorrow. Serum uric acid ordered. A segmental arterial Doppler also ordered. I do not anticipate much bleeding from surgery, however, the patient's H and H may need to be corrected. I will leave this to medicine. The patient ordered n.p.o. after midnight. ELIAS Hayes/EMILIA , 07:46 AM , 08:01 AM
[2018-04-07 08:16] LABS: HEMOGLOBIN 7.2 GM/DL (11.6-15.3); MEAN CELL VOLUME 84.3 FL (80.0-100.0); MEAN CORPUSCULAR HEMOGLOBIN 28.7 PG (27.0-34.0); MEAN PLATELET VOLUME 13.7 FL (7.0-11.0); PLATELET COUNT 45 TH/MM3 (150-450); RED BLOOD COUNT 2.49 MIL/MM3 (4.00-5.30); RED CELL DISTRIBUTION WIDTH 18.1 % (11.6-17.2); WHITE BLOOD COUNT 2.9 TH/MM3 (4.0-11.0)
[2018-04-07 08:35] LABS: BICARBONATE 22.7 MEQ/L (21.0-32.0); CALCIUM 8.1 MG/DL (8.5-10.1); CREATININE 1.79 MG/DL (0.50-1.00); PHOSPHORUS 4.3 MG/DL (2.5-4.9)
[2018-04-07 08:56] LABS: BANDS 29 % (0-6); LYMPHOCYTES 23 % (9-44); METAMYELOCYTES 1 % (0-1); MONOCYTES 1 % (0-8); NEUTROPHIL # MANUAL DIFF 2.2 TH/MM3 (1.8-7.7); POLYS (SEG NEUTROPHILS) 45 % (16-70)
[2018-04-07] MEDS: METOPROLOL TARTRATE 25 MG TAB PO SCH ×2 (09:25→22:28)
--- NOTE | 2018-04-07 10:22 | HHI.PR ---
Subjective Remarks 72-year-old white female being admitted for suspected osteomyelitis. Patient was in her usual state of health until a few days ago when she first came to the emergency department due to pain in her right second toe. She was discharged with oral antibiotics but says that the redness of her toe persisted with no improvement. Says that the pain in her right foot increased and thus she decided come back to the emergency department. She started feeling subjective fevers and chills. Denies any nausea vomiting diarrhea or any coughing. She says she had to call 911 and was not able to drive due to the severe pain in her foot. Says that it hurts to bear weight on both feet but the right foot is substantially greater. Denies any puncturing injury. She reports chronic lower extremity edema which is worse than her baseline, says she takes a diuretic at home otherwise. Reports being compliant with her medications. She says that normally his sugars run in the 120s in the morning fasting. Patient says she gets blood transfusions twice a month, follows up with oncology. In the emergency department she was noted to have a climbing fever from 102- 103. ESR obtained is greater than 140. Hemoglobin was 5.7. Blood cultures were drawn and vancomycin dose was administered in the emergency department. 5-15 Nursing denies any deterioration since last night except for unexplained hypoglycemia where the patient's blood sugars went into the 20s on a serum but checked this morning. Patient herself says she ate some dinner last night but was apparently asymptomatic even with the sugar dropped this morning. Says she has never had hypoglycemia episodes like this in the past. 5-16 PATIENT IS SCHEDULED TO GO FOR SURGERY WITH PODIATRY ON RIGHT 2ND TOE TOMORROW [facility]SH[facility] RN AND PT AND CM HAS SOME PAIN AT THIS TIME HAD VIRAL TODAY Possible gout with elevated uric Objective Vitals Vital Signs Date Time Temp Pulse Resp B/P (MAP) Pulse Ox O2 Delivery O2 Flow Rate FiO2 04/07/18 08:00 97.3 50 19 110/49 (69) 100 04/07/18 04:00 97.3 64 16 107/52 (70) 94 04/07/18 04:00 Room Air 04/07/18 00:00 Room Air 04/07/18 00:00 99.8 83 18 122/56 (78) 95 04/06/18 21:18 102.0 78 18 127/57 (80) 94 04/06/18 21:18 Room Air 04/06/18 16:00 100.6 75 18 153/69 (97) 99 04/06/18 12:00 98.5 52 17 117/49 (71) 95 04/06/18 11:30 97.6 55 18 105/51 99 04/06/18 11:00 97.5 68 16 148/53 98 04/06/18 10:47 98.5 55 17 117/49 98 I/O 04/06/18 04/06/18 04/06/18 04/07/18 04/07/18 04/07/18 07:00 15:00 23:00 07:00 15:00 23:00 Intake Total 340 ml 490 ml 150 ml 1362 ml Output Total 600 ml Balance 340 ml 490 ml -450 ml 1362 ml Intake Oral 240 ml 710 ml IV Total 100 ml 80 ml 150 ml 652 ml Packed Cells 400 ml Blood Product IV Normal Saline Flush 10 ml Output Urine Total 600 ml # Voids 4 5 # Bowel Movements 0 Result Diagram: 04/07/18 0720 04/07/18 0720 Other Results Laboratory Tests Test 04/05/18 12:15 04/05/18 14:25 04/06/18 04:38 04/06/18 07:35 White Blood Count 5.2 TH/MM3 4.2 TH/MM3 Red Blood Count 2.01 MIL/MM3 2.27 MIL/MM3 Hemoglobin 5.7 GM/DL 6.5 GM/DL Hematocrit 17.2 % 19.1 % Mean Corpuscular Volume 85.5 FL 84.0 FL Mean Corpuscular Hemoglobin 28.4 PG 28.8 PG Mean Corpuscular Hemoglobin Concent 33.2 % 34.3 % Red Cell Distribution Width 18.8 % 17.8 % Platelet Count 101 TH/MM3 58 TH/MM3 Mean Platelet Volume 13.2 FL 12.8 FL CBC Comment AUTO DIFF AUTO DIFF Differential Total Cells Counted 100 100 Neutrophils % (Manual) 40 % 23 % Band Neutrophils % 43 % 46 % Lymphocytes % 9 % 15 % Monocytes % 1 % 1 % Eosinophils % 2 % 5 % Neutrophils # (Manual) 4.6 TH/MM3 3.3 TH/MM3 Metamyelocytes 4 % 6 % Myelocytes 1 % 4 % Differential Comment FINAL DIFF MANUAL FINAL DIFF MANUAL Platelet Estimate LOW LOW Platelet Morphology Comment GIANT ENLARGED Erythrocyte Sedimentation Rate GREATER THAN 140 mm/hr Blood Urea Nitrogen 24 MG/DL 34 MG/DL Creatinine 1.80 MG/DL 1.80 MG/DL Random Glucose 146 MG/DL 29 MG/DL Total Protein 7.3 GM/DL Albumin 3.3 GM/DL Calcium Level 8.5 MG/DL 7.9 MG/DL Alkaline Phosphatase 114 U/L Aspartate Amino Transf (AST/SGOT) 13 U/L Alanine Aminotransferase (ALT/SGPT) 14 U/L Total Bilirubin 1.0 MG/DL Sodium Level 142 MEQ/L 141 MEQ/L Potassium Level 4.7 MEQ/L 3.6 MEQ/L Chloride Level 108 MEQ/L 106 MEQ/L Carbon Dioxide Level 22.8 MEQ/L 24.9 MEQ/L Anion Gap 11 MEQ/L 10 MEQ/L Estimat Glomerular Filtration Rate 28 ML/MIN 28 ML/MIN C-Reactive Protein 16.00 MG/DL Lactic Acid Level 2.3 mmol/L Nucleated Red Blood Cells 2 /100 WBC Dohle Bodies PRESENT Hematology Comments Test 04/06/18 18:38 04/07/18 07:20 Urine Color LIGHT-YELLOW Urine Turbidity CLEAR Urine pH 5.0 Urine Specific [place] 1.011 Urine Protein TRACE mg/dL Urine Glucose (UA) NEG mg/dL Urine Ketones NEG mg/dL Urine Occult Blood NEG Urine Nitrite NEG Urine Bilirubin NEG Urine Urobilinogen LESS THAN 2.0 MG/DL Urine Leukocyte Esterase NEG Urine WBC 3 /hpf Urine Squamous Epithelial Cells 1 /hpf Urine Granular Casts 2 /lpf Microscopic Urinalysis Comment CULT NOT INDICATED White Blood Count 2.9 TH/MM3 Red Blood Count 2.49 MIL/MM3 Hemoglobin 7.2 GM/DL Hematocrit 21.0 % Mean Corpuscular Volume 84.3 FL Mean Corpuscular Hemoglobin 28.7 PG Mean Corpuscular Hemoglobin Concent 34.0 % Red Cell Distribution Width 18.1 % Platelet Count 45 TH/MM3 Mean Platelet Volume 13.7 FL CBC Comment AUTO DIFF Differential Total Cells Counted 100 Neutrophils % (Manual) 45 % Band Neutrophils % 29 % Lymphocytes % 23 % Monocytes % 1 % Eosinophils % 1 % Neutrophils # (Manual) 2.2 TH/MM3 Metamyelocytes 1 % Differential Comment FINAL DIFF MANUAL Platelet Estimate LOW Platelet Morphology Comment GIANT Blood Urea Nitrogen 36 MG/DL Creatinine 1.79 MG/DL Random Glucose 96 MG/DL Calcium Level 8.1 MG/DL Phosphorus Level 4.3 MG/DL Sodium Level 141 MEQ/L Potassium Level 3.5 MEQ/L Chloride Level 107 MEQ/L Carbon Dioxide Level 22.7 MEQ/L Anion Gap 11 MEQ/L Estimat Glomerular Filtration Rate 28 ML/MIN Uric Acid 6.8 MG/DL Imaging Last Impressions Renal Ultrasound 04/06/18 0000 Signed Impressions: Service Date/Time: Friday, April 06, 2018 17:09 - CONCLUSION: Normal examination. Michael Parsons MD Foot X-Ray 04/05/18 0000 Signed Impressions: Service Date/Time: Thursday, April 05, 2018 12:37 - CONCLUSION: 1. Degenerative osteoarthritis. 2. Diffuse soft tissue swelling without acute fracture. Huber Plunkett MD Foot MRI 04/05/18 0000 Signed Impressions: Service Date/Time: Thursday, April 05, 2018 15:08 - CONCLUSION: Negative runoff myelitis or deep space abscess SPECT TAGGED white cell study may be of benefit if symptoms persist. Nolberto Elkins MD FACR Chest X-Ray 04/05/18 0000 Signed Impressions: Service Date/Time: Thursday, April 05, 2018 22:09 - CONCLUSION: No acute disease Thien Davidson MD Objective Remarks GENERAL: Awake alert and oriented 3 talkative and cooperative SKIN: Warm and dry. Left foot is dressed HEAD: Atraumatic. Normocephalic. EYES: Pupils equal and round. No scleral icterus. No injection or drainage. Extraocular muscles intact ENT: No nasal bleeding or discharge. Mucous membranes pink and moist. Tongue is midline NECK: Trachea midline. No JVD. Supple CARDIOVASCULAR: Regular rate and rhythm. S1-S2 no S3 or S4 RESPIRATORY: No accessory muscle use. Clear to auscultation. Breath sounds equal bilaterally. GASTROINTESTINAL: Abdomen soft, non-tender, nondistended. Hepatic and splenic margins not palpable. MUSCULOSKELETAL: Extremities without clubbing, cyanosis, or edema. No obvious deformities. NEUROLOGICAL: Awake and alert. No obvious cranial nerve deficits. Motor grossly within normal limits. Five out of 5 muscle strength in the arms and legs. Normal speech. Left foot is dressed PSYCHIATRIC: Appropriate mood and affect; insight and judgment normal. Medications and IVs Current Medications Acetaminophen/ Hydrocodone Bitart ([place] 5-325 Mg) 1 tab ONCE ONCE PO Last administered on 04/05/18at 12:49; Start 04/05/18 at 12:30; Stop 04/05/18 at 12:31 ; Status DC Vancomycin HCl 1800 mg/Sodium Chloride 518 ml @ 250 mls/hr ONCE ONCE IV Last administered on 04/05/18at 13:41; Start 04/05/18 at 13:00; Stop 04/05/18 at 15:04 ; Status DC Sodium Chloride 250 ml @ 15 mls/hr ONCE ONCE IV Last administered on at 14:37; Start 04/05/18 at 13:00; Stop 04/06/18 at 05:39; Status DC Acetaminophen (Tylenol) 1,000 mg ONCE ONCE PO Last administered on 04/05/18at 14:16; Start 04/05/18 at 14:15; Stop 04/05/18 at 14:16; Status DC Sodium Chloride 1,000 ml @ 999 mls/hr BOLUS ONCE IV Last administered on 04/05at 14:38; Start 04/05/18 at 14:15; Stop 04/05/18 at 14:58; Status DC Atorvastatin Calcium (Lipitor) 40 mg HS PO Last administered on 04/06/18at 22:08 ; Start 04/05/18 at 21:00 Levothyroxine Sodium (Synthroid) 75 mcg DAILY@0600 PO Last administered on 04/07at 04:39; Start 04/06/18 at 06:00 Metoprolol Tartrate (Lopressor) 25 mg BID PO Last administered on 04/07/18at 09: 25; Start 04/05/18 at 21:00 Montelukast Sodium (Singulair) 10 mg HS PO Last administered on 04/06/18at 22:08 ; Start 04/05/18 at 21:00 Piperacillin Sod/ Tazobactam Sod 50 ml @ 100 mls/hr Q6H IV Last administered on 04/07/18at 04:38; Start 04/05/18 at 16:00; Stop 04/07/18 at 08:59; Status DC Acetaminophen/ Hydrocodone Bitart ([place] 7.5-325 Mg) 1 tab Q6H PRN PO pain 1- 10 Last administered on 04/07/18at 04:39; Start 04/05/18 at 15:15 Albumin Human 50 ml @ 60 mls/hr Q12H IV Last administered on 04/07/18at 04:38; Start 04/05/18 at 16:00 Sodium Chloride 250 ml @ 15 mls/hr ONCE ONCE IV Last administered on at 08:59; Start 04/06/18 at 08:00; Stop 04/07/18 at 00:39; Status DC Acetaminophen (Tylenol) 650 mg Q4H PRN PO SEE LABEL COMMENTS; Start 04/06/18 at 08:00; Stop 04/06/18 at 23:59; Status DC Diphenhydramine HCl (Benadryl) 25 mg Q4H PRN PO SEE LABEL COMMENTS Last administered on 04/06/18at 10:16; Start 04/06/18 at 08:00; Stop 04/06/18 at 23:59 ; Status DC Furosemide (Lasix Inj) 20 mg ONCE ONCE IV PUSH Last administered on 04/06/18at 14:20; Start 04/06/18 at 09:00; Stop 04/06/18 at 09:01; Status DC Dextrose (D50w (Vial) Inj) 50 ml UNSCH PRN IV PUSH HYPOGLYCEMIA-SEE COMMENTS Last administered on 04/06/18at 12:21; Start 04/06/18 at 10:00 Glucagon (Glucagon Inj) 1 mg UNSCH PRN OTHER HYPOGLYCEMIA-SEE COMMENTS Last administered on 04/06/18at 10:16; Start 04/06/18 at 10:00 Pharmacy Profile Note 0 ml @ 0 mls/hr UNSCH OTHER ; Start 04/06/18 at 18:45 Vancomycin HCl 1500 mg/Sodium Chloride 515 ml @ 250 mls/hr Q24H IV Last administered on 04/06/18at 23:49; Start 04/06/18 at 23:00 Miscellaneous Information ([facility] [place] Ordered Lab Info) SPECIFIC LAB TO BE DRAWN:VANCO TROUGH DATE TO BE . ONCE ONCE .XX ; Start 04/08/18 at 22:45; Stop 04/08/18 at 22:46 Piperacillin Sod/ Tazobactam Sod 50 ml @ 100 mls/hr Q6H IV ; Start 04/07/18 at 11:00 A/P Assessment and Plan 72-year-old white female being admitted for suspected osteomyelitis Cellulitis with possible osteomyelitis - Already failed outpatient Bactrim, blood cultures obtained -Mild improvement since yesterday both in appearance and with cessation of fevers, continue vancomycin and Zosyn - right foot MRI without contrast (given patient's LA) shows no definitive evidence of osteo-myelitis - Awaiting podiatry consultation -seen by podiatry for surgery on the toe tomorrow Possible gout due to elevated uric acid DM - Unexplained transient drop in sugar that responded to D50, could have been due to poor p.o. intake, will monitor for now w/ accuchedcks and if recurs then we will proceed with aggressive hypoglycemia workup Acute anemia -Acute on chronic myelodysplastic syndrome, already received 2 units of blood yesterday, but still dropping, -Hematology following, ordering 2 more units of blood Acute on chronic kidney injury -Despite IV albumin, creatinine and change, consulting nephrology, hold home lisinopril -BMP in a.m. Possible gout due to elevated uric Bilateral lower extremity edema -Likely dependent edema with a component of chronic kidney disease, keep legs elevated -consulting nephrology -echo from 5 months ago shows intact EF Coronary artery disease -Continue home Lipitor and beta-cherri Possible gout due to elevated uric acid Unable to pharmacologically anticoagulant given acute anemia, unable to mechanically anticoagulate given severe lower extremity edema Discharge Planning Pending orthopedics and infectious disease clearance and oncology clearance Nolberto Kaplan DO April 07, 2018 10:22
--- NOTE | 2018-04-07 10:38 | PD.CONS ---
History of Present Illness Service Infectious disease Consult Requested By Dr Gunjan Mittal Reason for Consult Evaluate patient with fevers, cellulitis, and MDS Primary Care Physician Unknown Diagnoses: History of Present Illness Patient seen and examined. Records reviewed. Patient is a 72-year-old female, with known diabetes and neuropathy, presented to the hospital for further evaluation of severe pain on her right foot. As a baseline patient always has neuropathy in both feet where she has tingling and pins and needles sensation. About 6 days prior to admission, she had noted redness of her right second toe. Was a little bit swollen, and it started getting worse. She started experiencing more severe pain on that right foot, and she went to the emergency room on April 02. She was apparently given a shot of antibiotic and a prescription for an oral antibiotic. Patient stated that she did not have any x-ray done at that time or any blood work done. She has known MDS and has been getting Revlimid that was started about a week ago. She was not improving, and the pain persisted and worsened, so she presented to the hospital and admitted April 05. She did not know if she was having any fevers at home since she did not have any temperature. She however has not had any sweats. Denies any significant respiratory complaints, GI or any urinary complaints. Since admission patient has been febrile. Her white count has been decreasing as well as her platelet count. MRI did not show any evidence of osteomyelitis. Podiatry saw the patient and plans for surgery has been ordered for tomorrow. Patient currently still complaining of significant pain on her right foot. An area on her right second toe started draining today. Patient currently is on vancomycin and Zosyn. Infectious disease consultation has been requested to assist with evaluation and treatment of her fevers, cellulitis, in a patient with underlying MDS. Review of Systems Constitutional: COMPLAINS OF: Fever, Chills Eyes: DENIES: Eye pain Ears, nose, mouth, throat: DENIES: Nasal discharge, Oral lesions, Throat pain, Ear Pain, Sinus Pain Respiratory: DENIES: Cough, Shortness of breath Cardiovascular: COMPLAINS OF: Lower Extremity Edema, DENIES: Chest pain, Palpitations, Syncope, Dyspnea on Exertion Gastrointestinal: DENIES: Abdominal pain, Diarrhea, Nausea, Vomiting, Difficulty Swallowing Genitourinary: DENIES: Urinary frequency, Dysuria Musculoskeletal: COMPLAINS OF: Joint pain Integumentary: DENIES: Pruritus, Rash Immunologic/allergic: DENIES: Urticaria Neurologic: COMPLAINS OF: Paresthesias, DENIES: Headache, Localized weakness Psychiatric: DENIES: Hallucinations Past Family Social History Allergies: Coded Allergies: No Known Allergies (Unverified , 04/05/18) Past Medical History Chronic kidney disease Coronary Artery Disease Diabetes Type II Hyperlipidemia Hypertension Hypothyroidism Myelodysplastic Syndrome Neuropathy both feet Past Surgical History Bilateral heel surgery Cardiac catheterization Cholecystectomy Heal Spur surgery - both feet Bilateral knee replacement Right shoulder repair Bone marrow aspiration in 2018 Bone marrow biopsy in 2018 Colonoscopy in 2018 Active Ordered Medications Current Medications Medications (Trade) Dose Ordered Sig/Riley Route Start Time Stop Time Status Last Admin (Lipitor) 40 mg HS PO 04/05/18 21:00 04/06/18 22:08 (Synthroid) 75 mcg DAILY@0600 PO 04/06/18 06:00 04/07/18 04:39 (Lopressor) 25 mg BID PO 04/05/18 21:00 04/07/18 09:25 (Singulair) 10 mg HS PO 04/05/18 21:00 04/06/18 22:08 ([place] 7.5-325 Mg) 1 tab Q6H PRN PO 04/05/18 15:15 04/07/18 04:39 Albumin Human 50 ml @ 60 mls/hr Q12H IV 04/05/18 16:00 04/07/18 04:38 (D50w (Vial) Inj) 50 ml UNSCH PRN IV PUSH 04/06/18 10:00 04/06/18 12:21 (Glucagon Inj) 1 mg UNSCH PRN OTHER 04/06/18 10:00 04/06/18 10:16 Pharmacy Profile Note 0 ml @ 0 mls/hr UNSCH OTHER 04/06/18 18:45 Vancomycin HCl 1500 mg/Sodium Chloride 515 ml @ 250 mls/hr Q24H IV 04/06/18 23:00 04/06/18 23:49 ([facility] [place] [facility] Ordered Lab Info) SPECIFIC LAB TO BE DRAWN:VANCO TROUGH DATE TO BE . ONCE ONCE .XX 04/08/18 22:45 04/08/18 22:46 Piperacillin Sod/ Tazobactam Sod 50 ml @ 100 mls/hr Q6H IV 04/07/18 11:00 Family History Unremarkable Social History Lives at home alone. She is . Denies smoking Denies alcohol abuse Denies illicit drugs Physical Exam Vital Signs Vital Signs Date Time Temp Pulse Resp B/P (MAP) Pulse Ox O2 Delivery O2 Flow Rate FiO2 04/07/18 08:00 97.3 50 19 110/49 (69) 100 04/07/18 04:00 97.3 64 16 107/52 (70) 94 04/07/18 04:00 Room Air 04/07/18 00:00 Room Air 04/07/18 00:00 99.8 83 18 122/56 (78) 95 04/06/18 21:18 102.0 78 18 127/57 (80) 94 04/06/18 21:18 Room Air 04/06/18 16:00 100.6 75 18 153/69 (97) 99 04/06/18 12:00 98.5 52 17 117/49 (71) 95 04/06/18 11:30 97.6 55 18 105/51 99 04/06/18 11:00 97.5 68 16 148/53 98 04/06/18 10:47 98.5 55 17 117/49 98 Physical Exam GENERAL: Patient is an obese, well-developed female, awake and alert, not in respiratory distress. SKIN: Warm and dry. No generalized rash, no ecchymoses and no evidence of embolic lesions. HEAD: Atraumatic. Normocephalic. No temporal wasting, or tenderness. EYES: Pale conjunctiva. No petechia or hemorrhage. Pupils equal, round and reactive to light. Extraocular movements full and intact. No scleral icterus. No injection or drainage. EARS, NOSE AND THROAT: Nose without bleeding or purulent nasal discharge. No sinus tenderness. Mucous membranes pink and moist. No oral lesions noted. No exudate. No oral thrush. NECK: Trachea midline. Supple and not tender, no meningeal signs CARDIOVASCULAR: Regular rate and rhythm. No murmurs, rubs or gallops heard RESPIRATORY: Clear to auscultation. Breath sounds equal bilaterally. No rales , wheezing or rhonchi ABDOMEN: Soft, obese, non-tender, nondistended. Bowel sounds present and normoactive. No guarding. No rebound. No organomegaly. EXTREMITIES: No clubbing, cyanosis. Has edema both feet. L foot - her 4th toe is slight red in color. R foot, the second toe is red and swollen and on lateral aspect there is a draining area with bloody discharge. BOth feet are very sensitive when touched which she attributes to her neuropathy. No erythema noted on dorsum of her R foot, no lymphangitis. Scars both knees C/W surgical history. No calf tenderness. Well perfused and warm. Good ROM joints NEUROLOGICAL: Awake and alert. Cranial nerves grossly intact. Motor grossly within normal limits. PSYCHIATRIC: Normal affect, calm and cooperative. LINE: No evidence of infection Laboratory Laboratory Tests Test 04/06/18 18:38 04/07/18 07:20 Urine Color LIGHT-YELLOW Urine Turbidity CLEAR Urine pH 5.0 Urine Specific [place] 1.011 Urine Protein TRACE Urine Glucose (UA) NEG Urine Ketones NEG Urine Occult Blood NEG Urine Nitrite NEG Urine Bilirubin NEG Urine Urobilinogen LESS THAN 2.0 Urine Leukocyte Esterase NEG Urine WBC 3 Urine Squamous Epithelial Cells 1 Urine Granular Casts 2 Microscopic Urinalysis Comment CULT NOT INDICATED White Blood Count 2.9 Red Blood Count 2.49 Hemoglobin 7.2 Hematocrit 21.0 Mean Corpuscular Volume 84.3 Mean Corpuscular Hemoglobin 28.7 Mean Corpuscular Hemoglobin Concent 34.0 Red Cell Distribution Width 18.1 Platelet Count 45 Mean Platelet Volume 13.7 CBC Comment AUTO DIFF Differential Total Cells Counted 100 Neutrophils % (Manual) 45 Band Neutrophils % 29 Lymphocytes % 23 Monocytes % 1 Eosinophils % 1 Neutrophils # (Manual) 2.2 Metamyelocytes 1 Differential Comment FINAL DIFF MANUAL Platelet Estimate LOW Platelet Morphology Comment GIANT Blood Urea Nitrogen 36 Creatinine 1.79 Random Glucose 96 Calcium Level 8.1 Phosphorus Level 4.3 Sodium Level 141 Potassium Level 3.5 Chloride Level 107 Carbon Dioxide Level 22.7 Anion Gap 11 Estimat Glomerular Filtration Rate 28 Uric Acid 6.8 Date/Time Source Procedure Growth Status 04/05/18 13:00 Blood Peripheral Aerobic Blood Culture - Preliminary NO GROWTH IN 1 DAY Resulted 04/05/18 13:00 Blood Peripheral Anaerobic Blood Culture - Preliminary NO GROWTH IN 1 DAY Resulted Result Diagram: 04/07/18 0720 04/07/18 0720 Imaging RADIOLOGY STUDIES/FILMS REVIEWED Renal Ultrasound 04/06/18 0000 Signed Impressions: Service Date/Time: Friday, April 06, 2018 17:09 - CONCLUSION: Normal examination. Michael Parsons MD Foot X-Ray 04/05/18 0000 Signed Impressions: Service Date/Time: Thursday, April 05, 2018 12:37 - CONCLUSION: 1. Degenerative osteoarthritis. 2. Diffuse soft tissue swelling without acute fracture. Huber Plunkett MD Foot MRI 04/05/18 0000 Signed Impressions: Service Date/Time: Thursday, April 05, 2018 15:08 - CONCLUSION: Negative runoff myelitis or deep space abscess SPECT TAGGED white cell study may be of benefit if symptoms persist. Nolberto Elkins MD FACR Chest X-Ray 04/05/18 0000 Signed Impressions: Service Date/Time: Thursday, April 05, 2018 22:09 - CONCLUSION: No acute disease Thien Davidson MD Assessment and Plan Assessment and Plan IMPRESSION Febrile illness possible sepsis due to the R foot infection Cellulitis R second toe, ?osteomyelitis MDS, problem with anemia, now with worsening neutropenia and thrombocytopenia CKD, creatinine worse, ?due to infection Severe neuropathy DM RECOMMENDATION Get C/S from the draining wound Follow C/S Continue Vanco - for GPC, MRSA coverage Continue Zosyn for GNR coverage including PSAE Follow temps Follow CBC Monitor progress Podiatry following - OR plans noted for tomorrow I will determine course of RX depending on results of work-up and surgical intervention I will follow along with you Thank you for this consultation Discussed Condition With Explained plan to the patient Marie Perez MD April 07, 2018 10:38
--- NOTE | 2018-04-07 11:54 | HHI.NPPN ---
Subjective Renal Failure: Chronic, Acute, Stage III Interval History Renal function is stable, currently non oliguric. She is to have surgical I&D tomorrow evening. ID has been consulted. (Ai Malave) Review of Systems Cardiovascular Cardiac: Edema (Ai Malave) Skin Skin: Lesions, Ulcers Skin Remarks right foot (Ai Malave) Objective Data Data Vital Signs Date Time Temp Pulse Resp B/P (MAP) Pulse Ox O2 Delivery O2 Flow Rate FiO2 04/07/18 09:00 Room Air 04/07/18 08:00 97.3 50 19 110/49 (69) 100 04/07/18 04:00 97.3 64 16 107/52 (70) 94 04/07/18 04:00 Room Air 04/07/18 00:00 Room Air 04/07/18 00:00 99.8 83 18 122/56 (78) 95 04/06/18 21:18 102.0 78 18 127/57 (80) 94 04/06/18 21:18 Room Air 04/06/18 16:00 100.6 75 18 153/69 (97) 99 04/06/18 12:00 98.5 52 17 117/49 (71) 95 (Ai Malave) -: 04/07/18 0720 04/07/18 0720 Imaging Last 72 hours Impressions Renal Ultrasound 04/06/18 0000 Signed Impressions: Service Date/Time: Friday, April 06, 2018 17:09 - CONCLUSION: Normal examination. Michael Parsons MD Foot X-Ray 04/05/18 0000 Signed Impressions: Service Date/Time: Thursday, April 05, 2018 12:37 - CONCLUSION: 1. Degenerative osteoarthritis. 2. Diffuse soft tissue swelling without acute fracture. Huber Plunkett MD Foot MRI 04/05/18 0000 Signed Impressions: Service Date/Time: Thursday, April 05, 2018 15:08 - CONCLUSION: Negative runoff myelitis or deep space abscess SPECT TAGGED white cell study may be of benefit if symptoms persist. Nolberto Elkins MD FACR Chest X-Ray 04/05/18 0000 Signed Impressions: Service Date/Time: Thursday, April 05, 2018 22:09 - CONCLUSION: No acute disease Thien Davidson MD (Ai Malave) Physical Exam General Appearance: No Acute Distress, Comfortable, Obese (Ai Malave [employer]) Eyes Eye Exam: Pupils Equal, Pupils Reactive (Ai Malave B. [employer]) Pulmonary Resp Exam: Clear Bilaterally, Breath Sounds Equal, No Distress (Ai Malave B. [employer]) Cardiology CV Exam: Regular, Normal Sinus Rhythm, Good Perfusion (Ai Malave [employer]) Gastrointestinal/Abdomen GI Exam: Soft, Non-Tender, Bowel Sounds Present, Non-Distended (Ai Malave [employer]) Musculoskeletal MS Exam: Joints Intact, Normal Tone (Ai Malave [employer]) Integumentary Skin Exam: Warm, Dry, Lesion(s) Skin Remarks right 2nd toe wound, dressing in place (Ai MalaveP) Extremeties Extremities Exam: Pedal Pulses Palpable, Moderate Edema (Ai Malave) Neurologic Neuro Exam: Alert, Awake, Oriented, Speech Clear, Moving All Extremities (Ai Malave. [employer]) Psychiatric Psych Exam: Appropriate Responses (Ai Malave) Assessment/Plan Discussed Condition With: Patient Assessment Summary: Hypertension, Diabetes Mellitus, CKD Stage III, CKD Stage IV Problem List: (1) Acute kidney injury ICD Codes: N17.9 - Acute kidney failure, unspecified Plan: LA on CKD 3-4. Her baseline creatinine 1.2-1.8, suspected underlying nephrosclerosis Renal function is stable Renal US is normal UA unremarkable. Repeat labs daily. Avoid nephrotoxic agents, dose of Zosyn reduced to 2.25 grams. Vancomycin resumed, monitor drug levels. PO fluids encouraged. IVF not required. Has edema, some of which is chronic. Given Lasix yesterday, not currently on scheduled doses. Will stop albumin today. (2) Sepsis ICD Codes: A41.9 - Sepsis, unspecified organism Status: Acute Plan: Due to cellulitis, no osteomyelitis seen on imaging. Persistent fevers overnight, cultures negative to date. To obtain culture of draining wound today. On Zosyn currently . Vancomycin started per ID. To have I&D tomorrow with podiatry. (3) Foot pain, right ICD Codes: M79.671 - Pain in right foot Plan: Being treated for cellulitis, podiatry following Also has elevated uric acid level, will start allopurinol. (4) Myelodysplastic syndrome ICD Codes: D46.9 - Myelodysplastic syndrome, unspecified Status: Acute Plan: Hematology is following No evidence of iron deficiency on labs Given 3 units PRBC since admission, continue to transfuse if needed (5) DM (diabetes mellitus) ICD Codes: E11.9 - Type 2 diabetes mellitus without complications Plan: Maintain glucose 140-180 mg/dL She was severely hypoglycemic today, able to take PO (6) HTN (hypertension) ICD Codes: I10 - Essential (primary) hypertension Plan: Monitor blood pressure, continue current medications. Lisinopril is being held currently (Ai Malave) Plan patient was seen and examined. Renal function is stable. Agree with above assessment and plan. (Smith Grant MD) Problem Qualifiers (1) Sepsis: Qualified Codes: A41.9 - Sepsis, unspecified organism Ai Malave April 07, 2018 11:54 Smith Grant MD April 08, 2018 08:14
--- NOTE | 2018-04-07 12:06 | RADRPT ---
EXAM DATE/TIME: 04/07/2018 00:00 [place] COMPARISON: No previous studies available for comparison. INDICATIONS : Diabetes mellitus, edema TECHNIQUE: Five-station segmental examination of the lower extremities was performed. Pulsed-cuff waveform tracings and pressures were recorded. Ankle-brachial indices and toe-brachial indices were calculated. PRESSURES (mmHg): Brachial (arm): Right IV SITE Left 105 Lower Thigh: Right >150 Left >150 Calf: Right 144 Left 85 Ankle: Right 127 Left 68 Toe: Right 61 Left 52 VIRAL: Right 1.21 Left 0.65 TBI: Right 0.58 Left 0.50 PULSED CUFF WAVEFORMS: Demonstrate normal amplitude bilaterally. CONCLUSION: 1. Moderate decrease left VIRAL with segmental pressure differential indicative of significant left-maye ed femoral popliteal arterial insufficiency. 2. Normal right VIRAL without evidence of significant arterial insufficiency. Andrey Cox MD on April 07, 2018 at 12:02 Board Certified Radiologist. This report was verified electronically.
[2018-04-07] MEDS: PIPERACIL-TAZO 2.25 GM PREMIX 50 ML IV SCH ×3 (12:30→22:26)
[2018-04-07] MEDS: MONTELUKAST SODIUM 10 MG TAB PO SCH (22:26)
[2018-04-07] MEDS: ATORVASTATIN 40 MG TAB PO SCH (22:26)
[2018-04-08] VITALS (11 sets, daily range): BP systolic 102–149; BP diastolic 50–62; PULSE 49–69; RESP 17–19; TEMP 97.3–99.4; O2SAT 93–98
[2018-04-08] MEDS: PIPERACIL-TAZO 2.25 GM PREMIX 50 ML IV SCH ×3 (04:10→17:00)
[2018-04-08] MEDS: ALBUMIN 25% INJ 50 ML IV SCH ×2 (04:46→16:00)
[2018-04-08] MEDS: LEVOTHYROXINE SODIUM 75 MCG TAB PO SCH (05:58)
[2018-04-08 07:34] LABS: ALBUMIN 2.9 GM/DL (3.4-5.0); ALT (GPT) 20 U/L (10-53); AST (GOT) 18 U/L (15-37); BICARBONATE 22.6 MEQ/L (21.0-32.0); BLOOD UREA NITROGEN 38 MG/DL (7-18); CALCIUM 8.3 MG/DL (8.5-10.1); CHLORIDE 105 MEQ/L (98-107); CREATININE 1.65 MG/DL (0.50-1.00); GLOMERULAR FILTRATION RATE 31 ML/MIN (>89); GLUCOSE,RANDOM 99 MG/DL (74-106); MAGNESIUM 2.1 MG/DL (1.5-2.5); PHOSPHORUS 3.3 MG/DL (2.5-4.9); SODIUM (NA) 139 MEQ/L (136-145)
[2018-04-08 07:35] LABS: MEAN CELL VOLUME 86.3 FL (80.0-100.0); MEAN CORPUSCULAR HEMOGLOBIN 28.8 PG (27.0-34.0); MEAN CORPUSCULAR HGB CONC 33.4 % (32.0-36.0); MEAN PLATELET VOLUME 12.8 FL (7.0-11.0); PLATELET COUNT 36 TH/MM3 (150-450); RED BLOOD COUNT 2.37 MIL/MM3 (4.00-5.30); RED CELL DISTRIBUTION WIDTH 18.5 % (11.6-17.2); WHITE BLOOD COUNT 2.8 TH/MM3 (4.0-11.0)
[2018-04-08 07:43] LABS: ALKALINE PHOSPHATASE 123 U/L (45-117); TOTAL BILIRUBIN ADULT 1.7 MG/DL (0.2-1.0); TOTAL PROTEIN 6.5 GM/DL (6.4-8.2)
[2018-04-08] MEDS ORDERED: SODIUM CHLOR 0.9% 250 ML INJ 250 ML IV ONE (08:45)
--- NOTE | 2018-04-08 08:58 | HHI.NPPN ---
Subjective Renal Failure: Chronic, Acute, Stage III Interval History To have I & D today. Patient's renal function has improved. Review of Systems General Constitutional: Fatigue Cardiovascular Cardiac: Edema Skin Skin: Lesions, Ulcers Skin Remarks right foot Objective Data Data Vital Signs Date Time Temp Pulse Resp B/P (MAP) Pulse Ox O2 Delivery O2 Flow Rate FiO2 04/08/18 08:46 99.4 69 17 119/60 (79) 93 04/08/18 05:10 98.8 69 18 132/58 (82) 97 04/08/18 04:00 Room Air 04/08/18 00:00 Room Air 04/07/18 23:00 97.7 80 18 140/60 (86) 96 04/07/18 20:26 100.3 80 18 139/74 (95) 96 04/07/18 20:00 Room Air 04/07/18 16:00 98.7 67 18 132/52 (78) 95 04/07/18 13:30 20 04/07/18 12:00 98.1 61 19 100/49 (66) 100 04/07/18 09:00 Room Air -: 04/08/18 0602 04/08/18 0602 Physical Exam General Appearance: No Acute Distress, Comfortable, Obese Eyes Eye Exam: Pupils Equal, Pupils Reactive Pulmonary Resp Exam: Clear Bilaterally, Breath Sounds Equal, No Distress Cardiology CV Exam: Regular, Normal Sinus Rhythm, Good Perfusion Gastrointestinal/Abdomen GI Exam: Soft, Non-Tender, Bowel Sounds Present, Non-Distended Musculoskeletal MS Exam: Joints Intact, Normal Tone Integumentary Skin Exam: Warm, Dry, Lesion(s) Extremeties Extremities Exam: Pedal Pulses Palpable, Moderate Edema Neurologic Neuro Exam: Alert, Awake, Oriented, Speech Clear, Moving All Extremities Psychiatric Psych Exam: Appropriate Responses Assessment/Plan Discussed Condition With: Patient Assessment Summary: Hypertension, Diabetes Mellitus, CKD Stage III, CKD Stage IV Problem List: (1) Acute kidney injury ICD Codes: N17.9 - Acute kidney failure, unspecified Plan: LA on CKD 3-4. Her baseline creatinine 1.2-1.8, suspected underlying nephrosclerosis Renal function is stable, improving towards baseline. Renal US is normal UA unremarkable. Avoid nephrotoxic agents, dose of Zosyn reduced to 2.25 grams. Vancomycin resumed, monitor drug levels. PO fluids encouraged. IVF not required. Has edema, some of which is chronic. Given Lasix yesterday, not currently on scheduled doses. (2) Sepsis ICD Codes: A41.9 - Sepsis, unspecified organism Status: Acute Plan: Due to cellulitis, no osteomyelitis seen on imaging. Persistent fevers overnight, cultures negative to date. To obtain culture of draining wound today. On Zosyn currently . Vancomycin started per ID. To have I&D today by instructional coach. (3) Foot pain, right ICD Codes: M79.671 - Pain in right foot Plan: Being treated for cellulitis, podiatry following Also has elevated uric acid level, will start allopurinol. (4) Myelodysplastic syndrome ICD Codes: D46.9 - Myelodysplastic syndrome, unspecified Status: Acute Plan: Hematology is following No evidence of iron deficiency on labs Given 3 units PRBC since admission, continue to transfuse if needed (5) DM (diabetes mellitus) ICD Codes: E11.9 - Type 2 diabetes mellitus without complications Plan: Maintain glucose 140-180 mg/dL She was severely hypoglycemic today, able to take PO (6) HTN (hypertension) ICD Codes: I10 - Essential (primary) hypertension Plan: Monitor blood pressure, continue current medications. Lisinopril is being held currently Problem Qualifiers (1) Sepsis: Qualified Codes: A41.9 - Sepsis, unspecified organism Smith Grant MD April 08, 2018 08:58
[2018-04-08 09:24] LABS: HEMATOCRIT 20.4 % (35.0-46.0); HEMOGLOBIN 6.8 GM/DL (11.6-15.3)
[2018-04-08 09:41] LABS: BANDS 22 % (0-6); LYMPHOCYTES 14 % (9-44); MONOCYTES 7 % (0-8); NEUTROPHIL # MANUAL DIFF 2.2 TH/MM3 (1.8-7.7); POLYS (SEG NEUTROPHILS) 57 % (16-70)
[2018-04-08 09:42] LABS: OVALOCYTES 1+ (NORMAL)
[2018-04-08] MEDS: METOPROLOL TARTRATE 25 MG TAB PO SCH ×2 (10:03→20:20)
[2018-04-08] MEDS: ACETAMINOPHEN/HYDROcodone 325 MG/7.5 MG TAB PO PRN (10:03)
[2018-04-08] MEDS ORDERED: LIDOCAINE HCL 1% PF 5 ML SYRINGE OTHER ONE (12:00)
[2018-04-08] MEDS ORDERED: PHENYLEPH/NS 1000 MCG/10 ML SYR IV ONE (12:00)
[2018-04-08] MEDS ORDERED: DEXAMETHASONE SOD PHOS 4 MG/ML VIAL IV ONE (12:00)
[2018-04-08] MEDS ORDERED: PROPOFOL 200 MG/20 ML AMP IV ONE (12:00)
[2018-04-08] MEDS ORDERED: ONDANSETRON HCL 4 MG/2 ML VIAL IV ONE (12:00)
[2018-04-08] MEDS ORDERED: NEOMYCIN/POLYMYXIN 1 ML G.U. IRRIGANT ONE (12:30)
--- NOTE | 2018-04-08 12:47 | HHI.IDPN ---
Subjective Subjective Remarks Patient is a 72-year-old female, with known diabetes and neuropathy, presented to the hospital for further evaluation of severe pain on her right foot. As a baseline patient always has neuropathy in both feet where she has tingling and pins and needles sensation. About 6 days prior to admission, she had noted redness of her right second toe. Was a little bit swollen, and it started getting worse. She started experiencing more severe pain on that right foot, and she went to the emergency room on April 02. She was apparently given a shot of antibiotic and a prescription for an oral antibiotic. Patient stated that she did not have any x-ray done at that time or any blood work done. She has known MDS and has been getting Revlimid that was started about a week ago. She was not improving, and the pain persisted and worsened, so she presented to the hospital and admitted April 05. She did not know if she was having any fevers at home since she did not have any temperature. She however has not had any sweats. Denies any significant respiratory complaints, GI or any urinary complaints. Since admission patient has been febrile. Her white count has been decreasing as well as her platelet count. MRI did not show any evidence of osteomyelitis. Podiatry saw the patient and plans for surgery has been ordered for tomorrow. Patient currently still complaining of significant pain on her right foot. An area on her right second toe started draining today. Patient currently is on vancomycin and Zosyn. Infectious disease consultation has been requested to assist with evaluation and treatment of her fevers, cellulitis, in a patient with underlying MDS. Notes reviewed Temps 99+ Still with significant pain R foot To OR this afternoon Abnormal VIRAL L; normal on R WBC low, platelet decreasing Antibiotics Vancomycin Zosyn Current Medications Medications (Trade) Dose Ordered Sig/Riley Route Start Time Stop Time Status Last Admin (Lipitor) 40 mg HS PO 04/05/18 21:00 04/07/18 22:26 (Synthroid) 75 mcg DAILY@0600 PO 04/06/18 06:00 04/08/18 05:58 (Lopressor) 25 mg BID PO 04/05/18 21:00 04/08/18 10:03 (Singulair) 10 mg HS PO 04/05/18 21:00 04/07/18 22:26 (Inlet 7.5-325 Mg) 1 tab Q6H PRN PO 5/14/18 15:15 04/08/18 10:03 Albumin Human 50 ml @ 60 mls/hr Q12H IV 04/05/18 16:00 04/08/18 04:46 (D50w (Vial) Inj) 50 ml UNSCH PRN IV PUSH 04/06/18 10:00 04/06/18 12:21 (Glucagon Inj) 1 mg UNSCH PRN OTHER 04/06/18 10:00 04/06/18 10:16 Pharmacy Profile Note 0 ml @ 0 mls/hr UNSCH OTHER 04/06/18 18:45 Piperacillin Sod/ Tazobactam Sod 50 ml @ 100 mls/hr Q6H IV 04/07/18 11:00 04/08/18 10:03 Sodium Chloride 250 ml @ 15 mls/hr ONCE ONCE IV 04/08/18 08:45 04/09/18 01:24 04/08/18 10:07 Vancomycin HCl 2000 mg/Sodium Chloride 520 ml @ 250 mls/hr Q36H IV 04/08/18 12:00 Past Medical History Chronic kidney disease Coronary Artery Disease Diabetes Type II Hyperlipidemia Hypertension Hypothyroidism Myelodysplastic Syndrome Neuropathy both feet Past Surgical History Bilateral heel surgery Cardiac catheterization Cholecystectomy Heal Spur surgery - both feet Bilateral knee replacement Right shoulder repair Bone marrow aspiration in 2018 Bone marrow biopsy in 2018 Colonoscopy in 2018 Allergies: Coded Allergies: No Known Allergies (Unverified , 04/05/18) Objective . Vital Signs Date Time Temp Pulse Resp B/P (MAP) Pulse Ox O2 Delivery O2 Flow Rate FiO2 04/08/18 12:00 98.5 49 18 102/50 (67) 96 04/08/18 08:46 99.4 69 17 119/60 (79) 93 04/08/18 08:00 Room Air 04/08/18 05:10 98.8 69 18 132/58 (82) 97 04/08/18 04:00 Room Air 04/08/18 00:00 Room Air 04/07/18 23:00 97.7 80 18 140/60 (86) 96 04/07/18 20:26 100.3 80 18 139/74 (95) 96 04/07/18 20:00 Room Air 04/07/18 16:00 98.7 67 18 132/52 (78) 95 04/07/18 13:30 20 . Laboratory Tests Test 04/07/18 07:20 04/08/18 06:02 White Blood Count 2.9 TH/MM3 2.8 TH/MM3 Red Blood Count 2.49 MIL/MM3 2.37 MIL/MM3 Hemoglobin 7.2 GM/DL 6.8 GM/DL Hematocrit 21.0 % 20.4 % Mean Corpuscular Volume 84.3 FL 86.3 FL Mean Corpuscular Hemoglobin 28.7 PG 28.8 PG Mean Corpuscular Hemoglobin Concent 34.0 % 33.4 % Red Cell Distribution Width 18.1 % 18.5 % Platelet Count 45 TH/MM3 36 TH/MM3 Mean Platelet Volume 13.7 FL 12.8 FL CBC Comment AUTO DIFF AUTO DIFF Differential Total Cells Counted 100 100 Neutrophils % (Manual) 45 % 57 % Band Neutrophils % 29 % 22 % Lymphocytes % 23 % 14 % Monocytes % 1 % 7 % Eosinophils % 1 % Neutrophils # (Manual) 2.2 TH/MM3 2.2 TH/MM3 Metamyelocytes 1 % Differential Comment FINAL DIFF MANUAL FINAL DIFF MANUAL Platelet Estimate LOW LOW Platelet Morphology Comment GIANT ENLARGED Ovalocytes 1+ Laboratory Tests Test 04/07/18 07:20 04/08/18 06:02 Blood Urea Nitrogen 36 MG/DL 38 MG/DL Creatinine 1.79 MG/DL 1.65 MG/DL Random Glucose 96 MG/DL 99 MG/DL Calcium Level 8.1 MG/DL 8.3 MG/DL Phosphorus Level 4.3 MG/DL 3.3 MG/DL Sodium Level 141 MEQ/L 139 MEQ/L Potassium Level 3.5 MEQ/L 4.1 MEQ/L Chloride Level 107 MEQ/L 105 MEQ/L Carbon Dioxide Level 22.7 MEQ/L 22.6 MEQ/L Anion Gap 11 MEQ/L 11 MEQ/L Estimat Glomerular Filtration Rate 28 ML/MIN 31 ML/MIN Uric Acid 6.8 MG/DL Total Protein 6.5 GM/DL Albumin 2.9 GM/DL Magnesium Level 2.1 MG/DL Alkaline Phosphatase 123 U/L Aspartate Amino Transf (AST/SGOT) 18 U/L Alanine Aminotransferase (ALT/SGPT) 20 U/L Total Bilirubin 1.7 MG/DL Free Thyroxine 1.20 NG/DL Thyroid Stimulating Hormone 3rd Gen 1.370 uIU/ML Microbiology Date/Time Source Procedure Growth Status 04/05/18 13:00 Blood Peripheral Aerobic Blood Culture - Preliminary NO GROWTH IN 3 DAYS Resulted 04/05/18 13:00 Blood Peripheral Anaerobic Blood Culture - Preliminary NO GROWTH IN 3 DAYS Resulted 04/05/18 12:45 Blood Peripheral Aerobic Blood Culture - Preliminary NO GROWTH IN 3 DAYS Resulted 04/05/18 12:45 Blood Peripheral Anaerobic Blood Culture - Preliminary NO GROWTH IN 3 DAYS Resulted Imaging Last Impressions Renal Ultrasound 04/06/18 0000 Signed Impressions: Service Date/Time: Friday, April 06, 2018 17:09 - CONCLUSION: Normal examination. Michael Parsons MD Foot X-Ray 04/05/18 0000 Signed Impressions: Service Date/Time: Thursday, April 05, 2018 12:37 - CONCLUSION: 1. Degenerative osteoarthritis. 2. Diffuse soft tissue swelling without acute fracture. Huber Plunkett MD Foot MRI 04/05/18 0000 Signed Impressions: Service Date/Time: Thursday, April 05, 2018 15:08 - CONCLUSION: Negative runoff myelitis or deep space abscess SPECT TAGGED white cell study may be of benefit if symptoms persist. Nolberto Elkins MD FACR Chest X-Ray 04/05/18 0000 Signed Impressions: Service Date/Time: Thursday, April 05, 2018 22:09 - CONCLUSION: No acute disease Thien Davidson MD Physical Exam GENERAL: awake and alert, not in respiratory distress. SKIN: Warm and dry. No generalized rash, no ecchymoses and no evidence of embolic lesions. HEAD: Atraumatic. Normocephalic. No temporal wasting, or tenderness. EYES: Pale conjunctiva. No petechia or hemorrhage. Pupils equal, round and reactive to light. Extraocular movements full and intact. No scleral icterus. No injection or drainage. EARS, NOSE AND THROAT: Nose without bleeding or purulent nasal discharge. No sinus tenderness. Mucous membranes pink and moist. No oral lesions noted. No exudate. No oral thrush. NECK: Trachea midline. Supple and not tender, no meningeal signs CARDIOVASCULAR: Regular rate and rhythm. No murmurs, rubs or gallops heard RESPIRATORY: Clear to auscultation. Breath sounds equal bilaterally. No rales , wheezing or rhonchi ABDOMEN: Soft, obese, non-tender, nondistended. Bowel sounds present and normoactive. No guarding. No rebound. No organomegaly. EXTREMITIES: No clubbing, cyanosis. Has edema both feet. L foot - her 4th toe is slight red in color. R foot, the second toe is red and swollen and on lateral aspect there is a draining area with bloody discharge. BOth feet are very sensitive when touched which she attributes to her neuropathy. No erythema noted on dorsum of her R foot, no lymphangitis. Scars both knees C/W surgical history. No calf tenderness. Well perfused and warm. Good ROM joints NEUROLOGICAL: Awake and alert. Cranial nerves grossly intact. Motor grossly within normal limits. PSYCHIATRIC: Normal affect, calm and cooperative. LINE: No evidence of infection Assessment & Plan Remarks IMPRESSION Febrile illness possible sepsis due to the R foot infection Cellulitis R second toe, ?osteomyelitis MDS, problem with anemia, now with worsening neutropenia and thrombocytopenia CKD, creatinine worse, ?due to infection Severe neuropathy DM RECOMMENDATION Follow C/S Continue Vanco - for GPC, MRSA coverage Continue Zosyn for GNR coverage including PSAE Follow temps Follow CBC Monitor progress Podiatry following - OR plans today I will determine course of RX depending on results of work-up and surgical intervention Marie Perez MD April 08, 2018 12:47
[2018-04-08] MEDS ORDERED: ACETAMINOPHEN 1000 MG/100 ML 100 ML IV ONE (13:13)
[2018-04-08] MEDS ORDERED: FAMOTIDINE 20 MG/2 ML VIAL ONE (13:16)
[2018-04-08] MEDS ORDERED: METOCLOPRAMIDE HCL 10 MG/2 ML VIAL ONE (13:21)
[2018-04-08] MEDS: VANCOMYCIN INJ 2,000 MG in SODIUM CHLORID 0.9% 500 ML INJ 500 ML IV SCH (14:05)
[2018-04-08] MEDS ORDERED: BUPIVACAINE HCL PF 0.25% 30 ML VIAL ONE (15:39)
--- NOTE | 2018-04-08 15:58 | HHI.PR ---
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
[2018-04-08] MEDS ORDERED: DO NOT ADM ANY ANTICOAGULANT DRUGS PRN (16:05)
[2018-04-08] MEDS ORDERED: MIDAZOLAM HCL 2 MG/2 ML VIAL ONE (16:11)
[2018-04-08] MEDS ORDERED: MORPHINE SULFATE 4 MG/ML INJ ONE (16:11)
--- NOTE | 2018-04-08 16:18 | HHI.PR ---
Subjective Remarks 72-year-old white female being admitted for suspected osteomyelitis. Patient was in her usual state of health until a few days ago when she first came to the emergency department due to pain in her right second toe. She was discharged with oral antibiotics but says that the redness of her toe persisted with no improvement. Says that the pain in her right foot increased and thus she decided come back to the emergency department. She started feeling subjective fevers and chills. Denies any nausea vomiting diarrhea or any coughing. She says she had to call 911 and was not able to drive due to the severe pain in her foot. Says that it hurts to bear weight on both feet but the right foot is substantially greater. Denies any puncturing injury. She reports chronic lower extremity edema which is worse than her baseline, says she takes a diuretic at home otherwise. Reports being compliant with her medications. She says that normally his sugars run in the 120s in the morning fasting. Patient says she gets blood transfusions twice a month, follows up with oncology. In the emergency department she was noted to have a climbing fever from 102- 103. ESR obtained is greater than 140. Hemoglobin was 5.7. Blood cultures were drawn and vancomycin dose was administered in the emergency department. 5-15 Nursing denies any deterioration since last night except for unexplained hypoglycemia where the patient's blood sugars went into the 20s on a serum but checked this morning. Patient herself says she ate some dinner last night but was apparently asymptomatic even with the sugar dropped this morning. Says she has never had hypoglycemia episodes like this in the past. 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 Sundar Gabriel Mónica Procedure: Right 2nd digit incision and drainage with bone biopsy Findings: pus, gout and soft bone ASHLEY RN AND PT AND CM WILL NEED ANTIBIOTICS SUSPECTED OSTEOMYELITIS Objective Vitals Vital Signs Date Time Temp Pulse Resp B/P (MAP) Pulse Ox O2 Delivery O2 Flow Rate FiO2 04/08/18 12:00 98.5 49 18 102/50 (67) 96 04/08/18 08:46 99.4 69 17 119/60 (79) 93 04/08/18 08:00 Room Air 04/08/18 05:10 98.8 69 18 132/58 (82) 97 04/08/18 04:00 Room Air 04/08/18 00:00 Room Air 04/07/18 23:00 97.7 80 18 140/60 (86) 96 04/07/18 20:26 100.3 80 18 139/74 (95) 96 04/07/18 20:00 Room Air I/O 04/07/18 04/07/18 04/07/18 04/08/18 04/08/18 04/08/18 07:00 15:00 23:00 07:00 15:00 23:00 Intake Total 1362 ml 1200 ml 480 ml 500 ml Output Total 600 ml 550 ml 5 ml Balance 1362 ml 600 ml -70 ml 495 ml Intake Oral 710 ml 1200 ml 480 ml IV Total 652 ml Other 500 ml Output Urine Total 600 ml 550 ml Estimated Blood Loss 5 ml # Voids 5 4 1 # Bowel Movements 0 0 Result Diagram: 04/08/18 0602 04/08/18 06 Other Results Laboratory Tests Test 04/06/18 04:38 04/06/18 07:35 04/06/18 18:38 04/07/18 07:20 White Blood Count 4.2 TH/MM3 2.9 TH/MM3 Red Blood Count 2.27 MIL/MM3 2.49 MIL/MM3 Hemoglobin 6.5 GM/DL 7.2 GM/DL Hematocrit 19.1 % 21.0 % Mean Corpuscular Volume 84.0 FL 84.3 FL Mean Corpuscular Hemoglobin 28.8 PG 28.7 PG Mean Corpuscular Hemoglobin Concent 34.3 % 34.0 % Red Cell Distribution Width 17.8 % 18.1 % Platelet Count 58 TH/MM3 45 TH/MM3 Mean Platelet Volume 12.8 FL 13.7 FL CBC Comment AUTO DIFF AUTO DIFF Differential Total Cells Counted 100 100 Neutrophils % (Manual) 23 % 45 % Band Neutrophils % 46 % 29 % Lymphocytes % 15 % 23 % Monocytes % 1 % 1 % Eosinophils % 5 % 1 % Neutrophils # (Manual) 3.3 TH/MM3 2.2 TH/MM3 Metamyelocytes 6 % 1 % Myelocytes 4 % Nucleated Red Blood Cells 2 /100 WBC Differential Comment FINAL DIFF MANUAL FINAL DIFF MANUAL Dohle Bodies PRESENT Platelet Estimate LOW LOW Platelet Morphology Comment ENLARGED GIANT Hematology Comments Blood Urea Nitrogen 34 MG/DL 36 MG/DL Creatinine 1.80 MG/DL 1.79 MG/DL Random Glucose 29 MG/DL 96 MG/DL Calcium Level 7.9 MG/DL 8.1 MG/DL Sodium Level 141 MEQ/L 141 MEQ/L Potassium Level 3.6 MEQ/L 3.5 MEQ/L Chloride Level 106 MEQ/L 107 MEQ/L Carbon Dioxide Level 24.9 MEQ/L 22.7 MEQ/L Anion Gap 10 MEQ/L 11 MEQ/L Estimat Glomerular Filtration Rate 28 ML/MIN 28 ML/MIN Urine Color LIGHT-YELLOW Urine Turbidity CLEAR Urine pH 5.0 Urine Specific [place] 1.011 Urine Protein TRACE mg/dL Urine Glucose (UA) NEG mg/dL Urine Ketones NEG mg/dL Urine Occult Blood NEG Urine Nitrite NEG Urine Bilirubin NEG Urine Urobilinogen LESS THAN 2.0 MG/DL Urine Leukocyte Esterase NEG Urine WBC 3 /hpf Urine Squamous Epithelial Cells 1 /hpf Urine Granular Casts 2 /lpf Microscopic Urinalysis Comment CULT NOT INDICATED Phosphorus Level 4.3 MG/DL Uric Acid 6.8 MG/DL Test 04/08/18 06:02 White Blood Count 2.8 TH/MM3 Red Blood Count 2.37 MIL/MM3 Hemoglobin 6.8 GM/DL Hematocrit 20.4 % Mean Corpuscular Volume 86.3 FL Mean Corpuscular Hemoglobin 28.8 PG Mean Corpuscular Hemoglobin Concent 33.4 % Red Cell Distribution Width 18.5 % Platelet Count 36 TH/MM3 Mean Platelet Volume 12.8 FL CBC Comment AUTO DIFF Differential Total Cells Counted 100 Neutrophils % (Manual) 57 % Band Neutrophils % 22 % Lymphocytes % 14 % Monocytes % 7 % Neutrophils # (Manual) 2.2 TH/MM3 Differential Comment FINAL DIFF MANUAL Platelet Estimate LOW Platelet Morphology Comment ENLARGED Ovalocytes 1+ Blood Urea Nitrogen 38 MG/DL Creatinine 1.65 MG/DL Random Glucose 99 MG/DL Total Protein 6.5 GM/DL Albumin 2.9 GM/DL Calcium Level 8.3 MG/DL Phosphorus Level 3.3 MG/DL Magnesium Level 2.1 MG/DL Alkaline Phosphatase 123 U/L Aspartate Amino Transf (AST/SGOT) 18 U/L Alanine Aminotransferase (ALT/SGPT) 20 U/L Total Bilirubin 1.7 MG/DL Sodium Level 139 MEQ/L Potassium Level 4.1 MEQ/L Chloride Level 105 MEQ/L Carbon Dioxide Level 22.6 MEQ/L Anion Gap 11 MEQ/L Estimat Glomerular Filtration Rate 31 ML/MIN Free Thyroxine 1.20 NG/DL Thyroid Stimulating Hormone 3rd Gen 1.370 uIU/ML Random Vancomycin Level 12.0 COMMENT Imaging Last Impressions Renal Ultrasound 04/06/18 0000 Signed Impressions: Service Date/Time: Friday, April 06, 2018 17:09 - CONCLUSION: Normal examination. Michael Parsons MD Foot X-Ray 04/05/18 0000 Signed Impressions: Service Date/Time: Thursday, April 05, 2018 12:37 - CONCLUSION: 1. Degenerative osteoarthritis. 2. Diffuse soft tissue swelling without acute fracture. Huber Plunkett MD Foot MRI 04/05/18 0000 Signed Impressions: Service Date/Time: Thursday, April 05, 2018 15:08 - CONCLUSION: Negative runoff myelitis or deep space abscess SPECT TAGGED white cell study may be of benefit if symptoms persist. Nolberto Elkins MD FACR Chest X-Ray 04/05/18 0000 Signed Impressions: Service Date/Time: Thursday, April 05, 2018 22:09 - CONCLUSION: No acute disease Thien Davidson MD Objective Remarks GENERAL: Awake alert BUT LETHARGIC POST SURGERY CAN BE talkative and cooperative SKIN: Warm and dry. RIGHT foot is dressed HEAD: Atraumatic. Normocephalic. EYES: Pupils equal and round. No scleral icterus. No injection or drainage. Extraocular muscles intact ENT: No nasal bleeding or discharge. Mucous membranes pink and moist. Tongue is midline NECK: Trachea midline. No JVD. Supple CARDIOVASCULAR: Regular rate and rhythm. S1-S2 no S3 or S4 RESPIRATORY: No accessory muscle use. Clear to auscultation. Breath sounds equal bilaterally. GASTROINTESTINAL: Abdomen soft, non-tender, nondistended. Hepatic and splenic margins not palpable. MUSCULOSKELETAL: Extremities without clubbing, cyanosis, or edema. No obvious deformities. NEUROLOGICAL: Awake and alert. No obvious cranial nerve deficits. Motor grossly within normal limits. Five out of 5 muscle strength in the arms and legs. Normal speech. RIGHT foot is dressed PSYCHIATRIC: Appropriate mood and affect; insight and judgment normal. 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 Post Op Diagnosis: same Surgeon: Sundar Sales Civil Technician(s): scrub Procedure: Right 2nd digit incision and drainage with bone biopsy Findings: pus, gout and soft bone Complications: none Specimen(s) removed: soft tissue and bone for path, bone cx for micro Estimated blood loss: less 5mL Anesthesia: General, Local Drains: None Tourniquet time (min at mmHg) none Patient to: Other Patient Condition: Good Implant/Devices: SEE IMPLANT LOG (if applicable) Date/Time of Procedure: SEE SURGICAL CARE RECORD Medications and IVs Current Medications Acetaminophen/ Hydrocodone Bitart ([place] 5-325 Mg) 1 tab ONCE ONCE PO Last administered on 04/05/18 12:49; Start 04/05/18 at 12:30; Stop 04/05/18 at 12:31 ; Status DC Vancomycin HCl 1800 mg/Sodium Chloride 518 ml @ 250 mls/hr ONCE ONCE IV Last administered on 04/05/18at 13:41; Start 04/05/18 at 13:00; Stop 04/05/18 at 15:04 ; Status DC Sodium Chloride 250 ml @ 15 mls/hr ONCE ONCE IV Last administered on at 14:37; Start 04/05/18 at 13:00; Stop 04/06/18 at 05:39; Status DC Acetaminophen (Tylenol) 1,000 mg ONCE ONCE PO Last administered on 04/05/18at 14:16; Start 04/05/18 at 14:15; Stop 04/05/18 at 14:16; Status DC Sodium Chloride 1,000 ml @ 999 mls/hr BOLUS ONCE IV Last administered on 04/05at 14:38; Start 04/05/18 at 14:15; Stop 04/05/18 at 14:58; Status DC Atorvastatin Calcium (Lipitor) 40 mg HS PO Last administered on 04/07/18at 22:26 ; Start 04/05/18 at 21:00 Levothyroxine Sodium (Synthroid) 75 mcg DAILY@0600 PO Last administered on 04/08at 05:58; Start 04/06/18 at 06:00 Metoprolol Tartrate (Lopressor) 25 mg BID PO Last administered on 04/08/18at 10: 03; Start 04/05/18 at 21:00 Montelukast Sodium (Singulair) 10 mg HS PO Last administered on 5/16/18at 22:26 ; Start 04/05/18 at 21:00 Piperacillin Sod/ Tazobactam Sod 50 ml @ 100 mls/hr Q6H IV Last administered on 04/07/18at 04:38; Start 04/05/18 at 16:00; Stop 04/07/18 at 08:59; Status DC Acetaminophen/ Hydrocodone Bitart ([place] 7.5-325 Mg) 1 tab Q6H PRN PO pain 1- 10 Last administered on 04/08/18at 10:03; Start 04/05/18 at 15:15 Albumin Human 50 ml @ 60 mls/hr Q12H IV Last administered on 04/08/18 04:46; Start 04/05/18 at 16:00 Sodium Chloride 250 ml @ 15 mls/hr ONCE ONCE IV Last administered on at 08:59; Start 04/06/18 at 08:00; Stop 04/07/18 at 00:39; Status DC Acetaminophen (Tylenol) 650 mg Q4H PRN PO SEE LABEL COMMENTS; Start 04/06/18 at 08:00; Stop 04/06/18 at 23:59; Status DC Diphenhydramine HCl (Benadryl) 25 mg Q4H PRN PO SEE LABEL COMMENTS Last administered on 04/06/18at 10:16; Start 04/06/18 at 08:00; Stop 04/06/18 at 23:59 ; Status DC Furosemide (Lasix Inj) 20 mg ONCE ONCE IV PUSH Last administered on 04/06/18at 14:20; Start 04/06/18 at 09:00; Stop 04/06/18 at 09:01; Status DC Dextrose (D50w (Vial) Inj) 50 ml UNSCH PRN IV PUSH HYPOGLYCEMIA-SEE COMMENTS Last administered on 04/06/18at 12:21; Start 04/06/18 at 10:00 Glucagon (Glucagon Inj) 1 mg UNSCH PRN OTHER HYPOGLYCEMIA-SEE COMMENTS Last administered on 04/06/18at 10:16; Start 04/06/18 at 10:00 Pharmacy Profile Note 0 ml @ 0 mls/hr UNSCH OTHER ; Start 04/06/18 at 18:45 Vancomycin HCl 1500 mg/Sodium Chloride 515 ml @ 250 mls/hr Q24H IV Last administered on 04/06/18at 23:49; Start 04/06/18 at 23:00; Stop 04/08/18 at 09:07 ; Status DC Miscellaneous Information ([facility] [place] Info) SPECIFIC LAB TO BE DRAWN:VANCO TROUGH DATE TO BE DR... ONCE ONCE .XX ; Start 04/08/18 at 22:45; Stop 04/08/18 at 22:46; Status Cancel Piperacillin Sod/ Tazobactam Sod 50 ml @ 100 mls/hr Q6H IV Last administered on 04/08/18at 10:03; Start 04/07/18 at 11:00 Sodium Chloride 250 ml @ 15 mls/hr ONCE ONCE IV Last administered on at 10:07; Start 04/08/18 at 08:45; Stop 04/09/18 at 01:24 Vancomycin HCl 2000 mg/Sodium Chloride 520 ml @ 250 mls/hr Q36H IV Last administered on 04/08/18at 14:05; Start 04/08/18 at 12:00 Neomycin/Polymyxin (Neosporin G.u. Irr) 2 ml STK-MED ONCE .ROUTE ; Start at 12:30; Stop 04/08/18 at 12:31; Status DC Acetaminophen 100 ml @ As Directed STK-MED ONCE IV ; Start 04/08/18 at 13:13; Stop 04/08/18 at 13:14; Status DC Famotidine (Pepcid Inj) 20 mg STK-MED ONCE .ROUTE ; Start 04/08/18 at 13:16; Stop 04/08/18 at 13:17; Status DC Metoclopramide HCl (Reglan Inj) 10 mg STK-MED ONCE .ROUTE ; Start 04/08/18 at 13 :21; Stop 04/08/18 at 13:22; Status DC Bupivacaine HCl (Marcaine Pf 0.25% Inj) 30 ml STK-MED ONCE .ROUTE Last administered on 04/08/18at 15:39; Start 04/08/18 at 15:39; Stop 04/08/18 at 15:40 ; Status DC A/P Assessment and Plan 72-year-old white female being admitted for suspected osteomyelitis Cellulitis with possible osteomyelitis - Already failed outpatient Bactrim, blood cultures obtained -Mild improvement since yesterday both in appearance and with cessation of fevers, continue vancomycin and Zosyn - right foot MRI without contrast (given patient's LA) shows no definitive evidence of osteo-myelitis - Awaiting podiatry consultation -seen by podiatry for surgery on the toe tomorrow Possible gout due to elevated uric acid 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 intake, will monitor for now w/ accuchedcks and if recurs then we will proceed with aggressive hypoglycemia workup Acute anemia -Acute on chronic myelodysplastic syndrome, already received 2 units of blood yesterday, but still dropping, -Hematology following, ordering 2 more units of blood TRANSFUSE 2 MORE UNITS PRBC 5-17 CHRONIC MDS - TRANSFUSE Acute on chronic kidney injury -Despite IV albumin, creatinine and change, consulting nephrology, hold home lisinopril -BMP in a.m. Possible gout due to elevated uric Bilateral lower extremity edema -Likely dependent edema with a component of chronic kidney disease, keep legs elevated -consulting nephrology -echo from 5 months ago shows intact EF Coronary artery disease -Continue home Lipitor and beta-hcerri Possible gout due to elevated uric acid Unable to pharmacologically anticoagulant given acute anemia, unable to mechanically anticoagulate given severe lower extremity edema Discharge Planning Pending PODIATRY and infectious disease clearance and oncology clearance Nolberto Kaplan DO April 08, 2018 16:18
--- NOTE | 2018-04-08 16:41 | MP ---
cc: Sundar Can DPM DATE OF OPERATION: 04/08/2018 PREOPERATIVE DIAGNOSIS: Right second digit osteomyelitis abscess, gouty tophi. POSTOPERATIVE DIAGNOSIS: Right second digit osteomyelitis abscess, gouty tophi. PROCEDURE PERFORMED: Incision and drainage, bone debridement, right second digit. COMPLICATIONS: None. SPECIMEN: Soft tissue and bone for pathological analysis. Bone culture for microbial analysis. ESTIMATED BLOOD LOSS: Less than 5 mL. ANESTHESIA: General with local 7 mL of 0.25% Marcaine plain. DISPOSITION: The patient returned to floor to monitor multiple medical conditions as well as clinical improvement of foot. HISTORY OF PRESENT ILLNESS: This is a 72-year-old female who upon examining appeared to have a septic purulent chalky draining wound from her right second digit. Surgery indicated. No guarantees given or implied regarding the outcome. The patient wished for digit salvage. PROCEDURE IN DETAIL: Under mild sedation, the patient was brought into the operating room, placed on the operating table in the supine position. Following the induction of general anesthesia, the right lower extremity was scrubbed, prepped and draped in the usual aseptic fashion. The foot was elevated and examined. There was noted to be purulent drainage coming from the distal lateral aspect of the patient's right second digit DIPJ. An elliptical incision to place, removing an ulcerative surface down to chronically inflamed skin with evidence of clinical findings of gout. This was then debrided down to the joint capsule beyond the joint and into the tendon. Bone was noted to be soft. A culture taken of the bone. Bone was debrided to viable bleeding bone. A sample of the bone was then sent for pathological analysis. The soft tissue gout substance was also sent for pathological analysis. The wound was flushed with copious amounts of normal saline, loosely coapted utilizing nylon. The digit remained viable throughout the procedure. No delayed capillary fill time. Minimal bleeding noted. A bulky bandage applied. The patient was transferred from OR to PACU with all vital signs stable. I will continue to follow along pending micro and path. Anticipate bandage change in 1-2 days. ELIAS Hayes/MADELEINE , 03:58 PM , 04:39 PM
[2018-04-08 19:39] LABS: HEMOGLOBIN A1C 6.4 % (4.3-6.0)
[2018-04-08] MEDS: MONTELUKAST SODIUM 10 MG TAB PO SCH (20:20)
[2018-04-08] MEDS: ATORVASTATIN 40 MG TAB PO SCH (20:20)
[2018-04-08] MEDS ORDERED: PHARMACY ORDERED LAB ONE (22:45)
[2018-04-09] MEDS: PIPERACIL-TAZO 2.25 GM PREMIX 50 ML IV SCH ×5 (00:13→23:00)
[2018-04-09] MEDS: ALBUMIN 25% INJ 50 ML IV SCH ×2 (03:18→15:53)
[2018-04-09 04:30] VITALS: BP 119/58; PULSE 44; RESP 18; TEMP 97.2; O2SAT 98
[2018-04-09] MEDS: LEVOTHYROXINE SODIUM 75 MCG TAB PO SCH (05:19)
--- NOTE | 2018-04-09 07:25 | PD.ONC.PN ---
Subjective Subjective Remarks Patient seen and examined, vital signs, labs, medications, microbiology, imaging studies and operative note from 04/08/2018 reviewed. Subjectively; the patient reports having improved pain in the right foot after undergoing surgery yesterday. She tells me she feels weak because she has essentially remained bedbound since she was hospitalized. She is requesting physical therapy to be initiated. Additionally, the patient denies having had fevers overnight. She tells me her breathing is normal and she denies chest pain. She tells me the nursing staff has had difficulty establishing IV access and blood draws required multiple sticks. She wants to know if she can eventually undergo port placement. Objective Data Date Time Temp Pulse Resp B/P (MAP) Pulse Ox O2 Delivery O2 Flow Rate FiO2 04/09/18 04:30 97.2 44 18 119/58 (78) 98 04/08/18 23:55 97.3 54 18 138/60 (86) 97 04/08/18 22:09 97.5 51 19 119/56 96 04/08/18 21:30 97.8 50 19 121/57 96 04/08/18 21:12 97.7 51 19 133/60 96 04/08/18 20:20 Room Air 04/08/18 19:58 97.9 60 18 149/62 (91) 98 04/08/18 18:59 98.0 57 18 120/54 98 04/08/18 18:35 98.0 55 18 117/52 97 04/08/18 17:02 98.0 55 18 117/52 (73) 97 04/08/18 16:30 60 16 139/62 (87) 95 Room Air 04/08/18 16:15 60 21 132/60 (84) 100 Room Air 04/08/18 16:02 98.7 70 22 121/60 (80) 100 Nasal Cannula 3 04/08/18 12:00 98.5 49 18 102/50 (67) 96 04/08/18 08:46 99.4 69 17 119/60 (79) 93 04/08/18 08:00 Room Air 04/09/18 04/09/18 04/09/18 07:00 15:00 23:00 Intake Total 650 ml Output Total 550 ml Balance 100 ml Result Diagram: 04/08/1860104/08/18601 Culture Results Microbiology Date/Time Source Procedure Growth Status 04/08/18 14:30 Wound Toe Fungal Smear Pending Received 04/08/18 14:30 Wound Toe Fungal Culture Pending Received 04/08/18 14:30 Wound Toe Acid Fast Stain Pending Received 04/08/18 14:30 Wound Toe Mycobacterial Culture Pending Received 04/08/18 14:30 Wound Toe Gram Stain Pending Received 04/08/18 14:30 Wound Toe Wound Culture Pending Received Administered Medications Medications (Trade) Dose Ordered Sig/Riley Route PRN Reason Start Time Stop Time Status Last Admin Dose Admin Atorvastatin Calcium (Lipitor) 40 mg HS PO 04/05/18 21:00 04/08/18 20:20 Levothyroxine Sodium (Synthroid) 75 mcg DAILY@0600 PO 04/06/18 06:00 04/09/18 05:19 Metoprolol Tartrate (Lopressor) 25 mg BID PO 04/05/18 21:00 04/08/18 20:20 Montelukast Sodium (Singulair) 10 mg HS PO 04/05/18 21:00 04/08/18 20:20 Acetaminophen/ Hydrocodone Bitart ([place] 7.5-325 Mg) 1 tab Q6H PRN PO pain 1-10 04/05/18 15:15 04/08/18 10:03 Albumin Human 50 ml @ 60 mls/hr Q12H IV 04/05/18 16:00 04/09/18 03:18 Dextrose (D50w (Vial) Inj) 50 ml UNSCH PRN IV PUSH HYPOGLYCEMIA-SEE COMMENTS 04/06/18 10:00 04/06/18 12:21 Glucagon (Glucagon Inj) 1 mg UNSCH PRN OTHER HYPOGLYCEMIA-SEE COMMENTS 04/06/18 10:00 04/06/18 10:16 Piperacillin Sod/ Tazobactam Sod 50 ml @ 100 mls/hr Q6H IV 04/07/18 11:00 04/09/18 04:27 Vancomycin HCl 2000 mg/Sodium Chloride 520 ml @ 250 mls/hr Q36H IV 04/08/18 12:00 04/08/18 14:05 Objective Remarks GENERAL: She appears pale and somewhat frail and pale.Elderly lady, laying in bed, appears to be no acute distress. SKIN: No rashes, ecchymoses or lesions. Cool and dry. HEAD: Atraumatic. Normocephalic. No temporal or scalp tenderness. EYES: Pupils equal round and reactive. Extraocular motions intact. No scleral icterus. No injection or drainage. ENT: Nose without bleeding, purulent drainage or septal hematoma. Throat without erythema, tonsillar hypertrophy or exudate. Uvula midline. Airway patent. NECK: Trachea midline. No JVD or lymphadenopathy. Supple, nontender, no meningeal signs. CARDIOVASCULAR: Regular rate and rhythm without murmurs, gallops, or rubs. RESPIRATORY: Clear to auscultation. Breath sounds equal bilaterally. No wheezes , rales, or rhonchi. GASTROINTESTINAL: Abdomen soft, non-tender, nondistended. No hepato-splenomegaly , or palpable masses. No guarding. MUSCULOSKELETAL: Extremities without clubbing, cyanosis, or edema. No joint tenderness, effusion, or edema noted. No calf tenderness. Negative Homans sign bilaterally. NEUROLOGICAL: Awake and alert. Cranial nerves II through XII intact. Motor and sensory grossly within normal limits. Five out of 5 muscle strength in all muscle groups. Peripheral neuropathy with decreased sensation of the lower extremities distal to the knees. Skin: Right foot is dressed in surgical dressing and bandages. Previously noted malodor/anaerobic smell is no longer present. Assessment/Plan Assessment 72-year-old female with a recent diagnosis of myelodysplastic syndrome associated with deletion 5 q. was recently initiated on Revlimid 10 mg p.o. daily for management of the underlying myelodysplastic syndrome. She took a total of 2 doses prior to presenting to [facility] earlier this week with complaints of severe pain involving the right foot associated with redness and purulent discharge from the right second digit. She was hospitalized with sepsis related to cellulitis. On 04/08/2018 she underwent surgical debridement of the right second toe, based on the intraoperative findings it appeared there were chronic gout related changes as well as changes to the bone resulting in softness. Osteomyelitis is suspected. Samples of the bone were sent to the microbiology lab for further testing. The patient remains on broad-spectrum antibiotic coverage with vancomycin and cefepime. Additional issues include acute kidney injury. The patient's myelodysplastic syndrome has resulted in significant refractory anemia requiring red cell transfusions on a weekly basis. Plan 1. Myelodysplastic syndrome: At this point I would recommend continued supportive transfusions. Her hemoglobin was noted to be 6.8 g/dL yesterday, I will transfuse 1 unit today though we do not have a CBC for today. When she recovers from her cellulitis she will be a candidate for port placement given the difficulty in establishing IV access and would lab draws. Thrombocytopenia: Also related to MDS. Disposition: Outpatient therapy with Revlimid is on hold until her acute issue with the cellulitis/osteomyelitis of the right lower extremity has improved. Typically agent such as Revlimid are not started for at least 10-14 days after surgery to allow proper wound healing. Dylan Mittal MD April 09, 2018 07:25
[2018-04-09] MEDS ORDERED: SODIUM CHLOR 0.9% 250 ML INJ 250 ML IV ONE (07:30)
[2018-04-09] MEDS ORDERED: diphenhydrAMINE HCL 25 MG CAP PO PRN (07:30)
[2018-04-09] MEDS ORDERED: ACETAMINOPHEN 325 MG TAB PO PRN (07:30)
[2018-04-09 08:00] VITALS: BP 138/59; PULSE 47; RESP 16; TEMP 97.8; O2SAT 98
[2018-04-09] MEDS: METOPROLOL TARTRATE 25 MG TAB PO SCH ×2 (09:00→22:19)
--- NOTE | 2018-04-09 11:21 | HHI.IDPN ---
Subjective Subjective Remarks Patient is a 72-year-old female, with known diabetes and neuropathy, presented to the hospital for further evaluation of severe pain on her right foot. As a baseline patient always has neuropathy in both feet where she has tingling and pins and needles sensation. About 6 days prior to admission, she had noted redness of her right second toe. Was a little bit swollen, and it started getting worse. She started experiencing more severe pain on that right foot, and she went to the emergency room on April 02. She was apparently given a shot of antibiotic and a prescription for an oral antibiotic. Patient stated that she did not have any x-ray done at that time or any blood work done. She has known MDS and has been getting Revlimid that was started about a week ago. She was not improving, and the pain persisted and worsened, so she presented to the hospital and admitted April 05. She did not know if she was having any fevers at home since she did not have any temperature. She however has not had any sweats. Denies any significant respiratory complaints, GI or any urinary complaints. Since admission patient has been febrile. Her white count has been decreasing as well as her platelet count. MRI did not show any evidence of osteomyelitis. Podiatry saw the patient and plans for surgery has been ordered for tomorrow. Patient currently still complaining of significant pain on her right foot. An area on her right second toe started draining today. Patient currently is on vancomycin and Zosyn. Infectious disease consultation has been requested to assist with evaluation and treatment of her fevers, cellulitis, in a patient with underlying MDS. Notes reviewed Temps ok Had OR yesterday Finding noted - had evidence of gout as well C/S and path report pending Creatinine better Abnormal VIRAL L; normal on R WBC low, platelet decreasing Antibiotics Vancomycin Zosyn Current Medications Medications (Trade) Dose Ordered Sig/Riley Route Start Time Stop Time Status Last Admin (Lipitor) 40 mg HS PO 04/05/18 21:00 04/08/18 20:20 (Synthroid) 75 mcg DAILY@0600 PO 04/06/18 06:00 04/09/18 05:19 (Lopressor) 25 mg BID PO 04/05/18 21:00 04/08/18 20:20 (Singulair) 10 mg HS PO 04/05/18 21:00 04/08/18 20:20 ([place] 7.5-325 Mg) 1 tab Q6H PRN PO 04/05/18 15:15 04/08/18 10:03 Albumin Human 50 ml @ 60 mls/hr Q12H IV 04/05/18 16:00 04/09/18 03:18 (D50w (Vial) Inj) 50 ml UNSCH PRN IV PUSH 04/06/18 10:00 04/06/18 12:21 (Glucagon Inj) 1 mg UNSCH PRN OTHER 04/06/18 10:00 04/06/18 10:16 Pharmacy Profile Note 0 ml @ 0 mls/hr UNSCH OTHER 04/06/18 18:45 Piperacillin Sod/ Tazobactam Sod 50 ml @ 100 mls/hr Q6H IV 04/07/18 11:00 04/09/18 04:27 Vancomycin HCl 2000 mg/Sodium Chloride 520 ml @ 250 mls/hr Q36H IV 04/08/18 12:00 04/08/18 14:05 ([facility] [place] Nursing Information) ALL NURSING DEPARTME... UNSCH PRN .XX 04/08/18 16:05 04/09/18 16:04 Sodium Chloride 250 ml @ 15 mls/hr ONCE ONCE IV 04/09/18 07:30 04/10/18 00:09 04/09/18 07:30 (Tylenol) 650 mg Q4H PRN PO 04/09/18 07:30 (Benadryl) 25 mg Q4H PRN PO 04/09/18 07:30 Past Medical History Chronic kidney disease Coronary Artery Disease Diabetes Type II Hyperlipidemia Hypertension Hypothyroidism Myelodysplastic Syndrome Neuropathy both feet Past Surgical History Bilateral heel surgery Cardiac catheterization Cholecystectomy Heal Spur surgery - both feet Bilateral knee replacement Right shoulder repair Bone marrow aspiration in 2018 Bone marrow biopsy in 2018 Colonoscopy in 2018 Allergies: Coded Allergies: No Known Allergies (Unverified , 04/05/18) Objective . Vital Signs Date Time Temp Pulse Resp B/P (MAP) Pulse Ox O2 Delivery O2 Flow Rate FiO2 04/09/18 08:00 97.8 47 16 138/59 (85) 98 04/09/18 08:00 Room Air 04/09/18 04:30 97.2 44 18 119/58 (78) 98 04/09/18 04:00 Room Air 04/09/18 00:00 Room Air 04/08/18 23:55 97.3 54 18 138/60 (86) 97 04/08/18 22:09 97.5 51 19 119/56 96 04/08/18 21:30 97.8 50 19 121/57 96 04/08/18 21:12 97.7 51 19 133/60 96 04/08/18 20:20 Room Air 04/08/18 19:58 97.9 60 18 149/62 (91) 98 04/08/18 18:59 98.0 57 18 120/54 98 04/08/18 18:35 98.0 55 18 117/52 97 04/08/18 17:02 98.0 55 18 117/52 (73) 97 04/08/18 16:30 60 16 139/62 (87) 95 Room Air 04/08/18 16:15 60 21 132/60 (84) 100 Room Air 04/08/18 16:02 98.7 70 22 121/60 (80) 100 Nasal Cannula 3 04/08/18 12:00 98.5 49 18 102/50 (67) 96 . Laboratory Tests Test 04/08/18 06:02 White Blood Count 2.8 TH/MM3 Red Blood Count 2.37 MIL/MM3 Hemoglobin 6.8 GM/DL Hematocrit 20.4 % Mean Corpuscular Volume 86.3 FL Mean Corpuscular Hemoglobin 28.8 PG Mean Corpuscular Hemoglobin Concent 33.4 % Red Cell Distribution Width 18.5 % Platelet Count 36 TH/MM3 Mean Platelet Volume 12.8 FL CBC Comment AUTO DIFF Differential Total Cells Counted 100 Neutrophils % (Manual) 57 % Band Neutrophils % 22 % Lymphocytes % 14 % Monocytes % 7 % Neutrophils # (Manual) 2.2 TH/MM3 Differential Comment FINAL DIFF MANUAL Platelet Estimate LOW Platelet Morphology Comment ENLARGED Ovalocytes 1+ Laboratory Tests Test 04/08/18 06:02 Blood Urea Nitrogen 38 MG/DL Creatinine 1.65 MG/DL Random Glucose 99 MG/DL Total Protein 6.5 GM/DL Albumin 2.9 GM/DL Calcium Level 8.3 MG/DL Phosphorus Level 3.3 MG/DL Magnesium Level 2.1 MG/DL Alkaline Phosphatase 123 U/L Aspartate Amino Transf (AST/SGOT) 18 U/L Alanine Aminotransferase (ALT/SGPT) 20 U/L Total Bilirubin 1.7 MG/DL Sodium Level 139 MEQ/L Potassium Level 4.1 MEQ/L Chloride Level 105 MEQ/L Carbon Dioxide Level 22.6 MEQ/L Anion Gap 11 MEQ/L Estimat Glomerular Filtration Rate 31 ML/MIN Hemoglobin A1c 6.4 % Free Thyroxine 1.20 NG/DL Thyroid Stimulating Hormone 3rd Gen 1.370 uIU/ML Microbiology Date/Time Source Procedure Growth Status 04/08/18 14:30 Wound Toe Fungal Smear - Final NO FUNGAL ELEMENTS SEEN. Resulted 04/08/18 14:30 Wound Toe Fungal Culture Pending Resulted 04/08/18 14:30 Wound Toe Acid Fast Stain Pending Received 04/08/18 14:30 Wound Toe Mycobacterial Culture Pending Received 04/08/18 14:30 Wound Toe Gram Stain - Final Resulted 04/08/18 14:30 Wound Toe Wound Culture Pending Resulted Imaging Last Impressions Renal Ultrasound 04/06/18 0000 Signed Impressions: Service Date/Time: Friday, April 06, 2018 17:09 - CONCLUSION: Normal examination. Michael Parsons MD Foot X-Ray 04/05/18 0000 Signed Impressions: Service Date/Time: Thursday, April 05, 2018 12:37 - CONCLUSION: 1. Degenerative osteoarthritis. 2. Diffuse soft tissue swelling without acute fracture. Huber Plunkett MD Foot MRI 04/05/18 0000 Signed Impressions: Service Date/Time: Thursday, April 05, 2018 15:08 - CONCLUSION: Negative runoff myelitis or deep space abscess SPECT TAGGED white cell study may be of benefit if symptoms persist. Nolberto Elkins MD FACR Chest X-Ray 04/05/18 0000 Signed Impressions: Service Date/Time: Thursday, April 05, 2018 22:09 - CONCLUSION: No acute disease Thien Davidson MD Physical Exam GENERAL: awake and alert, not in respiratory distress. SKIN: Warm and dry. No generalized rash HEAD: Atraumatic. Normocephalic. No temporal wasting, or tenderness. EYES: Pale conjunctiva. No petechia or hemorrhage. Pupils equal, round and reactive to light. Extraocular movements full and intact. No scleral icterus. No injection or drainage. EARS, NOSE AND THROAT: Nose without bleeding or purulent nasal discharge. No sinus tenderness. Mucous membranes pink and moist. No oral lesions noted. NECK: Trachea midline. Supple and not tender, no meningeal signs CARDIOVASCULAR: Regular rate and rhythm. No murmurs, rubs or gallops heard RESPIRATORY: Clear to auscultation. Breath sounds equal bilaterally. No rales , wheezing or rhonchi ABDOMEN: Soft, obese, non-tender, nondistended. Bowel sounds present and normoactive. No guarding. No rebound. No organomegaly. EXTREMITIES: No clubbing, cyanosis. Has edema both feet. L foot - her 4th toe is slight red in color, stable, ?gout. R foot - has dry intact dressing in place. Scars both knees C/W surgical history. No calf tenderness. Well perfused and warm. Good ROM joints NEUROLOGICAL: Grossly noon-focal. PSYCHIATRIC: Normal affect, calm and cooperative. LINE: No evidence of infection Assessment & Plan Remarks IMPRESSION Febrile illness possible sepsis due to the R foot infection Cellulitis R second toe, ?osteomyelitis, has gout seen during surgery Prob gout L 4th toe MDS, problem with anemia, now with worsening neutropenia and thrombocytopenia CKD, creatinine shae, ?got worse due to infection Severe neuropathy DM RECOMMENDATION Follow C/S and adjust Abx accordingly Continue Vanco - for GPC, MRSA coverage Continue Zosyn for GNR coverage including PSAE Follow temps Follow CBC Follow path report Monitor progress I will determine course of RX depending on results of work-up and surgical intervention - if bone C/S (+) or path (+), she will need course of Rx for osteomyelitis Explained plan to the patient Dr Rosa M Guzman available if needed this weekend Marie Perez MD April 09, 2018 11:21
--- NOTE | 2018-04-09 11:53 | EKG ---
Date Performed: 04/08/2018 Time Performed: 04:05:54 PTAGE: 72 years EKG: Sinus rhythm . Lateral ST-T changes are nonspecific Borderline ECG PREVIOUS TRACING : 01/12/2018 17.14 DOCTOR: Juan Antonio Judd Interpretating Date/Time 04/09/2018 11:48:54
[2018-04-09 12:00] VITALS: BP 152/67; PULSE 48; RESP 18; TEMP 97.5; O2SAT 99
--- NOTE | 2018-04-09 13:58 | HHI.PR ---
Subjective Remarks 72-year-old white female being admitted for suspected osteomyelitis. Patient was in her usual state of health until a few days ago when she first came to the emergency department due to pain in her right second toe. She was discharged with oral antibiotics but says that the redness of her toe persisted with no improvement. Says that the pain in her right foot increased and thus she decided come back to the emergency department. She started feeling subjective fevers and chills. Denies any nausea vomiting diarrhea or any coughing. She says she had to call 911 and was not able to drive due to the severe pain in her foot. Says that it hurts to bear weight on both feet but the right foot is substantially greater. Denies any puncturing injury. She reports chronic lower extremity edema which is worse than her baseline, says she takes a diuretic at home otherwise. Reports being compliant with her medications. She says that normally his sugars run in the 120s in the morning fasting. Patient says she gets blood transfusions twice a month, follows up with oncology. In the emergency department she was noted to have a climbing fever from 102- 103. ESR obtained is greater than 140. Hemoglobin was 5.7. Blood cultures were drawn and vancomycin dose was administered in the emergency department. 5-15 Nursing denies any deterioration since last night except for unexplained hypoglycemia where the patient's blood sugars went into the 20s on a serum but checked this morning. Patient herself says she ate some dinner last night but was apparently asymptomatic even with the sugar dropped this morning. Says she has never had hypoglycemia episodes like this in the past. 5-16 PATIENT IS SCHEDULED TO GO FOR SURGERY WITH PODIATRY ON RIGHT 2ND TOE TOMORROW ASHLEY RN AND PT AND CM HAS SOME PAIN AT THIS TIME HAD VIRAL TODAY Possible gout with elevated uric 5-17 had SURGERY ON RIGHT 2ND TOE Right 2nd digit OM abscess gouty beatrishi Sundar Gabriel Mónica Procedure: Right 2nd digit incision and drainage with bone biopsy Findings: pus, gout and soft bone DW RN AND PT AND CM WILL NEED ANTIBIOTICS SUSPECTED OSTEOMYELITIS 5-18 NO NEW COMPLAINTS REFUSING BLOOD DRAWS HAS POOR ACCESS DW RN AND PT AND CM WILL NEED ANTIBIOTICS REFUSING ZOSYN Objective Vitals Vital Signs Date Time Temp Pulse Resp B/P (MAP) Pulse Ox O2 Delivery O2 Flow Rate FiO2 04/09/18 12:00 97.5 48 18 152/67 (95) 99 04/09/18 08:00 97.8 47 16 138/59 (85) 98 04/09/18 08:00 Room Air 04/09/18 04:30 97.2 44 18 119/58 (78) 98 04/09/18 04:00 Room Air 04/09/18 00:00 Room Air 04/08/18 23:55 97.3 54 18 138/60 (86) 97 04/08/18 22:09 97.5 51 19 119/56 96 04/08/18 21:30 97.8 50 19 121/57 96 04/08/18 21:12 97.7 51 19 133/60 96 04/08/18 20:20 Room Air 04/08/18 19:58 97.9 60 18 149/62 (91) 98 04/08/18 18:59 98.0 57 18 120/54 98 04/08/18 18:35 98.0 55 18 117/52 97 04/08/18 17:02 98.0 55 18 117/52 (73) 97 04/08/18 16:30 60 16 139/62 (87) 95 Room Air 04/08/18 16:15 60 21 132/60 (84) 100 Room Air 04/08/18 16:02 98.7 70 22 121/60 (80) 100 Nasal Cannula 3 I/O 04/08/18 04/08/18 04/08/18 04/09/18 04/09/18 04/09/18 07:00 15:00 23:00 07:00 15:00 23:00 Intake Total 480 ml 1270 ml 650 ml Output Total 550 ml 105 ml 550 ml Balance -70 ml 1165 ml 100 ml Intake Oral 480 ml 360 ml 240 ml Packed Cells 400 ml 400 ml Blood Product IV Normal Saline Flush 10 ml 10 ml Other 500 ml Output Urine Total 550 ml 100 ml 550 ml Estimated Blood Loss 5 ml # Voids 1 1 # Bowel Movements 0 0 0 Result Diagram: 04/08/1860104/08/18601 Other Results Laboratory Tests Test 04/06/18 18:38 04/07/18 07:20 04/08/18 06:02 Urine Color LIGHT-YELLOW Urine Turbidity CLEAR Urine pH 5.0 Urine Specific [place] 1.011 Urine Protein TRACE mg/dL Urine Glucose (UA) NEG mg/dL Urine Ketones NEG mg/dL Urine Occult Blood NEG Urine Nitrite NEG Urine Bilirubin NEG Urine Urobilinogen LESS THAN 2.0 MG/DL Urine Leukocyte Esterase NEG Urine WBC 3 /hpf Urine Squamous Epithelial Cells 1 /hpf Urine Granular Casts 2 /lpf Microscopic Urinalysis Comment CULT NOT INDICATED White Blood Count 2.9 TH/MM3 2.8 TH/MM3 Red Blood Count 2.49 MIL/MM3 2.37 MIL/MM3 Hemoglobin 7.2 GM/DL 6.8 GM/DL Hematocrit 21.0 % 20.4 % Mean Corpuscular Volume 84.3 FL 86.3 FL Mean Corpuscular Hemoglobin 28.7 PG 28.8 PG Mean Corpuscular Hemoglobin Concent 34.0 % 33.4 % Red Cell Distribution Width 18.1 % 18.5 % Platelet Count 45 TH/MM3 36 TH/MM3 Mean Platelet Volume 13.7 FL 12.8 FL CBC Comment AUTO DIFF AUTO DIFF Differential Total Cells Counted 100 100 Neutrophils % (Manual) 45 % 57 % Band Neutrophils % 29 % 22 % Lymphocytes % 23 % 14 % Monocytes % 1 % 7 % Eosinophils % 1 % Neutrophils # (Manual) 2.2 TH/MM3 2.2 TH/MM3 Metamyelocytes 1 % Differential Comment FINAL DIFF MANUAL FINAL DIFF MANUAL Platelet Estimate LOW LOW Platelet Morphology Comment GIANT ENLARGED Blood Urea Nitrogen 36 MG/DL 38 MG/DL Creatinine 1.79 MG/DL 1.65 MG/DL Random Glucose 96 MG/DL 99 MG/DL Calcium Level 8.1 MG/DL 8.3 MG/DL Phosphorus Level 4.3 MG/DL 3.3 MG/DL Sodium Level 141 MEQ/L 139 MEQ/L Potassium Level 3.5 MEQ/L 4.1 MEQ/L Chloride Level 107 MEQ/L 105 MEQ/L Carbon Dioxide Level 22.7 MEQ/L 22.6 MEQ/L Anion Gap 11 MEQ/L 11 MEQ/L Estimat Glomerular Filtration Rate 28 ML/MIN 31 ML/MIN Uric Acid 6.8 MG/DL Ovalocytes 1+ Total Protein 6.5 GM/DL Albumin 2.9 GM/DL Magnesium Level 2.1 MG/DL Alkaline Phosphatase 123 U/L Aspartate Amino Transf (AST/SGOT) 18 U/L Alanine Aminotransferase (ALT/SGPT) 20 U/L Total Bilirubin 1.7 MG/DL Hemoglobin A1c 6.4 % Free Thyroxine 1.20 NG/DL Thyroid Stimulating Hormone 3rd Gen 1.370 uIU/ML Random Vancomycin Level 12.0 COMMENT Imaging Last Impressions Renal Ultrasound 04/06/18 0000 Signed Impressions: Service Date/Time: Friday, April 06, 2018 17:09 - CONCLUSION: Normal examination. Michael Parsons MD Foot X-Ray 04/05/18 0000 Signed Impressions: Service Date/Time: Thursday, April 05, 2018 12:37 - CONCLUSION: 1. Degenerative osteoarthritis. 2. Diffuse soft tissue swelling without acute fracture. Huber Plunkett MD Foot MRI 04/05/18 0000 Signed Impressions: Service Date/Time: Thursday, April 05, 2018 15:08 - CONCLUSION: Negative runoff myelitis or deep space abscess SPECT TAGGED white cell study may be of benefit if symptoms persist. Nolberto Elkins MD FACR Chest X-Ray 04/05/18 0000 Signed Impressions: Service Date/Time: Thursday, April 05, 2018 22:09 - CONCLUSION: No acute disease Thien Davidson MD Objective Remarks GENERAL: Awake alert BUT LETHARGIC POST SURGERY CAN BE talkative and cooperative SKIN: Warm and dry. RIGHT foot is dressed HEAD: Atraumatic. Normocephalic. EYES: Pupils equal and round. No scleral icterus. No injection or drainage. Extraocular muscles intact ENT: No nasal bleeding or discharge. Mucous membranes pink and moist. Tongue is midline NECK: Trachea midline. No JVD. Supple CARDIOVASCULAR: Regular rate and rhythm. S1-S2 no S3 or S4 RESPIRATORY: No accessory muscle use. Clear to auscultation. Breath sounds equal bilaterally. GASTROINTESTINAL: Abdomen soft, non-tender, nondistended. Hepatic and splenic margins not palpable. MUSCULOSKELETAL: Extremities without clubbing, cyanosis, or edema. No obvious deformities. NEUROLOGICAL: Awake and alert. No obvious cranial nerve deficits. Motor grossly within normal limits. Five out of 5 muscle strength in the arms and legs. Normal speech. RIGHT foot is dressed PSYCHIATRIC: Appropriate mood and affect; insight and judgment normal. 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 Post Op Diagnosis: same Surgeon: Sundar Sales Material Assembler(s): scrub Procedure: Right 2nd digit incision and drainage with bone biopsy Findings: pus, gout and soft bone Complications: none Specimen(s) removed: soft tissue and bone for path, bone cx for micro Estimated blood loss: less 5mL Anesthesia: General, Local Drains: None Tourniquet time (min at mmHg) none Patient to: Other Patient Condition: Good Implant/Devices: SEE IMPLANT LOG (if applicable) Date/Time of Procedure: SEE SURGICAL CARE RECORD Medications and IVs Current Medications Acetaminophen/ Hydrocodone Bitart ([place] 5-325 Mg) 1 tab ONCE ONCE PO Last administered on 04/05/18at 12:49; Start 04/05/18 at 12:30; Stop 04/05/18 at 12:31 ; Status DC Vancomycin HCl 1800 mg/Sodium Chloride 518 ml @ 250 mls/hr ONCE ONCE IV Last administered on 04/05/18at 13:41; Start 04/05/18 at 13:00; Stop 04/05/18 at 15:04 ; Status DC Sodium Chloride 250 ml @ 15 mls/hr ONCE ONCE IV Last administered on at 14:37; Start 04/05/18 at 13:00; Stop 04/06/18 at 05:39; Status DC Acetaminophen (Tylenol) 1,000 mg ONCE ONCE PO Last administered on 04/05/18at 14:16; Start 04/05/18 at 14:15; Stop 04/05/18 at 14:16; Status DC Sodium Chloride 1,000 ml @ 999 mls/hr BOLUS ONCE IV Last administered on 04/05at 14:38; Start 04/05/18 at 14:15; Stop 04/05/18 at 14:58; Status DC Atorvastatin Calcium (Lipitor) 40 mg HS PO Last administered on 04/08/18at 20:20 ; Start 04/05/18 at 21:00 Levothyroxine Sodium (Synthroid) 75 mcg DAILY@0600 PO Last administered on 04/09at 05:19; Start 04/06/18 at 06:00 Metoprolol Tartrate (Lopressor) 25 mg BID PO Last administered on 04/08/18at 20: 20; Start 04/05/18 at 21:00 Montelukast Sodium (Singulair) 10 mg HS PO Last administered on 04/08/18at 20:20 ; Start 04/05/18 at 21:00 Piperacillin Sod/ Tazobactam Sod 50 ml @ 100 mls/hr Q6H IV Last administered on 04/07/18at 04:38; Start 04/05/18 at 16:00; Stop 04/07/18 at 08:59; Status DC Acetaminophen/ Hydrocodone Bitart ([place] 7.5-325 Mg) 1 tab Q6H PRN PO pain 1- 10 Last administered on 04/08/18at 10:03; Start 04/05/18 at 15:15 Albumin Human 50 ml @ 60 mls/hr Q12H IV Last administered on 04/09/18at 03:18; Start 04/05/18 at 16:00 Sodium Chloride 250 ml @ 15 mls/hr ONCE ONCE IV Last administered on at 08:59; Start 04/06/18 at 08:00; Stop 04/07/18 at 00:39; Status DC Acetaminophen (Tylenol) 650 mg Q4H PRN PO SEE LABEL COMMENTS; Start 04/06/18 at 08:00; Stop 04/06/18 at 23:59; Status DC Diphenhydramine HCl (Benadryl) 25 mg Q4H PRN PO SEE LABEL COMMENTS Last administered on 04/06/18at 10:16; Start 04/06/18 at 08:00; Stop 04/06/18 at 23:59 ; Status DC Furosemide (Lasix Inj) 20 mg ONCE ONCE IV PUSH Last administered on 04/06/18at 14:20; Start 04/06/18 at 09:00; Stop 04/06/18 at 09:01; Status DC Dextrose (D50w (Vial) Inj) 50 ml UNSCH PRN IV PUSH HYPOGLYCEMIA-SEE COMMENTS Last administered on 04/06/18at 12:21; Start 04/06/18 at 10:00 Glucagon (Glucagon Inj) 1 mg UNSCH PRN OTHER HYPOGLYCEMIA-SEE COMMENTS Last administered on 04/06/18at 10:16; Start 04/06/18 at 10:00 Pharmacy Profile Note 0 ml @ 0 mls/hr UNSCH OTHER ; Start 04/06/18 at 18:45 Vancomycin HCl 1500 mg/Sodium Chloride 515 ml @ 250 mls/hr Q24H IV Last administered on 04/06/18at 23:49; Start 04/06/18 at 23:00; Stop 04/08/18 at 09:07 ; Status DC Miscellaneous Information ([facility] Ordered Lab Info) SPECIFIC LAB TO BE DRAWN:VANCO TROUGH DATE TO BE DR... ONCE ONCE .XX ; Start 04/08/18 at 22:45; Stop 04/08/18 at 22:46; Status Cancel Piperacillin Sod/ Tazobactam Sod 50 ml @ 100 mls/hr Q6H IV Last administered on 04/09/18at 12:14; Start 04/07/18 at 11:00 Sodium Chloride 250 ml @ 15 mls/hr ONCE ONCE IV Last administered on at 10:07; Start 04/08/18 at 08:45; Stop 04/09/18 at 01:24; Status DC Vancomycin HCl 2000 mg/Sodium Chloride 520 ml @ 250 mls/hr Q36H IV Last administered on 04/08/18at 14:05; Start 04/08/18 at 12:00 Neomycin/Polymyxin (Neosporin G.u. Irr) 2 ml STK-MED ONCE .ROUTE ; Start at 12:30; Stop 04/08/18 at 12:31; Status DC Acetaminophen 100 ml @ As Directed STK-MED ONCE IV ; Start 04/08/18 at 13:13; Stop 04/08/18 at 13:14; Status DC Famotidine (Pepcid Inj) 20 mg STK-MED ONCE .ROUTE ; Start 04/08/18 at 13:16; Stop 04/08/18 at 13:17; Status DC Metoclopramide HCl (Reglan Inj) 10 mg STK-MED ONCE .ROUTE ; Start 04/08/18 at 13 :21; Stop 04/08/18 at 13:22; Status DC Bupivacaine HCl (Marcaine Pf 0.25% Inj) 30 ml STK-MED ONCE .ROUTE Last administered on 04/08/18at 15:39; Start 04/08/18 at 15:39; Stop 04/08/18 at 15:40 ; Status DC Fentanyl Citrate (fentaNYL INJ) 100 mcg STK-MED ONCE .ROUTE ; Start 04/08/18 at 16:11; Stop 04/08/18 at 16:12; Status DC Midazolam HCl (Versed Inj) 2 mg STK-MED ONCE .ROUTE ; Start 04/08/18 at 16:11; Stop 04/08/18 at 16:12; Status DC Morphine Sulfate (Morphine Inj) 4 mg STK-MED ONCE .ROUTE ; Start 04/08/18 at 16: 11; Stop 04/08/18 at 16:12; Status DC Miscellaneous Information ([facility] Nursing Information) ALL NURSING DEPARTME... UNSCH PRN .XX SEE LABEL COMMENTS; Start 04/08/18 at 16:05; Stop 04/09/18 at 16: 04 Sodium Chloride 250 ml @ 15 mls/hr ONCE ONCE IV Last administered on at 07:30; Start 04/09/18 at 07:30; Stop 04/10/18 at 00:09 Acetaminophen (Tylenol) 650 mg Q4H PRN PO SEE LABEL COMMENTS; Start 04/09/18 at 07:30 Diphenhydramine HCl (Benadryl) 25 mg Q4H PRN PO SEE LABEL COMMENTS; Start 04/09 at 07:30 A/P Assessment and Plan 72-year-old white female being admitted for suspected osteomyelitis Cellulitis with possible osteomyelitis - Already failed outpatient Bactrim, blood cultures obtained -Mild improvement since yesterday both in appearance and with cessation of fevers, continue vancomycin and Zosyn - right foot MRI without contrast (given patient's LA) shows no definitive evidence of osteo-myelitis - Awaiting podiatry consultation -seen by podiatry for surgery on the toe tomorrow Possible gout due to elevated uric acid 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 intake, will monitor for now w/ accuchedcks and if recurs then we will proceed with aggressive hypoglycemia workup Acute anemia -Acute on chronic myelodysplastic syndrome, already received 2 units of blood yesterday, but still dropping, -Hematology following, ordering 2 more units of blood TRANSFUSE 2 MORE UNITS PRBC -17 CHRONIC MDS - TRANSFUSE Acute on chronic kidney injury -Despite IV albumin, creatinine and change, consulting nephrology, hold home lisinopril -BMP in a.m. Possible gout due to elevated uric Bilateral lower extremity edema -Likely dependent edema with a component of chronic kidney disease, keep legs elevated -consulting nephrology -echo from 5 months ago shows intact EF Coronary artery disease -Continue home Lipitor and beta-cherri Possible gout due to elevated uric acid Unable to pharmacologically anticoagulant given acute anemia, unable to mechanically anticoagulate given severe lower extremity edema REFUSING BLOOD DRAWS AND ZOSYN TODAY Discharge Planning Pending PODIATRY and infectious disease clearance and oncology clearance Nolberto Kaplan DO April 09, 2018 13:58
[2018-04-09 15:45] VITALS: BP 129/65; PULSE 51; RESP 18; TEMP 97.9; O2SAT 97
[2018-04-09] MEDS: ALLOPURINOL 100 MG TAB PO SCH (15:45)
--- NOTE | 2018-04-09 15:45 | HHI.NPPN ---
Subjective Renal Failure: Chronic, Acute, Stage III Interval History Unable to obtain labs today. She is due for blood transfusion today. s/p I&D tomorrow. (Ai Malave) Review of Systems General Constitutional: Fatigue (Ai Malave) Cardiovascular Cardiac: Edema (Ai Malave) Skin Skin: Lesions, Ulcers Skin Remarks right foot (Ai Malave) Objective Data Data Vital Signs Date Time Temp Pulse Resp B/P (MAP) Pulse Ox O2 Delivery O2 Flow Rate FiO2 04/09/18 12:00 97.5 48 18 152/67 (95) 99 04/09/18 08:00 97.8 47 16 138/59 (85) 98 04/09/18 08:00 Room Air 04/09/18 04:30 97.2 44 18 119/58 (78) 98 04/09/18 04:00 Room Air 04/09/18 00:00 Room Air 04/08/18 23:55 97.3 54 18 138/60 (86) 97 04/08/18 22:09 97.5 51 19 119/56 96 04/08/18 21:30 97.8 50 19 121/57 96 04/08/18 21:12 97.7 51 19 133/60 96 04/08/18 20:20 Room Air 04/08/18 19:58 97.9 60 18 149/62 (91) 98 04/08/18 18:59 98.0 57 18 120/54 98 04/08/18 18:35 98.0 55 18 117/52 97 04/08/18 17:02 98.0 55 18 117/52 (73) 97 04/08/18 16:30 60 16 139/62 (87) 95 Room Air 04/08/18 16:15 60 21 132/60 (84) 100 Room Air 04/08/18 16:02 98.7 70 22 121/60 (80) 100 Nasal Cannula 3 (Ai Malave) -: 04/08/18 0602 04/08/18 0602 Physical Exam General Appearance: No Acute Distress, Comfortable, Obese (Ai Malave) Eyes Eye Exam: Pupils Equal, Pupils Reactive (Ai Malave) Pulmonary Resp Exam: Clear Bilaterally, Breath Sounds Equal, No Distress (Ai Malave) Cardiology CV Exam: Regular, Normal Sinus Rhythm, Good Perfusion (Ai Malave) Gastrointestinal/Abdomen GI Exam: Soft, Non-Tender, Bowel Sounds Present, Non-Distended (Ai Malave) Musculoskeletal MS Exam: Joints Intact, Normal Tone (Ai Malave) Integumentary Skin Exam: Warm, Dry, Lesion(s) Skin Remarks right 2nd toe wound, dressing in place (Ai Malave) Extremeties Extremities Exam: Pedal Pulses Palpable, Moderate Edema (Ai Malave) Neurologic Neuro Exam: Alert, Awake, Oriented, Speech Clear, Moving All Extremities (Ai Malave) Psychiatric Psych Exam: Appropriate Responses (Ai Malave) Assessment/Plan Discussed Condition With: Patient Assessment Summary: Hypertension, Diabetes Mellitus, CKD Stage III, CKD Stage IV Problem List: (1) Acute kidney injury ICD Codes: N17.9 - Acute kidney failure, unspecified Plan: LA on CKD 3-4. Her baseline creatinine 1.2-1.8, suspected underlying nephrosclerosis Renal function was near baseline. Labs from today not able to be drawn, recheck in AM. Avoid nephrotoxic agents, On Vancomycin, monitor levels. PO fluids encouraged. (2) Sepsis ICD Codes: A41.9 - Sepsis, unspecified organism Status: Acute Plan: Due to cellulitis, no osteomyelitis seen on imaging. s/p surgical I&D On Zosyn and IV Vancomycin. Cultures in progress. Narrow antibiotic spectrum when results are available. (3) Foot pain, right ICD Codes: M79.671 - Pain in right foot Plan: Being treated for cellulitis, podiatry following Also has elevated uric acid level,on allopurinol. (4) Myelodysplastic syndrome ICD Codes: D46.9 - Myelodysplastic syndrome, unspecified Status: Acute Plan: Hematology is following No evidence of iron deficiency on labs transfusion ordered for today. (5) DM (diabetes mellitus) ICD Codes: E11.9 - Type 2 diabetes mellitus without complications Plan: Maintain glucose 140-180 mg/dL She was severely hypoglycemic today, able to take PO (6) HTN (hypertension) ICD Codes: I10 - Essential (primary) hypertension Plan: Monitor blood pressure, continue current medications. Lisinopril is being held currently (Ai Malave) Plan patient was seen and examined. Renal function had been stable, labs from today are not available. Continue to monitor. (Smith Grant MD) Problem Qualifiers (1) Sepsis: Qualified Codes: A41.9 - Sepsis, unspecified organism Ai Malave April 09, 2018 15:45 Smith Grant MD April 09, 2018 22:45
[2018-04-09 16:00] VITALS: BP_SYST 128; BP_SYST 129; BP_DIAS 63; BP_DIAS 65; PULSE 51; PULSE 53; RESP 18; TEMP 97.9; O2SAT 97; O2SAT 98
[2018-04-09 20:45] VITALS: BP 127/58; PULSE 46; RESP 18; TEMP 97.4; O2SAT 97
[2018-04-09] MEDS: ATORVASTATIN 40 MG TAB PO SCH (22:19)
[2018-04-09] MEDS: MONTELUKAST SODIUM 10 MG TAB PO SCH (22:19)
[2018-04-09] MEDS: VANCOMYCIN INJ 2,000 MG in SODIUM CHLORID 0.9% 500 ML INJ 500 ML IV SCH (23:26)
[2018-04-10 05:00] VITALS: BP 148/65; PULSE 54; RESP 18; TEMP 97.7; O2SAT 95
[2018-04-10] MEDS: PIPERACIL-TAZO 2.25 GM PREMIX 50 ML IV SCH ×4 (05:09→23:11)
[2018-04-10] MEDS: ALBUMIN 25% INJ 50 ML IV SCH ×2 (05:09→15:56)
[2018-04-10] MEDS: LEVOTHYROXINE SODIUM 75 MCG TAB PO SCH (05:10)
[2018-04-10 08:00] VITALS: BP 160/71; PULSE 51; RESP 18; TEMP 97.6; O2SAT 95
[2018-04-10 08:08] LABS: ALBUMIN 2.9 GM/DL (3.4-5.0); ALKALINE PHOSPHATASE 217 U/L (45-117); ALT (GPT) 42 U/L (10-53); AST (GOT) 17 U/L (15-37); BICARBONATE 25.6 MEQ/L (21.0-32.0); BLOOD UREA NITROGEN 46 MG/DL (7-18); CALCIUM 8.7 MG/DL (8.5-10.1); CHLORIDE 110 MEQ/L (98-107); CREATININE 1.53 MG/DL (0.50-1.00); GLOMERULAR FILTRATION RATE 34 ML/MIN (>89); GLUCOSE,RANDOM 132 MG/DL (74-106); MAGNESIUM 2.3 MG/DL (1.5-2.5); PHOSPHORUS 3.2 MG/DL (2.5-4.9); SODIUM (NA) 144 MEQ/L (136-145); TOTAL BILIRUBIN ADULT 0.6 MG/DL (0.2-1.0); TOTAL PROTEIN 6.5 GM/DL (6.4-8.2)
[2018-04-10] MEDS: METOPROLOL TARTRATE 25 MG TAB PO SCH ×2 (09:00→21:37)
[2018-04-10] MEDS: ALLOPURINOL 100 MG TAB PO SCH (09:29)
--- NOTE | 2018-04-10 10:04 | PD.POD ---
Subjective Pain score: 3 Remarks Improving, wants to walk Past Med/Surg/Social History Social History Smoking Status: Never Smoker Objective Vital Signs Vital Signs Date Time Temp Pulse Resp B/P (MAP) Pulse Ox O2 Delivery O2 Flow Rate FiO2 04/10/18 05:00 97.7 54 18 148/65 (92) 95 04/09/18 22:00 Room Air 04/09/18 20:45 97.4 46 18 127/58 (81) 97 04/09/18 16:00 97.9 51 18 129/65 (86) 97 04/09/18 16:00 97.9 53 18 128/63 98 04/09/18 15:45 97.9 51 18 129/65 97 04/09/18 12:00 97.5 48 18 152/67 (95) 99 Coded Allergies: No Known Allergies (Unverified , 04/05/18) Medications and IVs Administered Medications Medications (Trade) Dose Ordered Sig/Riley Route PRN Reason Start Time Stop Time Status Last Admin Dose Admin Atorvastatin Calcium (Lipitor) 40 mg HS PO 04/05/18 21:00 04/09/18 22:19 Levothyroxine Sodium (Synthroid) 75 mcg DAILY@0600 PO 04/06/18 06:00 04/10/18 05:10 Metoprolol Tartrate (Lopressor) 25 mg BID PO 04/05/18 21:00 04/09/18 22:19 Montelukast Sodium (Singulair) 10 mg HS PO 04/05/18 21:00 04/09/18 22:19 Acetaminophen/ Hydrocodone Bitart ([place] 7.5-325 Mg) 1 tab Q6H PRN PO pain 1-10 04/05/18 15:15 04/08/18 10:03 Albumin Human 50 ml @ 60 mls/hr Q12H IV 04/05/18 16:00 04/10/18 05:09 Dextrose (D50w (Vial) Inj) 50 ml UNSCH PRN IV PUSH HYPOGLYCEMIA-SEE COMMENTS 04/06/18 10:00 04/06/18 12:21 Glucagon (Glucagon Inj) 1 mg UNSCH PRN OTHER HYPOGLYCEMIA-SEE COMMENTS 04/06/18 10:00 04/06/18 10:16 Piperacillin Sod/ Tazobactam Sod 50 ml @ 100 mls/hr Q6H IV 04/07/18 11:00 04/10/18 05:09 Vancomycin HCl 2000 mg/Sodium Chloride 520 ml @ 250 mls/hr Q36H IV 04/08/18 12:00 04/09/18 23:26 Acetaminophen (Tylenol) 650 mg Q4H PRN PO SEE LABEL COMMENTS 04/09/18 07:30 04/09/18 15:40 Diphenhydramine HCl (Benadryl) 25 mg Q4H PRN PO SEE LABEL COMMENTS 04/09/18 07:30 04/09/18 15:40 Allopurinol (Zyloprim) 100 mg DAILY PO 04/09/18 15:45 04/10/18 09:29 Other Results Laboratory Tests Test 04/10/18 06:55 Laboratory Tests Test 04/10/18 06:55 Blood Urea Nitrogen 46 MG/DL Creatinine 1.53 MG/DL Random Glucose 132 MG/DL Total Protein 6.5 GM/DL Albumin 2.9 GM/DL Calcium Level 8.7 MG/DL Phosphorus Level 3.2 MG/DL Magnesium Level 2.3 MG/DL Alkaline Phosphatase 217 U/L Aspartate Amino Transf (AST/SGOT) 17 U/L Alanine Aminotransferase (ALT/SGPT) 42 U/L Total Bilirubin 0.6 MG/DL Sodium Level 144 MEQ/L Potassium Level 4.0 MEQ/L Chloride Level 110 MEQ/L Carbon Dioxide Level 25.6 MEQ/L Anion Gap 8 MEQ/L Estimat Glomerular Filtration Rate 34 ML/MIN Microbiology Date/Time Source Procedure Growth Status 04/08/18 14:30 Wound Toe Fungal Smear - Final NO FUNGAL ELEMENTS SEEN. Resulted 04/08/18 14:30 Wound Toe Fungal Culture Pending Resulted 04/08/18 14:30 Wound Toe Acid Fast Stain - Final NO ACID FAST BACILLI SEEN Resulted 04/08/18 14:30 Wound Toe Mycobacterial Culture Pending Resulted 04/08/18 14:30 Wound Toe Gram Stain - Final Resulted 04/08/18 14:30 Wound Toe Wound Culture - Preliminary NO GROWTH IN 24 HOURS. Resulted Name: BLAISE KEMP Age/Sex:72/F Attend Dr: Nolberto Kaplan DO Unit#: [id number] Status: ADM IN Location: N0 1423 -A Re04/05/18 : 1945 SPECIMEN #: [id number] HEIDE: 04/08/18 1430 STATUS: RES RECD: 04/08/[address]: Sundar Can DPM PT ID: 's BOX/PROVIDER ID: SOURCE: WOUND COPY TO: Marie Perez MD SPDESC: TOE Nolberto Kaplan DO SPDESC: TOE Agustín Fernandez MD SPDESC: TOE Dylan Mittal MD SPDESC: TOE UNKNOWN SPDESC: TOE [employer] BILL CLIENT: ORDERED: WOUND CULTURE COMMENTS: Comment: C&S, GRAM STAIN Site description: BONE CULTURE RIGHT SECOND TOE QUERIES: Method of Collection: SWAB ACT WKST: GS 04/09/18 #1 WOUNDS 04/09/18 #1 Procedure Result Verified Site GRAM STAIN Final 04/09/18-0934 RARE WBC NO ORGANISMS SEEN WOUND CULTURE Preliminary 04/09/18-1239 NO GROWTH IN 24 HOURS. Bone path is pending Exam-Podiatry Constitutional General appearance: comfortable Nutritional status: overweight Orientation: alert and oriented x3 Musculoskeletal Exam Details Right lower extremity: Right second digit surgical wound well coapted mild redness normal drainage capillary fill time within normal limits neurovascular status intact no crepitus or instability moderate edema noted to the dorsum of the foot. Left lower extremity: Left fourth digit with moderate redness no open lesion mild pain no crepitus or instability neurovascular status intact left foot moderate edema dorsum foot Assessment & Plan A/P 1.Right second digit osteomyelitis abscess, gouty tophi. 2.Left fourth digit cellulitis versus gout flare Postop day 2 Incision and drainage, bone debridement, right second digit. Bandage changed, the patient is improving, nursing okay to change bandage every 2-3 days. Weightbearing permitted as tolerated. Will monitor left fourth digit recommend continue antibiotics until redness resolves. Anticipate discharge once bone pathology/deep culture has returned. Patient had questions regarding sending to rehab due to inability to walk and be steady on her feet. Sundar Can DPM April 10, 2018 10:04
[2018-04-10 12:00] VITALS: BP 166/67; PULSE 60; RESP 17; TEMP 97.7; O2SAT 95
--- NOTE | 2018-04-10 12:06 | PD.ONC.PN ---
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 Motivated to work with physical therapy Objective Data Date Time Temp Pulse Resp B/P (MAP) Pulse Ox O2 Delivery O2 Flow Rate FiO2 04/10/18 08:00 97.6 51 18 160/71 (100) 95 04/10/18 05:00 97.7 54 18 148/65 (92) 95 04/09/18 22:00 Room Air 04/09/18 20:45 97.4 46 18 127/58 (81) 97 04/09/18 16:00 97.9 51 18 129/65 (86) 97 04/09/18 16:00 97.9 53 18 128/63 98 04/09/18 15:45 97.9 51 18 129/65 97 04/10/18 04/10/18 04/10/18 07:00 15:00 23:00 Intake Total 760 ml Balance 760 ml Result Diagram: 04/08/18 0602 04/10/18 0655 Laboratory Results Laboratory Tests Test 04/10/18 06:55 Blood Urea Nitrogen 46 MG/DL Creatinine 1.53 MG/DL Random Glucose 132 MG/DL Total Protein 6.5 GM/DL Albumin 2.9 GM/DL Calcium Level 8.7 MG/DL Phosphorus Level 3.2 MG/DL Magnesium Level 2.3 MG/DL Alkaline Phosphatase 217 U/L Aspartate Amino Transf (AST/SGOT) 17 U/L Alanine Aminotransferase (ALT/SGPT) 42 U/L Total Bilirubin 0.6 MG/DL Sodium Level 144 MEQ/L Potassium Level 4.0 MEQ/L Chloride Level 110 MEQ/L Carbon Dioxide Level 25.6 MEQ/L Anion Gap 8 MEQ/L Estimat Glomerular Filtration Rate 34 ML/MIN Culture Results Microbiology Date/Time Source Procedure Growth Status 04/08/18 14:30 Wound Toe Fungal Smear - Final NO FUNGAL ELEMENTS SEEN. Resulted 04/08/18 14:30 Wound Toe Fungal Culture Pending Resulted 04/08/18 14:30 Wound Toe Acid Fast Stain - Final NO ACID FAST BACILLI SEEN Resulted 04/08/18 14:30 Wound Toe Mycobacterial Culture Pending Resulted 04/08/18 14:30 Wound Toe Gram Stain - Final Resulted 04/08/18 14:30 Wound Toe Wound Culture - Preliminary NO GROWTH IN 48 HOURS. Resulted Administered Medications Medications (Trade) Dose Ordered Sig/Riley Route PRN Reason Start Time Stop Time Status Last Admin Dose Admin Atorvastatin Calcium (Lipitor) 40 mg HS PO 04/05/18 21:00 04/09/18 22:19 Levothyroxine Sodium (Synthroid) 75 mcg DAILY@0600 PO 04/06/18 06:00 04/10/18 05:10 Metoprolol Tartrate (Lopressor) 25 mg BID PO 04/05/18 21:00 04/09/18 22:19 Montelukast Sodium (Singulair) 10 mg HS PO 04/05/18 21:00 04/09/18 22:19 Acetaminophen/ Hydrocodone Bitart ([place] 7.5-325 Mg) 1 tab Q6H PRN PO pain 1-10 04/05/18 15:15 04/08/18 10:03 Albumin Human 50 ml @ 60 mls/hr Q12H IV 04/05/18 16:00 04/10/18 05:09 Dextrose (D50w (Vial) Inj) 50 ml UNSCH PRN IV PUSH HYPOGLYCEMIA-SEE COMMENTS 04/06/18 10:00 04/06/18 12:21 Glucagon (Glucagon Inj) 1 mg UNSCH PRN OTHER HYPOGLYCEMIA-SEE COMMENTS 04/06/18 10:00 04/06/18 10:16 Piperacillin Sod/ Tazobactam Sod 50 ml @ 100 mls/hr Q6H IV 04/07/18 11:00 04/10/18 10:31 Vancomycin HCl 2000 mg/Sodium Chloride 520 ml @ 250 mls/hr Q36H IV 04/08/18 12:00 04/09/18 23:26 Acetaminophen (Tylenol) 650 mg Q4H PRN PO SEE LABEL COMMENTS 04/09/18 07:30 04/09/18 15:40 Diphenhydramine HCl (Benadryl) 25 mg Q4H PRN PO SEE LABEL COMMENTS 04/09/18 07:30 04/09/18 15:40 Allopurinol (Zyloprim) 100 mg DAILY PO 04/09/18 15:45 04/10/18 09:29 Objective Remarks GENERAL: Overweight older female resting in bed in no obvious distress SKIN: Warm and dry. HEAD: Normocephalic. EYES: No scleral icterus. No injection or drainage. NECK: Supple, trachea midline. No JVD or lymphadenopathy. CARDIOVASCULAR: Regular rate and rhythm without murmurs. RESPIRATORY: Breath sounds equal bilaterally. No accessory muscle use. GASTROINTESTINAL: Abdomen soft, non-tender, nondistended. EXTREMITIES: Dressing covering right foot and ankle. 3+ edema to bilateral lower extremities MUSCULOSKELETAL: Adequate muscle tone. NEUROLOGICAL: No obvious focal deficit. Awake, alert, and oriented x3. Assessment/Plan Assessment 72-year-old female with a recent diagnosis of myelodysplastic syndrome associated with deletion 5 q. was recently initiated on Revlimid 10 mg p.o. daily for management of the underlying myelodysplastic syndrome. She took a total of 2 doses prior to presenting to [facility] earlier this week with complaints of severe pain involving the right foot associated with redness and purulent discharge from the right second digit. She was hospitalized with sepsis related to cellulitis. On 04/08/2018 she underwent surgical debridement of the right second toe, based on the intraoperative findings it appeared there were chronic gout related changes as well as changes to the bone resulting in softness. Osteomyelitis is suspected. Samples of the bone were sent to the microbiology lab for further testing. The patient remains on broad-spectrum antibiotic coverage with vancomycin and cefepime. Additional issues include acute kidney injury. The patient's myelodysplastic syndrome has resulted in significant refractory anemia requiring red cell transfusions on a weekly basis. Plan 1. Patient was transfused 1 unit packed red blood cells yesterday. 2. Her CBC is pending today. When looking at her platelet counts these have slowly decreased over the last few days. This is likely a combination of her myelodysplastic syndrome as well as consumption from the infection. 3. Continue to hold Revlimid. Attending Statement The exam, history, and the medical decision-making described in the above note were completed with the assistance of the mid-level provider. I reviewed and agree with the findings presented. I attest that I had a [id number] encounter with the patient on the same day, and personally performed and documented my assessment and findings in the medical record. Feeling weak. Frustrated about difficult blood draw. Platelet trending down slowly. No obvious bleeding. Continue to monitor and transfuse prn. Elena Wesley April 10, 2018 12:06 Magno Byrne MD April 10, 2018 14:51
--- NOTE | 2018-04-10 12:23 | HHI.PR ---
Subjective Remarks 72-year-old white female being admitted for suspected osteomyelitis. Patient was in her usual state of health until a few days ago when she first came to the emergency department due to pain in her right second toe. She was discharged with oral antibiotics but says that the redness of her toe persisted with no improvement. Says that the pain in her right foot increased and thus she decided come back to the emergency department. She started feeling subjective fevers and chills. Denies any nausea vomiting diarrhea or any coughing. She says she had to call 911 and was not able to drive due to the severe pain in her foot. Says that it hurts to bear weight on both feet but the right foot is substantially greater. Denies any puncturing injury. She reports chronic lower extremity edema which is worse than her baseline, says she takes a diuretic at home otherwise. Reports being compliant with her medications. She says that normally his sugars run in the 120s in the morning fasting. Patient says she gets blood transfusions twice a month, follows up with oncology. In the emergency department she was noted to have a climbing fever from 102- 103. ESR obtained is greater than 140. Hemoglobin was 5.7. Blood cultures were drawn and vancomycin dose was administered in the emergency department. 5-15 Nursing denies any deterioration since last night except for unexplained hypoglycemia where the patient's blood sugars went into the 20s on a serum but checked this morning. Patient herself says she ate some dinner last night but was apparently asymptomatic even with the sugar dropped this morning. Says she has never had hypoglycemia episodes like this in the past. 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 Sundar Gabriel Mónica Procedure: Right 2nd digit incision and drainage with bone biopsy Findings: pus, gout and soft bone DW RN AND PT AND CM WILL NEED ANTIBIOTICS SUSPECTED OSTEOMYELITIS 5-18 NO NEW COMPLAINTS REFUSING BLOOD DRAWS HAS POOR ACCESS DW RN AND PT AND CM WILL NEED ANTIBIOTICS REFUSING ZOSYN 5-19 CBC IS PENDING PATIENT IS REFUSING ZOSYN ASHLEY RN AND PT AND CM WILL NEED ANTIBIOTICS AWAIT ID AND ONCOLOGY AND PODIATRY CLEARANCE TRANSFUSION ORDERED YESTERDAY BUT NO CBC AVAILABLE YET Objective Vitals Vital Signs Date Time Temp Pulse Resp B/P (MAP) Pulse Ox O2 Delivery O2 Flow Rate FiO2 04/10/18 08:00 97.6 51 18 160/71 (100) 95 04/10/18 05:00 97.7 54 18 148/65 (92) 95 04/09/18 22:00 Room Air 04/09/18 20:45 97.4 46 18 127/58 (81) 97 04/09/18 16:00 97.9 51 18 129/65 (86) 97 04/09/18 16:00 97.9 53 18 128/63 98 04/09/18 15:45 97.9 51 18 129/65 97 I/O 04/09/18 04/09/18 04/09/18 04/10/18 04/10/18 04/10/18 06:59 14:59 22:59 06:59 14:59 22:59 Intake Total 650 ml 1000 ml 760 ml Output Total 550 ml 400 ml Balance 100 ml 600 ml 760 ml Intake Oral 240 ml 600 ml 240 ml IV Total 520 ml Packed Cells 400 ml 400 ml Blood Product IV Normal Saline Flush 10 ml Output Urine Total 550 ml 400 ml # Voids 1 1 # Bowel Movements 0 1 Result Diagram: 04/08/18 0602 04/10/18 0655 Other Results Laboratory Tests Test 04/08/18 06:02 04/10/18 06:55 White Blood Count 2.8 TH/MM3 Red Blood Count 2.37 MIL/MM3 Hemoglobin 6.8 GM/DL Hematocrit 20.4 % Mean Corpuscular Volume 86.3 FL Mean Corpuscular Hemoglobin 28.8 PG Mean Corpuscular Hemoglobin Concent 33.4 % Red Cell Distribution Width 18.5 % Platelet Count 36 TH/MM3 Mean Platelet Volume 12.8 FL CBC Comment AUTO DIFF Differential Total Cells Counted 100 Neutrophils % (Manual) 57 % Band Neutrophils % 22 % Lymphocytes % 14 % Monocytes % 7 % Neutrophils # (Manual) 2.2 TH/MM3 Differential Comment FINAL DIFF MANUAL Platelet Estimate LOW Platelet Morphology Comment ENLARGED Ovalocytes 1+ Blood Urea Nitrogen 38 MG/DL 46 MG/DL Creatinine 1.65 MG/DL 1.53 MG/DL Random Glucose 99 MG/DL 132 MG/DL Total Protein 6.5 GM/DL 6.5 GM/DL Albumin 2.9 GM/DL 2.9 GM/DL Calcium Level 8.3 MG/DL 8.7 MG/DL Phosphorus Level 3.3 MG/DL 3.2 MG/DL Magnesium Level 2.1 MG/DL 2.3 MG/DL Alkaline Phosphatase 123 U/L 217 U/L Aspartate Amino Transf (AST/SGOT) 18 U/L 17 U/L Alanine Aminotransferase (ALT/SGPT) 20 U/L 42 U/L Total Bilirubin 1.7 MG/DL 0.6 MG/DL Sodium Level 139 MEQ/L 144 MEQ/L Potassium Level 4.1 MEQ/L 4.0 MEQ/L Chloride Level 105 MEQ/L 110 MEQ/L Carbon Dioxide Level 22.6 MEQ/L 25.6 MEQ/L Anion Gap 11 MEQ/L 8 MEQ/L Estimat Glomerular Filtration Rate 31 ML/MIN 34 ML/MIN Hemoglobin A1c 6.4 % Free Thyroxine 1.20 NG/DL Thyroid Stimulating Hormone 3rd Gen 1.370 uIU/ML Random Vancomycin Level 12.0 COMMENT Imaging Last Impressions Renal Ultrasound 04/06/18 0000 Signed Impressions: Service Date/Time: Friday, April 06, 2018 17:09 - CONCLUSION: Normal examination. Michael Parsons MD Foot X-Ray 04/05/18 0000 Signed Impressions: Service Date/Time: Thursday, April 05, 2018 12:37 - CONCLUSION: 1. Degenerative osteoarthritis. 2. Diffuse soft tissue swelling without acute fracture. Huber Plunkett MD Foot MRI 04/05/18 0000 Signed Impressions: Service Date/Time: Thursday, April 05, 2018 15:08 - CONCLUSION: Negative runoff myelitis or deep space abscess SPECT TAGGED white cell study may be of benefit if symptoms persist. Nolberto Elkins MD FACR Chest X-Ray 04/05/18 0000 Signed Impressions: Service Date/Time: Thursday, April 05, 2018 22:09 - CONCLUSION: No acute disease Thien Davidson MD Objective Remarks GENERAL: Awake alert BUT LETHARGIC POST SURGERY CAN BE talkative and cooperative SKIN: Warm and dry. RIGHT foot is dressed HEAD: Atraumatic. Normocephalic. EYES: Pupils equal and round. No scleral icterus. No injection or drainage. Extraocular muscles intact ENT: No nasal bleeding or discharge. Mucous membranes pink and moist. Tongue is midline NECK: Trachea midline. No JVD. Supple CARDIOVASCULAR: Regular rate and rhythm. S1-S2 no S3 or S4 RESPIRATORY: No accessory muscle use. Clear to auscultation. Breath sounds equal bilaterally. GASTROINTESTINAL: Abdomen soft, non-tender, nondistended. Hepatic and splenic margins not palpable. MUSCULOSKELETAL: Extremities without clubbing, cyanosis, or edema. No obvious deformities. NEUROLOGICAL: Awake and alert. No obvious cranial nerve deficits. Motor grossly within normal limits. Five out of 5 muscle strength in the arms and legs. Normal speech. RIGHT foot is dressed PSYCHIATRIC: Appropriate mood and affect; insight and judgment normal. 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 Post Op Diagnosis: same Surgeon: Sundar Sales Assembler Installer Structures(s): scrub Procedure: Right 2nd digit incision and drainage with bone biopsy Findings: pus, gout and soft bone Complications: none Specimen(s) removed: soft tissue and bone for path, bone cx for micro Estimated blood loss: less 5mL Anesthesia: General, Local Drains: None Tourniquet time (min at mmHg) none Patient to: Other Patient Condition: Good Implant/Devices: SEE IMPLANT LOG (if applicable) Date/Time of Procedure: SEE SURGICAL CARE RECORD Medications and IVs Current Medications Acetaminophen/ Hydrocodone Bitart (Reva 5-325 Mg) 1 tab ONCE ONCE PO Last administered on 04/05/18at 12:49; Start 04/05/18 at 12:30; Stop 04/05/18 at 12:31 ; Status DC Vancomycin HCl 1800 mg/Sodium Chloride 518 ml @ 250 mls/hr ONCE ONCE IV Last administered on 04/05/18at 13:41; Start 04/05/18 at 13:00; Stop 04/05/18 at 15:04 ; Status DC Sodium Chloride 250 ml @ 15 mls/hr ONCE ONCE IV Last administered on at 14:37; Start 04/05/18 at 13:00; Stop 04/06/18 at 05:39; Status DC Acetaminophen (Tylenol) 1,000 mg ONCE ONCE PO Last administered on 04/05/18at 14:16; Start 04/05/18 at 14:15; Stop 04/05/18 at 14:16; Status DC Sodium Chloride 1,000 ml @ 999 mls/hr BOLUS ONCE IV Last administered on 04/05at 14:38; Start 04/05/18 at 14:15; Stop 04/05/18 at 14:58; Status DC Atorvastatin Calcium (Lipitor) 40 mg HS PO Last administered on 04/09/18at 22:19 ; Start 04/05/18 at 21:00 Levothyroxine Sodium (Synthroid) 75 mcg DAILY@0600 PO Last administered on 04/10at 05:10; Start 04/06/18 at 06:00 Metoprolol Tartrate (Lopressor) 25 mg BID PO Last administered on 04/09/18at 22: 19; Start 04/05/18 at 21:00 Montelukast Sodium (Singulair) 10 mg HS PO Last administered on 04/09/18 22:19 ; Start 04/05/18 at 21:00 Piperacillin Sod/ Tazobactam Sod 50 ml @ 100 mls/hr Q6H IV Last administered on 04/07/18at 04:38; Start 04/05/18 at 16:00; Stop 04/07/18 at 08:59; Status DC Acetaminophen/ Hydrocodone Bitart (Reva 7.5-325 Mg) 1 tab Q6H PRN PO pain 1- 10 Last administered on 04/08/18at 10:03; Start 04/05/18 at 15:15 Albumin Human 50 ml @ 60 mls/hr Q12H IV Last administered on 04/10/18at 05:09; Start 04/05/18 at 16:00 Sodium Chloride 250 ml @ 15 mls/hr ONCE ONCE IV Last administered on at 08:59; Start 04/06/18 at 08:00; Stop 04/07/18 at 00:39; Status DC Acetaminophen (Tylenol) 650 mg Q4H PRN PO SEE LABEL COMMENTS; Start 04/06/18 at 08:00; Stop 04/06/18 at 23:59; Status DC Diphenhydramine HCl (Benadryl) 25 mg Q4H PRN PO SEE LABEL COMMENTS Last administered on 04/06/18at 10:16; Start 04/06/18 at 08:00; Stop 04/06/18 at 23:59 ; Status DC Furosemide (Lasix Inj) 20 mg ONCE ONCE IV PUSH Last administered on 04/06/18at 14:20; Start 04/06/18 at 09:00; Stop 04/06/18 at 09:01; Status DC Dextrose (D50w (Vial) Inj) 50 ml UNSCH PRN IV PUSH HYPOGLYCEMIA-SEE COMMENTS Last administered on 04/06/18at 12:21; Start 04/06/18 at 10:00 Glucagon (Glucagon Inj) 1 mg UNSCH PRN OTHER HYPOGLYCEMIA-SEE COMMENTS Last administered on 04/06/18at 10:16; Start 04/06/18 at 10:00 Pharmacy Profile Note 0 ml @ 0 mls/hr UNSCH OTHER ; Start 04/06/18 at 18:45 Vancomycin HCl 1500 mg/Sodium Chloride 515 ml @ 250 mls/hr Q24H IV Last administered on 04/06/18at 23:49; Start 04/06/18 at 23:00; Stop 04/08/18 at 09:07 ; Status DC Miscellaneous Information ([facility] Ordered Lab Info) SPECIFIC LAB TO BE DRAWN:VANCO TROUGH DATE TO BE DR... ONCE ONCE .XX ; Start 04/08/18 at 22:45; Stop 04/08/18 at 22:46; Status Cancel Piperacillin Sod/ Tazobactam Sod 50 ml @ 100 mls/hr Q6H IV Last administered on 04/10/18at 10:31; Start 04/07/18 at 11:00 Sodium Chloride 250 ml @ 15 mls/hr ONCE ONCE IV Last administered on at 10:07; Start 04/08/18 at 08:45; Stop 04/09/18 at 01:24; Status DC Vancomycin HCl 2000 mg/Sodium Chloride 520 ml @ 250 mls/hr Q36H IV Last administered on 04/09/18at 23:26; Start 04/08/18 at 12:00 Neomycin/Polymyxin (Neosporin G.u. Irr) 2 ml STK-MED ONCE .ROUTE ; Start at 12:30; Stop 04/08/18 at 12:31; Status DC Acetaminophen 100 ml @ As Directed STK-MED ONCE IV ; Start 04/08/18 at 13:13; Stop 04/08/18 at 13:14; Status DC Famotidine (Pepcid Inj) 20 mg STK-MED ONCE .ROUTE ; Start 04/08/18 at 13:16; Stop 5/17/18 at 13:17; Status DC Metoclopramide HCl (Reglan Inj) 10 mg STK-MED ONCE .ROUTE ; Start 04/08/18 at 13 :21; Stop 04/08/18 at 13:22; Status DC Bupivacaine HCl (Marcaine Pf 0.25% Inj) 30 ml STK-MED ONCE .ROUTE Last administered on 04/08/18at 15:39; Start 04/08/18 at 15:39; Stop 04/08/18 at 15:40 ; Status DC Fentanyl Citrate (fentaNYL INJ) 100 mcg STK-MED ONCE .ROUTE ; Start 04/08/18 at 16:11; Stop 04/08/18 at 16:12; Status DC Midazolam HCl (Versed Inj) 2 mg STK-MED ONCE .ROUTE ; Start 04/08/18 at 16:11; Stop 04/08/18 at 16:12; Status DC Morphine Sulfate (Morphine Inj) 4 mg STK-MED ONCE .ROUTE ; Start 04/08/18 at 16: 11; Stop 04/08/18 at 16:12; Status DC Miscellaneous Information ([facility] Nursing Information) ALL NURSING DEPARTME... UNSCH PRN .XX SEE LABEL COMMENTS; Start 04/08/18 at 16:05; Stop 04/09/18 at 16: 04; Status DC Sodium Chloride 250 ml @ 15 mls/hr ONCE ONCE IV Last administered on at 07:30; Start 04/09/18 at 07:30; Stop 04/10/18 at 00:09; Status DC Acetaminophen (Tylenol) 650 mg Q4H PRN PO SEE LABEL COMMENTS Last administered on 04/09/18at 15:40; Start 04/09/18 at 07:30 Diphenhydramine HCl (Benadryl) 25 mg Q4H PRN PO SEE LABEL COMMENTS Last administered on 04/09/18at 15:40; Start 04/09/18 at 07:30 Allopurinol (Zyloprim) 100 mg DAILY PO Last administered on 04/10/18at 09:29; Start 04/09/18 at 15:45 A/P Assessment and Plan 72-year-old white female being admitted for suspected osteomyelitis Cellulitis with possible osteomyelitis - Already failed outpatient Bactrim, blood cultures obtained -Mild improvement since yesterday both in appearance and with cessation of fevers, continue vancomycin and Zosyn - right foot MRI without contrast (given patient's LA) shows no definitive evidence of osteo-myelitis - Awaiting podiatry consultation -seen by podiatry for surgery on the toe tomorrow Possible gout due to elevated uric acid 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 Possible gout due to elevated uric Bilateral lower extremity edema -Likely dependent edema with a component of chronic kidney disease, keep legs elevated -consulting nephrology -echo from 5 months ago shows intact EF Coronary artery disease -Continue home Lipitor and beta-cherri Possible gout due to elevated uric acid Unable to pharmacologically anticoagulant given acute anemia, unable to mechanically anticoagulate given severe lower extremity edema REFUSING BLOOD DRAWS AND ZOSYN ON 04-09 CBC IS PENDING AM LABS Discharge Planning Pending PODIATRY and infectious disease clearance and oncology clearance Nolberto Kaplan DO April 10, 2018 12:23
[2018-04-10] MEDS: ACETAMINOPHEN/HYDROcodone 325 MG/7.5 MG TAB PO PRN (13:56)
[2018-04-10 16:00] VITALS: BP 140/61; PULSE 56; RESP 20; TEMP 98.3; O2SAT 95
[2018-04-10 16:29] LABS: AUTOMATED NEUTROPHIL # 1.7 TH/MM3 (1.8-7.7); BASOPHIL # 0.1 TH/MM3 (0-0.2); BASOPHIL % 3.2 % (0.0-2.0); EOSINOPHIL % 1.9 % (0.0-4.0); HEMATOCRIT 25.5 % (35.0-46.0); HEMOGLOBIN 8.7 GM/DL (11.6-15.3); LYMPH % 19.5 % (9.0-44.0); LYMPHOCYTE # 0.5 TH/MM3 (1.0-4.8); MEAN CELL VOLUME 86.1 FL (80.0-100.0); MEAN CORPUSCULAR HEMOGLOBIN 29.3 PG (27.0-34.0); MEAN CORPUSCULAR HGB CONC 34.1 % (32.0-36.0); MEAN PLATELET VOLUME 11.9 FL (7.0-11.0); MONO % 1.8 % (0.0-8.0); NEUT % 73.6 % (16.0-70.0); PLATELET COUNT 37 TH/MM3 (150-450); RED BLOOD COUNT 2.97 MIL/MM3 (4.00-5.30); RED CELL DISTRIBUTION WIDTH 17.6 % (11.6-17.2); WHITE BLOOD COUNT 2.3 TH/MM3 (4.0-11.0)
[2018-04-10 16:58] LABS: BANDS 28 % (0-6); BASOPHILS 1 % (0-2); LYMPHOCYTES 10 % (9-44); METAMYELOCYTES 3 % (0-1); MONOCYTES 1 % (0-8); MYELOCYTES 1 % (0-0); POLYS (SEG NEUTROPHILS) 56 % (16-70)
[2018-04-10 20:00] VITALS: BP 145/68; PULSE 55; RESP 17; TEMP 99.6; O2SAT 95
[2018-04-10] MEDS: MONTELUKAST SODIUM 10 MG TAB PO SCH (21:37)
[2018-04-10] MEDS: ATORVASTATIN 40 MG TAB PO SCH (21:37)
[2018-04-11] VITALS: BP 136/70; PULSE 55; RESP 19; TEMP 99.6; O2SAT 95
[2018-04-11 04:00] VITALS: BP 153/67; PULSE 56; RESP 18; TEMP 99.1; O2SAT 96
[2018-04-11] MEDS: LEVOTHYROXINE SODIUM 75 MCG TAB PO SCH (05:44)
[2018-04-11] MEDS: ALBUMIN 25% INJ 50 ML IV SCH ×2 (05:44→17:12)
[2018-04-11] MEDS: PIPERACIL-TAZO 2.25 GM PREMIX 50 ML IV SCH ×4 (05:44→23:37)
[2018-04-11 06:51] LABS: ALBUMIN 2.9 GM/DL (3.4-5.0); ALT (GPT) 36 U/L (10-53); AST (GOT) 16 U/L (15-37); BICARBONATE 23.5 MEQ/L (21.0-32.0); BLOOD UREA NITROGEN 39 MG/DL (7-18); CALCIUM 8.6 MG/DL (8.5-10.1); CHLORIDE 111 MEQ/L (98-107); CREATININE 1.35 MG/DL (0.50-1.00); GLOMERULAR FILTRATION RATE 39 ML/MIN (>89); GLUCOSE,RANDOM 104 MG/DL (74-106); MAGNESIUM 2.1 MG/DL (1.5-2.5); PHOSPHORUS 3.2 MG/DL (2.5-4.9); SODIUM (NA) 145 MEQ/L (136-145)
[2018-04-11 06:53] LABS: ALKALINE PHOSPHATASE 202 U/L (45-117); TOTAL BILIRUBIN ADULT 1.1 MG/DL (0.2-1.0); TOTAL PROTEIN 6.4 GM/DL (6.4-8.2)
[2018-04-11 07:37] LABS: HEMOGLOBIN 8.6 GM/DL (11.6-15.3); MEAN CELL VOLUME 85.5 FL (80.0-100.0); MEAN CORPUSCULAR HEMOGLOBIN 29.5 PG (27.0-34.0); MEAN CORPUSCULAR HGB CONC 34.5 % (32.0-36.0); MEAN PLATELET VOLUME 11.7 FL (7.0-11.0); PLATELET COUNT 37 TH/MM3 (150-450); RED BLOOD COUNT 2.92 MIL/MM3 (4.00-5.30); RED CELL DISTRIBUTION WIDTH 17.1 % (11.6-17.2); WHITE BLOOD COUNT 2.2 TH/MM3 (4.0-11.0)
[2018-04-11 08:00] VITALS: BP 163/72; PULSE 56; RESP 17; TEMP 98.3; O2SAT 95
[2018-04-11] MEDS: METOPROLOL TARTRATE 25 MG TAB PO SCH ×2 (09:25→21:00)
[2018-04-11] MEDS: ALLOPURINOL 100 MG TAB PO SCH (09:25)
[2018-04-11 10:48] LABS: BANDS 21 % (0-6); BASOPHILS 2 % (0-2); LYMPHOCYTES 15 % (9-44); NEUTROPHIL # MANUAL DIFF 1.8 TH/MM3 (1.8-7.7); POLYS (SEG NEUTROPHILS) 62 % (16-70); TOXIC VACUOLATION PRESENT (NONE SEEN)
--- NOTE | 2018-04-11 11:37 | HHI.PR ---
Subjective Remarks 72-year-old white female being admitted for suspected osteomyelitis. Patient was in her usual state of health until a few days ago when she first came to the emergency department due to pain in her right second toe. She was discharged with oral antibiotics but says that the redness of her toe persisted with no improvement. Says that the pain in her right foot increased and thus she decided come back to the emergency department. She started feeling subjective fevers and chills. Denies any nausea vomiting diarrhea or any coughing. She says she had to call 911 and was not able to drive due to the severe pain in her foot. Says that it hurts to bear weight on both feet but the right foot is substantially greater. Denies any puncturing injury. She reports chronic lower extremity edema which is worse than her baseline, says she takes a diuretic at home otherwise. Reports being compliant with her medications. She says that normally his sugars run in the 120s in the morning fasting. Patient says she gets blood transfusions twice a month, follows up with oncology. In the emergency department she was noted to have a climbing fever from 102- 103. ESR obtained is greater than 140. Hemoglobin was 5.7. Blood cultures were drawn and vancomycin dose was administered in the emergency department. 5-15 Nursing denies any deterioration since last night except for unexplained hypoglycemia where the patient's blood sugars went into the 20s on a serum but checked this morning. Patient herself says she ate some dinner last night but was apparently asymptomatic even with the sugar dropped this morning. Says she has never had hypoglycemia episodes like this in the past. 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 Sundar Gabriel Mónica Procedure: Right 2nd digit incision and drainage with bone biopsy Findings: pus, gout and soft bone DW RN AND PT AND CM WILL NEED ANTIBIOTICS SUSPECTED OSTEOMYELITIS 5-18 NO NEW COMPLAINTS REFUSING BLOOD DRAWS HAS POOR ACCESS DW RN AND PT AND CM WILL NEED ANTIBIOTICS REFUSING ZOSYN 5-19 CBC IS PENDING PATIENT IS REFUSING ZOSYN ASHLEY RN AND PT AND CM WILL NEED ANTIBIOTICS AWAIT ID AND ONCOLOGY AND PODIATRY CLEARANCE TRANSFUSION ORDERED YESTERDAY BUT NO CBC AVAILABLE YET 5-20 HGB IS STABLE AT THIS MOMENT CONTINUE CURRENT CARE NOT CLEARED BY ID FOR DISCHARGE YET DW RN AND PT Objective Vitals Vital Signs Date Time Temp Pulse Resp B/P (MAP) Pulse Ox O2 Delivery O2 Flow Rate FiO2 04/11/18 08:00 Room Air 04/11/18 08:00 98.3 56 17 163/72 (102) 95 04/11/18 04:00 99.1 56 18 153/67 (95) 96 04/11/18 04:00 Room Air 04/11/18 00:00 Room Air 04/11/18 00:00 99.6 55 19 136/70 (92) 95 04/10/18 21:20 Room Air 04/10/18 20:00 99.6 55 17 145/68 (93) 95 04/10/18 16:00 98.3 56 20 140/61 (87) 95 04/10/18 12:00 97.7 60 17 166/67 (100) 95 I/O 04/10/18 04/10/18 04/10/18 04/11/18 04/11/18 04/11/18 07:00 15:00 23:00 07:00 15:00 23:00 Intake Total 760 ml 50 ml 1000 ml 240 ml Output Total 600 ml Balance 760 ml 50 ml 1000 ml -360 ml Intake Oral 240 ml 750 ml 240 ml IV Total 520 ml 50 ml 250 ml Output Urine Total 600 ml # Voids 1 2 3 # Bowel Movements 1 0 0 Result Diagram: 04/11/18 0512 04/11/18 0512 Other Results Laboratory Tests Test 04/10/18 06:55 04/10/18 15:51 04/11/18 05:12 Blood Urea Nitrogen 46 MG/DL 39 MG/DL Creatinine 1.53 MG/DL 1.35 MG/DL Random Glucose 132 MG/DL 104 MG/DL Total Protein 6.5 GM/DL 6.4 GM/DL Albumin 2.9 GM/DL 2.9 GM/DL Calcium Level 8.7 MG/DL 8.6 MG/DL Phosphorus Level 3.2 MG/DL 3.2 MG/DL Magnesium Level 2.3 MG/DL 2.1 MG/DL Alkaline Phosphatase 217 U/L 202 U/L Aspartate Amino Transf (AST/SGOT) 17 U/L 16 U/L Alanine Aminotransferase (ALT/SGPT) 42 U/L 36 U/L Total Bilirubin 0.6 MG/DL 1.1 MG/DL Sodium Level 144 MEQ/L 145 MEQ/L Potassium Level 4.0 MEQ/L 4.1 MEQ/L Chloride Level 110 MEQ/L 111 MEQ/L Carbon Dioxide Level 25.6 MEQ/L 23.5 MEQ/L Anion Gap 8 MEQ/L 11 MEQ/L Estimat Glomerular Filtration Rate 34 ML/MIN 39 ML/MIN White Blood Count 2.3 TH/MM3 2.2 TH/MM3 Red Blood Count 2.97 MIL/MM3 2.92 MIL/MM3 Hemoglobin 8.7 GM/DL 8.6 GM/DL Hematocrit 25.5 % 25.0 % Mean Corpuscular Volume 86.1 FL 85.5 FL Mean Corpuscular Hemoglobin 29.3 PG 29.5 PG Mean Corpuscular Hemoglobin Concent 34.1 % 34.5 % Red Cell Distribution Width 17.6 % 17.1 % Platelet Count 37 TH/MM3 37 TH/MM3 Mean Platelet Volume 11.9 FL 11.7 FL Neutrophils (%) (Auto) 73.6 % Lymphocytes (%) (Auto) 19.5 % Monocytes (%) (Auto) 1.8 % Eosinophils (%) (Auto) 1.9 % Basophils (%) (Auto) 3.2 % Neutrophils # (Auto) 1.7 TH/MM3 Lymphocytes # (Auto) 0.5 TH/MM3 Monocytes # (Auto) 0.0 TH/MM3 Eosinophils # (Auto) 0.0 TH/MM3 Basophils # (Auto) 0.1 TH/MM3 CBC Comment AUTO DIFF AUTO DIFF Differential Total Cells Counted 100 100 Neutrophils % (Manual) 56 % 62 % Band Neutrophils % 28 % 21 % Lymphocytes % 10 % 15 % Monocytes % 1 % Basophils % 1 % 2 % Neutrophils # (Manual) 2.0 TH/MM3 1.8 TH/MM3 Metamyelocytes 3 % Myelocytes 1 % Differential Comment FINAL DIFF MANUAL FINAL DIFF MANUAL Platelet Estimate LOW LOW Platelet Morphology Comment ENLARGED ENLARGED Toxic Vacuolation PRESENT Imaging Last Impressions Renal Ultrasound 04/06/18 0000 Signed Impressions: Service Date/Time: Friday, April 06, 2018 17:09 - CONCLUSION: Normal examination. Michael Parsons MD Foot X-Ray 04/05/18 0000 Signed Impressions: Service Date/Time: Thursday, April 05, 2018 12:37 - CONCLUSION: 1. Degenerative osteoarthritis. 2. Diffuse soft tissue swelling without acute fracture. Huber Plunkett MD Foot MRI 04/05/18 0000 Signed Impressions: Service Date/Time: Thursday, April 05, 2018 15:08 - CONCLUSION: Negative runoff myelitis or deep space abscess SPECT TAGGED white cell study may be of benefit if symptoms persist. Nolberto Elkins MD FACR Chest X-Ray 04/05/18 0000 Signed Impressions: Service Date/Time: Thursday, April 05, 2018 22:09 - CONCLUSION: No acute disease Thien Davidson MD Objective Remarks GENERAL: Awake alert BUT LETHARGIC POST SURGERY CAN BE talkative and cooperative SKIN: Warm and dry. RIGHT foot is dressed HEAD: Atraumatic. Normocephalic. EYES: Pupils equal and round. No scleral icterus. No injection or drainage. Extraocular muscles intact ENT: No nasal bleeding or discharge. Mucous membranes pink and moist. Tongue is midline NECK: Trachea midline. No JVD. Supple CARDIOVASCULAR: Regular rate and rhythm. S1-S2 no S3 or S4 RESPIRATORY: No accessory muscle use. Clear to auscultation. Breath sounds equal bilaterally. GASTROINTESTINAL: Abdomen soft, non-tender, nondistended. Hepatic and splenic margins not palpable. MUSCULOSKELETAL: Extremities without clubbing, cyanosis, or edema. No obvious deformities. NEUROLOGICAL: Awake and alert. No obvious cranial nerve deficits. Motor grossly within normal limits. Five out of 5 muscle strength in the arms and legs. Normal speech. RIGHT foot is dressed PSYCHIATRIC: Appropriate mood and affect; insight and judgment normal. 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 Post Op Diagnosis: same Surgeon: Sundar Sales Bearingizer(s): scrub Procedure: Right 2nd digit incision and drainage with bone biopsy Findings: pus, gout and soft bone Complications: none Specimen(s) removed: soft tissue and bone for path, bone cx for micro Estimated blood loss: less 5mL Anesthesia: General, Local Drains: None Tourniquet time (min at mmHg) none Patient to: Other Patient Condition: Good Implant/Devices: SEE IMPLANT LOG (if applicable) Date/Time of Procedure: SEE SURGICAL CARE RECORD Medications and IVs Current Medications Acetaminophen/ Hydrocodone Bitart ([place] 5-325 Mg) 1 tab ONCE ONCE PO Last administered on 04/05/18 12:49; Start 04/05/18 at 12:30; Stop 04/05/18 at 12:31 ; Status DC Vancomycin HCl 1800 mg/Sodium Chloride 518 ml @ 250 mls/hr ONCE ONCE IV Last administered on 04/05/18at 13:41; Start 04/05/18 at 13:00; Stop 04/05/18 at 15:04 ; Status DC Sodium Chloride 250 ml @ 15 mls/hr ONCE ONCE IV Last administered on at 14:37; Start 04/05/18 at 13:00; Stop 04/06/18 at 05:39; Status DC Acetaminophen (Tylenol) 1,000 mg ONCE ONCE PO Last administered on 04/05/18at 14:16; Start 04/05/18 at 14:15; Stop 04/05/18 at 14:16; Status DC Sodium Chloride 1,000 ml @ 999 mls/hr BOLUS ONCE IV Last administered on 04/05at 14:38; Start 04/05/18 at 14:15; Stop 04/05/18 at 14:58; Status DC Atorvastatin Calcium (Lipitor) 40 mg HS PO Last administered on 04/10/18at 21:37 ; Start 04/05/18 at 21:00 Levothyroxine Sodium (Synthroid) 75 mcg DAILY@0600 PO Last administered on 04/11 05:44; Start 04/06/18 at 06:00 Metoprolol Tartrate (Lopressor) 25 mg BID PO Last administered on 04/11/18 09: 25; Start 04/05/18 at 21:00 Montelukast Sodium (Singulair) 10 mg HS PO Last administered on 04/10/18at 21:37 ; Start 04/05/18 at 21:00 Piperacillin Sod/ Tazobactam Sod 50 ml @ 100 mls/hr Q6H IV Last administered on 04/07/18at 04:38; Start 04/05/18 at 16:00; Stop 04/07/18 at 08:59; Status DC Acetaminophen/ Hydrocodone Bitart ([place] 7.5-325 Mg) 1 tab Q6H PRN PO pain 1- 5 Last administered on 04/10/18at 13:56; Start 04/05/18 at 15:15 Albumin Human 50 ml @ 60 mls/hr Q12H IV Last administered on 04/11/18at 05:44; Start 04/05/18 at 16:00 Sodium Chloride 250 ml @ 15 mls/hr ONCE ONCE IV Last administered on at 08:59; Start 04/06/18 at 08:00; Stop 04/07/18 at 00:39; Status DC Acetaminophen (Tylenol) 650 mg Q4H PRN PO SEE LABEL COMMENTS; Start 04/06/18 at 08:00; Stop 04/06/18 at 23:59; Status DC Diphenhydramine HCl (Benadryl) 25 mg Q4H PRN PO SEE LABEL COMMENTS Last administered on 04/06/18at 10:16; Start 04/06/18 at 08:00; Stop 04/06/18 at 23:59 ; Status DC Furosemide (Lasix Inj) 20 mg ONCE ONCE IV PUSH Last administered on 04/06/18at 14:20; Start 04/06/18 at 09:00; Stop 04/06/18 at 09:01; Status DC Dextrose (D50w (Vial) Inj) 50 ml UNSCH PRN IV PUSH HYPOGLYCEMIA-SEE COMMENTS Last administered on 04/06/18at 12:21; Start 04/06/18 at 10:00 Glucagon (Glucagon Inj) 1 mg UNSCH PRN OTHER HYPOGLYCEMIA-SEE COMMENTS Last administered on 04/06/18at 10:16; Start 04/06/18 at 10:00 Pharmacy Profile Note 0 ml @ 0 mls/hr UNSCH OTHER ; Start 04/06/18 at 18:45 Vancomycin HCl 1500 mg/Sodium Chloride 515 ml @ 250 mls/hr Q24H IV Last administered on 04/06/18at 23:49; Start 04/06/18 at 23:00; Stop 04/08/18 at 09:07 ; Status DC Miscellaneous Information ([facility] Ordered Lab Info) SPECIFIC LAB TO BE DRAWN:VANCO TROUGH DATE TO BE DRAdithya.. ONCE ONCE .XX ; Start 04/08/18 at 22:45; Stop 04/08/18 at 22:46; Status Cancel Piperacillin Sod/ Tazobactam Sod 50 ml @ 100 mls/hr Q6H IV Last administered on 04/11/18at 05:44; Start 04/07/18 at 11:00 Sodium Chloride 250 ml @ 15 mls/hr ONCE ONCE IV Last administered on at 10:07; Start 04/08/18 at 08:45; Stop 04/09/18 at 01:24; Status DC Vancomycin HCl 2000 mg/Sodium Chloride 520 ml @ 250 mls/hr Q36H IV Last administered on 04/09/18at 23:26; Start 04/08/18 at 12:00 Neomycin/Polymyxin (Neosporin G.u. Irr) 2 ml STK-MED ONCE .ROUTE ; Start at 12:30; Stop 04/08/18 at 12:31; Status DC Acetaminophen 100 ml @ As Directed STK-MED ONCE IV ; Start 04/08/18 at 13:13; Stop 04/08/18 at 13:14; Status DC Famotidine (Pepcid Inj) 20 mg STK-MED ONCE .ROUTE ; Start 04/08/18 at 13:16; Stop 04/08/18 at 13:17; Status DC Metoclopramide HCl (Reglan Inj) 10 mg STK-MED ONCE .ROUTE ; Start 04/08/18 at 13 :21; Stop 04/08/18 at 13:22; Status DC Bupivacaine HCl (Marcaine Pf 0.25% Inj) 30 ml STK-MED ONCE .ROUTE Last administered on 04/08/18at 15:39; Start 04/08/18 at 15:39; Stop 04/08/18 at 15:40 ; Status DC Fentanyl Citrate (fentaNYL INJ) 100 mcg STK-MED ONCE .ROUTE ; Start 04/08/18 at 16:11; Stop 04/08/18 at 16:12; Status DC Midazolam HCl (Versed Inj) 2 mg STK-MED ONCE .ROUTE ; Start 04/08/18 at 16:11; Stop 04/08/18 at 16:12; Status DC Morphine Sulfate (Morphine Inj) 4 mg STK-MED ONCE .ROUTE ; Start 04/08/18 at 16: 11; Stop 04/08/18 at 16:12; Status DC Miscellaneous Information ([facility] Nursing Information) ALL NURSING DEPARTME... UNSCH PRN .XX SEE LABEL COMMENTS; Start 04/08/18 at 16:05; Stop 04/09/18 at 16: 04; Status DC Sodium Chloride 250 ml @ 15 mls/hr ONCE ONCE IV Last administered on at 07:30; Start 04/09/18 at 07:30; Stop 04/10/18 at 00:09; Status DC Acetaminophen (Tylenol) 650 mg Q4H PRN PO SEE LABEL COMMENTS Last administered on 04/09/18at 15:40; Start 04/09/18 at 07:30 Diphenhydramine HCl (Benadryl) 25 mg Q4H PRN PO SEE LABEL COMMENTS Last administered on 04/09/18at 15:40; Start 04/09/18 at 07:30 Allopurinol (Zyloprim) 100 mg DAILY PO Last administered on 04/11/18at 09:25; Start 04/09/18 at 15:45 Acetaminophen/ Hydrocodone Bitart ([place] 7.5-325 Mg) 2 tab Q6H PRN PO pain 6- 10; Start 04/10/18 at 14:00 A/P Assessment and Plan 72-year-old white female being admitted for suspected osteomyelitis Cellulitis with possible osteomyelitis - Already failed outpatient Bactrim, blood cultures obtained -Mild improvement since yesterday both in appearance and with cessation of fevers, continue vancomycin and Zosyn - right foot MRI without contrast (given patient's LA) shows no definitive evidence of osteo-myelitis - Awaiting podiatry consultation -seen by podiatry for surgery on the toe tomorrow Possible gout due to elevated uric acid 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 intake, will monitor for now w/ accuchedcks and if recurs then we will proceed with aggressive hypoglycemia workup Acute anemia -Acute on chronic myelodysplastic syndrome, already received 2 units of blood yesterday, but still dropping, -Hematology following, ordering 2 more units of blood TRANSFUSE 2 MORE UNITS PRBC 5-17 CHRONIC MDS - TRANSFUSE Acute on chronic kidney injury -Despite IV albumin, creatinine and change, consulting nephrology, hold home lisinopril -BMP in a.m. Possible gout due to elevated uric Bilateral lower extremity edema -Likely dependent edema with a component of chronic kidney disease, keep legs elevated -consulting nephrology -echo from 5 months ago shows intact EF Coronary artery disease -Continue home Lipitor and beta-cherri Possible gout due to elevated uric acid Unable to pharmacologically anticoagulant given acute anemia, unable to mechanically anticoagulate given severe lower extremity edema REFUSING BLOOD DRAWS AND ZOSYN ON 04-09 CBC IS PENDING AM LABS SP TRANSFUSION DUE TO ANEMIA WITH MDS AM LABS Discharge Planning Pending PODIATRY and infectious disease clearance and oncology clearance Nolberto Kaplan DO April 11, 2018 11:37
[2018-04-11 12:00] VITALS: BP 160/70; PULSE 50; RESP 17; TEMP 98.2; O2SAT 96
[2018-04-11] MEDS: VANCOMYCIN INJ 2,000 MG in SODIUM CHLORID 0.9% 500 ML INJ 500 ML IV SCH (12:36)
[2018-04-11 16:00] VITALS: BP 165/69; PULSE 53; RESP 19; TEMP 98.8; O2SAT 97
[2018-04-11 20:00] VITALS: BP 144/69; PULSE 58; RESP 17; TEMP 98.4; O2SAT 94
[2018-04-11] MEDS: ATORVASTATIN 40 MG TAB PO SCH (21:00)
[2018-04-11] MEDS: MONTELUKAST SODIUM 10 MG TAB PO SCH (21:00)
[2018-04-12] VITALS: BP 155/71; PULSE 55; RESP 17; TEMP 98.5; O2SAT 96
[2018-04-12 04:00] VITALS: BP 118/71; PULSE 54; RESP 17; TEMP 97.5; O2SAT 95
[2018-04-12 05:27] LABS: HEMATOCRIT 24.4 % (35.0-46.0); HEMOGLOBIN 8.2 GM/DL (11.6-15.3); MEAN CELL VOLUME 86.6 FL (80.0-100.0); MEAN CORPUSCULAR HEMOGLOBIN 29.2 PG (27.0-34.0); MEAN CORPUSCULAR HGB CONC 33.7 % (32.0-36.0); MEAN PLATELET VOLUME 11.3 FL (7.0-11.0); PLATELET COUNT 44 TH/MM3 (150-450); RED BLOOD COUNT 2.82 MIL/MM3 (4.00-5.30); RED CELL DISTRIBUTION WIDTH 17.5 % (11.6-17.2); WHITE BLOOD COUNT 1.9 TH/MM3 (4.0-11.0)
[2018-04-12] MEDS: PIPERACIL-TAZO 2.25 GM PREMIX 50 ML IV SCH ×4 (05:29→22:14)
[2018-04-12] MEDS: LEVOTHYROXINE SODIUM 75 MCG TAB PO SCH (05:32)
[2018-04-12] MEDS: ALBUMIN 25% INJ 50 ML IV SCH ×2 (05:34→16:54)
[2018-04-12 05:51] LABS: ALKALINE PHOSPHATASE 175 U/L (45-117); TOTAL BILIRUBIN ADULT 1.3 MG/DL (0.2-1.0); TOTAL PROTEIN 6.3 GM/DL (6.4-8.2)
[2018-04-12 05:57] LABS: ALBUMIN 2.7 GM/DL (3.4-5.0); ALT (GPT) 29 U/L (10-53); AST (GOT) 15 U/L (15-37); BICARBONATE 23.1 MEQ/L (21.0-32.0); BLOOD UREA NITROGEN 30 MG/DL (7-18); CALCIUM 8.3 MG/DL (8.5-10.1); CHLORIDE 111 MEQ/L (98-107); CREATININE 1.09 MG/DL (0.50-1.00); GLOMERULAR FILTRATION RATE 50 ML/MIN (>89); GLUCOSE,RANDOM 117 MG/DL (74-106); MAGNESIUM 2.1 MG/DL (1.5-2.5); PHOSPHORUS 3.2 MG/DL (2.5-4.9); SODIUM (NA) 143 MEQ/L (136-145)
[2018-04-12 07:48] LABS: BANDS 25 % (0-6); BASOPHILS 2 % (0-2); LYMPHOCYTES 30 % (9-44); METAMYELOCYTES 1 % (0-1); MONOCYTES 3 % (0-8); NEUTROPHIL # MANUAL DIFF 1.2 TH/MM3 (1.8-7.7); POLYS (SEG NEUTROPHILS) 38 % (16-70)
[2018-04-12 07:49] LABS: OVALOCYTES 1+ (NORMAL)
[2018-04-12 07:50] LABS: ACANTHOCYTES OCC (NORMAL)
[2018-04-12 08:05] VITALS: BP 135/64; PULSE 56; RESP 20; TEMP 98.5; O2SAT 96
--- NOTE | 2018-04-12 08:05 | PD.ONC.PN ---
Subjective Subjective Remarks Patient seen and examined, vital signs, labs, medications and events over the past 48 hours reviewed. Patient expresses frustration at the continuous need for changing peripheral IV sites as well as difficult peripheral IV blood draws. She tells me she is extremely weak and was unable to stand up to even take one step when she worked with physical therapy this weekend. She denies fevers, chills or night sweats, she tells me the pain in her right foot at the surgical site is well controlled. She was transfused 1 unit packed red blood cells on 04/09/2018. Objective Data Date Time Temp Pulse Resp B/P (MAP) Pulse Ox O2 Delivery O2 Flow Rate FiO2 04/12/18 04:00 97.5 54 17 118/71 (87) 95 04/12/18 00:00 98.5 55 17 155/71 (99) 96 04/11/18 21:00 Room Air 04/11/18 20:00 98.4 58 17 144/69 (94) 94 04/11/18 16:00 98.8 53 19 165/69 (101) 97 04/11/18 12:00 98.2 50 17 160/70 (100) 96 04/12/18 04/12/18 04/12/18 07:00 15:00 23:00 Intake Total 290 ml Balance 290 ml Result Diagram: 04/12/18 0307 04/12/18 0307 Laboratory Results Laboratory Tests Test 04/12/18 03:07 White Blood Count 1.9 TH/MM3 Red Blood Count 2.82 MIL/MM3 Hemoglobin 8.2 GM/DL Hematocrit 24.4 % Mean Corpuscular Volume 86.6 FL Mean Corpuscular Hemoglobin 29.2 PG Mean Corpuscular Hemoglobin Concent 33.7 % Red Cell Distribution Width 17.5 % Platelet Count 44 TH/MM3 Mean Platelet Volume 11.3 FL CBC Comment AUTO DIFF Differential Total Cells Counted 100 Neutrophils % (Manual) 38 % Band Neutrophils % 25 % Lymphocytes % 30 % Monocytes % 3 % Eosinophils % 1 % Basophils % 2 % Neutrophils # (Manual) 1.2 TH/MM3 Metamyelocytes 1 % Differential Comment FINAL DIFF MANUAL Platelet Estimate LOW Platelet Morphology Comment ENLARGED Ovalocytes 1+ Acanthocytes OCC Blood Urea Nitrogen 30 MG/DL Creatinine 1.09 MG/DL Random Glucose 117 MG/DL Total Protein 6.3 GM/DL Albumin 2.7 GM/DL Calcium Level 8.3 MG/DL Phosphorus Level 3.2 MG/DL Magnesium Level 2.1 MG/DL Alkaline Phosphatase 175 U/L Aspartate Amino Transf (AST/SGOT) 15 U/L Alanine Aminotransferase (ALT/SGPT) 29 U/L Total Bilirubin 1.3 MG/DL Sodium Level 143 MEQ/L Potassium Level 4.3 MEQ/L Chloride Level 111 MEQ/L Carbon Dioxide Level 23.1 MEQ/L Anion Gap 9 MEQ/L Estimat Glomerular Filtration Rate 50 ML/MIN Administered Medications Medications (Trade) Dose Ordered Sig/Riley Route PRN Reason Start Time Stop Time Status Last Admin Dose Admin Atorvastatin Calcium (Lipitor) 40 mg HS PO 04/05/18 21:00 04/11/18 21:00 Levothyroxine Sodium (Synthroid) 75 mcg DAILY@0600 PO 04/06/18 06:00 04/12/18 05:32 Metoprolol Tartrate (Lopressor) 25 mg BID PO 04/05/18 21:00 04/11/18 21:00 Montelukast Sodium (Singulair) 10 mg HS PO 04/05/18 21:00 04/11/18 21:00 Acetaminophen/ Hydrocodone Bitart ([place] 7.5-325 Mg) 1 tab Q6H PRN PO pain 1-5 04/05/18 15:15 04/10/18 13:56 Albumin Human 50 ml @ 60 mls/hr Q12H IV 04/05/18 16:00 04/12/18 05:34 Dextrose (D50w (Vial) Inj) 50 ml UNSCH PRN IV PUSH HYPOGLYCEMIA-SEE COMMENTS 04/06/18 10:00 04/06/18 12:21 Glucagon (Glucagon Inj) 1 mg UNSCH PRN OTHER HYPOGLYCEMIA-SEE COMMENTS 04/06/18 10:00 04/06/18 10:16 Piperacillin Sod/ Tazobactam Sod 50 ml @ 100 mls/hr Q6H IV 04/07/18 11:00 04/12/18 05:29 Vancomycin HCl 2000 mg/Sodium Chloride 520 ml @ 250 mls/hr Q36H IV 04/08/18 12:00 04/11/18 12:36 Acetaminophen (Tylenol) 650 mg Q4H PRN PO SEE LABEL COMMENTS 04/09/18 07:30 5/18/18 15:40 Diphenhydramine HCl (Benadryl) 25 mg Q4H PRN PO SEE LABEL COMMENTS 04/09/18 07:30 04/09/18 15:40 Allopurinol (Zyloprim) 100 mg DAILY PO 04/09/18 15:45 04/11/18 09:25 Objective Remarks GENERAL: She appears pale and somewhat frail and pale.Elderly lady, laying in bed, appears to be no acute distress. SKIN: No rashes, ecchymoses or lesions. Cool and dry. HEAD: Atraumatic. Normocephalic. No temporal or scalp tenderness. EYES: Pupils equal round and reactive. Extraocular motions intact. No scleral icterus. No injection or drainage. ENT: Nose without bleeding, purulent drainage or septal hematoma. Throat without erythema, tonsillar hypertrophy or exudate. Uvula midline. Airway patent. NECK: Trachea midline. No JVD or lymphadenopathy. Supple, nontender, no meningeal signs. CARDIOVASCULAR: Regular rate and rhythm without murmurs, gallops, or rubs. RESPIRATORY: Clear to auscultation. Breath sounds equal bilaterally. No wheezes , rales, or rhonchi. GASTROINTESTINAL: Abdomen soft, non-tender, nondistended. No hepato-splenomegaly , or palpable masses. No guarding. MUSCULOSKELETAL: Extremities without clubbing, cyanosis, or edema. No joint tenderness, effusion, or edema noted. No calf tenderness. Negative Homans sign bilaterally. NEUROLOGICAL: Awake and alert. Cranial nerves II through XII intact. Motor and sensory grossly within normal limits. Five out of 5 muscle strength in all muscle groups. Peripheral neuropathy with decreased sensation of the lower extremities distal to the knees. Skin: Right foot is dressed in surgical dressing and bandages. Previously noted malodor/anaerobic smell is no longer present. Assessment/Plan Assessment 72-year-old female with a recent diagnosis of myelodysplastic syndrome associated with deletion 5 q. was recently initiated on Revlimid 10 mg p.o. daily for management of the underlying myelodysplastic syndrome. She took a total of 2 doses prior to presenting to [facility] earlier this week with complaints of severe pain involving the right foot associated with redness and purulent discharge from the right second digit. She was hospitalized with sepsis related to cellulitis. On 04/08/2018 she underwent surgical debridement of the right second toe, based on the intraoperative findings it appeared there were chronic gout related changes as well as changes to the bone resulting in softness. Osteomyelitis is suspected. Samples of the bone were sent to the microbiology lab for further testing. The patient remains on broad-spectrum antibiotic coverage with vancomycin and cefepime. Additional issues include acute kidney injury. The patient's myelodysplastic syndrome has resulted in significant refractory anemia requiring red cell transfusions on a weekly basis. Plan 1. Myelodysplastic syndrome associated with deletion 5 q. without additional abnormalities. 3 days prior to this hospitalization she was initiated on oral Revlimid but this is presently on hold due to the acute issues i.e. infection involving the right second toe with suspected osteomyelitis. She continues to require transfusion support and at baseline has significant anemia requiring at least 1 unit packed red blood cells per week, she also has baseline thrombocytopenia and neutropenia. Counts were reviewed, absolute neutrophil count is at 1.2, platelet count 44, 000 and hemoglobin 8.2 g/dL today. 2. Infection of the right second toe: Presently on broad-spectrum antibiotic coverage with vancomycin and Zosyn, status post surgical debridement. The wound appears to be healing well and there is no longer a malodorous discharge from the wound. Additionally all blood cultures and wound cultures remained negative for growth to date. Bone biopsies pending at this time. 3. Ideally, I would like to resume disease directed therapy with Revlimid as far as the myelodysplastic syndrome is concerned in the upcoming week. Typically we like to wait at least 10-14 days after surgery to initiate targeted therapy to allow optimal wound healing. Continue ongoing care. Dylan Mittal MD April 12, 2018 08:05
[2018-04-12] MEDS: METOPROLOL TARTRATE 25 MG TAB PO SCH ×2 (08:52→21:05)
[2018-04-12] MEDS: ALLOPURINOL 100 MG TAB PO SCH (08:52)
--- NOTE | 2018-04-12 10:49 | HHI.PR ---
Subjective Remarks in no distress. resting comfortably. pain is controlled. no fever. no new complaints. Objective Vitals Vital Signs Date Time Temp Pulse Resp B/P (MAP) Pulse Ox O2 Delivery O2 Flow Rate FiO2 04/12/18 10:06 Room Air 04/12/18 08:05 98.5 56 20 135/64 (87) 96 04/12/18 04:00 97.5 54 17 118/71 (87) 95 04/12/18 00:00 98.5 55 17 155/71 (99) 96 04/11/18 21:00 Room Air 04/11/18 20:00 98.4 58 17 144/69 (94) 94 04/11/18 16:00 98.8 53 19 165/69 (101) 97 04/11/18 12:00 98.2 50 17 160/70 (100) 96 I/O 04/11/18 04/11/18 04/11/18 04/12/18 04/12/18 04/12/18 07:00 15:00 23:00 07:00 15:00 23:00 Intake Total 240 ml 570 ml 1280 ml 290 ml Output Total 600 ml Balance -360 ml 570 ml 1280 ml 290 ml Intake Oral 240 ml 1180 ml 240 ml IV Total 570 ml 100 ml 50 ml Output Urine Total 600 ml # Voids 3 3 3 # Bowel Movements 0 1 0 Result Diagram: 04/12/18 0307 04/12/18 0307 Imaging Last Impressions Renal Ultrasound 04/06/18 0000 Signed Impressions: Service Date/Time: Friday, April 06, 2018 17:09 - CONCLUSION: Normal examination. Michael Parsons MD Foot X-Ray 04/05/18 0000 Signed Impressions: Service Date/Time: Thursday, April 05, 2018 12:37 - CONCLUSION: 1. Degenerative osteoarthritis. 2. Diffuse soft tissue swelling without acute fracture. Huber Plunkett MD Foot MRI 04/05/18 0000 Signed Impressions: Service Date/Time: Thursday, April 05, 2018 15:08 - CONCLUSION: Negative runoff myelitis or deep space abscess SPECT TAGGED white cell study may be of benefit if symptoms persist. Nolberto Elkins MD FACR Chest X-Ray 04/05/18 0000 Signed Impressions: Service Date/Time: Thursday, April 05, 2018 22:09 - CONCLUSION: No acute disease Thien Davidson MD Objective Remarks GENERAL: This is a well-nourished, well-developed patient, in no apparent distress. CARDIOVASCULAR: Regular rate and regular rhythm without murmurs, gallops, or rubs. RESPIRATORY: Clear to auscultation. Breath sounds equal bilaterally. No wheezes , rales, or rhonchi. GASTROINTESTINAL: Abdomen soft, non-tender, nondistended. Normal, active bowel sounds MUSCULOSKELETAL: right foot covered with clean dressing. NEURO: Alert & Oriented x4 to person, place, time, situation. 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 Post Op Diagnosis: same Surgeon: Sundar Sales Control Electrician(s): scrub Procedure: Right 2nd digit incision and drainage with bone biopsy Findings: pus, gout and soft bone Complications: none Specimen(s) removed: soft tissue and bone for path, bone cx for micro Estimated blood loss: less 5mL Anesthesia: General, Local Drains: None Tourniquet time (min at mmHg) none Patient to: Other Patient Condition: Good Implant/Devices: SEE IMPLANT LOG (if applicable) Date/Time of Procedure: SEE SURGICAL CARE RECORD Medications and IVs Inpatient Medications Acetaminophen (Tylenol) 650 mg Q4H PRN PO SEE LABEL COMMENTS Last administered on 04/09/18at 15:40; Start 04/09/18 at 07:30 Acetaminophen/ Hydrocodone Bitart ([place] 5-325 Mg) 1 tab ONCE ONCE PO Last administered on 04/05/18at 12:49; Start 04/05/18 at 12:30; Stop 04/05/18 at 12:31 ; Status DC Acetaminophen/ Hydrocodone Bitart ([place] 7.5-325 Mg) 2 tab Q6H PRN PO pain 6- 10; Start 04/10/18 at 14:00 Albumin Human 50 ml @ 60 mls/hr Q12H IV Last administered on 04/12/18at 05:34; Start 04/05/18 at 16:00 Allopurinol (Zyloprim) 100 mg DAILY PO Last administered on 04/12/18at 08:52; Start 04/09/18 at 15:45 Atorvastatin Calcium (Lipitor) 40 mg HS PO Last administered on 04/11/18at 21:00 ; Start 04/05/18 at 21:00 Dextrose (D50w (Vial) Inj) 50 ml UNSCH PRN IV PUSH HYPOGLYCEMIA-SEE COMMENTS Last administered on 04/06/18at 12:21; Start 04/06/18 at 10:00 Diphenhydramine HCl (Benadryl) 25 mg Q4H PRN PO SEE LABEL COMMENTS Last administered on 04/09/18at 15:40; Start 04/09/18 at 07:30 Furosemide (Lasix Inj) 20 mg ONCE ONCE IV PUSH Last administered on 04/06/18at 14:20; Start 04/06/18 at 09:00; Stop 04/06/18 at 09:01; Status DC Glucagon (Glucagon Inj) 1 mg UNSCH PRN OTHER HYPOGLYCEMIA-SEE COMMENTS Last administered on 04/06/18at 10:16; Start 04/06/18 at 10:00 Levothyroxine Sodium (Synthroid) 75 mcg DAILY@0600 PO Last administered on 04/12at 05:32; Start 04/06/18 at 06:00 Metoprolol Tartrate (Lopressor) 25 mg BID PO Last administered on 04/12/18at 08: 52; Start 04/05/18 at 21:00 Miscellaneous Information ([facility] [place] Nursing Information) ALL NURSING DEPARTME... UNSCH PRN .XX SEE LABEL COMMENTS; Start 04/08/18 at 16:05; Stop 04/09/18 at 16: 04; Status DC Miscellaneous Information ([facility] [place] Pharmacy Ordered Lab Info) SPECIFIC LAB TO BE JOSEE... ONCE ONCE .XX ; Start 04/12/18 at 23:45; Stop 04/12/18 at 23:46 Montelukast Sodium (Singulair) 10 mg HS PO Last administered on 04/11/18at 21:00 ; Start 04/05/18 at 21:00 Pharmacy Profile Note 0 ml @ 0 mls/hr UNSCH OTHER ; Start 04/06/18 at 18:45 Piperacillin Sod/ Tazobactam Sod 50 ml @ 100 mls/hr Q6H IV Last administered on 04/12/18at 05:29; Start 04/07/18 at 11:00 Sodium Chloride 250 ml @ 15 mls/hr ONCE ONCE IV Last administered on at 07:30; Start 04/09/18 at 07:30; Stop 04/10/18 at 00:09; Status DC Vancomycin HCl 1500 mg/Sodium Chloride 515 ml @ 250 mls/hr Q24H IV Last administered on 04/06/18at 23:49; Start 04/06/18 at 23:00; Stop 04/08/18 at 09:07 ; Status DC Vancomycin HCl 1800 mg/Sodium Chloride 518 ml @ 250 mls/hr ONCE ONCE IV Last administered on 04/05/18at 13:41; Start 04/05/18 at 13:00; Stop 04/05/18 at 15:04 ; Status DC Vancomycin HCl 2000 mg/Sodium Chloride 520 ml @ 250 mls/hr Q36H IV Last administered on 04/11/18at 12:36; Start 04/08/18 at 12:00 A/P Assessment and Plan A/P Cellulitis with possible osteomyelitis / gout?- Already failed outpatient Bactrim, blood cultures obtained - right foot MRI without contrast (given patient's LA) shows no definitive evidence of osteo-myelitis -s/p Right 2nd digit incision and drainage with bone biopsy - continue IV antibiotics per ID- awaiting pathology. DM -continue accu-check/ SSI Acute anemia -Acute on chronic myelodysplastic syndrome, s/p PRBC transfusion. -hematology following. Acute on chronic kidney injury -overall improved- will monitor. Coronary artery disease -Continue home Lipitor and beta-cherri Possible gout due to elevated uric acid Unable to pharmacologically anticoagulant given acute anemia, unable to mechanically anticoagulate given lower extremity edema Discharge Planning awaiting bone biopsy/ clearance from podiatry/ ID and Hematology. Edgar Curran MD April 12, 2018 10:49
[2018-04-12 12:05] VITALS: BP 102/72; PULSE 50; RESP 20; TEMP 98.3; O2SAT 92
--- NOTE | 2018-04-12 15:53 | HHI.NPPN ---
Subjective Renal Failure: Chronic, Acute, Stage III Interval History Renal function is better. She has no new complaints today. Pain is controlled. (Ai Malave) Review of Systems General Constitutional: Fatigue (Ai Malave) Cardiovascular Cardiac: Edema (Ai Malave) Skin Skin: Lesions, Ulcers Skin Remarks right foot (Ai Malave) Objective Data Data Vital Signs Date Time Temp Pulse Resp B/P (MAP) Pulse Ox O2 Delivery O2 Flow Rate FiO2 04/12/18 12:05 98.3 50 20 102/72 (82) 92 04/12/18 12:00 Room Air 04/12/18 10:06 Room Air 04/12/18 08:05 98.5 56 20 135/64 (87) 96 04/12/18 04:00 97.5 54 17 118/71 (87) 95 04/12/18 00:00 98.5 55 17 155/71 (99) 96 04/11/18 21:00 Room Air 04/11/18 20:00 98.4 58 17 144/69 (94) 94 04/11/18 16:00 98.8 53 19 165/69 (101) 97 (Ai Malave) -: 04/12/18 0307 04/12/18 0307 Physical Exam General Appearance: No Acute Distress, Comfortable, Obese (Ai Malave) Eyes Eye Exam: Pupils Equal, Pupils Reactive (Ai Malave) Pulmonary Resp Exam: Clear Bilaterally, Breath Sounds Equal, No Distress (Ai Malave) Cardiology CV Exam: Regular, Normal Sinus Rhythm, Good Perfusion (Ai Malave) Gastrointestinal/Abdomen GI Exam: Soft, Non-Tender, Bowel Sounds Present, Non-Distended (Ai Malave) Musculoskeletal MS Exam: Joints Intact, Normal Tone (Ai Malave) Integumentary Skin Exam: Warm, Dry, Lesion(s) Skin Remarks right 2nd toe wound, dressing in place (Ai Malave) Extremeties Extremities Exam: Pedal Pulses Palpable, Moderate Edema (Ai Malave) Neurologic Neuro Exam: Alert, Awake, Oriented, Speech Clear, Moving All Extremities (Ai Malave) Psychiatric Psych Exam: Appropriate Responses (Ai Malave) Assessment/Plan Discussed Condition With: Patient Assessment Summary: Hypertension, Diabetes Mellitus, CKD Stage III, CKD Stage IV Problem List: (1) Acute kidney injury ICD Codes: N17.9 - Acute kidney failure, unspecified Plan: LA on CKD 3-4. Her baseline creatinine 1.2-1.8, suspected underlying nephrosclerosis Renal function has improved. Stable from renal perspective. Tolerating oral fluids, IVF not required. Avoid nephrotoxic agents, On Vancomycin, avoid levels over 20. (2) Sepsis ICD Codes: A41.9 - Sepsis, unspecified organism Status: Acute Plan: Due to cellulitis, no osteomyelitis seen on imaging. s/p surgical I&D On Zosyn and IV Vancomycin. Cultures in progress. Narrow antibiotic spectrum when results are available. (3) Foot pain, right ICD Codes: M79.671 - Pain in right foot Plan: Being treated for cellulitis, podiatry following Also has elevated uric acid level,on allopurinol. (4) Myelodysplastic syndrome ICD Codes: D46.9 - Myelodysplastic syndrome, unspecified Status: Acute Plan: Hematology is following No evidence of iron deficiency on labs Given multiple transfusions this admission. (5) DM (diabetes mellitus) ICD Codes: E11.9 - Type 2 diabetes mellitus without complications Plan: Maintain glucose 140-180 mg/dL Has had episodes of hypoglycemia this admission. (6) HTN (hypertension) ICD Codes: I10 - Essential (primary) hypertension Plan: Monitor blood pressure, borderline hypotensive. Not on antihypertensives currently. FAIZA being held, can resume if needed. Plan We will see the patient as needed. Please call us if any concerns or changes. (Ai Malave) Plan patient was seen and examined. Agree with above assessment and plan. (Smith Grant MD) Problem Qualifiers (1) Sepsis: Qualified Codes: A41.9 - Sepsis, unspecified organism Ai Malave April 12, 2018 15:53 Smith Grant MD April 12, 2018 19:16
[2018-04-12 16:05] VITALS: BP 144/66; PULSE 52; RESP 20; TEMP 98.9; O2SAT 99
[2018-04-12 20:00] VITALS: BP 149/59; PULSE 55; RESP 20; TEMP 99.6; O2SAT 99
[2018-04-12] MEDS: ATORVASTATIN 40 MG TAB PO SCH (21:05)
[2018-04-12] MEDS: MONTELUKAST SODIUM 10 MG TAB PO SCH (21:06)
[2018-04-12] MEDS: VANCOMYCIN INJ 2,000 MG in SODIUM CHLORID 0.9% 500 ML INJ 500 ML IV SCH (23:21)
[2018-04-12] MEDS ORDERED: PHARMACY ORDERED LAB ONE (23:45)
[2018-04-13] VITALS: BP 141/55; PULSE 52; RESP 18; TEMP 98; O2SAT 100
[2018-04-13 04:00] VITALS: BP 161/58; PULSE 53; RESP 17; TEMP 98.3; O2SAT 100
[2018-04-13] MEDS: ALBUMIN 25% INJ 50 ML IV SCH ×2 (04:00→14:50)
[2018-04-13] MEDS: PIPERACIL-TAZO 2.25 GM PREMIX 50 ML IV SCH (04:53)
[2018-04-13] MEDS: LEVOTHYROXINE SODIUM 75 MCG TAB PO SCH (05:18)
[2018-04-13 07:44] LABS: AUTOMATED NEUTROPHIL # 0.8 TH/MM3 (1.8-7.7); BASOPHIL # 0.2 TH/MM3 (0-0.2); BASOPHIL % 13.9 % (0.0-2.0); EOSINOPHIL % 1.5 % (0.0-4.0); HEMATOCRIT 23.6 % (35.0-46.0); LYMPHOCYTE # 0.6 TH/MM3 (1.0-4.8); MEAN CELL VOLUME 86.3 FL (80.0-100.0); MEAN CORPUSCULAR HEMOGLOBIN 29.4 PG (27.0-34.0); MEAN CORPUSCULAR HGB CONC 34.1 % (32.0-36.0); MEAN PLATELET VOLUME 10.8 FL (7.0-11.0); MONO % 0.4 % (0.0-8.0); NEUT % 47.2 % (16.0-70.0); PLATELET COUNT 38 TH/MM3 (150-450); RED BLOOD COUNT 2.73 MIL/MM3 (4.00-5.30); RED CELL DISTRIBUTION WIDTH 17.3 % (11.6-17.2); WHITE BLOOD COUNT 1.7 TH/MM3 (4.0-11.0)
[2018-04-13 08:00] VITALS: BP 150/60; PULSE 50; RESP 18; TEMP 98.4; O2SAT 98
[2018-04-13] MEDS: METOPROLOL TARTRATE 25 MG TAB PO SCH ×2 (08:47→22:24)
[2018-04-13] MEDS: ALLOPURINOL 100 MG TAB PO SCH (08:47)
[2018-04-13 09:15] LABS: BANDS 17 % (0-6); BASOPHILS 6 % (0-2); DOHLE BODIES PRESENT (NONE SEEN); LYMPHOCYTES 37 % (9-44); MONOCYTES 2 % (0-8); NEUTROPHIL # MANUAL DIFF 0.9 TH/MM3 (1.8-7.7); POLYS (SEG NEUTROPHILS) 36 % (16-70); TOXIC GRANULATION 1+ (NORMAL); TOXIC VACUOLATION PRESENT (NONE SEEN)
[2018-04-13 09:16] LABS: OVALOCYTES 1+ (NORMAL)
[2018-04-13] MEDS: ACETAMINOPHEN/HYDROcodone 325 MG/7.5 MG TAB PO PRN (09:32)
--- NOTE | 2018-04-13 09:34 | PD.ONC.PN ---
Subjective Subjective Remarks Afebrile overnight. Patient resting in bed. still has pain in right foot, but only when she moves it. states she doesn't want any more IV's. she is tired of having IV's Objective Data Date Time Temp Pulse Resp B/P (MAP) Pulse Ox O2 Delivery O2 Flow Rate FiO2 04/13/18 04:00 98.3 53 17 161/58 (92) 100 04/13/18 00:00 98.0 52 18 141/55 (83) 100 04/12/18 20:30 Room Air 04/12/18 20:00 99.6 55 20 149/59 (89) 99 04/12/18 18:14 Room Air 04/12/18 16:05 98.9 52 20 144/66 (92) 99 04/12/18 12:05 98.3 50 20 102/72 (82) 92 04/12/18 12:00 Room Air 04/12/18 10:06 Room Air 04/13/18 04/13/18 04/13/18 07:00 15:00 23:00 Intake Total 600 ml Output Total 850 ml Balance -250 ml Result Diagram: 04/13/18 0620 04/12/18 0307 Laboratory Results Laboratory Tests Test 04/12/18 23:05 04/13/18 06:20 Vancomycin Level Trough 12.3 MCG/ML White Blood Count 1.7 TH/MM3 Red Blood Count 2.73 MIL/MM3 Hemoglobin 8.0 GM/DL Hematocrit 23.6 % Mean Corpuscular Volume 86.3 FL Mean Corpuscular Hemoglobin 29.4 PG Mean Corpuscular Hemoglobin Concent 34.1 % Red Cell Distribution Width 17.3 % Platelet Count 38 TH/MM3 Mean Platelet Volume 10.8 FL Neutrophils (%) (Auto) 47.2 % Lymphocytes (%) (Auto) 37.0 % Monocytes (%) (Auto) 0.4 % Eosinophils (%) (Auto) 1.5 % Basophils (%) (Auto) 13.9 % Neutrophils # (Auto) 0.8 TH/MM3 Lymphocytes # (Auto) 0.6 TH/MM3 Monocytes # (Auto) 0.0 TH/MM3 Eosinophils # (Auto) 0.0 TH/MM3 Basophils # (Auto) 0.2 TH/MM3 CBC Comment AUTO DIFF Differential Total Cells Counted 100 Neutrophils % (Manual) 36 % Band Neutrophils % 17 % Lymphocytes % 37 % Monocytes % 2 % Eosinophils % 2 % Basophils % 6 % Neutrophils # (Manual) 0.9 TH/MM3 Differential Comment FINAL DIFF MANUAL Toxic Granulation 1+ Toxic Vacuolation PRESENT Dohle Bodies PRESENT Platelet Estimate LOW Platelet Morphology Comment ENLARGED Ovalocytes 1+ Administered Medications Medications (Trade) Dose Ordered Sig/Riley Route PRN Reason Start Time Stop Time Status Last Admin Dose Admin Atorvastatin Calcium (Lipitor) 40 mg HS PO 04/05/18 21:00 04/12/18 21:05 Levothyroxine Sodium (Synthroid) 75 mcg DAILY@0600 PO 04/06/18 06:00 04/13/18 05:18 Metoprolol Tartrate (Lopressor) 25 mg BID PO 04/05/18 21:00 04/13/18 08:47 Montelukast Sodium (Singulair) 10 mg HS PO 04/05/18 21:00 04/12/18 21:06 Acetaminophen/ Hydrocodone Bitart ([place] 7.5-325 Mg) 1 tab Q6H PRN PO pain 1-5 04/05/18 15:15 04/10/18 13:56 Albumin Human 50 ml @ 60 mls/hr Q12H IV 04/05/18 16:00 04/12/18 16:54 Dextrose (D50w (Vial) Inj) 50 ml UNSCH PRN IV PUSH HYPOGLYCEMIA-SEE COMMENTS 04/06/18 10:00 04/06/18 12:21 Glucagon (Glucagon Inj) 1 mg UNSCH PRN OTHER HYPOGLYCEMIA-SEE COMMENTS 04/06/18 10:00 04/06/18 10:16 Vancomycin HCl 2000 mg/Sodium Chloride 520 ml @ 250 mls/hr Q36H IV 04/08/18 12:00 04/12/18 23:21 Acetaminophen (Tylenol) 650 mg Q4H PRN PO SEE LABEL COMMENTS 04/09/18 07:30 04/09/18 15:40 Diphenhydramine HCl (Benadryl) 25 mg Q4H PRN PO SEE LABEL COMMENTS 04/09/18 07:30 04/09/18 15:40 Allopurinol (Zyloprim) 100 mg DAILY PO 04/09/18 15:45 04/13/18 08:47 Objective Remarks GENERAL: Elderly obese female, sitting up in bed in nad. SKIN: Warm and dry. HEAD: Normocephalic. EYES: No injection or drainage. NECK: Supple, trachea midline. CARDIOVASCULAR: Regular rate and rhythm RESPIRATORY: Breath sounds equal bilaterally. No accessory muscle use. GASTROINTESTINAL: Abdomen soft, non-tender, nondistended. EXTREMITIES: No cyanosis. bilateral lower extremity edema--may be patient's normal body habitus d/t obesity. right foot in bandages, c/d/i. MUSCULOSKELETAL: Adequate muscle tone. NEUROLOGICAL: awake and alert. normal speech. Assessment/Plan Assessment 72-year-old female with a recent diagnosis of myelodysplastic syndrome associated with deletion 5 q. was recently initiated on Revlimid 10 mg p.o. daily for management of the underlying myelodysplastic syndrome. She took a total of 2 doses prior to presenting to [facility] earlier this week with complaints of severe pain involving the right foot associated with redness and purulent discharge from the right second digit. She was hospitalized with sepsis related to cellulitis. On 04/08/2018 she underwent surgical debridement of the right second toe, based on the intraoperative findings it appeared there were chronic gout related changes as well as changes to the bone resulting in softness. Osteomyelitis is suspected. Samples of the bone were sent to the microbiology lab for further testing. The patient remains on broad-spectrum antibiotic coverage with vancomycin and cefepime. Additional issues include acute kidney injury. The patient's myelodysplastic syndrome has resulted in significant refractory anemia requiring red cell transfusions on a weekly basis. Plan 1. Pancytopenia d/t MDS. does not need pRBC or platelets today. will start Neupogen 300mcg daily 2. Infection, right second toe: continue antibiotics per primary team, currently on Vanco, Zosyn 3. plan to resume Revlimid in the upcoming week. Leatha Guardado April 13, 2018 09:34
[2018-04-13] MEDS ORDERED: PIPERACIL-TAZO 3.375 GM PREMIX 50 ML IV SCH (10:00)
--- NOTE | 2018-04-13 10:48 | HHI.IDPN ---
Subjective Subjective Remarks Patient is a 72-year-old female, with known diabetes and neuropathy, presented to the hospital for further evaluation of severe pain on her right foot. As a baseline patient always has neuropathy in both feet where she has tingling and pins and needles sensation. About 6 days prior to admission, she had noted redness of her right second toe. Was a little bit swollen, and it started getting worse. She started experiencing more severe pain on that right foot, and she went to the emergency room on April 02. She was apparently given a shot of antibiotic and a prescription for an oral antibiotic. Patient stated that she did not have any x-ray done at that time or any blood work done. She has known MDS and has been getting Revlimid that was started about a week ago. She was not improving, and the pain persisted and worsened, so she presented to the hospital and admitted April 05. She did not know if she was having any fevers at home since she did not have any temperature. She however has not had any sweats. Denies any significant respiratory complaints, GI or any urinary complaints. Since admission patient has been febrile. Her white count has been decreasing as well as her platelet count. MRI did not show any evidence of osteomyelitis. Podiatry saw the patient and plans for surgery has been ordered for tomorrow. Patient currently still complaining of significant pain on her right foot. An area on her right second toe started draining today. Patient currently is on vancomycin and Zosyn. Infectious disease consultation has been requested to assist with evaluation and treatment of her fevers, cellulitis, in a patient with underlying MDS. Notes reviewed Temps ok Afebrile Path report compatible with gout Finding noted - had evidence of gout as well C/S negative Refused IV antibiotic this morning Running out of IV sites Still weak Creatinine better Started on Neupogen Antibiotics Vancomycin Zosyn Current Medications Medications (Trade) Dose Ordered Sig/Riley Route Start Time Stop Time Status Last Admin (Lipitor) 40 mg HS PO 04/05/18 21:00 04/12/18 21:05 (Synthroid) 75 mcg DAILY@0600 PO 04/06/18 06:00 04/13/18 05:18 (Lopressor) 25 mg BID PO 04/05/18 21:00 04/13/18 08:47 (Singulair) 10 mg HS PO 04/05/18 21:00 04/12/18 21:06 ([place] 7.5-325 Mg) 1 tab Q6H PRN PO 04/05/18 15:15 04/10/18 13:56 Albumin Human 50 ml @ 60 mls/hr Q12H IV 04/05/18 16:00 04/12/18 16:54 (D50w (Vial) Inj) 50 ml UNSCH PRN IV PUSH 04/06/18 10:00 04/06/18 12:21 (Glucagon Inj) 1 mg UNSCH PRN OTHER 04/06/18 10:00 04/06/18 10:16 Pharmacy Profile Note 0 ml @ 0 mls/hr UNSCH OTHER 04/06/18 18:45 Vancomycin HCl 2000 mg/Sodium Chloride 520 ml @ 250 mls/hr Q36H IV 04/08/18 12:00 04/12/18 23:21 (Tylenol) 650 mg Q4H PRN PO 04/09/18 07:30 04/09/18 15:40 (Benadryl) 25 mg Q4H PRN PO 04/09/18 07:30 04/09/18 15:40 (Zyloprim) 100 mg DAILY PO 04/09/18 15:45 04/13/18 08:47 ([place] 7.5-325 Mg) 2 tab Q6H PRN PO 04/10/18 14:00 04/13/18 09:32 Filgrastim 300 mcg/Dextrose 26 ml @ 50 mls/hr DAILY@14 IV 04/13/18 14:00 Piperacillin Sod/ Tazobactam Sod 50 ml @ 100 mls/hr Q6H IV 04/13/18 10:00 Lines PIV with no evidence of infection Past Medical History Chronic kidney disease Coronary Artery Disease Diabetes Type II Hyperlipidemia Hypertension Hypothyroidism Myelodysplastic Syndrome Neuropathy both feet Past Surgical History Bilateral heel surgery Cardiac catheterization Cholecystectomy Heal Spur surgery - both feet Bilateral knee replacement Right shoulder repair Bone marrow aspiration in 2018 Bone marrow biopsy in 2018 Colonoscopy in 2018 Allergies: Coded Allergies: No Known Allergies (Unverified , 04/05/18) Objective . Vital Signs Date Time Temp Pulse Resp B/P (MAP) Pulse Ox O2 Delivery O2 Flow Rate FiO2 04/13/18 10:01 Room Air 04/13/18 08:00 98.4 50 18 150/60 (90) 98 04/13/18 04:00 98.3 53 17 161/58 (92) 100 04/13/18 00:00 98.0 52 18 141/55 (83) 100 04/12/18 20:30 Room Air 04/12/18 20:00 99.6 55 20 149/59 (89) 99 04/12/18 18:14 Room Air 04/12/18 16:05 98.9 52 20 144/66 (92) 99 04/12/18 12:05 98.3 50 20 102/72 (82) 92 04/12/18 12:00 Room Air . Laboratory Tests Test 04/12/18 03:07 04/13/18 06:20 White Blood Count 1.9 TH/MM3 1.7 TH/MM3 Red Blood Count 2.82 MIL/MM3 2.73 MIL/MM3 Hemoglobin 8.2 GM/DL 8.0 GM/DL Hematocrit 24.4 % 23.6 % Mean Corpuscular Volume 86.6 FL 86.3 FL Mean Corpuscular Hemoglobin 29.2 PG 29.4 PG Mean Corpuscular Hemoglobin Concent 33.7 % 34.1 % Red Cell Distribution Width 17.5 % 17.3 % Platelet Count 44 TH/MM3 38 TH/MM3 Mean Platelet Volume 11.3 FL 10.8 FL CBC Comment AUTO DIFF AUTO DIFF Differential Total Cells Counted 100 100 Neutrophils % (Manual) 38 % 36 % Band Neutrophils % 25 % 17 % Lymphocytes % 30 % 37 % Monocytes % 3 % 2 % Eosinophils % 1 % 2 % Basophils % 2 % 6 % Neutrophils # (Manual) 1.2 TH/MM3 0.9 TH/MM3 Metamyelocytes 1 % Differential Comment FINAL DIFF MANUAL FINAL DIFF MANUAL Platelet Estimate LOW LOW Platelet Morphology Comment ENLARGED ENLARGED Ovalocytes 1+ 1+ Acanthocytes OCC Neutrophils (%) (Auto) 47.2 % Lymphocytes (%) (Auto) 37.0 % Monocytes (%) (Auto) 0.4 % Eosinophils (%) (Auto) 1.5 % Basophils (%) (Auto) 13.9 % Neutrophils # (Auto) 0.8 TH/MM3 Lymphocytes # (Auto) 0.6 TH/MM3 Monocytes # (Auto) 0.0 TH/MM3 Eosinophils # (Auto) 0.0 TH/MM3 Basophils # (Auto) 0.2 TH/MM3 Toxic Granulation 1+ Toxic Vacuolation PRESENT Dohle Bodies PRESENT Laboratory Tests Test 04/12/18 03:07 Blood Urea Nitrogen 30 MG/DL Creatinine 1.09 MG/DL Random Glucose 117 MG/DL Total Protein 6.3 GM/DL Albumin 2.7 GM/DL Calcium Level 8.3 MG/DL Phosphorus Level 3.2 MG/DL Magnesium Level 2.1 MG/DL Alkaline Phosphatase 175 U/L Aspartate Amino Transf (AST/SGOT) 15 U/L Alanine Aminotransferase (ALT/SGPT) 29 U/L Total Bilirubin 1.3 MG/DL Sodium Level 143 MEQ/L Potassium Level 4.3 MEQ/L Chloride Level 111 MEQ/L Carbon Dioxide Level 23.1 MEQ/L Anion Gap 9 MEQ/L Estimat Glomerular Filtration Rate 50 ML/MIN Imaging Last Impressions Renal Ultrasound 04/06/18 0000 Signed Impressions: Service Date/Time: Friday, April 06, 2018 17:09 - CONCLUSION: Normal examination. Michael Parsons MD Foot X-Ray 04/05/18 0000 Signed Impressions: Service Date/Time: Thursday, April 05, 2018 12:37 - CONCLUSION: 1. Degenerative osteoarthritis. 2. Diffuse soft tissue swelling without acute fracture. Huber Plunkett MD Foot MRI 04/05/18 0000 Signed Impressions: Service Date/Time: Thursday, April 05, 2018 15:08 - CONCLUSION: Negative runoff myelitis or deep space abscess SPECT TAGGED white cell study may be of benefit if symptoms persist. Nolberto Elkins MD FACR Chest X-Ray 04/05/18 0000 Signed Impressions: Service Date/Time: Thursday, April 05, 2018 22:09 - CONCLUSION: No acute disease Thien Davidson MD Physical Exam GENERAL: awake and alert, not in respiratory distress. Sitting at the side of the bed SKIN: Warm and dry. No generalized rash HEAD: Atraumatic. Normocephalic. No temporal wasting, or tenderness. EYES: Pale conjunctiva. No petechia or hemorrhage. Pupils equal, round and reactive to light. Extraocular movements full and intact. No scleral icterus. No injection or drainage. EARS, NOSE AND THROAT: Nose without bleeding or purulent nasal discharge. No sinus tenderness. Mucous membranes pink and moist. No oral lesions noted. NECK: Trachea midline. Supple and not tender, no meningeal signs CARDIOVASCULAR: Regular rate and rhythm. No murmurs, rubs or gallops heard RESPIRATORY: Clear to auscultation. Breath sounds equal bilaterally. No rales , wheezing or rhonchi ABDOMEN: Soft, obese, non-tender, nondistended. Bowel sounds present and normoactive. No guarding. No rebound. No organomegaly. EXTREMITIES: No clubbing, cyanosis. Has edema both feet. L foot - her 4th toe is slight red in color, stable, ?gout. R foot - has dry intact dressing in place. NEUROLOGICAL: Grossly noon-focal. PSYCHIATRIC: Normal affect, calm and cooperative. LINE: No evidence of infection Assessment & Plan Remarks IMPRESSION Febrile illness possible sepsis due to the R foot infection, resolved Cellulitis R second toe, has gout seen during surgery Prob gout L 4th toe MDS, problem with anemia, now with worsening neutropenia and thrombocytopenia CKD, creatinine shae, ?got worse due to infection Severe neuropathy DM RECOMMENDATION Stop IV antibiotics Clinda and Levaquin 7 days for the cellulitis Start treatment for gout Hematology following for the pancytopenia Explained plan to the patient Discussed with Marie Clarke MD April 13, 2018 10:48
[2018-04-13] MEDS ORDERED: FILGRASTIM 300 MCG/ML VIAL SQ ONE (11:00)
--- NOTE | 2018-04-13 11:03 | HHI.PR ---
Subjective Remarks in no acute distress. afebrile. pain is controlled. working with PT. d/w the RN. Objective Vitals Vital Signs Date Time Temp Pulse Resp B/P (MAP) Pulse Ox O2 Delivery O2 Flow Rate FiO2 04/13/18 10:01 Room Air 04/13/18 08:00 98.4 50 18 150/60 (90) 98 04/13/18 04:00 98.3 53 17 161/58 (92) 100 04/13/18 00:00 98.0 52 18 141/55 (83) 100 04/12/18 20:30 Room Air 04/12/18 20:00 99.6 55 20 149/59 (89) 99 04/12/18 18:14 Room Air 04/12/18 16:05 98.9 52 20 144/66 (92) 99 04/12/18 12:05 98.3 50 20 102/72 (82) 92 04/12/18 12:00 Room Air I/O 04/12/18 04/12/18 04/12/18 04/13/18 04/13/18 04/13/18 07:00 15:00 23:00 07:00 15:00 23:00 Intake Total 290 ml 390 ml 600 ml Output Total 850 ml Balance 290 ml 390 ml -250 ml Intake Oral 240 ml 340 ml IV Total 50 ml 50 ml 600 ml Output Urine Total 850 ml # Voids 3 3 1 # Bowel Movements 0 0 Result Diagram: 04/13/18 0620 04/12/18 0307 Imaging Last Impressions Renal Ultrasound 04/06/18 0000 Signed Impressions: Service Date/Time: Friday, April 06, 2018 17:09 - CONCLUSION: Normal examination. Michael Parsons MD Foot X-Ray 04/05/18 0000 Signed Impressions: Service Date/Time: Thursday, April 05, 2018 12:37 - CONCLUSION: 1. Degenerative osteoarthritis. 2. Diffuse soft tissue swelling without acute fracture. Huber Plunkett MD Foot MRI 04/05/18 0000 Signed Impressions: Service Date/Time: Thursday, April 05, 2018 15:08 - CONCLUSION: Negative runoff myelitis or deep space abscess SPECT TAGGED white cell study may be of benefit if symptoms persist. Nolberto Elkins MD FACR Chest X-Ray 04/05/18 0000 Signed Impressions: Service Date/Time: Thursday, April 05, 2018 22:09 - CONCLUSION: No acute disease Thien Davidson MD Objective Remarks GENERAL: This is a well-nourished, well-developed patient, in no apparent distress. CARDIOVASCULAR: Regular rate and regular rhythm without murmurs, gallops, or rubs. RESPIRATORY: Clear to auscultation. Breath sounds equal bilaterally. No wheezes , rales, or rhonchi. GASTROINTESTINAL: Abdomen soft, non-tender, nondistended. Normal, active bowel sounds MUSCULOSKELETAL: right foot covered with clean dressing. NEURO: Alert & Oriented x4 to person, place, time, situation. 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 Post Op Diagnosis: same Surgeon: Sundar Sales Store Merchandiser(s): scrub Procedure: Right 2nd digit incision and drainage with bone biopsy Findings: pus, gout and soft bone Complications: none Specimen(s) removed: soft tissue and bone for path, bone cx for micro Estimated blood loss: less 5mL Anesthesia: General, Local Drains: None Tourniquet time (min at mmHg) none Patient to: Other Patient Condition: Good Implant/Devices: SEE IMPLANT LOG (if applicable) Date/Time of Procedure: SEE SURGICAL CARE RECORD Medications and IVs Inpatient Medications Acetaminophen (Tylenol) 650 mg Q4H PRN PO SEE LABEL COMMENTS Last administered on 04/09/18at 15:40; Start 04/09/18 at 07:30 Acetaminophen/ Hydrocodone Bitart ([place] 5-325 Mg) 1 tab ONCE ONCE PO Last administered on 04/05/18at 12:49; Start 04/05/18 at 12:30; Stop 04/05/18 at 12:31 ; Status DC Acetaminophen/ Hydrocodone Bitart ([place] 7.5-325 Mg) 2 tab Q6H PRN PO pain 6- 10 Last administered on 04/13/18at 09:32; Start 04/10/18 at 14:00 Albumin Human 50 ml @ 60 mls/hr Q12H IV Last administered on 04/12/18at 16:54; Start 04/05/18 at 16:00 Allopurinol (Zyloprim) 100 mg DAILY PO Last administered on 04/13/18at 08:47; Start 04/09/18 at 15:45 Atorvastatin Calcium (Lipitor) 40 mg HS PO Last administered on 04/12/18at 21:05 ; Start 04/05/18 at 21:00 Dextrose (D50w (Vial) Inj) 50 ml UNSCH PRN IV PUSH HYPOGLYCEMIA-SEE COMMENTS Last administered on 04/06/18at 12:21; Start 04/06/18 at 10:00 Diphenhydramine HCl (Benadryl) 25 mg Q4H PRN PO SEE LABEL COMMENTS Last administered on 04/09/18at 15:40; Start 04/09/18 at 07:30 Filgrastim 300 mcg/Dextrose 26 ml @ 50 mls/hr DAILY@14 IV ; Start 04/13/18 at 14 :00 Furosemide (Lasix Inj) 20 mg ONCE ONCE IV PUSH Last administered on 04/06/18at 14:20; Start 04/06/18 at 09:00; Stop 04/06/18 at 09:01; Status DC Glucagon (Glucagon Inj) 1 mg UNSCH PRN OTHER HYPOGLYCEMIA-SEE COMMENTS Last administered on 04/06/18at 10:16; Start 04/06/18 at 10:00 Levothyroxine Sodium (Synthroid) 75 mcg DAILY@0600 PO Last administered on 04/13at 05:18; Start 04/06/18 at 06:00 Metoprolol Tartrate (Lopressor) 25 mg BID PO Last administered on 04/13/18at 08: 47; Start 04/05/18 at 21:00 Miscellaneous Information [place] [place] [facility] ALL NURSING DEPARTME... UNSCH PRN .XX SEE LABEL COMMENTS; Start 04/08/18 at 16:05; Stop 04/09/18 at 16: 04; Status DC Miscellaneous Information [place] [place] Info) SPECIFIC LAB TO BE JOSEE... ONCE ONCE .XX Last administered on 04/12/18at 23:07; Start 04/12/18 at 23:45; Stop 04/12/18 at 23:46; Status DC Montelukast Sodium (Singulair) 10 mg HS PO Last administered on 04/12/18at 21:06 ; Start 04/05/18 at 21:00 Pharmacy Profile Note 0 ml @ 0 mls/hr UNSCH OTHER ; Start 04/06/18 at 18:45 Piperacillin Sod/ Tazobactam Sod 50 ml @ 100 mls/hr Q6H IV ; Start 04/13/18 at 10:00 Sodium Chloride 250 ml @ 15 mls/hr ONCE ONCE IV Last administered on at 07:30; Start 04/09/18 at 07:30; Stop 04/10/18 at 00:09; Status DC Vancomycin HCl 1500 mg/Sodium Chloride 515 ml @ 250 mls/hr Q24H IV Last administered on 04/06/18at 23:49; Start 04/06/18 at 23:00; Stop 04/08/18 at 09:07 ; Status DC Vancomycin HCl 1800 mg/Sodium Chloride 518 ml @ 250 mls/hr ONCE ONCE IV Last administered on 04/05/18at 13:41; Start 04/05/18 at 13:00; Stop 04/05/18 at 15:04 ; Status DC Vancomycin HCl 2000 mg/Sodium Chloride 520 ml @ 250 mls/hr Q36H IV Last administered on 04/12/18at 23:21; Start 04/08/18 at 12:00 A/P Assessment and Plan A/P Cellulitis with gout- Already failed outpatient Bactrim, blood cultures obtained - right foot MRI without contrast (given patient's [place]) shows no definitive evidence of osteo-myelitis -s/p Right 2nd digit incision and drainage with bone biopsy; pathology with gout. - switched to po levaquin and clindamycin. -will consider adding prednisone. -d/w ID. DM -continue accu-check/ SSI Acute anemia leukopenia -Acute on chronic myelodysplastic syndrome, s/p PRBC transfusion. -started on Neupogen -hematology following. Acute on chronic kidney injury -overall improved- will monitor. Coronary artery disease -Continue home Lipitor and beta-cherri Unable to pharmacologically anticoagulant given acute anemia, unable to mechanically anticoagulate given lower extremity edema Discharge Planning possible discharge in one-two days when cleared by hematology. case management for dc planning to rehab. Edgar Curran MD April 13, 2018 11:03
[2018-04-13 12:00] VITALS: BP 119/55; PULSE 45; RESP 18; TEMP 97.6; O2SAT 97
[2018-04-13] MEDS: LEVOFLOXACIN 750 MG TAB PO SCH (12:43)
[2018-04-13] MEDS ORDERED: FILGRASTIM INJ 300 MCG in DEXTROSE 5% IN WATER INJ 25 ML IV SCH ×2 (14:00)
[2018-04-13] MEDS: CLINDAMYCIN 150 MG CAP PO SCH ×2 (14:30→22:23)
[2018-04-13 16:00] VITALS: BP 117/56; PULSE 52; RESP 18; TEMP 98; O2SAT 98
[2018-04-13 20:00] VITALS: BP 126/58; PULSE 56; RESP 18; TEMP 98.4; O2SAT 100
[2018-04-13] MEDS: ATORVASTATIN 40 MG TAB PO SCH (22:23)
[2018-04-13] MEDS: MONTELUKAST SODIUM 10 MG TAB PO SCH (22:23)
[2018-04-14] VITALS: BP 123/57; PULSE 55; RESP 17; TEMP 97.9; O2SAT 100
[2018-04-14] MEDS: ALBUMIN 25% INJ 50 ML IV SCH ×2 (03:59→16:00)
[2018-04-14 04:00] VITALS: BP 119/66; PULSE 51; RESP 18; TEMP 98.8; O2SAT 96
[2018-04-14] MEDS: LEVOTHYROXINE SODIUM 75 MCG TAB PO SCH (05:42)
[2018-04-14] MEDS: CLINDAMYCIN 150 MG CAP PO SCH ×3 (05:42→22:41)
[2018-04-14 07:47] LABS: HEMATOCRIT 23.5 % (35.0-46.0); HEMOGLOBIN 7.9 GM/DL (11.6-15.3); MEAN CELL VOLUME 86.6 FL (80.0-100.0); MEAN CORPUSCULAR HEMOGLOBIN 29.2 PG (27.0-34.0); MEAN CORPUSCULAR HGB CONC 33.7 % (32.0-36.0); MEAN PLATELET VOLUME 11.2 FL (7.0-11.0); PLATELET COUNT 34 TH/MM3 (150-450); RED BLOOD COUNT 2.71 MIL/MM3 (4.00-5.30); RED CELL DISTRIBUTION WIDTH 17.5 % (11.6-17.2); WHITE BLOOD COUNT 2.4 TH/MM3 (4.0-11.0)
[2018-04-14 08:00] VITALS: BP 130/57; PULSE 53; RESP 21; TEMP 99.4; O2SAT 94
[2018-04-14] MEDS: METOPROLOL TARTRATE 25 MG TAB PO SCH ×2 (08:44→22:41)
[2018-04-14] MEDS: ALLOPURINOL 100 MG TAB PO SCH (08:45)
--- NOTE | 2018-04-14 09:25 | HHI.PR ---
Subjective Remarks in no acute distress. looks comfortable although still weak. no fever. Objective Vitals Vital Signs Date Time Temp Pulse Resp B/P (MAP) Pulse Ox O2 Delivery O2 Flow Rate FiO2 04/14/18 08:00 99.4 53 21 130/57 (81) 94 04/14/18 04:00 98.8 51 18 119/66 (83) 96 04/14/18 00:00 97.9 55 17 123/57 (79) 100 04/13/18 20:30 Room Air 04/13/18 20:00 98.4 56 18 126/58 (80) 100 04/13/18 16:45 Room Air 04/13/18 16:00 98.0 52 18 117/56 (76) 98 04/13/18 12:00 97.6 45 18 119/55 (76) 97 04/13/18 10:01 Room Air I/O 04/13/18 04/13/18 04/13/18 04/14/18 04/14/18 04/14/18 07:00 15:00 23:00 07:00 15:00 23:00 Intake Total 600 ml 600 ml 240 ml Output Total 850 ml 750 ml 800 ml Balance -250 ml -150 ml -560 ml Intake Oral 600 ml 240 ml IV Total 600 ml Output Urine Total 850 ml 750 ml 800 ml # Voids 1 1 1 # Bowel Movements 0 Result Diagram: 04/14/18 0535 04/12/18 0307 Imaging Last Impressions Renal Ultrasound 04/06/18 0000 Signed Impressions: Service Date/Time: Friday, April 06, 2018 17:09 - CONCLUSION: Normal examination. Michael Parsons MD Foot X-Ray 04/05/18 0000 Signed Impressions: Service Date/Time: Thursday, April 05, 2018 12:37 - CONCLUSION: 1. Degenerative osteoarthritis. 2. Diffuse soft tissue swelling without acute fracture. Huber Plunkett MD Foot MRI 04/05/18 0000 Signed Impressions: Service Date/Time: Thursday, April 05, 2018 15:08 - CONCLUSION: Negative runoff myelitis or deep space abscess SPECT TAGGED white cell study may be of benefit if symptoms persist. Nolberto Elkins MD FACR Chest X-Ray 04/05/18 0000 Signed Impressions: Service Date/Time: Thursday, April 05, 2018 22:09 - CONCLUSION: No acute disease Thien Davidson MD Objective Remarks GENERAL: This is a well-nourished, well-developed patient, in no apparent distress. CARDIOVASCULAR: Regular rate and regular rhythm without murmurs, gallops, or rubs. RESPIRATORY: Clear to auscultation. Breath sounds equal bilaterally. No wheezes , rales, or rhonchi. GASTROINTESTINAL: Abdomen soft, non-tender, nondistended. Normal, active bowel sounds MUSCULOSKELETAL: right foot covered with clean dressing. NEURO: Alert & Oriented x4 to person, place, time, situation. 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 Post Op Diagnosis: same Surgeon: Sundar Sales Heel Cementer(s): scrub Procedure: Right 2nd digit incision and drainage with bone biopsy Findings: pus, gout and soft bone Complications: none Specimen(s) removed: soft tissue and bone for path, bone cx for micro Estimated blood loss: less 5mL Anesthesia: General, Local Drains: None Tourniquet time (min at mmHg) none Patient to: Other Patient Condition: Good Implant/Devices: SEE IMPLANT LOG (if applicable) Date/Time of Procedure: SEE SURGICAL CARE RECORD Medications and IVs Inpatient Medications Acetaminophen (Tylenol) 650 mg Q4H PRN PO SEE LABEL COMMENTS Last administered on 04/09/18 15:40; Start 04/09/18 at 07:30 Acetaminophen/ Hydrocodone Bitart ([place] 5-325 Mg) 1 tab ONCE ONCE PO Last administered on 04/05/18at 12:49; Start 04/05/18 at 12:30; Stop 04/05/18 at 12:31 ; Status DC Acetaminophen/ Hydrocodone Bitart ([place] 7.5-325 Mg) 2 tab Q6H PRN PO pain 6- 10 Last administered on 04/13/18 09:32; Start 04/10/18 at 14:00 Albumin Human 50 ml @ 60 mls/hr Q12H IV Last administered on 04/12/18at 16:54; Start 04/05/18 at 16:00 Allopurinol (Zyloprim) 100 mg DAILY PO Last administered on 04/14/18at 08:45; Start 04/09/18 at 15:45 Atorvastatin Calcium (Lipitor) 40 mg HS PO Last administered on 04/13/18 22:23 ; Start 04/05/18 at 21:00 Clindamycin HCl (Cleocin) 300 mg Q8HR PO Last administered on 04/14/18at 05:42; Start 04/13/18 at 14:00 Dextrose (D50w (Vial) Inj) 50 ml UNSCH PRN IV PUSH HYPOGLYCEMIA-SEE COMMENTS Last administered on 04/06/18at 12:21; Start 04/06/18 at 10:00 Diphenhydramine HCl (Benadryl) 25 mg Q4H PRN PO SEE LABEL COMMENTS Last administered on 04/09/18at 15:40; Start 04/09/18 at 07:30 Filgrastim (Neupogen Inj) 300 mcg ONCE ONCE SQ Last administered on 04/13/18at 12:43; Start 04/13/18 at 11:00; Stop 04/13/18 at 11:32; Status DC Filgrastim 300 mcg/Dextrose 26 ml @ 50 mls/hr DAILY@14 IV ; Start 04/13/18 at 14 :00; Status Future hold Furosemide (Lasix Inj) 20 mg ONCE ONCE IV PUSH Last administered on 04/06/18at 14:20; Start 04/06/18 at 09:00; Stop 04/06/18 at 09:01; Status DC Glucagon (Glucagon Inj) 1 mg UNSCH PRN OTHER HYPOGLYCEMIA-SEE COMMENTS Last administered on 04/06/18at 10:16; Start 04/06/18 at 10:00 Levofloxacin (Levaquin) 750 mg Q48H PO Last administered on 04/13/18at 12:43; Start 04/13/18 at 12:00 Levothyroxine Sodium (Synthroid) 75 mcg DAILY@0600 PO Last administered on 04/14at 05:42; Start 04/06/18 at 06:00 Metoprolol Tartrate (Lopressor) 25 mg BID PO Last administered on 04/14/18at 08: 44; Start 04/05/18 at 21:00 Miscellaneous Information ([facility] [place] [facility] ALL NURSING DEPARTME... UNSCH PRN .XX SEE LABEL COMMENTS; Start 04/08/18 at 16:05; Stop 04/09/18 at 16: 04; Status DC Miscellaneous Information ([facility] Ordered Lab Info) SPECIFIC LAB TO BE ONCE ONCE .XX Last administered on 04/12/18at 23:07; Start 04/12/18 at 23:45; Stop 04/12/18 at 23:46; Status DC Montelukast Sodium (Singulair) 10 mg HS PO Last administered on 04/13/18at 22:23 ; Start 04/05/18 at 21:00 Pharmacy Profile Note 0 ml @ 0 mls/hr UNSCH OTHER ; Start 04/06/18 at 18:45; Stop 04/13/18 at 10:45; Status DC Piperacillin Sod/ Tazobactam Sod 50 ml @ 100 mls/hr Q6H IV ; Start 04/13/18 at 10:00; Stop 04/13/18 at 10:45; Status DC Sodium Chloride 250 ml @ 15 mls/hr ONCE ONCE IV Last administered on at 07:30; Start 04/09/18 at 07:30; Stop 04/10/18 at 00:09; Status DC Vancomycin HCl 1500 mg/Sodium Chloride 515 ml @ 250 mls/hr Q24H IV Last administered on 04/06/18at 23:49; Start 04/06/18 at 23:00; Stop 04/08/18 at 09:07 ; Status DC Vancomycin HCl 1800 mg/Sodium Chloride 518 ml @ 250 mls/hr ONCE ONCE IV Last administered on 04/05/18at 13:41; Start 04/05/18 at 13:00; Stop 04/05/18 at 15:04 ; Status DC Vancomycin HCl 2000 mg/Sodium Chloride 520 ml @ 250 mls/hr Q36H IV Last administered on 04/12/18at 23:21; Start 04/08/18 at 12:00; Stop 04/13/18 at 10:45 ; Status DC A/P Assessment and Plan A/P Cellulitis with gout- Already failed outpatient Bactrim, blood cultures obtained - right foot MRI without contrast (given patient's [place]) shows no definitive evidence of osteo-myelitis -s/p Right 2nd digit incision and drainage with bone biopsy; pathology with gout. - switched to po levaquin and clindamycin. -will add prednisone. -previously d/w ID. DM -continue accu-check/ SSI Acute anemia leukopenia -Acute on chronic myelodysplastic syndrome, s/p PRBC transfusion. -received Neupogen -hematology following. Acute on chronic kidney injury -overall improved- will monitor. Coronary artery disease -Continue home Lipitor and beta-cherri Unable to pharmacologically anticoagulant given acute anemia, unable to mechanically anticoagulate given lower extremity edema Discharge Planning dc planning to SNF- when cleared by Hematology. case management consulted. Edgar Curran MD April 14, 2018 09:25
[2018-04-14] MEDS ORDERED: HYDR-3580 PO (09:27)
[2018-04-14 09:48] LABS: BANDS 28 % (0-6); BASOPHILS 1 % (0-2); LYMPHOCYTES 13 % (9-44); METAMYELOCYTES 1 % (0-1); MONOCYTES 3 % (0-8); POLYS (SEG NEUTROPHILS) 54 % (16-70)
[2018-04-14 09:50] LABS: TOXIC GRANULATION 1+ (NORMAL); TOXIC VACUOLATION PRESENT (NONE SEEN)
[2018-04-14] MEDS: predniSONE 20 MG TAB PO SCH (09:51)
[2018-04-14] MEDS: ACETAMINOPHEN/HYDROcodone 325 MG/7.5 MG TAB PO PRN (10:09)
--- NOTE | 2018-04-14 11:45 | PD.ONC.PN ---
Subjective Subjective Remarks Afebrile overnight. Patient working with physical therapy. feeling fatigued after walking/standing by bed. tolerated SQ injection of Neupogen yesterday without problem. ok with getting it again. Objective Data Date Time Temp Pulse Resp B/P (MAP) Pulse Ox O2 Delivery O2 Flow Rate FiO2 04/14/18 08:00 99.4 53 21 130/57 (81) 94 04/14/18 04:00 98.8 51 18 119/66 (83) 96 04/14/18 00:00 97.9 55 17 123/57 (79) 100 04/13/18 20:30 Room Air 04/13/18 20:00 98.4 56 18 126/58 (80) 100 04/13/18 16:45 Room Air 04/13/18 16:00 98.0 52 18 117/56 (76) 98 04/13/18 12:00 97.6 45 18 119/55 (76) 97 04/14/18 04/14/18 04/14/18 07:00 15:00 23:00 Intake Total 240 ml Output Total 800 ml Balance -560 ml Result Diagram: 04/14/18 0535 04/12/18 0307 Laboratory Results Laboratory Tests Test 04/14/18 05:35 White Blood Count 2.4 TH/MM3 Red Blood Count 2.71 MIL/MM3 Hemoglobin 7.9 GM/DL Hematocrit 23.5 % Mean Corpuscular Volume 86.6 FL Mean Corpuscular Hemoglobin 29.2 PG Mean Corpuscular Hemoglobin Concent 33.7 % Red Cell Distribution Width 17.5 % Platelet Count 34 TH/MM3 Mean Platelet Volume 11.2 FL CBC Comment AUTO DIFF Differential Total Cells Counted 100 Neutrophils % (Manual) 54 % Band Neutrophils % 28 % Lymphocytes % 13 % Monocytes % 3 % Basophils % 1 % Neutrophils # (Manual) 2.0 TH/MM3 Metamyelocytes 1 % Differential Comment FINAL DIFF MANUAL Toxic Granulation 1+ Toxic Vacuolation PRESENT Platelet Estimate LOW Platelet Morphology Comment ENLARGED Administered Medications Medications (Trade) Dose Ordered Sig/Riley Route PRN Reason Start Time Stop Time Status Last Admin Dose Admin Atorvastatin Calcium (Lipitor) 40 mg HS PO 04/05/18 21:00 04/13/18 22:23 Levothyroxine Sodium (Synthroid) 75 mcg DAILY@0600 PO 04/06/18 06:00 04/14/18 05:42 Metoprolol Tartrate (Lopressor) 25 mg BID PO 04/05/18 21:00 04/14/18 08:44 Montelukast Sodium (Singulair) 10 mg HS PO 04/05/18 21:00 04/13/18 22:23 Acetaminophen/ Hydrocodone Bitart ([place] 7.5-325 Mg) 1 tab Q6H PRN PO pain 1-5 04/05/18 15:15 04/10/18 13:56 Albumin Human 50 ml @ 60 mls/hr Q12H IV 04/05/18 16:00 04/12/18 16:54 Dextrose (D50w (Vial) Inj) 50 ml UNSCH PRN IV PUSH HYPOGLYCEMIA-SEE COMMENTS 04/06/18 10:00 04/06/18 12:21 Glucagon (Glucagon Inj) 1 mg UNSCH PRN OTHER HYPOGLYCEMIA-SEE COMMENTS 04/06/18 10:00 04/06/18 10:16 Acetaminophen (Tylenol) 650 mg Q4H PRN PO SEE LABEL COMMENTS 04/09/18 07:30 04/09/18 15:40 Diphenhydramine HCl (Benadryl) 25 mg Q4H PRN PO SEE LABEL COMMENTS 04/09/18 07:30 04/09/18 15:40 Allopurinol (Zyloprim) 100 mg DAILY PO 04/09/18 15:45 Future Hold 04/14/18 08:45 Acetaminophen/ Hydrocodone Bitart ([place] 7.5-325 Mg) 2 tab Q6H PRN PO pain 6-10 04/10/18 14:00 04/14/18 10:09 Clindamycin HCl (Cleocin) 300 mg Q8HR PO 04/13/18 14:00 04/14/18 05:42 Levofloxacin (Levaquin) 750 mg Q48H PO 04/13/18 12:00 04/13/18 12:43 Prednisone (Deltasone) 40 mg DAILY PO 04/14/18 09:30 04/19/18 08:00 04/14/18 09:51 Objective Remarks GENERAL: Elderly obese female, sitting up on side of bed, slightly dyspneic after working with physical therapy. SKIN: Warm and dry. HEAD: Normocephalic. EYES: No injection or drainage. NECK: Supple, trachea midline. CARDIOVASCULAR: +S1/S2, mild tachycardia RESPIRATORY: Breath sounds equal bilaterally. No accessory muscle use. GASTROINTESTINAL: Abdomen soft, non-tender, nondistended. EXTREMITIES: No cyanosis. MUSCULOSKELETAL: Adequate muscle tone. NEUROLOGICAL: awake and alert. normal speech. moving all extremities. Assessment/Plan Assessment 72-year-old female with a recent diagnosis of myelodysplastic syndrome associated with deletion 5 q. was recently initiated on Revlimid 10 mg p.o. daily for management of the underlying myelodysplastic syndrome. She took a total of 2 doses prior to presenting to [facility] earlier this week with complaints of severe pain involving the right foot associated with redness and purulent discharge from the right second digit. She was hospitalized with sepsis related to cellulitis. On 04/08/2018 she underwent surgical debridement of the right second toe, based on the intraoperative findings it appeared there were chronic gout related changes as well as changes to the bone resulting in softness. Osteomyelitis is suspected. Samples of the bone were sent to the microbiology lab for further testing. The patient remains on broad-spectrum antibiotic coverage with vancomycin and cefepime. Additional issues include acute kidney injury. The patient's myelodysplastic syndrome has resulted in significant refractory anemia requiring red cell transfusions on a weekly basis. Plan 1. Pancytopenia d/t MDS. continue Neupogen 300mcg daily. discussed with patient that she will likely need another blood transfusion in the next few days. does not need one today. 2. Infection, right second toe: now on Cleocin and Levaquin per infectious disease. 3. continue physical therapy. 4. Patient requesting port placement. d/w Dr. Mittal. We do not want to have port placed while patient has active infection, but will consider once her infection resolves. Leatha Guardado April 14, 2018 11:45
[2018-04-14 12:00] VITALS: BP 121/54; PULSE 52; RESP 20; TEMP 98; O2SAT 94
[2018-04-14] MEDS: FILGRASTIM 300 MCG/ML VIAL SQ SCH (12:54)
[2018-04-14 16:00] VITALS: BP 139/61; PULSE 47; RESP 20; TEMP 97.7; O2SAT 98
[2018-04-14 20:00] VITALS: BP 113/52; PULSE 90; RESP 18; TEMP 98.1; O2SAT 99
[2018-04-14] MEDS: MONTELUKAST SODIUM 10 MG TAB PO SCH (22:41)
[2018-04-14] MEDS: ATORVASTATIN 40 MG TAB PO SCH (22:41)
[2018-04-15] VITALS: BP 125/56; PULSE 52; RESP 18; TEMP 97.9; O2SAT 97
[2018-04-15 04:00] VITALS: BP 116/56; PULSE 50; RESP 16; TEMP 97.7; O2SAT 97
[2018-04-15] MEDS: ALBUMIN 25% INJ 50 ML IV SCH ×2 (04:00→12:08)
[2018-04-15] MEDS: CLINDAMYCIN 150 MG CAP PO SCH ×2 (06:03→12:04)
[2018-04-15] MEDS: LEVOTHYROXINE SODIUM 75 MCG TAB PO SCH (06:03)
[2018-04-15] MEDS: predniSONE 20 MG TAB PO SCH (08:20)
[2018-04-15] MEDS: METOPROLOL TARTRATE 25 MG TAB PO SCH (08:20)
--- NOTE | 2018-04-15 10:13 | HHI.PR ---
Subjective Remarks in no acute distress. no fever. pain is controlled. Objective Vitals Vital Signs Date Time Temp Pulse Resp B/P (MAP) Pulse Ox O2 Delivery O2 Flow Rate FiO2 04/15/18 04:00 97.7 50 16 116/56 (76) 97 04/15/18 00:00 97.9 52 18 125/56 (79) 97 04/14/18 20:00 Room Air 04/14/18 20:00 98.1 90 18 113/52 (72) 99 04/14/18 16:00 97.7 47 20 139/61 (87) 98 04/14/18 12:00 98.0 52 20 121/54 (76) 94 I/O 04/14/18 04/14/18 04/14/18 04/15/18 04/15/18 04/15/18 07:00 15:00 23:00 07:00 15:00 23:00 Intake Total 240 ml 1320 ml 240 ml Output Total 800 ml 600 ml 700 ml Balance -560 ml 720 ml -460 ml Intake Oral 240 ml 1320 ml 240 ml Output Urine Total 800 ml 600 ml 700 ml # Voids 1 # Bowel Movements 0 1 0 Result Diagram: 04/14/18 0535 04/12/18 0307 Imaging Last Impressions Renal Ultrasound 04/06/18 0000 Signed Impressions: Service Date/Time: Friday, April 06, 2018 17:09 - CONCLUSION: Normal examination. Michael Parsons MD Foot X-Ray 04/05/18 0000 Signed Impressions: Service Date/Time: Thursday, April 05, 2018 12:37 - CONCLUSION: 1. Degenerative osteoarthritis. 2. Diffuse soft tissue swelling without acute fracture. Huber Plunkett MD Foot MRI 04/05/18 0000 Signed Impressions: Service Date/Time: Thursday, April 05, 2018 15:08 - CONCLUSION: Negative runoff myelitis or deep space abscess SPECT TAGGED white cell study may be of benefit if symptoms persist. Nolberto Elkins MD FACR Chest X-Ray 04/05/18 0000 Signed Impressions: Service Date/Time: Thursday, April 05, 2018 22:09 - CONCLUSION: No acute disease Thien Davidson MD Objective Remarks GENERAL: This is a well-nourished, well-developed patient, in no apparent distress. CARDIOVASCULAR: Regular rate and regular rhythm without murmurs, gallops, or rubs. RESPIRATORY: Clear to auscultation. Breath sounds equal bilaterally. No wheezes , rales, or rhonchi. GASTROINTESTINAL: Abdomen soft, non-tender, nondistended. Normal, active bowel sounds MUSCULOSKELETAL: right foot covered with clean dressing. NEURO: Alert & Oriented x4 to person, place, time, situation. 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 Post Op Diagnosis: same Surgeon: Sundar Sales Advisory Application Developer(s): scrub Procedure: Right 2nd digit incision and drainage with bone biopsy Findings: pus, gout and soft bone Complications: none Specimen(s) removed: soft tissue and bone for path, bone cx for micro Estimated blood loss: less 5mL Anesthesia: General, Local Drains: None Tourniquet time (min at mmHg) none Patient to: Other Patient Condition: Good Implant/Devices: SEE IMPLANT LOG (if applicable) Date/Time of Procedure: SEE SURGICAL CARE RECORD Medications and IVs Inpatient Medications Acetaminophen (Tylenol) 650 mg Q4H PRN PO SEE LABEL COMMENTS Last administered on 04/09/18 15:40; Start 04/09/18 at 07:30 Acetaminophen/ Hydrocodone Bitart ([place] 5-325 Mg) 1 tab ONCE ONCE PO Last administered on 04/05/18at 12:49; Start 04/05/18 at 12:30; Stop 04/05/18 at 12:31 ; Status DC Acetaminophen/ Hydrocodone Bitart ([place] 7.5-325 Mg) 2 tab Q6H PRN PO pain 6- 10 Last administered on 04/14/18at 10:09; Start 04/10/18 at 14:00 Albumin Human 50 ml @ 60 mls/hr Q12H IV Last administered on 04/12/18at 16:54; Start 04/05/18 at 16:00 Allopurinol (Zyloprim) 100 mg DAILY PO Last administered on 04/14/18 08:45; Start 04/09/18 at 15:45; Status Future Hold Atorvastatin Calcium (Lipitor) 40 mg HS PO Last administered on 04/14/18at 22:41 ; Start 04/05/18 at 21:00 Clindamycin HCl (Cleocin) 300 mg Q8HR PO Last administered on 04/15/18at 06:03; Start 04/13/18 at 14:00 Dextrose (D50w (Vial) Inj) 50 ml UNSCH PRN IV PUSH HYPOGLYCEMIA-SEE COMMENTS Last administered on 04/06/18at 12:21; Start 04/06/18 at 10:00 Diphenhydramine HCl (Benadryl) 25 mg Q4H PRN PO SEE LABEL COMMENTS Last administered on 04/09/18at 15:40; Start 04/09/18 at 07:30 Filgrastim (Neupogen Inj) 300 mcg DAILY@14 SQ Last administered on 04/14/18at 12 :54; Start 04/14/18 at 14:00 Filgrastim 300 mcg/Dextrose 26 ml @ 50 mls/hr DAILY@14 IV ; Start 04/13/18 at 14 :00; Stop 04/14/18 at 09:58; Status DC Furosemide (Lasix Inj) 20 mg ONCE ONCE IV PUSH Last administered on 04/06/18at 14:20; Start 04/06/18 at 09:00; Stop 04/06/18 at 09:01; Status DC Glucagon (Glucagon Inj) 1 mg UNSCH PRN OTHER HYPOGLYCEMIA-SEE COMMENTS Last administered on 04/06/18at 10:16; Start 04/06/18 at 10:00 Levofloxacin (Levaquin) 750 mg Q48H PO Last administered on 04/13/18at 12:43; Start 04/13/18 at 12:00 Levothyroxine Sodium (Synthroid) 75 mcg DAILY@0600 PO Last administered on 04/15at 06:03; Start 04/06/18 at 06:00 Metoprolol Tartrate (Lopressor) 25 mg BID PO Last administered on 04/15/18at 08: 20; Start 04/05/18 at 21:00 Miscellaneous Information ([facility] Nursing Information) ALL NURSING DEPARTME... UNSCH PRN .XX SEE LABEL COMMENTS; Start 04/08/18 at 16:05; Stop 04/09/18 at 16: 04; Status DC Miscellaneous Information ([facility] Ordered Lab Info) SPECIFIC LAB TO BE JOSEE... ONCE ONCE .XX Last administered on 04/12/18at 23:07; Start 04/12/18 at 23:45; Stop 04/12/18 at 23:46; Status DC Montelukast Sodium (Singulair) 10 mg HS PO Last administered on 04/14/18at 22:41 ; Start 04/05/18 at 21:00 Pharmacy Profile Note 0 ml @ 0 mls/hr UNSCH OTHER ; Start 04/06/18 at 18:45; Stop 04/13/18 at 10:45; Status DC Piperacillin Sod/ Tazobactam Sod 50 ml @ 100 mls/hr Q6H IV ; Start 04/13/18 at 10:00; Stop 04/13/18 at 10:45; Status DC Prednisone (Deltasone) 40 mg DAILY PO Last administered on 04/15/18at 08:20; Start 04/14/18 at 09:30; Stop 04/19/18 at 08:00 Sodium Chloride 250 ml @ 15 mls/hr ONCE ONCE IV Last administered on at 07:30; Start 04/09/18 at 07:30; Stop 04/10/18 at 00:09; Status DC Vancomycin HCl 1500 mg/Sodium Chloride 515 ml @ 250 mls/hr Q24H IV Last administered on 04/06/18at 23:49; Start 04/06/18 at 23:00; Stop 04/08/18 at 09:07 ; Status DC Vancomycin HCl 1800 mg/Sodium Chloride 518 ml @ 250 mls/hr ONCE ONCE IV Last administered on 04/05/18at 13:41; Start 04/05/18 at 13:00; Stop 04/05/18 at 15:04 ; Status DC Vancomycin HCl 2000 mg/Sodium Chloride 520 ml @ 250 mls/hr Q36H IV Last administered on 04/12/18at 23:21; Start 04/08/18 at 12:00; Stop 04/13/18 at 10:45 ; Status DC A/P Assessment and Plan A/P Cellulitis with gout- Already failed outpatient Bactrim, blood cultures obtained - right foot MRI without contrast (given patient's [place]) shows no definitive evidence of osteo-myelitis -s/p Right 2nd digit incision and drainage with bone biopsy; pathology with gout. - switched to po levaquin and clindamycin. - added prednisone. -previously d/w ID. DM -continue accu-check/ SSI Acute anemia leukopenia -Acute on chronic myelodysplastic syndrome, s/p PRBC transfusion. -received Neupogen -H/H today pending. -hematology following. Acute on chronic kidney injury -overall improved- will monitor. Coronary artery disease -Continue home Lipitor and beta-cherri Unable to pharmacologically anticoagulant given acute anemia, unable to mechanically anticoagulate given lower extremity edema Discharge Planning dc planning to SNF within the next 24 hrs. might need PRBC transfusion before discharge. d/w and . see med list. f/u; pcp and podiatry, hematology. time spent 35 min. Edgar Curran MD April 15, 2018 10:13
[2018-04-15] MEDS ORDERED: CLIN150 PO (10:15)
[2018-04-15] MEDS ORDERED: PRED20 PO (10:15)
[2018-04-15] MEDS ORDERED: LEVA750T9 PO (10:15)
--- NOTE | 2018-04-15 10:16 | HHI.DS ---
Discharge Summary Admission Date April 05, 2018 at 14:14 Discharge Date: April 15, 2018 Admitting Diagnosis sepsis, anemia (1) Cellulitis of foot, right ICD Code: L03.115 - Cellulitis of right lower limb Diagnosis: Principal 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 Post Op Diagnosis: same Surgeon: Sundar Sales Seafood Harvester(s): scrub Procedure: Right 2nd digit incision and drainage with bone biopsy Findings: pus, gout and soft bone Complications: none Specimen(s) removed: soft tissue and bone for path, bone cx for micro Estimated blood loss: less 5mL Anesthesia: General, Local Drains: None Tourniquet time (min at mmHg) none Patient to: Other Patient Condition: Good Implant/Devices: SEE IMPLANT LOG (if applicable) Date/Time of Procedure: SEE SURGICAL CARE RECORD Brief History - From Admission 72-year-old white female being admitted for suspected osteomyelitis. Patient was in her usual state of health until a few days ago when she first came to the emergency department due to pain in her right second toe. She was discharged with oral antibiotics but says that the redness of her toe persisted with no improvement. Says that the pain in her right foot increased and thus she decided come back to the emergency department. She started feeling subjective fevers and chills. Denies any nausea vomiting diarrhea or any coughing. She says she had to call 911 and was not able to drive due to the severe pain in her foot. Says that it hurts to bear weight on both feet but the right foot is substantially greater. Denies any puncturing injury. She reports chronic lower extremity edema which is worse than her baseline, says she takes a diuretic at home otherwise. Reports being compliant with her medications. She says that normally his sugars run in the 120s in the morning fasting. Patient says she gets blood transfusions twice a month, follows up with oncology. In the emergency department she was noted to have a climbing fever from 102- 103. ESR obtained is greater than 140. Hemoglobin was 5.7. Blood cultures were drawn and vancomycin dose was administered in the emergency department. CBC/BMP: 5/23/18 0535 04/12/18 0307 Significant Findings Laboratory Tests Test 04/12/18 23:05 04/13/18 06:20 04/14/18 05:35 Vancomycin Level Trough 12.3 MCG/ML (5.0-10.0) White Blood Count 1.7 TH/MM3 (4.0-11.0) 2.4 TH/MM3 (4.0-11.0) Red Blood Count 2.73 MIL/MM3 (4.00-5.30) 2.71 MIL/MM3 (4.00-5.30) Hemoglobin 8.0 GM/DL (11.6-15.3) 7.9 GM/DL (11.6-15.3) Hematocrit 23.6 % (35.0-46.0) 23.5 % (35.0-46.0) Red Cell Distribution Width 17.3 % (11.6-17.2) 17.5 % (11.6-17.2) Platelet Count 38 TH/MM3 (150-450) 34 TH/MM3 (150-450) Basophils (%) (Auto) 13.9 % (0.0-2.0) Neutrophils # (Auto) 0.8 TH/MM3 (1.8-7.7) Lymphocytes # (Auto) 0.6 TH/MM3 (1.0-4.8) Band Neutrophils % 17 % (0-6) 28 % (0-6) Basophils % 6 % (0-2) Neutrophils # (Manual) 0.9 TH/MM3 (1.8-7.7) Toxic Granulation 1+ (NORMAL) 1+ (NORMAL) Toxic Vacuolation PRESENT (NONE SEEN) PRESENT (NONE SEEN) Dohle Bodies PRESENT (NONE SEEN) Platelet Estimate LOW (NORMAL) LOW (NORMAL) Platelet Morphology Comment ENLARGED (NORMAL) ENLARGED (NORMAL) Ovalocytes 1+ (NORMAL) Mean Platelet Volume 11.2 FL (7.0-11.0) Imaging Last Impressions Renal Ultrasound 04/06/18 0000 Signed Impressions: Service Date/Time: Friday, April 06, 2018 17:09 - CONCLUSION: Normal examination. Michael Parsons MD Foot X-Ray 04/05/18 0000 Signed Impressions: Service Date/Time: Thursday, April 05, 2018 12:37 - CONCLUSION: 1. Degenerative osteoarthritis. 2. Diffuse soft tissue swelling without acute fracture. Huber Plunkett MD Foot MRI 04/05/18 0000 Signed Impressions: Service Date/Time: Thursday, April 05, 2018 15:08 - CONCLUSION: Negative runoff myelitis or deep space abscess SPECT TAGGED white cell study may be of benefit if symptoms persist. Nolberto Elkins MD FACR Chest X-Ray 04/05/18 0000 Signed Impressions: Service Date/Time: Thursday, April 05, 2018 22:09 - CONCLUSION: No acute disease Thien Davidson MD PE at Discharge GENERAL: This is a well-nourished, well-developed patient, in no apparent distress. CARDIOVASCULAR: Regular rate and regular rhythm without murmurs, gallops, or rubs. RESPIRATORY: Clear to auscultation. Breath sounds equal bilaterally. No wheezes , rales, or rhonchi. GASTROINTESTINAL: Abdomen soft, non-tender, nondistended. Normal, active bowel sounds MUSCULOSKELETAL: right foot covered with clean dressing. NEURO: Alert & Oriented x4 to person, place, time, situation. Moves all ext x4 Hospital Course Cellulitis with gout- Already failed outpatient Bactrim, blood cultures obtained - right foot MRI without contrast (given patient's [place]) shows no definitive evidence of osteo-myelitis -s/p Right 2nd digit incision and drainage with bone biopsy; pathology with gout. - switched to po levaquin and clindamycin. - added prednisone. -previously d/w ID. DM -continue accu-check/ SSI Acute anemia leukopenia -Acute on chronic myelodysplastic syndrome, s/p PRBC transfusion. -received Neupogen -H/H today pending. -hematology following. Acute on chronic kidney injury -overall improved- will monitor. Coronary artery disease -Continue home Lipitor and beta-cherri Pt Condition on Discharge: Fair Discharge Disposition: Discharge to SNF Discharge Time: > 30 minutes Discharge Instructions DIET: Follow Instructions for: Heart Healthy Diet, Diabetic Diet Activities you can perform: Regular-No Restrictions Edgar Curran MD April 15, 2018 10:16
[2018-04-15 11:24] LABS: AUTOMATED NEUTROPHIL # 1.5 TH/MM3 (1.8-7.7); BASOPHIL # 0.3 TH/MM3 (0-0.2); BASOPHIL % 14.3 % (0.0-2.0); EOSINOPHIL % 1.6 % (0.0-4.0); HEMATOCRIT 25.3 % (35.0-46.0); HEMOGLOBIN 8.6 GM/DL (11.6-15.3); LYMPH % 16.7 % (9.0-44.0); LYMPHOCYTE # 0.4 TH/MM3 (1.0-4.8); MEAN CELL VOLUME 86.1 FL (80.0-100.0); MEAN CORPUSCULAR HEMOGLOBIN 29.4 PG (27.0-34.0); MEAN CORPUSCULAR HGB CONC 34.2 % (32.0-36.0); MEAN PLATELET VOLUME 11.5 FL (7.0-11.0); MONO % 0.3 % (0.0-8.0); NEUT % 67.1 % (16.0-70.0); PLATELET COUNT 33 TH/MM3 (150-450); RED BLOOD COUNT 2.94 MIL/MM3 (4.00-5.30); WHITE BLOOD COUNT 2.2 TH/MM3 (4.0-11.0)
[2018-04-15] MEDS: LEVOFLOXACIN 750 MG TAB PO SCH (12:04)
[2018-04-15] MEDS: FILGRASTIM 300 MCG/ML VIAL SQ SCH (12:05)
[2018-04-15 12:11] VITALS: BP 126/53; PULSE 48; RESP 18; TEMP 97.7; O2SAT 99
[2018-04-15 13:04] LABS: BANDS 24 % (0-6); BASOPHILS 4 % (0-2); LYMPHOCYTES 17 % (9-44); MONOCYTES 4 % (0-8); MYELOCYTES 2 % (0-0); NEUTROPHIL # MANUAL DIFF 1.6 TH/MM3 (1.8-7.7); POLYS (SEG NEUTROPHILS) 45 % (16-70)
[2018-04-15 16:18] VITALS: BP 103/59; PULSE 62; RESP 18; TEMP 98.1; O2SAT 100
--- NOTE | 2018-04-16 11:47 | PQ ---
Physician Query Response Document PATIENT: BLAISE KEMP : 1945 ADMIT DATE: 04/05/2018 2:14 PM DISCH DATE: 04/15/2018 6:45 PM RESPONDING PROVIDER #: [email or web address] QUERY TEXT: Rule Out Sepsis Clarification Rule out Sepsis is documented in the Medical Record. Please clarify whether: -- Patient has sepsis - Please document confirmed, suspected or probable causative organism - Please document confirmed, suspected or probable localized infection - Please clarify if sepsis is related to a device - Please clarify if sepsis was present on admission -- Sepsis was ruled out (include corresponding diagnosis for patient?s clinical picture and treatment ) -- Patient had sepsis which is resolved -- Other, please specify If you have any additional questions/comments and/or concerns, please do not hesitate to reach out to the [facility]I/Coding Hotline, Ext. [phone]. The patient's Clinical Indicators include: Unclear if sepsis ruled out. Admitting Diagnosis: sepsis, anemia D/S-Hospital Course: Cellulitis with gout- Already failed outpatient Bactrim, blood cultures obtained - right foot MRI without contrast (given patient's [place]) shows no definitive evidence of osteomyelitis . NO diagnosis of sepsis listed as Discharge Diagnosis. Consultants listing dx of sepsis (based on admit diagnosis?). 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 No sepsis criteria documented in ED report. ED report documents: She says she feels fevers, and she also feels lightheaded and weak. Vital signs from ED: 04/05/18 14:05 102.3 71 96 Room Air 04/05/18 11:58 139/63 (88) WBC on admission 5.2. All cultures negative. Lactic acid 2.3 on 04/05/18. Query created by: Janay Muñiz on 04/16/2018 11:36 AM RESPONSE TEXT: Sepsis due to right foot infection. Electronically signed by: Edgar Curran MD 04/16/2018 11:43 AM
== END 2018-04-15 18:45 | DRG 854 ==
LOC: NEPC 11:48 → NEDA 14:14 → N04B 16:00
PROVIDERS: ADMIT Internal Medicine; ATTEND Internal Medicine
PROC: 30233N1 Transfusion of Nonautologous Red Blood Cells into Peripheral Vein, Percutaneous Approach (ICD-10-PCS; 2018-04-05)
PROC: 0QBQ0ZZ Excision of Right Toe Phalanx, Open Approach (ICD-10-PCS; principal; 2018-04-08 15:07)
DX: A41.9 Sepsis, unspecified organism (principal); N18.4 Chronic kidney disease, stage 4 (severe); E11.40 Type 2 diabetes mellitus with diabetic neuropathy, unspecified; E11.628 Type 2 diabetes mellitus with other skin complications; N17.9 Acute kidney failure, unspecified; L02.611 Cutaneous abscess of right foot; Z68.41 Body mass index [BMI] 40.0-44.9, adult; I12.9 Hypertensive chronic kidney disease with stage 1 through stage 4 chronic kidney disease, or unspecified chronic kidney disease; D46.9 Myelodysplastic syndrome, unspecified; E03.9 Hypothyroidism, unspecified; E11.649 Type 2 diabetes mellitus with hypoglycemia without coma; Z79.84 Long term (current) use of oral hypoglycemic drugs; E66.9 Obesity, unspecified; M1A.9XX1 Chronic gout, unspecified, with tophus (tophi); L03.031 Cellulitis of right toe; E78.5 Hyperlipidemia, unspecified; R60.0 Localized edema; I25.10 Atherosclerotic heart disease of native coronary artery without angina pectoris; Z96.653 Presence of artificial knee joint, bilateral
CPT/HCPCS: 36430; 71046; 73630; 73718; 76775; 76937; 80048; 80053; 80202; 81001; 82948; 83036; 83605; 83735; 84100; 84439; 84443; 84550; 85007; 85027; 85652; 86140; 86850; 86900; 86901; 86920; 87015; 87040; 87070; 87102; 87116; 87205; 87206; 88304; 88307; 88311; 93005; 93923; 96365; J0131; J1100; J1442; J1610; J1940; J2250; J2270; J2370; J2405; J2543; J2765; J3010; J3370; J7030; J7040; J7050; J7512; L3260; P9016; P9047

== ENCOUNTER 2018-04-26 16:55 | Inpatient (IN) | payer OTHER, MEDICARE ==
[2018-04-26] VITALS (7 sets, daily range): BP systolic 124–188; BP diastolic 63–72; PULSE 47–59; RESP 16–20; TEMP 97.4–98.4; O2SAT 95–100
[~2018-04-26 16:55] MED LIST changes: -BACT800T5 PO; +CLIN150 PO; +HYDR-3580 PO; +LEVA750T9 PO; -LEVO25TA4 PO; +LEVO75TA3 PO; -LISI-515 PO; +MONT10TA4 PO; +PRED20 PO
[2018-04-26 18:20] LABS: INTERNATIONAL NORMALIZED RATIO 1.1 RATIO
[2018-04-26] MEDS ORDERED: MILKSUS PO (18:20)
[2018-04-26] MEDS ORDERED: HUMALOG SQ (18:20)
[2018-04-26] MEDS ORDERED: GLIP5TAB8 PO (18:20)
[2018-04-26] MEDS ORDERED: DIFL100T PO (18:20)
[2018-04-26 18:37] LABS: AUTOMATED NEUTROPHIL # 0.6 TH/MM3 (1.8-7.7); BASOPHIL % 0.4 % (0.0-2.0); EOSINOPHIL % 1.7 % (0.0-4.0); MEAN CELL VOLUME 84.1 FL (80.0-100.0); MEAN CORPUSCULAR HEMOGLOBIN 28.5 PG (27.0-34.0); MEAN CORPUSCULAR HGB CONC 33.9 % (32.0-36.0); MEAN PLATELET VOLUME 9.6 FL (7.0-11.0); MONO % 4.5 % (0.0-8.0); MONOCYTE # 0.1 TH/MM3 (0-0.9); NEUT % 36.4 % (16.0-70.0); RED BLOOD COUNT 2.04 MIL/MM3 (4.00-5.30); RED CELL DISTRIBUTION WIDTH 17.2 % (11.6-17.2); WHITE BLOOD COUNT 1.7 TH/MM3 (4.0-11.0)
[2018-04-26 18:42] LABS: HEMATOCRIT 17.1 % (35.0-46.0); HEMOGLOBIN 5.8 GM/DL (11.6-15.3); PLATELET COUNT 12 TH/MM3 (150-450)
[2018-04-26] MEDS ORDERED: SODIUM CHLOR 0.9% 250 ML INJ 250 ML IV ONE (18:45)
[2018-04-26 18:48] LABS: ALBUMIN 3.7 GM/DL (3.4-5.0); AST (GOT) 10 U/L (15-37); BLOOD UREA NITROGEN 23 MG/DL (7-18); CALCIUM 9.4 MG/DL (8.5-10.1); CHLORIDE 110 MEQ/L (98-107); CREATININE 1.24 MG/DL (0.50-1.00); GLOMERULAR FILTRATION RATE 43 ML/MIN (>89); GLUCOSE,RANDOM 86 MG/DL (74-106); SODIUM (NA) 143 MEQ/L (136-145)
--- NOTE | 2018-04-26 18:50 | PD ---
HPI Chief Complaint: Abnormal Results Time Seen by Provider: 17:33 Travel History International Travel<30 days: No Contact w/Intl Traveler<30days: No Traveled to known affect area: No History of Present Illness HPI Patient is a 72-year-old female who comes in due to abnormal labs. She has a history of myelodysplastic syndrome and was taking chemotherapy until she developed and infection in her toe. She says she has been at rehab trying to gain strength, but has been feeling extremely tired. She requested her labs be drawn and it was found that she was pancytopenic. She was sent here for further management. She denies any headache. She denies any pain. She denies any bleeding. She denies chest pain or shortness of breath. Severity is mild to moderate. PFSH Past Medical History Anemia: Yes (BLOOD TRANSFUSION ) Blood Disorders: No Heart Rhythm Problems: No Cancer: Yes (LEUKEMIA) Cardiovascular Problems: Yes High Cholesterol: Yes Chemotherapy: No Chest Pain: No Congestive Heart Failure: No Diabetes: Yes Patient Takes Glucophage: No Diminished Hearing: No Endocrine: No Genitourinary: No Hepatitis: No Hypertension: Yes Immune Disorder: No Implanted Vascular Access Dvce: No Musculoskeletal: No Neurologic: Yes Psychiatric: No Reproductive: No Respiratory: No Immunizations Current: No (PT DECLINED) Radiation Therapy: No Sleep Apnea: Yes Thyroid Disease: Yes (hypothyroid) Tetanus Vaccination: Unknown Influenza Vaccination: No ?: Not Menopausal: Yes Past Surgical History Abdominal Surgery: Yes (gallbladder removal) AICD: No Cardiac Surgery: No Cholecystectomy: Yes Ear Surgery: No Endocrine Surgery: No Eye Surgery: No Genitourinary Surgery: No Gynecologic Surgery: No Joint Replacement: Yes Oral Surgery: No Pacemaker: No Thoracic Surgery: No Other Surgery: Yes (BILATERAL HEEL SPUR ) Social History Alcohol Use: Yes (RARE) Tobacco Use: No Substance Use: No Allergies-Medications (Allergen,Severity, Reaction): Coded Allergies: No Known Allergies (Unverified , 04/26/18) Reported Meds & Prescriptions Reported Meds & Active Scripts Active Hydrocodone-Acetamin 7.5-325 (Hydrocodone/Acetaminophen) 7.5 Mg-325 Mg Tablet 1 Tab PO Q6H PRN Reported Milk of Magnesia Liq (Magnesium Hydroxide) 400 Mg/5 Ml Susp 30 Ml PO HS PRN Humalog Inj (Insulin Human Lispro) 1,000 Unit/10 Ml Vial 0-10 Units SQ ACHS Sliding Scale: if 0-200=0 units, 201-250=2 units, 251-300=4 units, 301-350=6 units, 351-400=8 units, 401-450=10 units, if >450, notify Diflucan (Fluconazole) 100 Mg Tab 100 Mg PO DAILY 10 Days Glipizide 5 Mg Tab 5 Mg PO DAILY Take 30 minutes before a meal Montelukast (Montelukast Sodium) 10 Mg Tab 10 Mg PO HS Levothyroxine (Levothyroxine Sodium) 75 Mcg Tab 75 Mcg PO DAILY Nitroglycerin SL (Nitroglycerin) 0.4 Mg Subl 0.4 Mg SL DIRECTED PRN ONE TABLET UNDER THE TONGUE NEEDED FOR CHEST PAIN, MAY REPEAT EVERY FIVE MINUTES FOR A TOTAL OF 3 DOSES OR CALL 911 IF NO RELIEF Isosorbide Mononitrate ER (Isosorbide Mononitrate) 30 Mg Nitish 30 Mg PO DAILY Metoprolol Tartrate 25 Mg Tab 25 Mg PO BID Atorvastatin (Atorvastatin Calcium) 40 Mg Tab 40 Mg PO HS Review of Systems Except as stated in HPI: all other systems reviewed are Neg General / Constitutional: No: Fever, Chills Eyes: No: Blurred Vision HENT: No: Headaches, Lightheadedness Cardiovascular: No: Chest Pain or Discomfort Respiratory: No: Shortness of Breath Gastrointestinal: No: Nausea, Vomiting Musculoskeletal: No: Myalgias Skin: No Rash, No Itching Neurologic: Positive: Weakness Physical Exam Narrative GENERAL: Awake and alert, in no acute distress. SKIN: Focused skin assessment warm/dry. No wounds or signs of infection. HEAD: Atraumatic. Normocephalic. EYES: Pupils equal and round. No scleral icterus. ENT: Mucous membranes pink and moist. NECK: Trachea midline. No JVD. CARDIOVASCULAR: Regular rate and rhythm. No murmur appreciated. RESPIRATORY: No accessory muscle use. Clear to auscultation. Breath sounds equal bilaterally. GASTROINTESTINAL: Abdomen soft, non-tender, nondistended. MUSCULOSKELETAL: No obvious deformities. No clubbing. No cyanosis. No edema. NEUROLOGICAL: Awake and alert. No obvious cranial nerve deficits. Motor grossly within normal limits. Normal speech. PSYCHIATRIC: Appropriate mood and affect; insight and judgment normal. Data Data Last Documented VS Vital Signs Date Time Temp Pulse Resp B/P (MAP) Pulse Ox O2 Delivery O2 Flow Rate FiO2 04/26/18 17:50 47 18 144/69 (94) 95 Room Air 04/26/18 17:12 97.4 Orders Orders Complete Blood Count With Diff (04/26/18 17:14) Act Partial Throm Time (Ptt) (04/26/18 17:14) Prothrombin Time / Inr (Pt) (04/26/18 17:14) Type And Screen (04/26/18 17:14) Comprehensive Metabolic Panel (04/26/18 17:41) Red Blood Cells (Rbc) (04/26/18 18:45) Platelet Pheresis (04/26/18 18:45) Blood Product Administration (04/26/18 18:45) Sodium Chlor 0.9% 250 Ml Inj (Ns 250 Ml (04/26/18 18:45) Admit Order (Ed Use Only) (04/26/18 ) Labs Laboratory Tests Test 04/26/18 17:35 White Blood Count 1.7 TH/MM3 Red Blood Count 2.04 MIL/MM3 Hemoglobin 5.8 GM/DL Hematocrit 17.1 % Mean Corpuscular Volume 84.1 FL Mean Corpuscular Hemoglobin 28.5 PG Mean Corpuscular Hemoglobin Concent 33.9 % Red Cell Distribution Width 17.2 % Platelet Count 12 TH/MM3 Mean Platelet Volume 9.6 FL Neutrophils (%) (Auto) 36.4 % Lymphocytes (%) (Auto) 57.0 % Monocytes (%) (Auto) 4.5 % Eosinophils (%) (Auto) 1.7 % Basophils (%) (Auto) 0.4 % Neutrophils # (Auto) 0.6 TH/MM3 Lymphocytes # (Auto) 1.0 TH/MM3 Monocytes # (Auto) 0.1 TH/MM3 Eosinophils # (Auto) 0.0 TH/MM3 Basophils # (Auto) 0.0 TH/MM3 CBC Comment AUTO DIFF Prothrombin Time 11.0 SEC Prothromb Time International Ratio 1.1 RATIO Activated Partial Thromboplast Time 22.9 SEC Blood Urea Nitrogen 23 MG/DL Creatinine 1.24 MG/DL Random Glucose 86 MG/DL Total Protein 7.3 GM/DL Albumin 3.7 GM/DL Calcium Level 9.4 MG/DL Alkaline Phosphatase 144 U/L Aspartate Amino Transf (AST/SGOT) 10 U/L Alanine Aminotransferase (ALT/SGPT) 15 U/L Total Bilirubin 1.2 MG/DL Sodium Level 143 MEQ/L Potassium Level 5.0 MEQ/L Chloride Level 110 MEQ/L Carbon Dioxide Level 23.0 MEQ/L Anion Gap 10 MEQ/L Estimat Glomerular Filtration Rate 43 ML/MIN MDM Medical Decision Making Medical Screen Exam Complete: Yes Emergency Medical Condition: Yes Medical Record Reviewed: Yes Differential Diagnosis Pancytopenia versus anemia versus neutropenia versus thrombocytopenia Narrative Course Patient is a 72 year old female who comes in due to abnormal labs. She complains of feeling tired. IV established, labs sent. Labs show Hgb of 5.8, platelets of 12. Per previous notes from Dr. Jain, patient is to be transfused as needed. 2 Units PRBCs ordered. 2 units platelets ordered. Patient admitted for further management. Diagnosis Primary Impression: Pancytopenia Admitting Information Admitting Physician Requests: Admit Aneta Cummins MD Apr 26, 2018 18:50
[2018-04-26 18:51] LABS: ALKALINE PHOSPHATASE 144 U/L (45-117); ALT (GPT) 15 U/L (10-53); TOTAL BILIRUBIN ADULT 1.2 MG/DL (0.2-1.0); TOTAL PROTEIN 7.3 GM/DL (6.4-8.2)
[2018-04-26] MEDS ORDERED: NALOXONE HCL 0.4 MG/ML AMP IV PUSH PRN (19:15)
[2018-04-26] MEDS ORDERED: SODIUM CHLORIDE 0.9% FLUSH 10 ML FLUSH IV FLUSH PRN (19:15)
[2018-04-26] MEDS ORDERED: ACETAMINOPHEN 325 MG TAB PO PRN (19:15)
[2018-04-26] MEDS ORDERED: ACETAMINOPHEN/HYDROcodone 325 MG/7.5 MG TAB PO PRN (19:30)
[2018-04-26] MEDS ORDERED: DEXTROSE 50% IN WATER 50 ML VIAL(D50) IV PUSH PRN (19:30)
[2018-04-26] MEDS ORDERED: GLUCAGON 1 MG/ML VIAL OTHER PRN (19:30)
[2018-04-26 20:04] LABS: BANDS 7 % (0-6); LYMPHOCYTES 58 % (9-44); NEUTROPHIL # MANUAL DIFF 0.7 TH/MM3 (1.8-7.7); POLYS (SEG NEUTROPHILS) 34 % (16-70)
--- NOTE | 2018-04-26 20:04 | HHI.HP ---
[facility]Staff Admission Diagnosis pancytopenia Diagnoses: Travel History International Travel<30 Days: No Contact w/Intl Traveler <30 Da: No Traveled to Known Affected Are: No History of Present Illness 72-year-old female with past medical history significant for myelodysplastic syndrome with pancytopenia, diabetes mellitus, hypertension, hyperlipidemia, chronic kidney disease and recent treatment for right second toe osteomyelitis presents to the emergency department for the evaluation of pancytopenia. The patient has been in a rehab facility since her discharge from the hospital on . She reports she has been feeling tired and weak for the past 2 days. She denies any dizziness or loss of consciousness. She reports that she usually feels this way when her blood count is low. She denies any chest pain or shortness of breath. No dizziness or loss of consciousness. No fever/ chills. No abdominal pain. No nausea/vomiting/diarrhea. No lateralizing signs /symptoms. Review of Systems Except as stated in HPI: all other systems reviewed are Neg Past Family Social History Past Medical History myelodysplastic syndrome with pancytopenia, diabetes mellitus, hypertension, hyperlipidemia, chronic kidney disease and recent treatment for right second toe osteomyelitis Past Surgical History I&D right second toe Bilateral heel spurs Bilateral knee replacement Right shoulder surgery Cholecystectomy Reported Medications Reported Meds & Active Scripts Active Hydrocodone-Acetamin 7.5-325 (Hydrocodone/Acetaminophen) 7.5 Mg-325 Mg Tablet 1 Tab PO Q6H PRN Reported Milk of Magnesia Liq (Magnesium Hydroxide) 400 Mg/5 Ml Susp 30 Ml PO HS PRN Humalog Inj (Insulin Human Lispro) 1,000 Unit/10 Ml Vial 0-10 Units SQ ACHS Sliding Scale: if 0-200=0 units, 201-250=2 units, 251-300=4 units, 301-350=6 units, 351-400=8 units, 401-450=10 units, if >450, notify Diflucan (Fluconazole) 100 Mg Tab 100 Mg PO DAILY 10 Days Glipizide 5 Mg Tab 5 Mg PO DAILY Take 30 minutes before a meal Montelukast (Montelukast Sodium) 10 Mg Tab 10 Mg PO HS Levothyroxine (Levothyroxine Sodium) 75 Mcg Tab 75 Mcg PO DAILY Nitroglycerin SL (Nitroglycerin) 0.4 Mg Subl 0.4 Mg SL DIRECTED PRN ONE TABLET UNDER THE TONGUE NEEDED FOR CHEST PAIN, MAY REPEAT EVERY FIVE MINUTES FOR A TOTAL OF 3 DOSES OR CALL 911 IF NO RELIEF Isosorbide Mononitrate ER (Isosorbide Mononitrate) 30 Mg Nitish 30 Mg PO DAILY Metoprolol Tartrate 25 Mg Tab 25 Mg PO BID Atorvastatin (Atorvastatin Calcium) 40 Mg Tab 40 Mg PO HS Allergies: Coded Allergies: No Known Allergies (Unverified , 04/26/18) Family History Patient does not know Social History Rare alcohol. Denies tobacco and illicit drugs. Physical Exam Vital Signs Vital Signs Date Time Temp Pulse Resp B/P (MAP) Pulse Ox O2 Delivery O2 Flow Rate FiO2 04/26/18 17:50 47 18 144/69 (94) 95 Room Air 04/26/18 17:34 Room Air 04/26/18 17:12 97.4 54 16 188/72 (110) 100 Physical Exam GENERAL: female lying in bed SKIN: No rashes, ecchymoses or lesions. Cool and dry. Incision of right second toe well-healed with 3 sutures remaining. HEAD: Atraumatic. Normocephalic. No temporal or scalp tenderness. EYES: Pupils equal round and reactive. Extraocular motions intact. No scleral icterus. No injection or drainage. ENT: Nose without bleeding, purulent drainage or septal hematoma. Throat without erythema, tonsillar hypertrophy or exudate. Uvula midline. Airway patent. NECK: Trachea midline. No JVD or lymphadenopathy. Supple, nontender, no meningeal signs. CARDIOVASCULAR: Regular rate and rhythm. 2/6 MARIBELL. RESPIRATORY: Clear to auscultation. Breath sounds equal bilaterally. No wheezes , rales, or rhonchi. GASTROINTESTINAL: Abdomen soft, non-tender, nondistended. No hepato-splenomegaly , or palpable masses. No guarding. MUSCULOSKELETAL: Extremities without clubbing, cyanosis, or edema. No joint tenderness, effusion, or edema noted. No calf tenderness. NEUROLOGICAL: Awake and alert. Cranial nerves II through XII intact. Motor and sensory grossly within normal limits. Normal speech. Laboratory Laboratory Tests Test 04/26/18 17:35 White Blood Count 1.7 Red Blood Count 2.04 Hemoglobin 5.8 Hematocrit 17.1 Mean Corpuscular Volume 84.1 Mean Corpuscular Hemoglobin 28.5 Mean Corpuscular Hemoglobin Concent 33.9 Red Cell Distribution Width 17.2 Platelet Count 12 Mean Platelet Volume 9.6 Neutrophils (%) (Auto) 36.4 Lymphocytes (%) (Auto) 57.0 Monocytes (%) (Auto) 4.5 Eosinophils (%) (Auto) 1.7 Basophils (%) (Auto) 0.4 Neutrophils # (Auto) 0.6 Lymphocytes # (Auto) 1.0 Monocytes # (Auto) 0.1 Eosinophils # (Auto) 0.0 Basophils # (Auto) 0.0 CBC Comment AUTO DIFF Prothrombin Time 11.0 Prothromb Time International Ratio 1.1 Activated Partial Thromboplast Time 22.9 Blood Urea Nitrogen 23 Creatinine 1.24 Random Glucose 86 Total Protein 7.3 Albumin 3.7 Calcium Level 9.4 Alkaline Phosphatase 144 Aspartate Amino Transf (AST/SGOT) 10 Alanine Aminotransferase (ALT/SGPT) 15 Total Bilirubin 1.2 Sodium Level 143 Potassium Level 5.0 Chloride Level 110 Carbon Dioxide Level 23.0 Anion Gap 10 Estimat Glomerular Filtration Rate 43 Result Diagram: 04/26/18 1735 04/26/18 1735 Caprini VTE Risk Assessment Caprini VTE Risk Assessment: Mod/High Risk (score >= 2) Caprini Risk Assessment Model Point Value = 1 Point Value = 2 Point Value = 3 Point Value = 5 Age 41-60 Minor surgery BMI > 25 kg/m2 Swollen legs Varicose veins or History of unexplained or recurrent spontaneous Oral contraceptives or hormone replacement Sepsis (< 1 month) Serious lung disease, including pneumonia (< 1 month) Abnormal pulmonary function Acute myocardial infarction Congestive heart failure (< 1 month) History of inflammatory bowel disease Medical patient at bed rest Age 61-74 Arthroscopic surgery Major open surgery (> 45 min) Laparoscopic surgery (> 45 min) Malignancy Confined to bed (> 72 hours) Immobilizing plaster cast Central venous access Age >= 75 History of VTE Family history of VTE Factor V Leiden Prothrombin [id number] Lupus anticoagulant Anticardiolipin antibodies Elevated serum homocysteine Heparin-induced thrombocytopenia Other congenital or acquired thrombophilia Stroke (< 1 month) Elective arthroplasty Hip, pelvis, or leg fracture Acute spinal cord injury (< 1 month) Prophylaxis Regimen Total Risk Factor Score Risk Level Prophylaxis Regimen 0-1 Low Early ambulation 2 Moderate Order ONE of the following: *Sequential Compression Device (SCD) *Heparin 5000 units SQ BID 3-4 Higher Order ONE of the following medications: *Heparin 5000 units SQ TID *Enoxaparin/Lovenox 40 mg SQ daily (WT < 150 kg, CrCl > 30 mL/min) *Enoxaparin/Lovenox 30 mg SQ daily (WT < 150 kg, CrCl > 10-29 mL/min) *Enoxaparin/Lovenox 30 mg SQ BID (WT < 150 kg, CrCl > 30 mL/min) AND/OR *Sequential Compression Device (SCD) 5 or more Highest Order ONE of the following medications: *Heparin 5000 units SQ TID (Preferred with Epidurals) *Enoxaparin/Lovenox 40 mg SQ daily (WT < 150 kg, CrCl > 30 mL/min) *Enoxaparin/Lovenox 30 mg SQ daily (WT < 150 kg, CrCl > 10-29 mL/min) *Enoxaparin/Lovenox 30 mg SQ BID (WT < 150 kg, CrCl > 30 mL/min) AND *Sequential Compression Device (SCD) Assessment and Plan Assessment and Plan Assessment/plan: 1. 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 Diabetes mellitus Sliding-scale insulin Monitor blood glucose 3. Chronic kidney disease Creatinine 1.24, at baseline Monitor renal function 4. Hypertension/hyperlipidemia Continue home medication 5. History of right second toe osteomyelitis Patient completed outpatient antibiotics Sutures removed in the emergency department Follow-up as an outpatient with podiatry FEN Heart healthy diet Electrolytes: Monitor and replete as needed Holding pharmacologic anticoagulation in lieu of pancytopenia Physician Certification 2 Midnight Certification Type: Admission for Inpatient Services Order for Inpatient Services The services are ordered in accordance with Medicare regulations or non- Medicare payer requirements, as applicable. In the case of services not specified as inpatient-only, they are appropriately provided as inpatient services in accordance with the 2-midnight benchmark. Estimated LOS (days): 2 2 days is the estimated time the patient will need to remain in the hospital, assuming treatment plan goals are met and no additional complications. Post-Hospital Plan: Not yet determined Eloisa Edwards MD Apr 26, 2018 20:04
[2018-04-26 20:05] LABS: ACANTHOCYTES OCC (NORMAL); OVALOCYTES 1+ (NORMAL); SPHEROCYTES OCC (NORMAL); TOXIC GRANULATION 2+ (NORMAL)
[2018-04-26] MEDS: INSULIN ASPART SUPPLEMENTAL SCALE SQ SCH (21:00)
[2018-04-26] MEDS: SODIUM CHLORIDE 0.9% FLUSH 10 ML FLUSH IV FLUSH SCH (21:05)
[2018-04-26] MEDS: ATORVASTATIN 40 MG TAB PO SCH (22:16)
[2018-04-26] MEDS: MONTELUKAST SODIUM 10 MG TAB PO SCH (22:16)
[2018-04-26] MEDS: METOPROLOL TARTRATE 25 MG TAB PO SCH (22:17)
[2018-04-27] VITALS (18 sets, daily range): BP systolic 123–157; BP diastolic 56–78; PULSE 49–62; RESP 16–18; TEMP 97.6–99; O2SAT 97–100
[2018-04-27] MEDS: LEVOTHYROXINE SODIUM 75 MCG TAB PO SCH (06:14)
[2018-04-27] MEDS: ISOSORBIDE MONONITRATE 30 MG CR TAB (IMDUR) PO SCH (06:14)
--- NOTE | 2018-04-27 07:51 | PD.CONS ---
History of Present Illness Service Hematology/oncology. Consult Requested By The hospitalist service. Reason for Consult Myelodysplastic syndrome associated with recurrent anemia and thrombocytopenia. Primary Care Physician Non-Staff Diagnoses: (1) Myelodysplastic syndrome with 5 q minus History of Present Illness Chief complaint: Progressive fatigue and weakness. Difficulty breathing with exertion. History of presenting illness: Ms. 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 She had no evidence of TP53 mutation, Waqar 2 mutation, MPL mutation and ALPHONSO R mutation. She was initiated on Revlimid at a dose of 10 mg daily about a month ago, she was only able to take this medication for 1 week and subsequently was hospitalized at [facility] with pain redness and swelling of the second digit of her right foot. The initial concern was for cellulitis/abscess/ osteomyelitis. She underwent surgical debridement with bone biopsy and was found to have findings consistent with gout flareup on pathologic review. Following her most recent hospitalization she was discharged to a fpc facility where she has remained to date. Yesterday she underwent blood work in preparation of an outpatient follow-up with myself, CBC indicated a hemoglobin of approximately 5 g/dL and thrombocytopenia with platelet count of approximately 15,000. She was sent directly to the emergency department at [facility] for further workup and management and specifically blood product transfusion. The patient reports having had symptoms of fatigue weakness and breathlessness. She denies overt bleeding specifically hematochezia or melena. Overnight she has been transfused 2 units packed red blood cells and 2 units platelets for hemoglobin of 7.8 g/dL and a platelet count of 12,000. Review of Systems Constitutional: COMPLAINS OF: Fatigue, Weight loss, Dizziness, Change in appetite (Decreased appetite), DENIES: Diaphoretic episodes, Fever, Weight gain , Chills, Night Sweats Endocrine: DENIES: Abnorml menstrual pattern, Heat/cold intolerance, Polydipsia , Polyuria, Polyphagia Eyes: DENIES: Blurred vision, Diplopia, Eye inflammation, Eye pain, Vision loss , Photosensitivity, Double Vision Ears, nose, mouth, throat: DENIES: Tinnitus, Hearing loss, Vertigo, Nasal discharge, Oral lesions, Throat pain, Hoarseness, Ear Pain, Running Nose, Epistaxis, Sinus Pain, Toothache, Odynophagia Respiratory: COMPLAINS OF: Shortness of breath, DENIES: Apneas, Cough, Snoring , Wheezing, Hemoptysis, Sputum production Cardiovascular: COMPLAINS OF: Palpitations, Dyspnea on Exertion, Lower Extremity Edema, DENIES: Chest pain, Syncope, PND, Orthopnea, Claudication Gastrointestinal: DENIES: Abdominal pain, Black stools, Bloody stools, Constipation, Diarrhea, Nausea, Vomiting, Difficulty Swallowing, Anorexia Genitourinary: DENIES: Abnormal vaginal bleeding, Dysmenorrhea, Dyspareunia, Sexual dysfunction, Urinary frequency, Urinary incontinence, Urgency, Hematuria , Dysuria, Nocturia, Vaginal discharge Musculoskeletal: COMPLAINS OF: Joint pain, Muscle aches, Stiffness, Joint Swelling, Back pain, DENIES: Neck pain Integumentary: DENIES: Abnormal pigmentation, Pruritus, Rash, Nail changes, Breast masses, Breast skin changes, Nipple discharge Hematologic/lymphatic: DENIES: Bruising, Lymphadenopathy Immunologic/allergic: DENIES: Eczema, Urticaria Neurologic: DENIES: Abnormal gait, Headache, Localized weakness, Paresthesias, Seizures, Speech Problems, Tremor, Poor Balance Psychiatric: COMPLAINS OF: Anxiety, Depression, DENIES: Confusion, Mood changes , Hallucinations, Agitation, Suicidal Ideation, Homicidal Ideation, Delusions Except as stated in HPI: all other systems reviewed are Neg Past Family Social History Allergies: Coded Allergies: No Known Allergies (Unverified , 04/26/18) Past Medical History Myelodysplastic syndrome Anemia and thrombocytopenia related to above Chronic kidney disease Coronary artery disease Gout Diabetes type 2 Hyperlipidemia Hypertension Hypothyroidism Past Surgical History Bilateral heel surgery Cardiac catheterization Cholecystectomy Right and left knee surgery Right rotator cuff repair Bone marrow biopsy and aspiration Colonoscopy Right foot second digit I&D; March 2018. Active Ordered Medications Atorvastatin 40 mg p.o. nightly Tylenol 650 mg p.o. every 4 hours needed for fever Hydrocodone/acetaminophen 7.5/225 mg tablets every 6 hours needed for pain Isosorbide mononitrate 30 mg p.o. daily Levothyroxine 75 mcg p.o. daily Low-dose insulin NovoLog per sliding scale before meals and at bedtime Metoprolol 25 mg p.o. twice daily Singular 10 mg p.o. nightly Family History She was adopted, she has no knowledge of her biologic family. Social History Patient is , she lives at home alone. 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 She reports being a lifelong non-smoker, she reports occasional alcohol intake. Patient has 3 adult children of her own. Physical Exam Vital Signs Vital Signs Date Time Temp Pulse Resp B/P (MAP) Pulse Ox O2 Delivery O2 Flow Rate FiO2 04/27/18 06:28 98.5 51 16 149/62 99 04/27/18 06:08 98.3 50 18 147/70 97 04/27/18 05:00 98.3 50 16 148/72 98 04/27/18 04:36 98.1 51 16 157/68 99 04/27/18 04:02 98.6 62 16 130/68 (88) 99 04/27/18 03:03 52 04/27/18 01:02 98.0 52 16 139/60 99 04/27/18 00:30 98.1 50 16 123/56 99 04/26/18 23:00 59 04/26/18 22:13 98.4 48 16 124/63 (83) 98 04/26/18 21:26 97.6 50 20 158/68 99 04/26/18 21:25 50 18 158/68 (98) 95 Room Air 04/26/18 21:10 98.2 52 20 170/67 04/26/18 17:50 47 18 144/69 (94) 95 Room Air 04/26/18 17:34 Room Air 04/26/18 17:12 97.4 54 16 188/72 (110) 100 Physical Exam GENERAL: Elderly lady, heavyset, sitting up in bed, appears to be no acute distress. She does appear pale and chronically ill. SKIN: No rashes, ecchymoses or lesions. Cool and dry. HEAD: Atraumatic. Normocephalic. No temporal or scalp tenderness. EYES: Pupils equal round and reactive. Extraocular motions intact. No scleral icterus. No injection or drainage. ENT: Nose without bleeding, purulent drainage or septal hematoma. Throat without erythema, tonsillar hypertrophy or exudate. Uvula midline. Airway patent. NECK: Trachea midline. No JVD or lymphadenopathy. Supple, nontender, no meningeal signs. CARDIOVASCULAR: Regular rate and rhythm without murmurs, gallops, or rubs. RESPIRATORY: Clear to auscultation. Breath sounds equal bilaterally. No wheezes , rales, or rhonchi. GASTROINTESTINAL: Obese belly, Abdomen soft, non-tender, nondistended. No hepato -splenomegaly, or palpable masses. No guarding. MUSCULOSKELETAL: Bilateral lower extremity edema, no calf tenderness, the right foot second digit surgical incision has completely healed up there is no tenderness or erythema noted. NEUROLOGICAL: Awake and alert. Cranial nerves II through XII intact. Motor and sensory grossly within normal limits. Five out of 5 muscle strength in all muscle groups. Normal speech. Laboratory Laboratory Tests Test 04/26/18 17:35 White Blood Count 1.7 Red Blood Count 2.04 Hemoglobin 5.8 Hematocrit 17.1 Mean Corpuscular Volume 84.1 Mean Corpuscular Hemoglobin 28.5 Mean Corpuscular Hemoglobin Concent 33.9 Red Cell Distribution Width 17.2 Platelet Count 12 Mean Platelet Volume 9.6 Neutrophils (%) (Auto) 36.4 Lymphocytes (%) (Auto) 57.0 Monocytes (%) (Auto) 4.5 Eosinophils (%) (Auto) 1.7 Basophils (%) (Auto) 0.4 Neutrophils # (Auto) 0.6 Lymphocytes # (Auto) 1.0 Monocytes # (Auto) 0.1 Eosinophils # (Auto) 0.0 Basophils # (Auto) 0.0 CBC Comment AUTO DIFF Differential Total Cells Counted 100 Neutrophils % (Manual) 34 Band Neutrophils % 7 Lymphocytes % 58 Eosinophils % 1 Neutrophils # (Manual) 0.7 Differential Comment FINAL DIFF MANUAL Toxic Granulation 2+ Platelet Estimate RARE Platelet Morphology Comment NORMAL Spherocytes OCC Ovalocytes 1+ Acanthocytes OCC Prothrombin Time 11.0 Prothromb Time International Ratio 1.1 Activated Partial Thromboplast Time 22.9 Blood Urea Nitrogen 23 Creatinine 1.24 Random Glucose 86 Total Protein 7.3 Albumin 3.7 Calcium Level 9.4 Alkaline Phosphatase 144 Aspartate Amino Transf (AST/SGOT) 10 Alanine Aminotransferase (ALT/SGPT) 15 Total Bilirubin 1.2 Sodium Level 143 Potassium Level 5.0 Chloride Level 110 Carbon Dioxide Level 23.0 Anion Gap 10 Estimat Glomerular Filtration Rate 43 Result Diagram: 04/26/18 1735 04/26/18 1735 Assessment and Plan Assessment and Plan 9-year-old female with a diagnosis of myelodysplastic syndrome associated with deletion 5 q. mutation. She was initiated on systemic therapy with Revlimid and early March 2018 after her diagnosis was established in February 2018. Leading up to the formal diagnosis the patient had severe anemia requiring red cell transfusions. Shortly after starting Revlimid she developed an acute gout flareup in her right foot and required hospitalization with surgical intervention. The patient came off of Revlimid to allow for complete wound healing. At the time of discharge from the hospital she was transferred to a fpc facility where she has remained up until this hospitalization. On 04/26/2018 the patient underwent a CBC in preparation for an outpatient follow- up with myself, she was noted to have a hemoglobin of approximately 5 g/dL and platelet count less than 15,000. She was appropriately transferred to the emergency department for red cell transfusion and platelet transfusion. The hematology service is been asked to see her to manage transfusion needs. Plan: 1. Myelodysplastic syndrome: She has received 2 units packed red blood cells and 2 units of platelets overnight. I will request a CBC to be done about 4 hours after her most recent transfusion. Should her counts have recovered I would favor she be discharged. I would like her to resume systemic therapy with Revlimid 10 mg p.o. daily now that her surgical incision is fully healed. 2. Discharge disposition: The patient has asked if she may be discharged home, in order for us to discharge home she will require clearance from physical therapy. She tells me she is able to walk with the help of a walker and has been doing so at the inpatient rehab facility. Disposition: Clear for discharge after transfusion support is delivered. Please advise the patient to resume Revlimid 10 mg p.o. daily at the time of discharge. She is scheduled to meet with me in my clinic on 04/29/2018. Dylan Mittal MD Apr 27, 2018 07:51
[2018-04-27] MEDS: INSULIN ASPART SUPPLEMENTAL SCALE SQ SCH ×5 (08:00→21:30)
[2018-04-27] MEDS: METOPROLOL TARTRATE 25 MG TAB PO SCH ×2 (08:55→21:00)
--- NOTE | 2018-04-27 09:01 | HHI.PR ---
Subjective Remarks Follow up for MDS. Patient is currently doing well post transfusion. Patient received 2 units of PRBCs. However her repeat hemoglobin shows only minute improvement from 5.8 to 6.5. Denies any chest pain, shortness of breath, fever or chills. Objective Vitals Vital Signs Date Time Temp Pulse Resp B/P (MAP) Pulse Ox O2 Delivery O2 Flow Rate FiO2 04/27/18 08:28 98.1 55 16 133/68 (89) 100 04/27/18 06:28 98.5 51 16 149/62 99 04/27/18 06:08 98.3 50 18 147/70 97 04/27/18 05:00 98.3 50 16 148/72 98 04/27/18 04:36 98.1 51 16 157/68 99 04/27/18 04:02 98.6 62 16 130/68 (88) 99 04/27/18 03:03 52 04/27/18 01:02 98.0 52 16 139/60 99 04/27/18 00:30 98.1 50 16 123/56 99 04/26/18 23:00 59 04/26/18 22:13 98.4 48 16 124/63 (83) 98 04/26/18 21:26 97.6 50 20 158/68 99 04/26/18 21:25 50 18 158/68 (98) 95 Room Air 04/26/18 21:10 98.2 52 20 170/67 04/26/18 17:50 47 18 144/69 (94) 95 Room Air 04/26/18 17:34 Room Air 04/26/18 17:12 97.4 54 16 188/72 (110) 100 I/O 04/26/18 04/26/18 04/26/18 04/27/18 04/27/18 04/27/18 07:00 15:00 23:00 07:00 15:00 23:00 Intake Total 1177 ml 289 ml Balance 1177 ml 289 ml Intake Packed Cells 800 ml Platelets 277 ml 239 ml Blood Product IV Normal Saline Flush 100 ml 50 ml # Voids 1 Result Diagram: 04/26/18 1735 04/26/18 1735 Objective Remarks GENERAL: Alert, oriented 3, NAD. SKIN: Warm and dry. HEAD: Normocephalic. EYES: No scleral icterus. No injection or drainage. NECK: Supple, trachea midline. No JVD or lymphadenopathy. CARDIOVASCULAR: Regular rate and rhythm without murmurs, gallops, or rubs. RESPIRATORY: Breath sounds equal bilaterally. No accessory muscle use. GASTROINTESTINAL: Abdomen soft, non-tender, nondistended. MUSCULOSKELETAL: No cyanosis, or edema. BACK: Nontender without obvious deformity. No CVA tenderness. 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 - MDS - Symptomatic anemia - Patient received 2 units of pRBCs and 2 units of platelets. - Post transfusion, Hgb 5.8 --> 6.5, Plt 12 --> 35. - Discussed with Hematology, we will transfuse 1 unit of PRBCs and CBC in the AM. LA - Creatinine improved 1.24 --> 1.05 Hypertension Diabetes Mellitus Hyperlipidemia -Start losartan 25 mg daily. Given patient's history of diabetes, losartan would be more appropriate. -Ideally, it would be better to discontinue metoprolol. Will keep metoprolol with holding parameters for now. -Patient's heart rate is in the low 50s. -Continue atorvastatin 40 mg nightly. Hypothyroidism -continue levothyroxine 75 mcg daily. Full code. SCDs. Discharge plan : We will plan on discharging patient in the morning if hemoglobin is improved. Vivian Boo DO Apr 27, 2018 09:01
[2018-04-27] MEDS: SODIUM CHLORIDE 0.9% FLUSH 10 ML FLUSH IV FLUSH SCH ×2 (12:27→20:12)
--- NOTE | 2018-04-27 12:27 | HHI.FF ---
Face to Face Verification Diagnosis: (1) Myelodysplastic syndrome with 5 q minus Physical Therapy Order: Evaluate and Treat, Improve ambulation, Strength and gait training Home Health Nursing Order: Medical education Signs/symptoms of disease process Medication education-adverse effect Nursing assessment with vital signs I have seen patient Nica Mcnair on 04/27/18. My clinical findings support the need for the requested home health care services because: Ltd mobility - disease progression Deconditioned w/ increased weakness Limited ability to care for self Need for psychosocial assistance Impaired cognition/judgement High risk of falls Infection w/ risk of complications I certify that my clinical findings support that this patient is homebound because: Unsteady gait/balance Unsafe to leave home unassisted Need for psychosocial assistance Unable to use public transportation Vivian Boo DO Apr 27, 2018 12:27
--- NOTE | 2018-04-27 12:58 | PD.PN.STU ---
Subjective Remarks Ms Mcnair is being followed after feeling fatigued and having labs showing pancytopenia. She has myelodysplasia and is being followed by Dr. Mittal. She is feeling better post-transfusion of platelets and RBCs. at this time no new concerns Denies headache, fever, chills, nausea, vomiting, chest pain, SOB, bleeding, bowel/urine changes, and swelling Objective Vitals Vital Signs Date Time Temp Pulse Resp B/P (MAP) Pulse Ox O2 Delivery O2 Flow Rate FiO2 04/27/18 08:28 98.1 55 16 133/68 (89) 100 04/27/18 08:00 51 04/27/18 06:28 98.5 51 16 149/62 99 04/27/18 06:08 98.3 50 18 147/70 97 04/27/18 05:00 98.3 50 16 148/72 98 04/27/18 04:36 98.1 51 16 157/68 99 04/27/18 04:02 98.6 62 16 130/68 (88) 99 04/27/18 03:03 52 04/27/18 01:02 98.0 52 16 139/60 99 04/27/18 00:30 98.1 50 16 123/56 99 04/26/18 23:00 59 04/26/18 22:13 98.4 48 16 124/63 (83) 98 04/26/18 21:26 97.6 50 20 158/68 99 04/26/18 21:25 50 18 158/68 (98) 95 Room Air 04/26/18 21:10 98.2 52 20 170/67 04/26/18 17:50 47 18 144/69 (94) 95 Room Air 04/26/18 17:34 Room Air 04/26/18 17:12 97.4 54 16 188/72 (110) 100 I/O 04/26/18 04/26/18 04/26/18 04/27/18 04/27/18 04/27/18 07:00 15:00 23:00 07:00 15:00 23:00 Intake Total 1177 ml 539 ml Balance 1177 ml 539 ml Intake Oral 250 ml Packed Cells 800 ml Platelets 277 ml 239 ml Blood Product IV Normal Saline Flush 100 ml 50 ml # Voids 1 1 # Bowel Movements 1 Result Diagram: 04/26/18 1735 04/26/18 1735 Other Results Vital Signs, 24 Hour Date Time Temp Pulse Resp B/P (MAP) Pulse Ox O2 Delivery O2 Flow Rate FiO2 04/27/18 08:28 98.1 55 16 133/68 (89) 100 04/27/18 08:00 51 04/27/18 06:28 98.5 51 16 149/62 99 04/27/18 06:08 98.3 50 18 147/70 97 04/27/18 05:00 98.3 50 16 148/72 98 04/27/18 04:36 98.1 51 16 157/68 99 04/27/18 04:02 98.6 62 16 130/68 (88) 99 04/27/18 03:03 52 04/27/18 01:02 98.0 52 16 139/60 99 04/27/18 00:30 98.1 50 16 123/56 99 04/26/18 23:00 59 04/26/18 22:13 98.4 48 16 124/63 (83) 98 04/26/18 21:26 97.6 50 20 158/68 99 04/26/18 21:25 50 18 158/68 (98) 95 Room Air 04/26/18 21:10 98.2 52 20 170/67 04/26/18 17:50 47 18 144/69 (94) 95 Room Air 04/26/18 17:34 Room Air 04/26/18 17:12 97.4 54 16 188/72 (110) 100 Allergies Coded Allergies No Known Allergies (Unverified04/26/18) Intake/Outtake 04/27/18 04/27/18 11:00 23:00 Intake Total 1716 ml Balance 1716 ml Laboratory Tests per Ly Test 04/26/18 17:35 Blood Urea Nitrogen 23 MG/DL Creatinine 1.24 MG/DL Random Glucose 86 MG/DL Total Protein 7.3 GM/DL Albumin 3.7 GM/DL Calcium Level 9.4 MG/DL Alkaline Phosphatase 144 U/L Aspartate Amino Transf (AST/SGOT) 10 U/L Alanine Aminotransferase (ALT/SGPT) 15 U/L Total Bilirubin 1.2 MG/DL Sodium Level 143 MEQ/L Potassium Level 5.0 MEQ/L Chloride Level 110 MEQ/L Carbon Dioxide Level 23.0 MEQ/L Red Blood Count 2.04 MIL/MM3 White Blood Count 1.7 TH/MM3 Active Scripts Active Hydrocodone-Acetamin 7.5-325 (Hydrocodone/Acetaminophen) 7.5 Mg-325 Mg Tablet 1 Tab PO Q6H PRN Reported Milk of Magnesia Liq (Magnesium Hydroxide) 400 Mg/5 Ml Susp 30 Ml PO HS PRN Humalog Inj (Insulin Human Lispro) 1,000 Unit/10 Ml Vial 0-10 Units SQ ACHS Sliding Scale: if 0-200=0 units, 201-250=2 units, 251-300=4 units, 301-350=6 units, 351-400=8 units, 401-450=10 units, if >450, notify Diflucan (Fluconazole) 100 Mg Tab 100 Mg PO DAILY 10 Days Glipizide 5 Mg Tab 5 Mg PO DAILY Take 30 minutes before a meal Montelukast (Montelukast Sodium) 10 Mg Tab 10 Mg PO HS Levothyroxine (Levothyroxine Sodium) 75 Mcg Tab 75 Mcg PO DAILY Nitroglycerin SL (Nitroglycerin) 0.4 Mg Subl 0.4 Mg SL DIRECTED PRN ONE TABLET UNDER THE TONGUE NEEDED FOR CHEST PAIN, MAY REPEAT EVERY FIVE MINUTES FOR A TOTAL OF 3 DOSES OR CALL 911 IF NO RELIEF Isosorbide Mononitrate ER (Isosorbide Mononitrate) 30 Mg Nitish 30 Mg PO DAILY Metoprolol Tartrate 25 Mg Tab 25 Mg PO BID Atorvastatin (Atorvastatin Calcium) 40 Mg Tab 40 Mg PO HS Objective Remarks pt in no acute distress HEENT: normocephalic, no signs of pallor Pulm: clear to auscultation Cardiac: RRR, normal s1 and s2 Extremities: no edema. Left 2nd toe is noted to be healing well without infection post op Medications and IVs Current Medications Medications (Trade) Dose Ordered Sig/Riley Route Start Time Stop Time Status Last Admin (NS Flush) 2 ml UNSCH PRN IV FLUSH 04/26/18 19:15 (NS Flush) 2 ml BID IV FLUSH 04/26/18 21:00 04/27/18 12:27 (Tylenol) 650 mg Q4H PRN PO 04/26/18 19:15 (Narcan Inj) 0.4 mg UNSCH PRN IV PUSH 04/26/18 19:15 (Lipitor) 40 mg HS PO 04/26/18 21:00 04/26/18 22:16 (Calhan 7.5-325 Mg) 1 tab Q6H PRN PO 04/26/18 19:30 (Imdur) 30 mg DAILY@0700 PO 04/27/18 07:00 04/27/18 06:14 (Synthroid) 75 mcg DAILY@0600 PO 04/27/18 06:00 04/27/18 06:14 (Lopressor) 25 mg BID PO 04/26/18 21:00 04/27/18 08:55 (Singulair) 10 mg HS PO 04/26/18 21:00 04/26/18 22:16 (D50w (Vial) Inj) 50 ml UNSCH PRN IV PUSH 04/26/18 19:30 (Glucagon Inj) 1 mg UNSCH PRN OTHER 04/26/18 19:30 (NovoLOG SUPPLEMENTAL SCALE) 1 ACHS SLIDING SCALE SQ 04/26/18 21:00 A/P Assessment and Plan Pt with hx of myelodysplasia presenting with fatigue and pancytopenia Pancytopenia Hg on admission was 5.8, WBC 1.7, Platelets 12 Likely due to myelodysplasia--following with Dr. Mittal. he will discharge her on Revlimid 10 mg PO daily per note transfused 2 units of prbcs and 2 units of platelets. waiting on repeat CBC to further evaluate Diabetes mellitus basal insulin with sliding scale prn Monitor blood glucose Chronic kidney disease Creatinine 1.24, at baseline Monitor renal function Hypertension/hyperlipidemia Continue home medication Can be discharged once CBC shows acceptable improvement Enio Tomas M3 Apr 27, 2018 12:58
[2018-04-27 13:18] LABS: MEAN CELL VOLUME 85.6 FL (80.0-100.0); MEAN CORPUSCULAR HEMOGLOBIN 29.9 PG (27.0-34.0); MEAN PLATELET VOLUME 6.8 FL (7.0-11.0); RED BLOOD COUNT 2.16 MIL/MM3 (4.00-5.30); RED CELL DISTRIBUTION WIDTH 16.7 % (11.6-17.2); WHITE BLOOD COUNT 1.2 TH/MM3 (4.0-11.0)
[2018-04-27 13:26] LABS: HEMATOCRIT 18.5 % (35.0-46.0); HEMOGLOBIN 6.5 GM/DL (11.6-15.3)
[2018-04-27 13:27] LABS: PLATELET COUNT 35 TH/MM3 (150-450)
[2018-04-27 13:36] LABS: BICARBONATE 26.9 MEQ/L (21.0-32.0); CALCIUM 8.9 MG/DL (8.5-10.1); CREATININE 1.05 MG/DL (0.50-1.00)
[2018-04-27 13:52] LABS: BANDS 7 % (0-6); BASOPHILS 2 % (0-2); LYMPHOCYTES 36 % (9-44); MONOCYTES 4 % (0-8); NEUTROPHIL # MANUAL DIFF 0.7 TH/MM3 (1.8-7.7); POLYS (SEG NEUTROPHILS) 49 % (16-70)
[2018-04-27 13:53] LABS: OVALOCYTES 1+ (NORMAL)
[2018-04-27] MEDS ORDERED: ACETAMINOPHEN 325 MG TAB PO PRN (14:45)
[2018-04-27] MEDS ORDERED: diphenhydrAMINE HCL 25 MG CAP PO PRN (14:45)
[2018-04-27] MEDS ORDERED: SODIUM CHLOR 0.9% 250 ML INJ 250 ML IV ONE (14:45)
[2018-04-27] MEDS ORDERED: FUROSEMIDE 20 MG/2 ML VIAL IV PUSH ONE (14:45)
[2018-04-27] MEDS: MONTELUKAST SODIUM 10 MG TAB PO SCH (21:30)
[2018-04-27] MEDS: ATORVASTATIN 40 MG TAB PO SCH (21:30)
[2018-04-27 22:18] LABS: HEMOGLOBIN 7.4 GM/DL (11.6-15.3)
[2018-04-28 00:02] VITALS: PULSE 48
[2018-04-28 01:38] VITALS: PULSE 38
[2018-04-28 04:05] VITALS: BP 167/64; PULSE 58; RESP 18; TEMP 97.9; O2SAT 97
[2018-04-28] MEDS: LEVOTHYROXINE SODIUM 75 MCG TAB PO SCH (06:13)
[2018-04-28] MEDS: ISOSORBIDE MONONITRATE 30 MG CR TAB (IMDUR) PO SCH (06:13)
[2018-04-28 07:03] LABS: MEAN CELL VOLUME 84.3 FL (80.0-100.0); MEAN CORPUSCULAR HEMOGLOBIN 29.7 PG (27.0-34.0); MEAN CORPUSCULAR HGB CONC 35.2 % (32.0-36.0); MEAN PLATELET VOLUME 7.3 FL (7.0-11.0); PLATELET COUNT 30 TH/MM3 (150-450); RED CELL DISTRIBUTION WIDTH 16.4 % (11.6-17.2)
[2018-04-28 07:12] LABS: HEMATOCRIT 20.3 % (35.0-46.0); HEMOGLOBIN 7.1 GM/DL (11.6-15.3)
[2018-04-28 07:52] VITALS: BP 146/69; PULSE 50; RESP 16; TEMP 97.8; O2SAT 99
[2018-04-28] MEDS: INSULIN ASPART SUPPLEMENTAL SCALE SQ SCH (08:00)
--- NOTE | 2018-04-28 08:25 | HHI.PR ---
Subjective Remarks Follow up for MDS. Patient is doing well. No acute concerns - no CP, SOB, fever , chills. Ambulating well. Wants to go home. Objective Vitals Vital Signs Date Time Temp Pulse Resp B/P (MAP) Pulse Ox O2 Delivery O2 Flow Rate FiO2 04/28/18 07:52 97.8 50 16 146/69 (94) 99 04/28/18 04:05 97.9 58 18 167/64 (98) 97 04/28/18 01:38 38 04/28/18 00:02 48 04/27/18 23:20 97.6 62 18 154/78 (103) 98 04/27/18 21:27 50 140/70 (93) 04/27/18 20:00 50 04/27/18 19:50 98.9 56 16 145/71 99 04/27/18 17:12 50 04/27/18 16:43 98.2 49 18 143/62 98 04/27/18 16:24 99.0 50 18 148/57 98 04/27/18 12:00 98.3 51 16 132/67 (88) 100 04/27/18 08:28 98.1 55 16 133/68 (89) 100 I/O 04/27/18 04/27/18 04/27/18 04/28/18 04/28/18 04/28/18 07:00 15:00 23:00 07:00 15:00 23:00 Intake Total 1177 ml 539 ml 875 ml 340 ml Output Total 800 ml 1050 ml Balance 1177 ml 539 ml 75 ml -710 ml Intake Oral 250 ml 450 ml 340 ml IV Total 20 ml Packed Cells 800 ml 380 ml Platelets 277 ml 239 ml Blood Product IV Normal Saline Flush 100 ml 50 ml 25 ml Output Urine Total 800 ml 1050 ml # Voids 1 1 3 # Bowel Movements 1 2 Result Diagram: 04/28/18 0535 04/27/18 1259 Objective Remarks GENERAL: Alert, oriented 3, NAD. SKIN: Warm and dry. HEAD: Normocephalic. EYES: No scleral icterus. No injection or drainage. NECK: Supple, trachea midline. No JVD or lymphadenopathy. CARDIOVASCULAR: Regular rate and rhythm without murmurs, gallops, or rubs. RESPIRATORY: Breath sounds equal bilaterally. No accessory muscle use. GASTROINTESTINAL: Abdomen soft, non-tender, nondistended. MUSCULOSKELETAL: No cyanosis, or edema. BACK: Nontender without obvious deformity. No CVA tenderness. 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 - MDS - Symptomatic anemia - Patient received 2 units of pRBCs and 2 units of platelets. - Post transfusion, Hgb 5.8 --> 6.5 --> 7.4 --> 7.1, Plt 12 --> 35 --> 30 - Discussed with Hematology. Will discharge patient home today and she is encouraged to see Dr. Mittal on 04/29/2018. [place] - Creatinine improved 1.24 --> 1.05 Hypertension Diabetes Mellitus Hyperlipidemia -Started losartan 25 mg daily. Given patient's history of diabetes, losartan would be more appropriate. -Ideally, it would be better to discontinue metoprolol. Will keep metoprolol with holding parameters for now. -Patient's heart rate is in the low 50s. -Continue atorvastatin 40 mg nightly. Hypothyroidism -continue levothyroxine 75 mcg daily. Full code. SCDs. Discharge patient to home Condition on discharge: Improved diabetic Diet as tolerated Ad Luci activity Rx written: New Medications: Losartan 50 Mg Tab Continued Medications: Atorvastatin 40 Mg Tab Fluconazole (Diflucan) 100 Mg Tab Glipizide 5 Mg Tab Take 30 minutes before a meal Hydrocodone/Acetaminophen (Hydrocodone-Acetamin 7.5-325) 7.5 Mg-325 Mg Tablet Insulin Lispro (Human) Inj (Humalog Inj) 1,000 Unit/10 Ml Vial Sliding Scale: if 0-200=0 units, 201-250=2 units, 251-300=4 units, 301-350=6 units, 351-400=8 units, 401-450=10 units, if >450, notify Isosorbide Mononitrate ER 30 Mg Nitish Levothyroxine 75 Mcg Tab Magnesium Hydroxide Liq (Milk of Magnesia Liq) 400 Mg/5 Ml Susp Montelukast 10 Mg Tab Nitroglycerin SL 0.4 Mg Subl ONE TABLET UNDER THE TONGUE NEEDED FOR CHEST PAIN, MAY REPEAT EVERY FIVE MINUTES FOR A TOTAL OF 3 DOSES OR CALL 911 IF NO RELIEF Follow-up with primary care physician within one week. Hematology on 04/29/2018. Vivian Boo DO Apr 28, 2018 8:25 am
[2018-04-28 08:28] LABS: BANDS 2 % (0-6); LYMPHOCYTES 44 % (9-44); MONOCYTES 4 % (0-8); NEUTROPHIL # MANUAL DIFF 0.5 TH/MM3 (1.8-7.7); POLYS (SEG NEUTROPHILS) 48 % (16-70)
[2018-04-28 08:29] LABS: OVALOCYTES 1+ (NORMAL)
[2018-04-28] MEDS: SODIUM CHLORIDE 0.9% FLUSH 10 ML FLUSH IV FLUSH SCH (09:00)
[2018-04-28] MEDS ORDERED: LOSARTAN 25 MG TAB PO SCH (09:00)
[2018-04-28] MEDS: METOPROLOL TARTRATE 25 MG TAB PO SCH (09:00)
[2018-04-28 10:17] VITALS: PULSE 61
[2018-04-28] MEDS ORDERED: LOSA50TA PO (14:04)
== END 2018-04-28 11:50 | disposition home health service (06) | DRG 812 ==
LOC: NEPE 16:55 → NEDA 18:57 → HCIN 22:49
PROVIDERS: ADMIT Hospitalist; ATTEND Hospitalist
PROC: 30233N1 Transfusion of Nonautologous Red Blood Cells into Peripheral Vein, Percutaneous Approach (ICD-10-PCS; 2018-04-26)
PROC: 30233R1 Transfusion of Nonautologous Platelets into Peripheral Vein, Percutaneous Approach (ICD-10-PCS; principal; 2018-04-27)
DX: D46.C Myelodysplastic syndrome with isolated del(5q) chromosomal abnormality (principal); N17.9 Acute kidney failure, unspecified; E11.22 Type 2 diabetes mellitus with diabetic chronic kidney disease; E78.5 Hyperlipidemia, unspecified; I12.9 Hypertensive chronic kidney disease with stage 1 through stage 4 chronic kidney disease, or unspecified chronic kidney disease; N18.9 Chronic kidney disease, unspecified; E03.9 Hypothyroidism, unspecified; I25.10 Atherosclerotic heart disease of native coronary artery without angina pectoris; Z96.653 Presence of artificial knee joint, bilateral
CPT/HCPCS: 36430; 80048; 80053; 82948; 85007; 85014; 85018; 85027; 85610; 85730; 86850; 86900; 86901; 86920; J1940; J7050; P9016; P9035